=== PATIENT | male | born 1935 | race American Indian/Alaskan Native ===

== ENCOUNTER 2020-09-16 09:58 | Inpatient (IN) | payer MEDICARE ==
[2020-09-16] MEDS ORDERED: SODIUM CHLORIDE 0.9% 500 ML 500 ML IV ONE (10:33)
[2020-09-16 10:58] LABS: Eosinophils # (Auto) 0.1 K/mm3 (0.0-0.4); Eosinophils % (Auto) 0.9 % (0.0-4.3); Monocytes # (Auto) 0.1 K/mm3 (0.0-0.8); Monocytes % (Auto) 1.3 % (0.0-7.3)
[2020-09-16 11:00] LABS: Basophils % (Auto) 0.3 % (0.0-1.8); Hemoglobin 11.2 gm/dl (11.8-15.2); Lymphocytes # (Auto) 2.9 K/mm3 (1.2-5.4); Lymphocytes % (Auto) 26.5 % (13.4-35.0); Mean Corpuscular HGB Conc 31 % (32-34); Mean Corpuscular Volume 86 fl (84-94); Platelet Count 162 K/mm3 (140-440); Red Blood Count 4.18 M/mm3 (3.65-5.03); Red Cell Distribution Width 14.9 % (13.2-15.2)
[2020-09-16 11:07] LABS: Alanine Aminotransferase 47 units/L (7-56); Albumin 3.2 g/dL (3.9-5); BUN/Creatinine Ratio 17; Blood Urea Nitrogen 25 mg/dL (9-20); Calcium 8.6 mg/dL (8.4-10.2); Hemolysis Index 17
[2020-09-16 11:15] LABS: INR 1.55 (0.87-1.13)
[2020-09-16 11:16] LABS: Partial Thromboplastin Time 43.4 Sec. (24.2-36.6)
[2020-09-16 11:19] LABS: Bilirubin,Direct < 0.2 mg/dL (0-0.2)
--- NOTE | 2020-09-16 11:24 | XRay Report ---
CHEST 1 VIEW INDICATION: cardiac arrest, tube position COMPARISON: None FINDINGS: SUPPORT DEVICES: Endotracheal tube has tip 1 cm above the salvador. Nasogastric tubes in place HEART / MEDIASTINUM: No significant abnormality. LUNGS / PLEURA: No significant pulmonary or pleural abnormality. No pneumothorax. ADDITIONAL FINDINGS: IMPRESSION: 1. No acute cardiopulmonary disease Signer Name: Mateo Lewis MD Signed: 09/16/2020 11:20 AM Workstation Name: [id number]
--- NOTE | 2020-09-16 11:31 | Emergency Department Report ---
ED General Adult HPI - General Stated complaint: CARDIAC ARRERST Time Seen by Provider: 09/16/20 10:33 - History of Present Illness Initial comments: This is an 84-year-old man who came in on a "thumper" after cardiac arrest. EMS report was somewhat sketchy. Paramedics stated that the patient was found to have respirations and a pulse while in the residence. However, they stated that he lost his pulse in route to the hospital and CPR was initiated. According to the patient's , the patient has a history of mild/moderate Alzheimer's but is able to follow commands and is cooperative. His only medication is a statin for his cholesterol. He was admitted to [facility] about 1 year ago for pneumonia. She states that he was at his baseline until this morning. She stated that he abruptly became unresponsive and collapsed into her her arms. First responders started CPR. She states that the medics placed the patient on a thumper downstairs in their residence. An IO was also initiated. A Marino airway device was utilized by EMS. Accu-Chek was checked in the field and reported to be normal. On arrival, the patient was found to have a pulse. CPR was discontinued. He was intubated. The blood pressure was found to be over 100 systolic. Patient was given a fluid bolus. He remained in the normal pressure range. However, it was deemed appropriate that he have a central line placed. This was placed without difficulty as well. He was placed on a ventilator. Sedation was held as it was necessary to determine his level of independent function after prolonged CPR and he was fully unresponsive. His temperature was found to be 94 rectally. states that the patient has not had any Covid exposures nor any associated symptoms. ED Review of Systems ROS: Stated complaint: CARDIAC ARRERST Other details as noted in HPI Comment: Unobtainable due to pts medical conditions ED Past Medical Hx - Past Medical History Previous Medical History?: Yes Additional medical history: Outside ribs, pneumonia, high cholesterol. - Social History Substance Use Type: None Other Social History: Resides with . ED Physical Exam - General Limitations: Altered Mental Status General appearance: obtunded - Head Head exam: Present: atraumatic - Eye Eye exam: Absent: scleral icterus Pupils: Present: miosis - ENT ENT exam: Present: normal exam - Neck Neck exam: Present: normal inspection. Absent: lymphadenopathy, thyromegaly - Respiratory Respiratory exam: Present: normal lung sounds bilaterally (With airway assist) - Cardiovascular Cardiovascular Exam: Present: tachycardia - GI/Abdominal GI/Abdominal exam: Present: soft. Absent: distended - Extremities Exam Extremities exam: Present: normal inspection - Back Exam Back exam: Present: other (Inadequate visualization but nothing apparent on logroll off backboard) - Neurological Exam Neurological exam: Present: altered ED Course Vital Signs 09/16/20 10:24 Pulse Rate 93 H Blood Pressure 122/80 - Reevaluation(s) Reevaluation #1: Patient was placed on a ventilator. He continues to have respiratory effort. He does not appear to have signs of cortical function at this juncture. Life has been counseled. Hospitalist has seen the patient. 09/16/20 11:57 - Central Line Placement Right Femoral Consent Obtained: emergent situation Time Out Performed: No Patient Placed on Monitor/Pulse Ox: No MD Prep: mask, gown, gloves Central Line Prep: Chlorhexidine scrub Ultrasound Used for Placement: No Central Line Lumen Inserted: triple Bloods Obtained for Lab: Yes Central Line Position: good blood return (Venous nonpulsatile), all ports aspirated, flus, sutured in place with 3-0 Dressing Applied: Tegaderm Patient Tolerated Procedure: no complications Complications: none Additional Comments: Single puncture - Intubation Time Out Performed: Yes Sedative: none Laryngoscope: Arlen Size: 4 ET Tube Size: 7.5 Tube Secured Depth (cm): 22 Tube Secured Location: lips Tube Placement Confirmation: visualized tube passing t, equal breath sounds bilat, no breath sounds over epi, confirmation by capnometr Patient Tolerated Procedure: well Intubation Complications: none ED Medical Decision Making - Lab Data Result diagrams: 09/16/20 10:37 09/16/20 10:37 Laboratory Results - last 24 hr 09/16/20 09/16/20 09/16/20 10:37 10:37 10:37 WBC 10.8 RBC 4.18 Hgb 11.2 L Hct 36.0 MCV 86 MCH 27 L MCHC 31 L RDW 14.9 Plt Count 162 Lymph % (Auto) 26.5 [place] % (Auto) 1.3 Eos % (Auto) 0.9 Baso % (Auto) 0.3 Lymph # (Auto) 2.9 [place] # (Auto) 0.1 Eos # (Auto) 0.1 Baso # (Auto) 0.0 Add Manual Diff Complete Seg Neutrophils % 71.0 H Seg Neutrophils # 7.7 PT 18.6 H INR 1.55 H APTT 43.4 H VBG pH Sodium Potassium Chloride Carbon Dioxide Anion Gap BUN Creatinine Estimated GFR BUN/Creatinine Ratio Glucose Lactic Acid 10.00 H* Calcium Magnesium Total Bilirubin Direct Bilirubin Indirect Bilirubin AST ALT Alkaline Phosphatase NT-Pro-B Natriuret Pep Total Protein Albumin Albumin/Globulin Ratio 09/16/20 09/16/20 10:37 10:37 WBC RBC Hgb Hct MCV MCH MCHC RDW Plt Count Lymph % (Auto) [place] % (Auto) Eos % (Auto) Baso % (Auto) Lymph # (Auto) [place] # (Auto) Eos # (Auto) Baso # (Auto) Add Manual Diff Seg Neutrophils % Seg Neutrophils # PT INR APTT VBG pH 7.138 L* Sodium 137 Potassium 3.7 Chloride 102.7 Carbon Dioxide 16 L Anion Gap 22 BUN 25 H Creatinine 1.5 H Estimated GFR 45 BUN/Creatinine Ratio 17 Glucose 243 H Lactic Acid Calcium 8.6 Magnesium 2.50 H Total Bilirubin 0.50 Direct Bilirubin < 0.2 Indirect Bilirubin 0.3 AST 54 H ALT 47 Alkaline Phosphatase 76 NT-Pro-B Natriuret Pep 144.6 Total Protein 6.1 L Albumin 3.2 L Albumin/Globulin Ratio 1.1 - EKG Data -: EKG Interpreted by Me EKG shows normal: sinus rhythm, axis (Left anterior fascicular block) Rate: tachycardia - EKG Data Interpretation: nonspecific ST-T wave radha, LVH - Radiology Data Radiology results: image reviewed (ET tube a few centimeters proximal to the salvador. Lung sheppard appear clear.) CT scan is yet pending Critical care attestation.: If time is entered above; I have spent that time in minutes in the direct care of this critically ill patient, excluding procedure time. ED Disposition Clinical Impression: Cardiac arrest, Lactic acidosis, Coagulopathy, Hyperglycemia, Acute renal injury, Hypoxic brain injury Disposition: OP ADMIT IP TO THIS HOSP Is pt being admited?: Yes Does the pt Need Aspirin: Yes (Give after CT clearance) Condition: Stable Time of Disposition: 12:01
[2020-09-16] MEDS ORDERED: ASPIRIN 300 MG RECT SUPP PR ONE (12:02)
--- NOTE | 2020-09-16 12:10 | History and Physical Report ---
History of Present Illness Date of examination: 09/16/20 Date of admission: 09/16/2020. Chief complaint: Cardiac arrest History of present illness: 84-year-old male with past medical history of Alzheimer's dementia and hyperlipidemia who presented through the emergency department s/p cardiopulmonary arrest. History was obtained from the EMS record/ER physician and daughter. Patient reportedly was walking through the house and collapsed into his daughter's arms this morning. Preceding complaint was only of right knee pain which is chronic related to osteoarthritis. Daughter does not report any complaints of chest pain, shortness of breath or headaches. Patient was noted to be unresponsive when EMS arrived. However, EMS stated he patient was found to have respirations and a pulse while in the residence. EMS also reported patient lost a pulse in route to the hospital. Patient reportedly is able to follow commands and is cooperative at baseline. ER physician reports on arrival to the hospital, the patient was found to have a pulse. CPR was disco ntinued. He was intubated. The blood pressure was found to be over 100 systolic. Patient was given a fluid bolus. He remained in the normal pressure range. However, it was deemed appropriate that he have a central line placed. This was placed without difficulty as well. He was placed on a ventilator. Sedation was held as it was necessary to determine his level of independent function after prolonged CPR and he was fully unresponsive. His temperature was found to be 94 rectally. Past History Past Medical History: hyperlipidemia, other (Alzheimer's dementia) Past Surgical History: No surgical history Social history: no significant social history Family history: no significant family history Review of Systems ROS unobtainable: due to endotracheal tube, due to mental status Exam - Constitutional Vitals: Temp Pulse Resp BP Pulse Ox 93 H 122/80 09/16/20 10:24 09/16/20 10:24 General appearance: Present: no acute distress, well-nourished, other (Patient is orally intubated on mechanical ventilation) - EENT Eyes: Present: PERRL ENT: hearing intact, clear oral mucosa - Neck Neck: Present: supple, normal ROM - Respiratory Respiratory effort: normal Respiratory: bilateral: CTA - Cardiovascular Heart Sounds: Present: S1 & S2. Absent: rub, click - Extremities Extremities: pulses symmetrical, No edema Peripheral Pulses: within normal limits - Abdominal General gastrointestinal: Present: soft, non-tender, non-distended, normal bowel sounds Male genitourinary: Present: normal - Integumentary Integumentary: Present: clear, warm, dry - Musculoskeletal Musculoskeletal: gait normal, strength equal bilaterally - Psychiatric Psychiatric: appropriate mood/affect, intact judgment & insight - Neurologic Neurologic: CNII-XII intact, moves all extremities Results - Labs CBC & Chem 7: 09/16/20 10:37 09/16/20 10:37 Labs: Laboratory Last Values WBC 10.8 K/mm3 (4.5-11.0) 09/16/20 10:37 RBC 4.18 M/mm3 (3.65-5.03) 09/16/20 10:37 Hgb 11.2 gm/dl (11.8-15.2) L 09/16/20 10:37 Hct 36.0 % (35.5-45.6) 09/16/20 10:37 MCV 86 fl (84-94) 09/16/20 10:37 MCH 27 pg (28-32) L 09/16/20 10:37 MCHC 31 % (32-34) L 09/16/20 10:37 RDW 14.9 % (13.2-15.2) 09/16/20 10:37 Plt Count 162 K/mm3 (140-440) 09/16/20 10:37 Lymph % (Auto) 26.5 % (13.4-35.0) 09/16/20 10:37 Harris % (Auto) 1.3 % (0.0-7.3) 09/16/20 10:37 Eos % (Auto) 0.9 % (0.0-4.3) 09/16/20 10:37 Baso % (Auto) 0.3 % (0.0-1.8) 09/16/20 10:37 Lymph # (Auto) 2.9 K/mm3 (1.2-5.4) 09/16/20 10:37 Harris # (Auto) 0.1 K/mm3 (0.0-0.8) 09/16/20 10:37 Eos # (Auto) 0.1 K/mm3 (0.0-0.4) 09/16/20 10:37 Baso # (Auto) 0.0 K/mm3 (0.0-0.1) 09/16/20 10:37 Add Manual Diff Complete 09/16/20 10:37 Seg Neutrophils % 71.0 % (40.0-70.0) H 09/16/20 10:37 Seg Neutrophils # 7.7 K/mm3 (1.8-7.7) 09/16/20 10:37 PT 18.6 Sec. (12.2-14.9) H 09/16/20 10:37 INR 1.55 (0.87-1.13) H 09/16/20 10:37 APTT 43.4 Sec. (24.2-36.6) H 09/16/20 10:37 D-Dimer > 55916 ng/mlDDU (0-234) H 09/16/20 10:37 VBG pH 7.138 (7.320-7.420) L* 09/16/20 10:37 Sodium 137 mmol/L (137-145) 09/16/20 10:37 Potassium 3.7 mmol/L (3.6-5.0) 09/16/20 10:37 Chloride 102.7 mmol/L (98-107) 09/16/20 10:37 Carbon Dioxide 16 mmol/L (22-30) L 09/16/20 10:37 Anion Gap 22 mmol/L 09/16/20 10:37 BUN 25 mg/dL (9-20) H 09/16/20 10:37 Creatinine 1.5 mg/dL (0.8-1.3) H 09/16/20 10:37 Estimated GFR 45 ml/min 09/16/20 10:37 BUN/Creatinine Ratio 17 % 09/16/20 10:37 Glucose 243 mg/dL (75-100) H 09/16/20 10:37 Lactic Acid 10.00 mmol/L (0.7-2.0) H* 09/16/20 10:37 Calcium 8.6 mg/dL (8.4-10.2) 09/16/20 10:37 Magnesium 2.50 mg/dL (1.7-2.3) H 09/16/20 10:37 Total Bilirubin 0.50 mg/dL (0.1-1.2) 09/16/20 10:37 Direct Bilirubin < 0.2 mg/dL (0-0.2) 09/16/20 10:37 Indirect Bilirubin 0.3 mg/dL 09/16/20 10:37 AST 54 units/L (5-40) H 09/16/20 10:37 ALT 47 units/L (7-56) 09/16/20 10:37 Alkaline Phosphatase 76 units/L (35-129) 09/16/20 10:37 NT-Pro-B Natriuret Pep 144.6 pg/mL (0-900) 09/16/20 10:37 Total Protein 6.1 g/dL (6.3-8.2) L 09/16/20 10:37 Albumin 3.2 g/dL (3.9-5) L 09/16/20 10:37 Albumin/Globulin Ratio 1.1 % 09/16/20 10:37 Assessment and Plan Assessment and plan: Cardiopulmonary arrest. Patient reportedly with [id number] cardiopulmonary arrest. Unsure of the patient's total time without a pulse. Cardiology and pulmonary consultation pending. Follow-up echocardiogram, cardiac isoenzymes and serial EKG. CT scan of the head pending. Check MRI and EEG when patient stabilized. D-dimer significantly elevated greater than 10,000. Check CTA of the chest. Lactic acid also elevated at 10 which increases mortality signi ficantly. Elevated D-dimer. Hold on anticoagulation until CT of the head confirms no bleeding. CTA of the chest. Acute hypoxic respiratory failure. Etiology is unknown at this time. Chest x- ray shows no acute disease. Nephrology consultation Acute kidney injury. Etiology unknown. Consider vasomotor nephropathy/dehydration. Aggressive IV fluid hydration. Lactic acidosis. As above. The high probability of a clinically significant, sudden or life threatening deterioration of the [cardiac, pulmonary] system(s) required my full and direct attention, intervention and personal management. The aggregate critical care time was [32] minutes. This time is in addition to time spent performing reported procedures but includes the following: [x] Data Review and interpretation [x] Patient assessment and monitoring of vital signs [x] Documentation [x] Medication orders and management
[2020-09-16] MEDS ORDERED: DEXTROSE 50% IN WATER (25GM) 50 ML SYRINGE IV PRN (12:19)
[2020-09-16] MEDS: NORepinephrine/NS 4 MG-250 ML 4 MG/250 ML BAG IV SCH (12:20)
--- NOTE | 2020-09-16 12:45 | Consultation ---
History of Present Illness - Reason for Consult Consult date: 09/16/20 acute renal failure, metabolic acidosis - History of Present Illness The patient is an 84 YO male with medical history significant for Alzheimer's dementia and hyperlipidemia who presented to [facility] ED 09/16 s/p cardiopulmonary arrest. Patient was not able to provide any history and there was no family member at the bedside. Patient reportedly was walking through the house and collapsed into his daughter's arms this morning. No report of chest pain, shortness of breath or headache. Patient reportedly is able to follow commands and is cooperative at baseline. Patient was noted to be unresponsive when EMS arrived. However, EMS stated he patient was found to have respirations and a pulse while in the residence. EMS also reported patient lost a pulse in route to the hospital and was placed on the CPR Thumper. ER physician reports on arrival to the hospital, the patient was found to have a pulse. CPR was disc ontinued. He was intubated, given a fluid bolus and started on Levophed. Creatinine was 1.5 and bicarb 16. Nephrology was consulted for further evaluation. Past History Past Medical History: hyperlipidemia, other (Alzheimer's dementia) Past Surgical History: No surgical history Social history: no significant social history Family history: no significant family history Medications and Allergies Allergies Allergy/AdvReac Type Severity Reaction Status Date / Time No Known Allergies Allergy Unverified 09/16/20 12:52 Active Meds: Active Medications Dextrose (Dextrose 50% In Water (25gm) 50 Ml Syringe) 50 ml IV Q30MIN PRN; Protocol PRN Reason: Hypoglycemia Insulin Human Regular (Insulin Regular, Human 100 Unit/Ml 3ml Vial) 0 unit SUB- Q Q6H DARA; Protocol Sodium Chloride (Sodium Chloride 0.9% 10 Ml Flush Syringe) 10 ml IV BID DARA Sodium Chloride (Sodium Chloride 0.9% 10 Ml Flush Syringe) 10 ml IV PRN PRN PRN Reason: LINE FLUSH Review of Systems ROS unobtainable: due to mental status Exam - Vital Signs Vital signs: Vital Signs Pulse BP 93 H 122/80 09/16/20 10:24 09/16/20 10:24 Results - Lab Results 09/16/20 10:37 09/16/20 10:37 Most recent lab results Calcium 8.6 mg/dL (8.4-10.2) 09/16/20 10:37 Magnesium 2.50 mg/dL (1.7-2.3) H 09/16/20 10:37 Assessment and Plan 1. Acute kidney injury: Vasomotor nephropathy in the setting of Cardiac arrest. Urine studies and Renal US ordered. Started on IV fluids. Monitor renal function. Baseline renal function is unknown. Avoid nephrotoxic agents. Meds dosage based on GFR. 2. FEN: Anion-gap metabolic acidosis, 2/2 lactic acidosis, bicarb drip, monitor. Monitor lytes and volume status. 3. S/p Cardiac arrest: Cardiac arrest 09/16. Cards consulted. 4. Acute resp failure: Followed by Pulmonary. 5. Shock: Currently on Levophed. 6. PE: CTA showed multiple filling defects involving L LL and R UL. 7. Anemia, POA: MOnitor. 8. Acute Metabolic Encephalopathy, POA: Supportive care. Prognosis is guarded. Subjective: Patient was seen and examined at the bedside. Examination: General appearance: well-developed, appears emaciated, intubated, on vent HEENT: ATNC EYES: pupils reacting to light Neck: trachea midline Respiratory: MV sounds Heart: S1S2, regular, no murmur Gastrointestinal: soft, not tender, BS heard Integumentary: no rash, warm and dry Neurologic: not responding, increased muscle tone noted Ext: no edema
[2020-09-16] MEDS ORDERED: NORepinephrine/NS 4 MG-250 ML 4 MG/250 ML BAG IV SCH (14:00)
[2020-09-16 15:30] LABS: Bilirubin,Urine NEG (Negative); Blood,Urine LG (Negative); Color,Urine Amber (Yellow); Mucus,Urine FEW /HPF; Urobilinogen,Urine < 2.0 mg/dL (<2.0)
[2020-09-16 15:32] LABS: Bacteria,Urine 4+ /HPF (Negative); Protein,Urine >500 mg/dL (Negative); RBC,Urine > 182.0 /HPF (0.0-6.0)
--- NOTE | 2020-09-16 17:08 | Cat Scan Report ---
CT head/brain wo con INDICATION / CLINICAL INFORMATION: 84 years Male; elevated d-dimer. TECHNIQUE: Routine CT head without contrast. All CT scans at this location are performed using CT dos e reduction for ALARA by means of automated exposure control. COMPARISON: None. 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 There is also moderate cerebral atrophy with associated mild prominence of the ventricular system. There is no clear CT evidence of acute intracranial hemorrhage or significant mass effect. ORBITS: No significant abnormality of visualized orbits. SINUSES / MASTOIDS: No significant abnormality in the visualized paranasal sinuses or mastoid air gomez ls. CRANIOCERVICAL JUNCTION: No significant abnormality. ADDITIONAL FINDINGS: None. IMPRESSION: 1. 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 Signer Name: Romario Mehta MD Signed: 09/16/2020 5:04 PM Workstation Name: [id number]
--- NOTE | 2020-09-16 17:19 | Cat Scan Report ---
CTA CHEST WITH IV CONTRAST INDICATION / CLINICAL INFORMATION: elevated d-dimer. TECHNIQUE: Axial CT images were obtained through the chest after injection of 100 cc Omnipaque 350 milligrams pe rcent IV contrast. 3 plane MIP and/or 3D reconstructions were produced. All CT scans at this location are performed using CT dose reduction for ALARA by means of automated exposure control. COMPARISON: None available. FINDINGS: PULMONARY ARTERIES: Multiple filling defects are present involving the left lower lobe pulmonary mikel ry and right upper pulmonary. THORACIC AORTA: No significant abnormality. HEART: No significant abnormality. Borderline right heart strain. CORONARY ARTERIES: No significant calcification. PLEURA: No pleural effusion. No pneumothorax. LYMPH NODES: No significant adenopathy. LUNGS: No acute air space or interstitial disease. ADDITIONAL FINDINGS: Endotracheal tubes tip at the salvador UPPER ABDOMEN: No acute findings. SKELETAL STRUCTURES: No significant osseous abnormality. IMPRESSION: 1. Pulmonary embolic disease as noted. 2. Endotracheal tube position as noted. CRITICAL RESULT: Time of Discovery: 1600 hours Central time Time of Communication: 1615 hours Licensed Practitioner Receiving Report: Sammy Yi RN was notified of these findings personall y by Dr. Lewis Read Back Performed: Yes. Signer Name: Mateo Lewis MD Signed: 09/16/2020 5:15 PM Workstation Name: [id number]
--- NOTE | 2020-09-16 18:06 | Consultation ---
History of Present Illness Consult date: 09/16/20 Requesting physician: ANABEL HAIRSTON Reason for consult: other (Acute Hypoxemic Respiratory Failure) History of present illness: PULMONARY/CCM CONSULT NOTE (Full dictation # [id number]) Please see dictated notes for full details Past History Past Medical History: hyperlipidemia, other (Alzheimer's dementia) Past Surgical History: No surgical history Social history: no significant social history Family history: no significant family history Medications and Allergies Allergies Allergy/AdvReac Type Severity Reaction Status Date / Time No Known Allergies Allergy Unverified 09/16/20 12:52 Active Meds: Active Medications Dextrose (Dextrose 50% In Water (25gm) 50 Ml Syringe) 50 ml IV Q30MIN PRN; Pr otocol PRN Reason: Hypoglycemia Sodium Bicarbonate 150 meq/ (Sterile Water) 150 mls @ 100 mls/hr IV DIRECT DARA Norepinephrine (Levophed Drip 4 Mg/Ns 250 Ml) 4 mg in 250 mls @ 7.5 mls/hr IV TITR DARA; Protocol Last Titration: 09/16/20 13:15 Dose: 6 mcg/min, 22.5 mls/hr Documented by: Insulin Human Regular (Insulin Regular, Human 100 Unit/Ml 3ml Vial) 0 unit SUB- Q Q6H DARA; Protocol Sodium Chloride (Sodium Chloride 0.9% 10 Ml Flush Syringe) 10 ml IV BID DARA Sodium Chloride (Sodium Chloride 0.9% 10 Ml Flush Syringe) 10 ml IV PRN PRN PRN Reason: LINE FLUSH Physical Examination Vital signs: Vital Signs Pulse Resp BP 83 16 121/73 09/16/20 10:15 09/16/20 10:15 09/16/20 10:15 Results - Laboratory Findings CBC and BMP: 09/16/20 10:37 09/16/20 10:37 ABG ABG pH 7.333 (7.320-7.450) 09/16/20 16:00 POC ABG pCO2 31.0 mmHg (32.0-48.0) L 09/16/20 16:00 POC ABG pO2 427.0 mmHg (83-108) H 09/16/20 16:00 POC ABG HCO3 16.1 09/16/20 16:00 PT/INR, D-dimer PT 18.6 Sec. (12.2-14.9) H 09/16/20 10:37 INR 1.55 (0.87-1.13) H 09/16/20 10:37 D-Dimer > 90290 ng/mlDDU (0-234) H 09/16/20 10:37 Abnormal lab findings: Abnormal Labs 09/16/20 09/16/20 09/16/20 10:37 10:37 10:37 Hgb 11.2 L MCH 27 L MCHC 31 L Seg Neutrophils % 71.0 H PT 18.6 H INR 1.55 H APTT 43.4 H D-Dimer > 65337 H POC ABG pCO2 POC ABG pO2 ABG Chloride ABG Glucose VBG pH Carbon Dioxide BUN Creatinine Glucose Lactic Acid 10.00 H* Magnesium AST Total Protein Albumin Arterial Blood Glucose Arterial Blood Ionized Calcium Urine WBC (Auto) U Epithel Cells (Auto) 09/16/20 09/16/20 09/16/20 10:37 10:37 10:53 Hgb MCH MCHC Seg Neutrophils % PT INR APTT D-Dimer POC ABG pCO2 POC ABG pO2 ABG Chloride ABG Glucose VBG pH 7.138 L* Carbon Dioxide 16 L BUN 25 H Creatinine 1.5 H Glucose 243 H Lactic Acid Magnesium 2.50 H AST 54 H Total Protein 6.1 L Albumin 3.2 L Arterial Blood Glucose Arterial Blood Ionized Calcium Urine WBC (Auto) 67.0 H U Epithel Cells (Auto) 27.0 H 09/16/20 16:00 Hgb MCH MCHC Seg Neutrophils % PT INR APTT D-Dimer POC ABG pCO2 31.0 L POC ABG pO2 427.0 H ABG Chloride 109.0 H ABG Glucose 169 H VBG pH Carbon Dioxide BUN Creatinine Glucose Lactic Acid Magnesium AST Total Protein Albumin Arterial Blood Glucose 169 H Arterial Blood Ionized Calcium 4.5 L Urine WBC (Auto) U Epithel Cells (Auto)
[2020-09-16] MEDS: INSULIN REGULAR, HUMAN 100 UNIT/ML 3ML VIAL SUB-Q SCH ×2 (19:05→20:14)
[2020-09-16] MEDS ORDERED: HEPARIN 10,000 UNITS/10 ML VIAL IV ONE (20:12)
[2020-09-16] MEDS ORDERED: HEPARIN 10,000 UNITS/10 ML VIAL IV PRN (20:12)
[2020-09-16] MEDS ORDERED: LIP THERAPY VASELINE TP PRN (20:12)
[2020-09-16] MEDS ORDERED: fentaNYL 100 MCG/2 ML INJ IV PRN (20:12)
[2020-09-16] MEDS ORDERED: MINERAL OIL/PETROLATUM, WHITE OPHTH OINT 3.5 GM OU PRN (20:12)
[2020-09-16] MEDS: SODIUM BICARBONATE 150 MEQ in /WATER, STERILE 1,000 SYR IV SCH (20:35)
[2020-09-16] MEDS ORDERED: fentaNYL DRIP Premix 2,000 MCG/100 ML BAG IV SCH (21:00)
[2020-09-16] MEDS: HEPARIN/ 0.45% NACL DRIP 25,000 UNIT/500 ML BAG IV SCH (21:00)
[2020-09-16 21:08] LABS: Hematocrit 40.1 % (35.5-45.6); Hemoglobin 12.6 gm/dl (11.8-15.2)
[2020-09-16 21:20] LABS: INR 1.51 (0.87-1.13)
[2020-09-16] MEDS ORDERED: ACETAMINOPHEN 650 MG RECT SUPP PR ONE (22:13)
[2020-09-16] MEDS: methylPREDNISolone Sod Succinate 40 MG/1 ML INJ IV SCH (22:17)
--- NOTE | 2020-09-16 23:17 | Consultation ---
PULMONARY CRITICAL CARE CONSULTATION NOTE CONSULTING PHYSICIAN: Dr. Coppola. REASON FOR CONSULTATION: Acute respiratory failure, hypoxemic, on mechanical ventilatory support. Suspected [id number] cardiac arrest. CHIEF COMPLAINT AND HISTORY OF PRESENT ILLNESS: The patient is an 84-year-old male with past medical history as far as I can tell significant only for Alzheimer's dementia and pneumonia diagnosed about a year ago in [facility]. According to the patient's daughter, he was going to his room early this morning when he collapsed. Emergency medical services were called. Apparently a Marino airway device was utilized by EMS. He was not hypoglycemic. In the ER, he was found to have a pulse. He did receive CPR by the first responders. ACLS protocol was discontinued. He was intubated and we were asked to assist with management. His initial temperature was 94 degrees Fahrenheit rectally. His caregiver in the room, I believe, his daughter is what they are telling me denies the patient having any known exposures to COVID-19 or anyone with COVID-19. When asked about tobacco use/abuse history, his daughter says he has a remote tobacco smoking history, unable to quantify it. This really is as much of the history of presentation as I have. PAST MEDICAL HISTORY: Alzheimer's dementia, pneumonia last year. PAST SURGICAL HISTORY: Unknown. MEDICATIONS: He was on at the time I stopped by to see him were reviewed. Medications included the following, Levophed drip 2 mcg per minute, D5W with 3 amps of bicarbonate per liter at 100 mL per hour and insulin via sliding scale. ALLERGIES: No known drug allergies. DIET: Thin gentleman. Family denies acute weight loss or gain preceding few weeks to months. FAMILY AND SOCIAL HISTORY: Lives in the community, I believe, with his daughter. He has no current alcohol, tobacco, or illicit drug use or abuse. He does have a remote tobacco smoking history. Family history, otherwise unobtainable. REVIEW OF SYSTEMS: Unobtainable secondary to patient's medical and mental condition. Since he has been here, no gross hematochezia or melena, no gross hematuria, no hematemesis, no bloody tracheal secretions, no witnessed seizures. Review of systems is otherwise unobtainable or as in body of the history above. PHYSICAL EXAMINATION: VITAL SIGNS: On examination at presentation over here, his initial temperature was recorded as 94.3 degrees Fahrenheit, pulse was 83, respiratory rate 16, blood pressure 121/73, O2 sats were initially 89%, inspired oxygen concentration at that time was not recorded. When I stopped by to see him, O2 sats were 99% that was on the assist control mode of ventilation, tidal volumes 450, set rate of 20, PEEP of 6 and 50% FiO2. GENERAL: An elderly looking thin male, looks his stated age, normocephalic, atraumatic, resting in bed with intermittent like every 15-30 seconds episodes of whole body myoclonic type jerks. HEAD, EYES, EARS, NOSE AND THROAT: Anicteric. No conjunctival erythema. Oropharynx was dry. ET tube was taped around 23-24 cm at the lips. NECK: Grossly, there were no palpable lymph nodes in the supraclavicular or submandibular lymph node chains. LUNGS: Auscultation of both lung sheppard significant for diminished bilateral breath sounds, scant bilateral rhonchi. No active wheezing or focal dullness. HEART: Heart sounds 1 and 2 are heard. They were regular in rate and rhythm at the time of my evaluation without overt rubs or murmurs. ABDOMEN: Soft, flat. Bowel sounds positive, nontender, no palpable hepatosplenomegaly. EXTREMITIES: Without overt digital clubbing or cyanosis. No pedal edema. He has an IO, intraosseous device, I believe in the left samayoa. Pedal pulses were 2+ bilaterally. NEUROLOGIC: Pupils are equal, round, about 4 mm, reactive to light. Extraocular muscle movements could not be assessed. He did have a leftward gaze during his myoclonic jerks. He had whole body myoclonic jerks involving the upper and lower extremities with stiffening of the central body. SKIN: Poor turgor in the areas examined; however, without overt cellulitis or rash. Please see the wound care nurse's notes for full description of skin. PSYCHIATRIC: Mood and affect could not be assessed. LABORATORY DATA: From my review are as follows: White cell count 10,800, hemoglobin 11.2, hematocrit 36.0, platelet count 162. D-dimer greater than 10,000. Arterial blood gas showed a pH of 7.33, pCO2 of 31, pO2 of 427 that was on 100% FiO2 at that time. Serum sodium 137, potassium 3.7, chloride 103, bicarbonate 16, BUN 25, creatinine 1.5, glucose was 243. Lactic acid level was 10.0, hemoglobin A1c within normal limits. AST was up at 54, otherwise liver function tests essentially within normal limits. Urinalysis was positive for trace leukocyte esterase, 6-7 white cells per high power field, 4+ bacteria. Blood culture 1 set, no growth to date. A CT scan of the head was done. I have reviewed the radiologist's interpretation. It was reported as extensive microvascular change without evidence of an acute hemorrhage or other process. A chest x-ray shows the ET tube tip just about 1 cm above the salvador. Lungs are clear otherwise. A CT angio was done of the chest. I have reviewed the image as well as the radiologist's interpretation. The patient has filling defects, particularly the left lower lobe branches of the pulmonary artery consistent with pulmonary emboli. He also on the lung windows, really no focal consolidation or other infiltrate. There is motion artifact. ASSESSMENT: 1. Acute hypoxemic respiratory failure, on mechanical ventilatory support. 2. Cardiac arrest with return of spontaneous circulation, probably secondary to #3. 3. Acute pulmonary emboli. 4. Person under investigation for COVID-19 infection. 5. History of dementia. 6. Urinary tract infection. 7. Anemia that is normocytic. 8. Elevated serum D-dimers. 9. Lactic acidosis. 10. Severe sepsis. PLAN: I am going to go ahead and begin full anticoagulation. I will go with IV heparin initially and trend his platelet count. I am bothered that this gentleman certainly could also still with COVID-19 infected patient, especially with hypercoagulable state and VTE. The patient does state that he is not sedentary at home. Ventilator-associated pneumonia bundle has been introduced. He will be sedated with fentanyl and propofol to try and stop the myoclonic jerks. I am going to go ahead and we will avoid Versed and benzodiazepines to reduce the occurrence of dementia. Coronavirus PCR will be sent out. Airborne and contact isolation will be started. I will empirically begin vitamin C and zinc. I am bothered that he may have suffered significant anoxic injury, but not enough to at least show up on the CT of the brain initially that is encouraging. I have explained to his daughter that the next few days will be critical to see what kind of improvement in his neurological status can be found. Oxygen will be weaned to keep sats greater than or equal to about 92%. Systemic steroids will be started. I will go with dexamethasone 6 mg IV daily for at least 10 days. Empiric antibiotics will be held for now. I will get procalcitonin level as well as a CRP level and trend with other inflammatory markers as necessary. Blood cultures have been sent. I have asked the nurses to discontinue the intraosseous device. A right femoral central line has been placed. I will order a PICC line, so we can discontinue that. Vasopressors will be weaned to keep mean arterial pressures greater than or equal to about 65 mmHg. Electrolytes will be followed, corrected as necessary. He is going to be placed also on GI prophylaxis with PPI therapy to go along with his full anticoagulation. Flu and pneumonia vaccination will be addressed per protocol. Thank you very much for the consult. We will follow along and make further recommendations as picture progresses/becomes clearer. He is critically ill on life-sustaining interventions including mechanical ventilatory support, at very high risk of from cardiopulmonary system decompensation. At this time, I spent about 35-40 minutes of critical care time without overlap and excluding any procedural time that may be necessary. I do believe a Cardiology consult has been placed. I will follow the 2D echocardiogram if ordered. JOB# [id number] ROSELIA/FLAQUITA CANO
[2020-09-17] MEDS: INSULIN REGULAR, HUMAN 100 UNIT/ML 3ML VIAL SUB-Q SCH ×4 (00:58→20:38)
[2020-09-17 01:43] LABS: Creatinine,Urine 181.1 mg/dL (0.1-20.0)
[2020-09-17 04:32] LABS: ABG Base Excess -6.6 mmol/L (-2.0-3.0); ABG HCO3 17.4 mmol/L (20.0-26.0); ABG Methemoglobin 0.6 % (0.0-1.5); ABG Oxygen Saturation 99.4 % (95.0-99.0); ABG PCO2 30.5 mm Hg; ABG PH 7.375 pH Units (7.350-7.450); ABG PO2 237.5 mm Hg (80.0-90.0)
[2020-09-17 05:36] LABS: Hematocrit 36.1 % (35.5-45.6); Hemoglobin 11.8 gm/dl (11.8-15.2); Mean Corpuscular HGB Conc 33 % (32-34); Mean Corpuscular Volume 83 fl (84-94); Platelet Count 156 K/mm3 (140-440); Red Blood Count 4.34 M/mm3 (3.65-5.03); Red Cell Distribution Width 14.3 % (13.2-15.2)
[2020-09-17 06:14] LABS: Calcium 8.8 mg/dL (8.4-10.2)
[2020-09-17] MEDS: methylPREDNISolone Sod Succinate 40 MG/1 ML INJ IV SCH ×3 (06:26→23:52)
[2020-09-17 06:28] LABS: Anisocytosis 1+; Band Neutrophils # (Manual) 0.2 K/mm3; Platelet Estimate Consistent w Auto; Total Cells Counted 100
--- NOTE | 2020-09-17 07:10 | XRay Report ---
CHEST 1 VIEW 0609 INDICATION / CLINICAL INFORMATION: follow up respiratory failure COMPARISON: 09/16/2020 FINDINGS: SUPPORT DEVICES: Stable HEART / MEDIASTINUM: Stable LUNGS / PLEURA: Slight basilar atelectatic changes are seen. No definite focal infiltrates are noted. No pneumothorax. ADDITIONAL FINDINGS: No significant additional findings. Signer Name: Jose J Coppola MD Signed: 09/17/2020 7:06 AM Workstation Name: [id number]
[2020-09-17] MEDS: PANTOPRAZOLE 40 MG TAB PO SCH ×2 (07:36→16:51)
[2020-09-17] MEDS ORDERED: LIPASE 10,500/PROTEASE 25,000/AMYLASE 43,750 (UNITS) DR CAP FEEDTUBE PRN (08:56)
[2020-09-17] MEDS ORDERED: SIMPLE SYRUP 15 ML FEEDTUBE PRN ×2 (08:56)
[2020-09-17] MEDS ORDERED: SODIUM BICARBONATE 325 MG TAB FEEDTUBE PRN (08:56)
--- NOTE | 2020-09-17 11:42 | Consultation ---
History of Present Illness Consult date: 09/17/20 Requesting physician: ANABEL HAIRSTON Consult reason: cardiac arrest History of present illness: 84-year-old male with hyperlipidemia Alzheimer's history is obtained from the chart as patient is intubated and not responsive. Patient collapsed in the patient's daughter's arms. On EMS arrival had respiration and a pulse. In route lost pulse. CPR was started. In arrival in the ER patient had a pulse patient was intubated start on Levophed. Patient's echocardiogram done today shows mild to moderate LV dysfunction EF 40%. Past History Past Medical History: hyperlipidemia, other (Alzheimer's dementia) Past Surgical History: No surgical history Social history: no significant social history Family history: no significant family history Medications and Allergies Allergies Allergy/AdvReac Type Severity Reaction Status Date / Time No Known Allergies Allergy Unverified 09/16/20 12:52 Active Meds: Active Medications Lipase/Protease/Amylase (Lipase 10,500/Protease 25,000/Amylase 43,750 (Units) Dr Cap) 1 each FEEDTUBE PRN PRN PRN Reason: For Clogged Feeding Tube Dextrose (Dextrose 50% In Water (25gm) 50 Ml Syringe) 50 ml IV Q30MIN PRN; Protocol PRN Reason: Hypoglycemia Fentanyl (Fentanyl 100 Mcg/2 Ml Inj) 50 mcg IV Q10MIN PRN PRN Reason: ANALGESIA Heparin Sodium (Porcine) (Heparin 10,000 Units/10 Ml Vial) 2,400 unit 40 unit/kg (2400 unit) IV Q6H PRN PRN Reason: Anti-Xa Assay < 0.1 units/ml Last Admin: 09/16/20 21:00 Dose: 2,400 unit Documented by: Hydrophilic Ointment (Lip Therapy Vaseline) 1 applic TP Q2HR PRN PRN Reason: Dry Lips Sodium Bicarbonate 150 meq/ (Sterile Water) 150 mls @ 100 mls/hr IV DIRECT DARA Last Admin: 09/16/20 20:35 Dose: 100 mls/hr Documented by: Norepinephrine (Levophed Drip 4 Mg/Ns 250 Ml) 4 mg in 250 mls @ 7.5 mls/hr IV TITR DARA; Protocol Last Titration: 09/16/20 16:30 Dose: Infused Documented by: Fentanyl Citrate (Fentanyl Drip Premix) 2,000 mcg in 100 mls @ 3 mls/hr IV TITR DARA; Protocol Last Admin: 09/16/20 21:00 Dose: 1 mcg/kg/hr, 3 mls/hr Documented by: Propofol (Diprivan 10 Mg/Ml) 1,000 mg in 100 mls @ 1.8 mls/hr IV TITR DARA; Protocol Last Admin: 09/16/20 19:55 Dose: 5 mcg/kg/min, 1.8 mls/hr Documented by: Heparin Sodium/Sodium Chloride (Heparin/ 0.45% Nacl-25,000 Unit/500 Ml) 25,000 unit in 500 mls @ 18 mls/hr IV TITR DARA; Protocol Last Titration: 09/17/20 05:25 Dose: 0 units/hr, 0 mls/hr Documented by: Insulin Human Regular (Insulin Regular, Human 100 Unit/Ml 3ml Vial) 0 unit SUB- Q Q6H DARA; Protocol Last Admin: 09/17/20 07:04 Dose: Not Given Documented by: Methylprednisolone Sodium Succinate (Methylprednisolone Sod Succinate 40 Mg/1 Ml Inj) 40 mg IV Q8HR [facility] Last Admin: 09/17/20 06:26 Dose: 40 mg Documented by: Multi-Ingred Cream/Lotion/Oil/Oint (Mineral Oil/Petrolatum, White Ophth Oint 3.5 Gm) 1 applic OU Q4HR PRN PRN Reason: Dry Eye(s) Pantoprazole Sodium (Pantoprazole 40 Mg Tab) 40 mg PO BIDAC [facility] Last Admin: 09/17/20 07:36 Dose: Not Given Documented by: Simple Syrup (Simple Syrup 15 Ml) 15 ml FEEDTUBE PRN PRN PRN Reason: Hypoglycemia Simple Syrup (Simple Syrup 15 Ml) 30 ml FEEDTUBE PRN PRN PRN Reason: Hypoglycemia Sodium Bicarbonate (Sodium Bicarbonate 325 Mg Tab) 325 mg FEEDTUBE PRN PRN PRN Reason: For Clogged Feeding Tube Sodium Chloride (Sodium Chloride 0.9% 10 Ml Flush Syringe) 10 ml IV BID [facility] Last Admin: 09/17/20 10:13 Dose: 10 ml Documented by: Sodium Chloride (Sodium Chloride 0.9% 10 Ml Flush Syringe) 10 ml IV PRN PRN PRN Reason: LINE FLUSH Review of Systems ROS unobtainable: due to endotracheal tube, due to mental status Physical Examination Vital Signs Pulse Resp BP 83 16 121/73 09/16/20 10:15 09/16/20 10:15 09/16/20 10:15 General appearance: no acute distress HEENT: Positive: Other Neck: Positive: neck supple Cardiac: Positive: Reg Rate and Rhythm Lungs: Positive: Decreased Breath Sounds Neuro: Positive: Other (Sedated) Results 09/17/20 04:16 09/17/20 04:16 Coagulation 09/16/20 Range/Units 20:49 PT 18.2 H (12.2-14.9) Sec. INR 1.51 H (0.87-1.13) APTT 44.0 H (24.2-36.6) Sec. CBC 09/16/20 09/17/20 Range/Units 20:49 04:16 WBC 20.1 H (4.5-11.0) K/mm3 RBC 4.34 (3.65-5.03) M/mm3 Hgb 12.6 11.8 (11.8-15.2) gm/dl Hct 40.1 36.1 (35.5-45.6) % Plt Count 156 156 (140-440) K/mm3 Comprehensive Metabolic Panel 09/17/20 Range/Units 04:16 Sodium 139 (137-145) mmol/L Potassium 4.7 D (3.6-5.0) mmol/L Chloride 105.3 (98-107) mmol/L Carbon Dioxide 18 L (22-30) mmol/L BUN 34 H (9-20) mg/dL Creatinine 1.5 H (0.8-1.3) mg/dL Glucose 171 H (75-100) mg/dL Calcium 8.8 (8.4-10.2) mg/dL - Imaging and Cardiology Echo: report reviewed (Small pericardial effusion EF 40 to 45% without significant regurgitation) EKG interpretations - Telemetry EKG Rhythm: Sinus Rhythm (Sinus rhythm nonspecific ST-T's) Assessment and Plan Acute respiratory failure status post intubation Status post cardiac arrest Sepsis Acute renal insufficiency Hypotension Hyperlipidemia Elevated D-dimer rec: Patient is being tested for Covid. On IV heparin. On pressors and fluids. Steroids. Continue current management as per primary team
--- NOTE | 2020-09-17 11:45 | Progress Note ---
History Interval history: Cardiopulmonary arrest. Patient reportedly with [id number] cardiopulmonary arrest. Unsure of the patient's total time without a pulse. Cardiology and pulmonary consulted. Follow-up echocardiogram, cardiac isoenzymes and serial EKG. Check MRI and EEG when patient stabilized. D-dimer significantly elevated greater than 10,000. Lactic acid also elevated at 10 which increases mortality significantly. Pulmonary embolus. CTA showed multiple filling defects involving LLL and RUL. Continue IV heparin for anticoagulation. Sepsis. Patient meets criteria given the hypothermia, leukocytosis, hypotension and diagnosis of UTI. Follow-up blood and urine cultures. Acute hypoxic respiratory failure. Etiology secondary to above. Pulmonary consultation Acute kidney injury. Etiology secondary to vasomotor nephropathy/dehydration from cardiac arrest. Urine studies and Renal US ordered. Aggressive IV fluid hydration. Baseline renal function is unknown. Avoid nephrotoxic agents. Lactic acidosis. As above. 09/17/2020. Lactic acid improved. Follow-up blood and urine cultures. Start Rocephin IV daily. ID consultation. The high probability of a clinically significant, sudden or life threatening deterioration of the [cardiac, respiratory] system(s) required my full and direct attention, intervention and personal management. The aggregate critical care time was [32] minutes. This time is in addition to time spent performing reported procedures but includes the following: [x] Data Review and interpretation [x] Patient assessment and monitoring of vital signs [x] Documentation [x] Medication orders and management Hospitalist Physical - Constitutional Vitals: Temp Pulse Resp BP Pulse Ox 98.7 F 80 19 91/66 100 09/17/20 00:55 09/17/20 08:43 09/17/20 07:30 09/17/20 08:43 09/17/20 06:45 General appearance: Present: no acute distress, well-nourished, other (Patient is orally intubated on mechanical ventilation) Results - Labs CBC & Chem 7: 09/17/20 04:16 09/17/20 04:16 Labs: Laboratory Last Values WBC 20.1 K/mm3 (4.5-11.0) H 09/17/20 04:16 RBC 4.34 M/mm3 (3.65-5.03) 09/17/20 04:16 Hgb 11.8 gm/dl (11.8-15.2) 09/17/20 04:16 Hct 36.1 % (35.5-45.6) 09/17/20 04:16 MCV 83 fl (84-94) L 09/17/20 04:16 MCH 27 pg (28-32) L 09/17/20 04:16 MCHC 33 % (32-34) 09/17/20 04:16 RDW 14.3 % (13.2-15.2) 09/17/20 04:16 Plt Count 156 K/mm3 (140-440) 09/17/20 04:16 Lymph % (Auto) 26.5 % (13.4-35.0) 09/16/20 10:37 [place] % (Auto) 1.3 % (0.0-7.3) 09/16/20 10:37 Eos % (Auto) 0.9 % (0.0-4.3) 09/16/20 10:37 Baso % (Auto) 0.3 % (0.0-1.8) 09/16/20 10:37 Lymph # (Auto) 2.9 K/mm3 (1.2-5.4) 09/16/20 10:37 [place] # (Auto) 0.1 K/mm3 (0.0-0.8) 09/16/20 10:37 Eos # (Auto) 0.1 K/mm3 (0.0-0.4) 09/16/20 10:37 Baso # (Auto) 0.0 K/mm3 (0.0-0.1) 09/16/20 10:37 Add Manual Diff Complete 09/17/20 04:16 Total Counted 100 09/17/20 04:16 Seg Neutrophils % [employer] 09/17/20 04:16 Seg Neuts % (Manual) 91.0 % (40.0-70.0) H 09/17/20 04:16 Band Neutrophils % 1.0 % 09/17/20 04:16 Lymphocytes % (Manual) 6.0 % (13.4-35.0) L 09/17/20 04:16 Monocytes % (Manual) 2.0 % (0.0-7.3) 09/17/20 04:16 Nucleated RBC % Not Reportable 09/17/20 04:16 Seg Neutrophils # 7.7 K/mm3 (1.8-7.7) 09/16/20 10:37 Seg Neutrophils # Man 18.3 K/mm3 (1.8-7.7) H 09/17/20 04:16 Band Neutrophils # 0.2 K/mm3 09/17/20 04:16 Lymphocytes # (Manual) 1.2 K/mm3 (1.2-5.4) 09/17/20 04:16 Abs React Lymphs (Man) 0.0 K/mm3 09/17/20 04:16 Monocytes # (Manual) 0.4 K/mm3 (0.0-0.8) 09/17/20 04:16 Eosinophils # (Manual) 0.0 K/mm3 (0.0-0.4) 09/17/20 04:16 Basophils # (Manual) 0.0 K/mm3 (0.0-0.1) 09/17/20 04:16 Metamyelocytes # 0.0 K/mm3 09/17/20 04:16 Myelocytes # 0.0 K/mm3 09/17/20 04:16 Promyelocytes # 0.0 K/mm3 09/17/20 04:16 Blast Cells # 0.0 K/mm3 09/17/20 04:16 WBC Morphology Not Reportable 09/17/20 04:16 Hypersegmented Neuts Not Reportable 09/17/20 04:16 Hyposegmented Neuts Not Reportable 09/17/20 04:16 Hypogranular Neuts Not Reportable 09/17/20 04:16 Smudge Cells Not Reportable 09/17/20 04:16 Toxic Granulation Not Reportable 09/17/20 04:16 Toxic Vacuolation Not Reportable 09/17/20 04:16 Dohle Bodies Not Reportable 09/17/20 04:16 Pelger-Huet Anomaly Not Reportable 09/17/20 04:16 Janeth Rods Not Reportable 09/17/20 04:16 Platelet Estimate Consistent w auto 09/17/20 04:16 Clumped Platelets Not Reportable 09/17/20 04:16 Plt Clumps, EDTA Not Reportable 09/17/20 04:16 Large Platelets Not Reportable 09/17/20 04:16 Giant Platelets Not Reportable 09/17/20 04:16 Platelet Satelliting Not Reportable 09/17/20 04:16 Plt Morphology Comment Not Reportable 09/17/20 04:16 RBC Morphology Not Reportable 09/17/20 04:16 Dimorphic RBCs Not Reportable 09/17/20 04:16 Polychromasia Not Reportable 09/17/20 04:16 Hypochromasia Not Reportable 09/17/20 04:16 Poikilocytosis Not Reportable 09/17/20 04:16 Anisocytosis 1+ 09/17/20 04:16 Microcytosis Not Reportable 09/17/20 04:16 Macrocytosis Not Reportable 09/17/20 04:16 Spherocytes Not Reportable 09/17/20 04:16 Pappenheimer Bodies Not Reportable 09/17/20 04:16 Sickle Cells Not Reportable 09/17/20 04:16 Target Cells Not Reportable 09/17/20 04:16 Tear Drop Cells Not Reportable 09/17/20 04:16 Ovalocytes Not Reportable 09/17/20 04:16 Helmet Cells Not Reportable 09/17/20 04:16 [place] Bodies Not Reportable 09/17/20 04:16 [place] Rings Not Reportable 09/17/20 04:16 [place] Cells Not Reportable 09/17/20 04:16 Bite Cells Not Reportable 09/17/20 04:16 Crenated Cell Not Reportable 09/17/20 04:16 Elliptocytes Not Reportable 09/17/20 04:16 Acanthocytes (Spur) Not Reportable 09/17/20 04:16 Rouleaux Not Reportable 09/17/20 04:16 Hemoglobin C Crystals Not Reportable 09/17/20 04:16 Schistocytes Not Reportable 09/17/20 04:16 Malaria parasites Not Reportable 09/17/20 04:16 [place] Bodies Not Reportable 09/17/20 04:16 Hem Pathologist Commnt No 09/17/20 04:16 PT 18.2 Sec. (12.2-14.9) H 09/16/20 20:49 INR 1.51 (0.87-1.13) H 09/16/20 20:49 APTT 44.0 Sec. (24.2-36.6) H 09/16/20 20:49 D-Dimer > 88496 ng/mlDDU (0-234) H 09/16/20 10:37 Heparin Anti-Xa Level 1.26 U.I./ml (0.3-0.7) H 09/17/20 04:16 ABG pH 7.375 pH Units (7.350-7.450) 09/17/20 03:05 POC ABG pCO2 31.0 mmHg (32.0-48.0) L 09/16/20 16:00 ABG pCO2 30.5 mm Hg 09/17/20 03:05 POC ABG pO2 427.0 mmHg (83-108) H 09/16/20 16:00 ABG pO2 237.5 mm Hg (80.0-90.0) H 09/17/20 03:05 POC ABG HCO3 16.1 09/16/20 16:00 ABG HCO3 17.4 mmol/L (20.0-26.0) L 09/17/20 03:05 ABG O2 Saturation 99.4 % (95.0-99.0) H 09/17/20 03:05 ABG O2 Content 17.3 (0.0-44) 09/17/20 03:05 POC ABG Base Excess -8.6 09/16/20 16:00 ABG Base Excess -6.6 mmol/L (-2.0-3.0) L 09/17/20 03:05 ABG Hemoglobin 12.2 gm/dl (14.0-18.0) L 09/17/20 03:05 ABG Carboxyhemoglobin 1.0 % (0.0-5.0) 09/17/20 03:05 ABG Methemoglobin 0.6 % (0.0-1.5) 09/17/20 03:05 ABG Sodium 138.3 mmol/L (136.0-145.0) 09/16/20 16:00 ABG Potassium 3.7 mmol/L (3.40-4.50) 09/16/20 16:00 ABG Chloride 109.0 mmol/L (98-107) H 09/16/20 16:00 ABG Glucose 169 mg/dL (65-95) H 09/16/20 16:00 VBG pH 7.138 (7.320-7.420) L* 09/16/20 10:37 Oxyhemoglobin 97.8 % (95.0-99.0) 09/17/20 03:05 FiO2 60 % 09/17/20 03:05 Sodium 139 mmol/L (137-145) 09/17/20 04:16 Potassium 4.7 mmol/L (3.6-5.0) D 09/17/20 04:16 Chloride 105.3 mmol/L (98-107) 09/17/20 04:16 Carbon Dioxide 18 mmol/L (22-30) L 09/17/20 04:16 Anion Gap 20 mmol/L 09/17/20 04:16 BUN 34 mg/dL (9-20) H 09/17/20 04:16 Creatinine 1.5 mg/dL (0.8-1.3) H 09/17/20 04:16 Estimated GFR 54 ml/min 09/17/20 04:16 BUN/Creatinine Ratio 23 % 09/17/20 04:16 Glucose 171 mg/dL (75-100) H 09/17/20 04:16 POC Glucose 136 mg/dL (70-105) H 09/17/20 06:31 Hemoglobin A1c 5.9 % (4-6) 09/16/20 12:33 Lactic Acid 3.60 mmol/L (0.7-2.0) H* 09/17/20 04:16 Calcium 8.8 mg/dL (8.4-10.2) 09/17/20 04:16 Magnesium 2.50 mg/dL (1.7-2.3) H 09/16/20 10:37 Total Bilirubin 0.50 mg/dL (0.1-1.2) 09/16/20 10:37 Direct Bilirubin < 0.2 mg/dL (0-0.2) 09/16/20 10:37 Indirect Bilirubin 0.3 mg/dL 09/16/20 10:37 AST 54 units/L (5-40) H 09/16/20 10:37 ALT 47 units/L (7-56) 09/16/20 10:37 Alkaline Phosphatase 76 units/L (35-129) 09/16/20 10:37 C-Reactive Protein 2.80 mg/dL (0.00-1.30) H 09/16/20 20:49 NT-Pro-B Natriuret Pep 144.6 pg/mL (0-900) 09/16/20 10:37 Total Protein 6.1 g/dL (6.3-8.2) L 09/16/20 10:37 Albumin 3.2 g/dL (3.9-5) L 09/16/20 10:37 Albumin/Globulin Ratio 1.1 % 09/16/20 10:37 Arterial Blood Glucose 169 mg/dL (65-95) H 09/16/20 16:00 Arterial Blood Ionized Calcium 4.5 mg/dL (4.6-5.3) L 09/16/20 16:00 Urine Color Nancy (Yellow) 09/16/20 10:53 Urine Turbidity Cloudy (Clear) 09/16/20 10:53 Urine pH 6.0 (5.0-7.0) 09/16/20 10:53 Ur Specific [place] 1.020 (1.003-1.030) 09/16/20 10:53 Urine Protein >500 mg/dL (Negative) 09/16/20 10:53 Urine Glucose (UA) Neg mg/dL (Negative) 09/16/20 10:53 Urine Ketones Tr mg/dL (Negative) 09/16/20 10:53 Urine Blood Lg (Negative) 09/16/20 10:53 Urine Nitrite Neg (Negative) 09/16/20 10:53 Urine Bilirubin Neg (Negative) 09/16/20 10:53 Urine Urobilinogen < 2.0 mg/dL (<2.0) 09/16/20 10:53 Ur Leukocyte Esterase Tr (Negative) 09/16/20 10:53 Urine WBC (Auto) 67.0 /HPF (0.0-6.0) H 09/16/20 10:53 Urine RBC (Auto) > 182.0 /HPF (0.0-6.0) 09/16/20 10:53 U Epithel Cells (Auto) 27.0 /HPF (0-13.0) H 09/16/20 10:53 Urine Bacteria (Auto) 4+ /HPF (Negative) 09/16/20 10:53 Urine Mucus Few /HPF 09/16/20 10:53 Urine Creatinine 181.1 mg/dL (0.1-20.0) H 09/17/20 00:57 Urine Sodium 78 mmol/L 09/17/20 00:57 Microbiology: Microbiology 09/16/20 10:37 Peripheral/Venous Blood Culture - Preliminary Culture in Progress Active Medications - Current Medications Current Medications: Generic Name Dose Route Start Last Admin Trade Name Freq PRN Reason Stop Dose Admin Lipase/Protease/Amylase 1 each 09/17/20 08:56 Lipase 10,500/Protease 25,000/Amylase 43,750 (Units) Dr Cap FEEDTUBE PRN PRN For Clogged Feeding Tube Dextrose 50 ml 09/16/20 12:19 Dextrose 50% In Water (25gm) 50 Ml Syringe IV Q30MIN PRN Hypoglycemia Protocol Fentanyl 50 mcg 09/16/20 20:12 Fentanyl 100 Mcg/2 Ml Inj IV Q10MIN PRN ANALGESIA Heparin Sodium (Porcine) 2,400 unit 09/16/20 20:12 09/16/20 21:00 Heparin 10,000 Units/10 Ml Vial 40 unit/kg (2400 unit) 2,400 unit IV Administration Q6H PRN Anti-Xa Assay < 0.1 units/ml Hydrophilic Ointment 1 applic 09/16/20 20:12 Lip Therapy Vaseline TP Q2HR PRN Dry Lips Sodium Bicarbonate 150 meq/ 150 mls @ 100 mls/hr 09/16/20 13:00 09/16/20 20:35 Sterile Water IV 100 mls/hr DIRECT DARA Administration Norepinephrine 4 mg in 250 mls @ 7.5 mls/hr 09/16/20 13:15 09/16/20 16:30 Levophed Drip 4 Mg/Ns 250 Ml IV Infused TITR DARA Titration Protocol 2 MCG/MIN Fentanyl Citrate 2,000 mcg in 100 mls @ 3 mls/hr 09/16/20 21:00 09/16/20 21:00 Fentanyl Drip Premix IV 1 mcg/kg/hr TITR DARA 3 mls/hr Administration Protocol 1 MCG/KG/HR Propofol 1,000 mg in 100 mls @ 1.8 mls/hr 09/16/20 21:00 09/16/20 19:55 Diprivan 10 Mg/Ml IV 5 mcg/kg/min TITR DARA 1.8 mls/hr Administration Protocol 5 MCG/KG/MIN Heparin Sodium/Sodium Chloride 25,000 unit in 500 mls @ 18 mls/hr 09/16/20 21:00 09/17/20 05:25 Heparin/ 0.45% Nacl-25,000 Unit/500 Ml IV 0 units/hr TITR DARA 0 mls/hr Titration Protocol 900 UNITS/HR Insulin Human Regular 0 unit 09/16/20 13:00 09/17/20 07:04 Insulin Regular, Human 100 Unit/Ml 3ml Vial SUB-Q Not Given Q6H [facility] Protocol Methylprednisolone Sodium Succinate 40 mg 09/16/20 22:00 09/17/20 06:26 Methylprednisolone Sod Succinate 40 Mg/1 Ml Inj IV 40 mg Q8HR DARA Administration Multi-Ingred Cream/Lotion/Oil/Oint 1 applic 09/16/20 20:12 Mineral Oil/Petrolatum, White Ophth Oint 3.5 Gm OU Q4HR PRN Dry Eye(s) Pantoprazole Sodium 40 mg 09/17/20 07:30 09/17/20 07:36 Pantoprazole 40 Mg Tab PO Not Given BIDAC DARA Simple Syrup 15 ml 09/17/20 08:56 Simple Syrup 15 Ml FEEDTUBE PRN PRN Hypoglycemia Simple Syrup 30 ml 09/17/20 08:56 Simple Syrup 15 Ml FEEDTUBE PRN PRN Hypoglycemia Sodium Bicarbonate 325 mg 09/17/20 08:56 Sodium Bicarbonate 325 Mg Tab FEEDTUBE PRN PRN For Clogged Feeding Tube Sodium Chloride 10 ml 09/16/20 22:00 09/17/20 10:13 Sodium Chloride 0.9% 10 Ml Flush Syringe IV 10 ml BID DARA Administration Sodium Chloride 10 ml 09/16/20 12:19 Sodium Chloride 0.9% 10 Ml Flush Syringe IV PRN PRN LINE FLUSH Nutrition/Malnutrition Assess - Dietary Evaluation Nutrition/Malnutrition Findings: Nutrition Notes Start: 09/17/20 08:49 Freq: Status: Active Protocol: Document 09/17/20 08:49 (Rec: 09/17/20 08:55 [id number]) Nutrition Notes Need for Assessment generated from: MD Order Initial or Follow up Assessment Current Diagnosis Acute Kidney Injury, Hyperlipidemia Other Pertinent Diagnosis Dementia, cardiac arrest, anemia Current Diet NPO Labs/Tests BUN 34 Cr 1.5 BG 171 Pertinent Medications Solu-Medrol Height 5 ft 7 in Weight 60 kg [place] Body Weight (kg) 67.27 BMI 20.7 Weight Status Underweight Subjective/Other Information MD order for TF and eval intakes. Pt on hold in ED. Pt on the vent. Burn Absent Trauma Absent Current % PO Negligible #1 Nutrition Diagnosis Inadequate oral intake Etiology acute respiratory failure As Evidenced by Signs and Symptoms pt on vent and unable to consume PO Is patient on ventilator? Yes Is Patient Ambulatory and/or Out of Bed No REE-([facility]-confined to bed) [phone] Calculation Used for Recommendations [facility] Additional Notes Pro: 72-120g (1.2-2g/kg) Fluid: 1 ml/kcal or per MD Nutrition Intervention Change Diet Order: Start TF Nutrition Support: Osmolite 1.5 at 45 ml/hr Flush 125 ml q4h Kcal 1,620 Protein (gm) 67 Fluid (mL) 823 Goal #1 TF start/tolerance Goal #2 Meet at least 75% of protein and energy needs via TF Anticipated Discharge Needs: Unable to determine at this time Follow-Up By: 09/19/20 Additional Comments FU for TF start/tolerance
[2020-09-17 12:21] LABS: INR 1.49 (0.87-1.13)
[2020-09-17] MEDS ORDERED: cefTRIAXone/NS 2 GM/100 ML 2 GM/100 ML BAG IV SCH (13:00)
--- NOTE | 2020-09-17 15:28 | Progress Note ---
Assessment and Plan 1. Acute kidney injury: Vasomotor nephropathy in the setting of Cardiac arrest. Renal US ordered. Continue IV fluids. Monitor renal function. Creatinine level is about the same. Baseline renal function is unknown. Avoid nephrotoxic agents. Meds dosage based on GFR. 2. FEN: Anion-gap metabolic acidosis, 2/2 lactic acidosis, bicarb drip, monitor. Monitor lytes and volume status. 3. S/p Cardiac arrest: Cardiac arrest 09/16. Seen by Cards. 4. Acute resp failure: Followed by Pulmonary. 5. Shock: Off pressors. 6. PE: CTA showed multiple filling defects involving L LL and R UL. 7. Anemia, POA: Monitor. 8. Acute Metabolic Encephalopathy, POA: Supportive care. Prognosis is guarded. Subjective: Patient was seen and examined at the bedside. Per RN blood in the urine. Examination: General appearance: well-developed, appears emaciated, intubated, on vent HEENT: ATNC EYES: pupils reacting to light Neck: trachea midline Respiratory: MV sounds Heart: S1S2, regular, no murmur Gastrointestinal: soft, not tender, BS heard Integumentary: no rash, warm and dry Neurologic: not responding Ext: no edema Subjective Date of service: 09/17/20 Objective - Vital Signs Vital signs: Vital Signs - 12hr 09/17/20 09/17/20 09/17/20 03:30 03:45 04:00 Temperature Pulse Rate 77 78 77 Respiratory 20 21 20 Rate Blood Pressure 103/68 102/69 94/66 O2 Sat by Pulse 99 99 Oximetry 09/17/20 09/17/20 09/17/20 04:15 04:30 04:45 Temperature Pulse Rate 78 77 78 Respiratory 21 20 20 Rate Blood Pressure 103/64 98/63 96/65 O2 Sat by Pulse Oximetry 09/17/20 09/17/20 09/17/20 05:00 05:15 05:28 Temperature Pulse Rate 77 77 Respiratory 20 19 Rate Blood Pressure 94/63 94/67 O2 Sat by Pulse 100 Oximetry 09/17/20 09/17/20 09/17/20 05:30 05:45 06:00 Temperature Pulse Rate 81 79 79 Respiratory 20 20 21 Rate Blood Pressure 100/64 95/68 99/66 O2 Sat by Pulse 99 Oximetry 09/17/20 09/17/20 09/17/20 06:15 06:30 06:45 Temperature Pulse Rate 78 78 78 Respiratory 20 24 19 Rate Blood Pressure 93/63 93/64 102/67 O2 Sat by Pulse 100 Oximetry 09/17/20 09/17/20 09/17/20 07:00 07:15 07:30 Temperature Pulse Rate 78 80 78 Respiratory 19 20 19 Rate Blood Pressure 95/66 103/67 99/66 O2 Sat by Pulse Oximetry 09/17/20 09/17/20 09/17/20 08:43 11:46 12:09 Temperature 97.3 F L Pulse Rate 80 87 Respiratory Rate Blood Pressure 91/66 97/70 O2 Sat by Pulse 95 100 Oximetry - Lab 09/17/20 04:16 09/17/20 04:16 Most recent lab results ABG pH 7.375 pH Units (7.350-7.450) 09/17/20 03:05 ABG pCO2 30.5 mm Hg 09/17/20 03:05 ABG pO2 237.5 mm Hg (80.0-90.0) H 09/17/20 03:05 ABG HCO3 17.4 mmol/L (20.0-26.0) L 09/17/20 03:05 ABG O2 Saturation 99.4 % (95.0-99.0) H 09/17/20 03:05 Calcium 8.8 mg/dL (8.4-10.2) 09/17/20 04:16 Magnesium 2.50 mg/dL (1.7-2.3) H 09/16/20 10:37 Urine Creatinine 181.1 mg/dL (0.1-20.0) H 09/17/20 00:57 Urine Sodium 78 mmol/L 09/17/20 00:57 Medications & Allergies - Medications Allergies/Adverse Reactions: Allergies No Known Allergies Allergy (Unverified 09/16/20 12:52) Active Medications: Generic Name Dose Route Start Last Admin Trade Name Freq PRN Reason Stop Dose Admin Lipase/Protease/Amylase 1 each 09/17/20 08:56 Lipase 10,500/Protease 25,000/Amylase 43,750 (Units) Dr Arciniega FEEDTUBE PRN PRN For Clogged Feeding Tube Dextrose 50 ml 09/16/20 12:19 Dextrose 50% In Water (25gm) 50 Ml Syringe IV Q30MIN PRN Hypoglycemia Protocol Fentanyl 50 mcg 09/16/20 20:12 Fentanyl 100 Mcg/2 Ml Inj IV Q10MIN PRN ANALGESIA Heparin Sodium (Porcine) 2,400 unit 09/16/20 20:12 09/16/20 21:00 Heparin 10,000 Units/10 Ml Vial 40 unit/kg (2400 unit) 2,400 unit IV Administration Q6H PRN Anti-Xa Assay < 0.1 units/ml Hydrophilic Ointment 1 applic 09/16/20 20:12 Lip Therapy Vaseline TP Q2HR PRN Dry Lips Sodium Bicarbonate 150 meq/ 150 mls @ 100 mls/hr 09/16/20 13:00 09/16/20 20:35 Sterile Water IV 100 mls/hr DIRECT DARA Administration Norepinephrine 4 mg in 250 mls @ 7.5 mls/hr 09/16/20 13:15 09/16/20 16:30 Levophed Drip 4 Mg/Ns 250 Ml IV Infused TITR DARA Titration Protocol 2 MCG/MIN Fentanyl Citrate 2,000 mcg in 100 mls @ 3 mls/hr 09/16/20 21:00 09/16/20 21:00 Fentanyl Drip Premix IV 1 mcg/kg/hr TITR DARA 3 mls/hr Administration Protocol 1 MCG/KG/HR Propofol 1,000 mg in 100 mls @ 1.8 mls/hr 09/16/20 21:00 09/16/20 19:55 Diprivan 10 Mg/Ml IV 5 mcg/kg/min TITR DARA 1.8 mls/hr Administration Protocol 5 MCG/KG/MIN Heparin Sodium/Sodium Chloride 25,000 unit in 500 mls @ 18 mls/hr 09/16/20 21:00 09/17/20 05:25 Heparin/ 0.45% Nacl-25,000 Unit/500 Ml IV 0 units/hr TITR DARA 0 mls/hr Titration Protocol 900 UNITS/HR Ceftriaxone Sodium 2 gm in 100 mls @ 200 mls/hr 09/17/20 13:00 Rocephin/Ns 2 Gm/100 Ml IV Q24H [facility] Protocol Insulin Human Regular 0 unit 09/16/20 13:00 09/17/20 07:04 Insulin Regular, Human 100 Unit/Ml 3ml Vial SUB-Q Not Given Q6H [facility] Protocol Methylprednisolone Sodium Succinate 40 mg 09/16/20 22:00 09/17/20 06:26 Methylprednisolone Sod Succinate 40 Mg/1 Ml Inj IV 40 mg Q8HR DARA Administration Multi-Ingred Cream/Lotion/Oil/Oint 1 applic 09/16/20 20:12 Mineral Oil/Petrolatum, White Ophth Oint 3.5 Gm OU Q4HR PRN Dry Eye(s) Pantoprazole Sodium 40 mg 09/17/20 07:30 09/17/20 07:36 Pantoprazole 40 Mg Tab PO Not Given BIDAC DARA Simple Syrup 15 ml 09/17/20 08:56 Simple Syrup 15 Ml FEEDTUBE PRN PRN Hypoglycemia Simple Syrup 30 ml 09/17/20 08:56 Simple Syrup 15 Ml FEEDTUBE PRN PRN Hypoglycemia Sodium Bicarbonate 325 mg 09/17/20 08:56 Sodium Bicarbonate 325 Mg Tab FEEDTUBE PRN PRN For Clogged Feeding Tube Sodium Chloride 10 ml 09/16/20 22:00 09/17/20 10:13 Sodium Chloride 0.9% 10 Ml Flush Syringe IV 10 ml BID DARA Administration Sodium Chloride 10 ml 09/16/20 12:19 Sodium Chloride 0.9% 10 Ml Flush Syringe IV PRN PRN LINE FLUSH
[2020-09-17 16:48] LABS: C-Reactive Protein 24.3 mg/dL (0.00-1.30)
--- NOTE | 2020-09-17 18:22 | Progress Note ---
Assessment and Plan Acute hypoxemic respiratory failure, on mechanical ventilatory support. Cardiac arrest with return of spontaneous circulation Acute pulmonary emboli. Person under investigation for COVID-19 infection. CHF (EF 40%) History of dementia. Urinary tract infection. Anemia that is normocytic. Elevated serum D-dimers. Lactic acidosis. Severe sepsis - neurology evaluation pending - continue empiric Rocephin for tentative UTI driven sepsis but get ID opinion re: severe Procalcitonin elevation - follow cultures - coronavirus PCR negative - continue full anticoagulation for VTE - continue to wean supplemental oxygen for target O2 sat's > 92% acutely - VAP bundle addressed - continue lung protective strategies - continue bronchodilators with pulmonary hygiene per RT - wean per pulmonary driven protocols otherwise - continue Daily SAT and SBT assessment as tolerated - continue accuchecks with glycemic control per SSI (While critically ill target blood glucose of 140-180 mg/dL; avoid hypoglycemia) - sedation prn for target RASS 0 to -1 - avoid nephrotoxins, renally dose all medications - continue to avoid benzodiazepine's, reduce the possibility of delirium - completed AB's per ID rec's - prn analgesia per CPOT score - Maintenance of sleep-wake cycle, avoid delirium - continue enteral nutritional support at goal rate as tolerated - G.I. & VTE prophylaxis - PT/OT/ROM exercises - continue mobility protocols for pressure ulcer prophylaxis - Monitor hemodynamics closely - continue other care per attending / other consultants - discharge planning ongoing concurrently .... Re-evaluate in am & prn CONDITION: CRITICAL PROGNOSIS: GUARDED CODE STATUS: FULL CODE The high probability of a clinically significant, sudden or life-threatening deterioration of the [respiratory, cardiovascular, hematologic & neurologic] system(s) required my full and direct attention, intervention and personal management. The aggregate critical care time was [34] minutes without overlap. Time includes spent on; [x] Data Review and interpretation [x] Patient assessment and monitoring of vital signs [x] Documentation [x] Medication orders and management Subjective Date of service: 09/17/20 Principal diagnosis: Ac hypoxemic resp failure; Cardiac arrest; Acute P.E.; Severe sepsis; COVID Interval history: Patient is seen today for: Ac hypoxemic resp failure; Cardiac arrest with ROSC; Acute pulmonary emboli; Severe sepsis; PUI COVID-19; UTI Seen and examined at bedside; 24hour events reviewed; nursing and respiratory care staff consulted; no adverse overnight events reported to me; resting peacefully in bed; no more myoclonic jerks; sedated; AMS is persistent; no emesis or overt aspiration Objective Vital Signs - 12hr 09/17/20 09/17/20 09/17/20 06:30 06:45 07:00 Temperature Pulse Rate 78 78 78 Respiratory 24 19 19 Rate Blood Pressure 93/64 102/67 95/66 O2 Sat by Pulse 100 Oximetry 09/17/20 09/17/20 09/17/20 07:15 07:30 08:43 Temperature Pulse Rate 80 78 80 Respiratory 20 19 Rate Blood Pressure 103/67 99/66 91/66 O2 Sat by Pulse 95 Oximetry 09/17/20 09/17/20 09/17/20 11:46 12:09 17:02 Temperature 97.3 F L Pulse Rate 87 89 Respiratory Rate Blood Pressure 97/70 122/92 O2 Sat by Pulse 100 99 Oximetry Constitutional: appears uncomfortable, other (elderly thin male with mildly increased respiratory effort at rest on MVS) Eyes: non-icteric ENT: oropharynx moist, other (ETT 24 cm CAROL) Neck: supple, no lymphadenopathy, no JVD Effort: mildly labored Ascultation: Bilateral: diminished breath sounds, rhonchi Percussion: Bilateral: not dull Cardiovascular: regular rate and rhythm Gastrointestinal: normoactive bowel sounds, soft, non-tender, non-distended Integumentary: normal Extremities: no cyanosis, no edema, pulses normal, no ischemia or petechiae Neurologic: pupils equal and round, unable to assess Psychiatric: other (unable to assess re: AMS) CBC and BMP: 09/18/20 04:19 09/18/20 04:19 ABG, PT/INR, D-dimer: ABG ABG pH 7.375 pH Units (7.350-7.450) 09/17/20 03:05 POC ABG pCO2 31.0 mmHg (32.0-48.0) L 09/16/20 16:00 ABG pCO2 30.5 mm Hg 09/17/20 03:05 POC ABG pO2 427.0 mmHg (83-108) H 09/16/20 16:00 ABG pO2 237.5 mm Hg (80.0-90.0) H 09/17/20 03:05 POC ABG HCO3 16.1 09/16/20 16:00 ABG O2 Saturation 99.4 % (95.0-99.0) H 09/17/20 03:05 PT/INR, D-dimer PT 18.0 Sec. (12.2-14.9) H 09/17/20 11:37 INR 1.49 (0.87-1.13) H 09/17/20 11:37 D-Dimer > 84706 ng/mlDDU (0-234) H 09/17/20 11:37 Abnormal lab findings: Abnormal Labs 09/16/20 09/16/20 09/16/20 10:37 10:37 10:37 WBC Hgb 11.2 L MCV MCH 27 L MCHC 31 L Seg Neutrophils % 71.0 H Seg Neuts % (Manual) Lymphocytes % (Manual) Seg Neutrophils # Man PT 18.6 H INR 1.55 H APTT 43.4 H D-Dimer > 46421 H Heparin Anti-Xa Level POC ABG pCO2 POC ABG pO2 ABG pO2 ABG HCO3 ABG O2 Saturation ABG Base Excess ABG Hemoglobin ABG Chloride ABG Glucose VBG pH Carbon Dioxide BUN Creatinine Glucose POC Glucose Lactic Acid 10.00 H* Magnesium Ferritin AST Lactate Dehydrogenase C-Reactive Protein Total Protein Albumin Arterial Blood Glucose Arterial Blood Ionized Calcium Urine WBC (Auto) U Epithel Cells (Auto) Urine Creatinine 09/16/20 09/16/20 09/16/20 10:37 10:37 10:53 WBC Hgb MCV MCH MCHC Seg Neutrophils % Seg Neuts % (Manual) Lymphocytes % (Manual) Seg Neutrophils # Man PT INR APTT D-Dimer Heparin Anti-Xa Level POC ABG pCO2 POC ABG pO2 ABG pO2 ABG HCO3 ABG O2 Saturation ABG Base Excess ABG Hemoglobin ABG Chloride ABG Glucose VBG pH 7.138 L* Carbon Dioxide 16 L BUN 25 H Creatinine 1.5 H Glucose 243 H POC Glucose Lactic Acid Magnesium 2.50 H Ferritin AST 54 H Lactate Dehydrogenase C-Reactive Protein Total Protein 6.1 L Albumin 3.2 L Arterial Blood Glucose Arterial Blood Ionized Calcium Urine WBC (Auto) 67.0 H U Epithel Cells (Auto) 27.0 H Urine Creatinine 09/16/20 09/16/20 09/16/20 16:00 20:12 20:49 WBC Hgb MCV MCH MCHC Seg Neutrophils % Seg Neuts % (Manual) Lymphocytes % (Manual) Seg Neutrophils # Man PT INR APTT D-Dimer Heparin Anti-Xa Level POC ABG pCO2 31.0 L POC ABG pO2 427.0 H ABG pO2 ABG HCO3 ABG O2 Saturation ABG Base Excess ABG Hemoglobin ABG Chloride 109.0 H ABG Glucose 169 H VBG pH Carbon Dioxide BUN Creatinine Glucose POC Glucose 136 H Lactic Acid Magnesium Ferritin AST Lactate Dehydrogenase C-Reactive Protein 2.80 H Total Protein Albumin Arterial Blood Glucose 169 H Arterial Blood Ionized Calcium 4.5 L Urine WBC (Auto) U Epithel Cells (Auto) Urine Creatinine 09/16/20 09/17/20 09/17/20 20:49 00:44 00:57 WBC Hgb MCV MCH MCHC Seg Neutrophils % Seg Neuts % (Manual) Lymphocytes % (Manual) Seg Neutrophils # Man PT 18.2 H INR 1.51 H APTT 44.0 H D-Dimer Heparin Anti-Xa Level POC ABG pCO2 POC ABG pO2 ABG pO2 ABG HCO3 ABG O2 Saturation ABG Base Excess ABG Hemoglobin ABG Chloride ABG Glucose VBG pH Carbon Dioxide BUN Creatinine Glucose POC Glucose 153 H Lactic Acid Magnesium Ferritin AST Lactate Dehydrogenase C-Reactive Protein Total Protein Albumin Arterial Blood Glucose Arterial Blood Ionized Calcium Urine WBC (Auto) U Epithel Cells (Auto) Urine Creatinine 181.1 H 09/17/20 09/17/20 09/17/20 03:05 04:16 04:16 WBC 20.1 H Hgb MCV 83 L MCH 27 L MCHC Seg Neutrophils % Seg Neuts % (Manual) 91.0 H Lymphocytes % (Manual) 6.0 L Seg Neutrophils # Man 18.3 H PT INR APTT D-Dimer Heparin Anti-Xa Level 1.26 H POC ABG pCO2 POC ABG pO2 ABG pO2 237.5 H ABG HCO3 17.4 L ABG O2 Saturation 99.4 H ABG Base Excess -6.6 L ABG Hemoglobin 12.2 L ABG Chloride ABG Glucose VBG pH Carbon Dioxide BUN Creatinine Glucose POC Glucose Lactic Acid Magnesium Ferritin AST Lactate Dehydrogenase C-Reactive Protein Total Protein Albumin Arterial Blood Glucose Arterial Blood Ionized Calcium Urine WBC (Auto) U Epithel Cells (Auto) Urine Creatinine 09/17/20 09/17/20 09/17/20 04:16 04:16 06:31 WBC Hgb MCV MCH MCHC Seg Neutrophils % Seg Neuts % (Manual) Lymphocytes % (Manual) Seg Neutrophils # Man PT INR APTT D-Dimer Heparin Anti-Xa Level POC ABG pCO2 POC ABG pO2 ABG pO2 ABG HCO3 ABG O2 Saturation ABG Base Excess ABG Hemoglobin ABG Chloride ABG Glucose VBG pH Carbon Dioxide 18 L BUN 34 H Creatinine 1.5 H Glucose 171 H POC Glucose 136 H Lactic Acid 3.60 H* Magnesium Ferritin AST Lactate Dehydrogenase C-Reactive Protein Total Protein Albumin Arterial Blood Glucose Arterial Blood Ionized Calcium Urine WBC (Auto) U Epithel Cells (Auto) Urine Creatinine 09/17/20 09/17/20 09/17/20 11:37 11:37 11:37 WBC Hgb MCV MCH MCHC Seg Neutrophils % Seg Neuts % (Manual) Lymphocytes % (Manual) Seg Neutrophils # Man PT 18.0 H INR 1.49 H APTT D-Dimer > 11297 H Heparin Anti-Xa Level 0.25 L POC ABG pCO2 POC ABG pO2 ABG pO2 ABG HCO3 ABG O2 Saturation ABG Base Excess ABG Hemoglobin ABG Chloride ABG Glucose VBG pH Carbon Dioxide BUN Creatinine Glucose POC Glucose Lactic Acid 2.80 H* Magnesium Ferritin AST Lactate Dehydrogenase C-Reactive Protein Total Protein Albumin Arterial Blood Glucose Arterial Blood Ionized Calcium Urine WBC (Auto) U Epithel Cells (Auto) Urine Creatinine 09/17/20 09/17/20 09/17/20 15:58 15:58 15:58 WBC Hgb MCV MCH MCHC Seg Neutrophils % Seg Neuts % (Manual) Lymphocytes % (Manual) Seg Neutrophils # Man PT INR APTT D-Dimer Heparin Anti-Xa Level POC ABG pCO2 POC ABG pO2 ABG pO2 ABG HCO3 ABG O2 Saturation ABG Base Excess ABG Hemoglobin ABG Chloride ABG Glucose VBG pH Carbon Dioxide BUN Creatinine Glucose POC Glucose Lactic Acid 3.90 H* Magnesium Ferritin 1306.0 H AST Lactate Dehydrogenase 515 H C-Reactive Protein 24.30 H Total Protein Albumin Arterial Blood Glucose Arterial Blood Ionized Calcium Urine WBC (Auto) U Epithel Cells (Auto) Urine Creatinine Chest x-ray: image reviewed (ETT in good position) Allied health notes reviewed: nursing
[2020-09-18] MEDS: INSULIN REGULAR, HUMAN 100 UNIT/ML 3ML VIAL SUB-Q SCH ×4 (03:08→18:52)
[2020-09-18 04:10] LABS: ABG Base Excess -4.3 mmol/L (-2.0-3.0); ABG HCO3 18.9 mmol/L (20.0-26.0); ABG Methemoglobin 0.6 % (0.0-1.5); ABG Oxygen Saturation 99.3 % (95.0-99.0); ABG PCO2 28.4 mm Hg; ABG PH 7.44 pH Units (7.350-7.450); ABG PO2 198.7 mm Hg (80.0-90.0)
--- NOTE | 2020-09-18 04:15 | XRay Report ---
CHEST 1 VIEW 0327 INDICATION / CLINICAL INFORMATION: follow up respiratory failure COMPARISON: 09/17/2020 positioning is different on the images. The endotracheal tube appears to lie m ore proximal location with tip projecting now 5.7 cm above the salvador, remaining in satisfactory radi ographic position. Nasogastric tube continues below the diaphragm. FINDINGS: SUPPORT DEVICES: Stable HEART / MEDIASTINUM: Stable LUNGS / PLEURA: No significant pulmonary or pleural abnormality. No pneumothorax. ADDITIONAL FINDINGS: No significant additional findings. Signer Name: Jose J Coppola MD Signed: 09/18/2020 4:11 AM Workstation Name: [id number]
[2020-09-18 04:38] LABS: Hematocrit 35.2 % (35.5-45.6); Hemoglobin 11.4 gm/dl (11.8-15.2); Mean Corpuscular HGB Conc 32 % (32-34); Mean Corpuscular Volume 82 fl (84-94); Platelet Count 159 K/mm3 (140-440); Red Blood Count 4.31 M/mm3 (3.65-5.03); Red Cell Distribution Width 14.5 % (13.2-15.2)
[2020-09-18 04:41] LABS: Basophils # (Auto) 0.1 K/mm3 (0.0-0.1); Basophils % (Auto) 0.2 % (0.0-1.8); Lymphocytes # (Auto) 0.5 K/mm3 (1.2-5.4); Lymphocytes % (Auto) 2.4 % (13.4-35.0); Monocytes # (Auto) 0.6 K/mm3 (0.0-0.8); Monocytes % (Auto) 2.8 % (0.0-7.3)
[2020-09-18 04:55] LABS: Calcium 9.1 mg/dL (8.4-10.2)
[2020-09-18] MEDS: methylPREDNISolone Sod Succinate 40 MG/1 ML INJ IV SCH ×3 (06:40→21:33)
--- NOTE | 2020-09-18 09:52 | Progress Note ---
History Interval history: Cardiopulmonary arrest. Patient reportedly with [id number] cardiopulmonary arrest. Unsure of the patient's total time without a pulse. Cardiology and pulmonary consulted. Follow-up echocardiogram, cardiac isoenzymes and serial EKG. Check MRI and EEG when patient stabilized. D-dimer significantly elevated greater than 10,000. Lactic acid also elevated at 10 which increases mortality significantly. Pulmonary embolus. CTA showed multiple filling defects involving LLL and RUL. Continue IV heparin for anticoagulation. Sepsis. Patient meets criteria given the hypothermia, leukocytosis, hypotension and diagnosis of UTI. Follow-up blood and urine cultures. Acute hypoxic respiratory failure. Patient intubated on mechanical ventilation. Pulmonary following. Acute kidney injury. Etiology secondary to vasomotor nephropathy/dehydration from cardiac arrest. Urine studies and Renal US ordered. Aggressive IV fluid hydration. Baseline renal function is unknown. Avoid nephrotoxic agents. Lactic acidosis. As above. 09/17/2020. Lactic acid improved. Follow-up blood and urine cultures. Start Rocephin IV daily. ID consultation. 09/18/2020. Urine culture reveals gram-negative rods. Await final identification and sensitivities. Await blood cultures. Continue IV antibiotics. ID consulted. Covid testing found to be negative. Check EEG given cardiopulmonary arrest. Neurology consultation with Dr. Esparza in a.m. No neurology coverage today. MRI brain with patient medically stable. Continue anticoagulation for pulmonary embolus. Await renal ultrasound. The high probability of a clinically significant, sudden or life threatening deterioration of the [cardiac, respiratory] system(s) required my full and direct attention, intervention and personal management. The aggregate critical care time was [34] minutes. This time is in addition to time spent performing reported procedures but includes the following: [x] Data Review and interpretation [x] Patient assessment and monitoring of vital signs [x] Documentation [x] Medication orders and management Hospitalist Physical - Constitutional Vitals: Temp Pulse Resp BP Pulse Ox 97.3 F L 90 18 116/92 99 09/17/20 11:46 09/18/20 08:51 09/18/20 05:52 09/18/20 08:51 09/18/20 08:51 General appearance: Present: no acute distress, well-nourished, other (Patient is orally intubated on mechanical ventilation) Results - Labs CBC & Chem 7: 09/18/20 04:19 09/18/20 04:19 Labs: Laboratory Last Values WBC 21.8 K/mm3 (4.5-11.0) H 09/18/20 04:19 RBC 4.31 M/mm3 (3.65-5.03) 09/18/20 04:19 Hgb 11.4 gm/dl (11.8-15.2) L 09/18/20 04:19 Hct 35.2 % (35.5-45.6) L 09/18/20 04:19 MCV 82 fl (84-94) L 09/18/20 04:19 MCH 26 pg (28-32) L 09/18/20 04:19 MCHC 32 % (32-34) 09/18/20 04:19 RDW 14.5 % (13.2-15.2) 09/18/20 04:19 Plt Count 159 K/mm3 (140-440) 09/18/20 04:19 Lymph % (Auto) 2.4 % (13.4-35.0) L 09/18/20 04:19 [place] % (Auto) 2.8 % (0.0-7.3) 09/18/20 04:19 Eos % (Auto) 0.0 % (0.0-4.3) 09/18/20 04:19 Baso % (Auto) 0.2 % (0.0-1.8) 09/18/20 04:19 Lymph # (Auto) 0.5 K/mm3 (1.2-5.4) L 09/18/20 04:19 [place] # (Auto) 0.6 K/mm3 (0.0-0.8) 09/18/20 04:19 Eos # (Auto) 0.0 K/mm3 (0.0-0.4) 09/18/20 04:19 Baso # (Auto) 0.1 K/mm3 (0.0-0.1) 09/18/20 04:19 Add Manual Diff Complete 09/17/20 04:16 Total Counted 100 09/17/20 04:16 Seg Neutrophils % 94.6 % (40.0-70.0) H 09/18/20 04:19 Seg Neuts % (Manual) 91.0 % (40.0-70.0) H 09/17/20 04:16 Band Neutrophils % 1.0 % 09/17/20 04:16 Lymphocytes % (Manual) 6.0 % (13.4-35.0) L 09/17/20 04:16 Monocytes % (Manual) 2.0 % (0.0-7.3) 09/17/20 04:16 Nucleated RBC % Not Reportable 09/17/20 04:16 Seg Neutrophils # 20.6 K/mm3 (1.8-7.7) H 09/18/20 04:19 Seg Neutrophils # Man 18.3 K/mm3 (1.8-7.7) H 09/17/20 04:16 Band Neutrophils # 0.2 K/mm3 09/17/20 04:16 Lymphocytes # (Manual) 1.2 K/mm3 (1.2-5.4) 09/17/20 04:16 Abs React Lymphs (Man) 0.0 K/mm3 09/17/20 04:16 Monocytes # (Manual) 0.4 K/mm3 (0.0-0.8) 09/17/20 04:16 Eosinophils # (Manual) 0.0 K/mm3 (0.0-0.4) 09/17/20 04:16 Basophils # (Manual) 0.0 K/mm3 (0.0-0.1) 09/17/20 04:16 Metamyelocytes # 0.0 K/mm3 09/17/20 04:16 Myelocytes # 0.0 K/mm3 09/17/20 04:16 Promyelocytes # 0.0 K/mm3 09/17/20 04:16 Blast Cells # 0.0 K/mm3 09/17/20 04:16 WBC Morphology Not Reportable 09/17/20 04:16 Hypersegmented Neuts Not Reportable 09/17/20 04:16 Hyposegmented Neuts Not Reportable 09/17/20 04:16 Hypogranular Neuts Not Reportable 09/17/20 04:16 Smudge Cells Not Reportable 09/17/20 04:16 Toxic Granulation Not Reportable 09/17/20 04:16 Toxic Vacuolation Not Reportable 09/17/20 04:16 Dohle Bodies Not Reportable 09/17/20 04:16 Pelger-Huet Anomaly Not Reportable 09/17/20 04:16 Janeth Rods Not Reportable 09/17/20 04:16 Platelet Estimate Consistent w auto 09/17/20 04:16 Clumped Platelets Not Reportable 09/17/20 04:16 Plt Clumps, EDTA Not Reportable 09/17/20 04:16 Large Platelets Not Reportable 09/17/20 04:16 Giant Platelets Not Reportable 09/17/20 04:16 Platelet Satelliting Not Reportable 09/17/20 04:16 Plt Morphology Comment Not Reportable 09/17/20 04:16 RBC Morphology Not Reportable 09/17/20 04:16 Dimorphic RBCs Not Reportable 09/17/20 04:16 Polychromasia Not Reportable 09/17/20 04:16 Hypochromasia Not Reportable 09/17/20 04:16 Poikilocytosis Not Reportable 09/17/20 04:16 Anisocytosis 1+ 09/17/20 04:16 Microcytosis Not Reportable 09/17/20 04:16 Macrocytosis Not Reportable 09/17/20 04:16 Spherocytes Not Reportable 09/17/20 04:16 Pappenheimer Bodies Not Reportable 09/17/20 04:16 Sickle Cells Not Reportable 09/17/20 04:16 Target Cells Not Reportable 09/17/20 04:16 Tear Drop Cells Not Reportable 09/17/20 04:16 Ovalocytes Not Reportable 09/17/20 04:16 Helmet Cells Not Reportable 09/17/20 04:16 Hernandez-Blawenburg Bodies Not Reportable 09/17/20 04:16 [place] Rings Not Reportable 09/17/20 04:16 [place] Cells Not Reportable 09/17/20 04:16 Bite Cells Not Reportable 09/17/20 04:16 Crenated Cell Not Reportable 09/17/20 04:16 Elliptocytes Not Reportable 09/17/20 04:16 Acanthocytes (Spur) Not Reportable 09/17/20 04:16 Rouleaux Not Reportable 09/17/20 04:16 Hemoglobin C Crystals Not Reportable 09/17/20 04:16 Schistocytes Not Reportable 09/17/20 04:16 Malaria parasites Not Reportable 09/17/20 04:16 [place] Bodies Not Reportable 09/17/20 04:16 Hem Pathologist Commnt No 09/17/20 04:16 PT 18.0 Sec. (12.2-14.9) H 09/17/20 11:37 INR 1.49 (0.87-1.13) H 09/17/20 11:37 APTT 44.0 Sec. (24.2-36.6) H 09/16/20 20:49 D-Dimer > 53999 ng/mlDDU (0-234) H 09/17/20 11:37 Heparin Anti-Xa Level 0.25 U.I./ml (0.3-0.7) L 09/17/20 11:37 ABG pH 7.440 pH Units (7.350-7.450) 09/18/20 03:35 POC ABG pCO2 31.0 mmHg (32.0-48.0) L 09/16/20 16:00 ABG pCO2 28.4 mm Hg 09/18/20 03:35 POC ABG pO2 427.0 mmHg (83-108) H 09/16/20 16:00 ABG pO2 198.7 mm Hg (80.0-90.0) H 09/18/20 03:35 POC ABG HCO3 16.1 09/16/20 16:00 ABG HCO3 18.9 mmol/L (20.0-26.0) L 09/18/20 03:35 ABG O2 Saturation 99.3 % (95.0-99.0) H 09/18/20 03:35 ABG O2 Content 15.3 (0.0-44) 09/18/20 03:35 POC ABG Base Excess -8.6 09/16/20 16:00 ABG Base Excess -4.3 mmol/L (-2.0-3.0) L 09/18/20 03:35 ABG Hemoglobin 10.8 gm/dl (14.0-18.0) L 09/18/20 03:35 ABG Carboxyhemoglobin 1.0 % (0.0-5.0) 09/18/20 03:35 ABG Methemoglobin 0.6 % (0.0-1.5) 09/18/20 03:35 ABG Sodium 138.3 mmol/L (136.0-145.0) 09/16/20 16:00 ABG Potassium 3.7 mmol/L (3.40-4.50) 09/16/20 16:00 ABG Chloride 109.0 mmol/L (98-107) H 09/16/20 16:00 ABG Glucose 169 mg/dL (65-95) H 09/16/20 16:00 VBG pH 7.138 (7.320-7.420) L* 09/16/20 10:37 Oxyhemoglobin 97.7 % (95.0-99.0) 09/18/20 03:35 FiO2 45 % 09/18/20 03:35 Sodium 139 mmol/L (137-145) 09/18/20 04:19 Potassium 5.6 mmol/L (3.6-5.0) H 09/18/20 04:19 Chloride 103.1 mmol/L (98-107) 09/18/20 04:19 Carbon Dioxide 20 mmol/L (22-30) L 09/18/20 04:19 Anion Gap 22 mmol/L 09/18/20 04:19 BUN 50 mg/dL (9-20) H 09/18/20 04:19 Creatinine 2.4 mg/dL (0.8-1.3) H D 09/18/20 04:19 Estimated GFR 32 ml/min 09/18/20 04:19 BUN/Creatinine Ratio 21 % 09/18/20 04:19 Glucose 155 mg/dL (75-100) H 09/18/20 04:19 POC Glucose 132 mg/dL (70-105) H 09/18/20 06:34 Hemoglobin A1c 5.9 % (4-6) 09/16/20 12:33 Lactic Acid 3.90 mmol/L (0.7-2.0) H* 09/17/20 15:58 Calcium 9.1 mg/dL (8.4-10.2) 09/18/20 04:19 Magnesium 2.50 mg/dL (1.7-2.3) H 09/16/20 10:37 Ferritin 1306.0 ng/mL (30.0-300.0) H 09/17/20 15:58 Total Bilirubin 0.50 mg/dL (0.1-1.2) 09/16/20 10:37 Direct Bilirubin < 0.2 mg/dL (0-0.2) 09/16/20 10:37 Indirect Bilirubin 0.3 mg/dL 09/16/20 10:37 AST 54 units/L (5-40) H 09/16/20 10:37 ALT 47 units/L (7-56) 09/16/20 10:37 Alkaline Phosphatase 76 units/L (35-129) 09/16/20 10:37 Lactate Dehydrogenase 515 units/L (91-180) H 09/17/20 15:58 C-Reactive Protein 24.30 mg/dL (0.00-1.30) H 09/17/20 15:58 NT-Pro-B Natriuret Pep 144.6 pg/mL (0-900) 09/16/20 10:37 Total Protein 6.1 g/dL (6.3-8.2) L 09/16/20 10:37 Albumin 3.2 g/dL (3.9-5) L 09/16/20 10:37 Albumin/Globulin Ratio 1.1 % 09/16/20 10:37 Procalcitonin 140.88 ng/mL (<0.15) 09/16/20 20:49 Arterial Blood Glucose 169 mg/dL (65-95) H 09/16/20 16:00 Arterial Blood Ionized Calcium 4.5 mg/dL (4.6-5.3) L 09/16/20 16:00 Urine Color Nancy (Yellow) 09/16/20 10:53 Urine Turbidity Cloudy (Clear) 09/16/20 10:53 Urine pH 6.0 (5.0-7.0) 09/16/20 10:53 Ur Specific Dorr 1.020 (1.003-1.030) 09/16/20 10:53 Urine Protein >500 mg/dL (Negative) 09/16/20 10:53 Urine Glucose (UA) Neg mg/dL (Negative) 09/16/20 10:53 Urine Ketones Tr mg/dL (Negative) 09/16/20 10:53 Urine Blood Lg (Negative) 09/16/20 10:53 Urine Nitrite Neg (Negative) 09/16/20 10:53 Urine Bilirubin Neg (Negative) 09/16/20 10:53 Urine Urobilinogen < 2.0 mg/dL (<2.0) 09/16/20 10:53 Ur Leukocyte Esterase Tr (Negative) 09/16/20 10:53 Urine WBC (Auto) 67.0 /HPF (0.0-6.0) H 09/16/20 10:53 Urine RBC (Auto) > 182.0 /HPF (0.0-6.0) 09/16/20 10:53 U Epithel Cells (Auto) 27.0 /HPF (0-13.0) H 09/16/20 10:53 Urine Bacteria (Auto) 4+ /HPF (Negative) 09/16/20 10:53 Urine Mucus Few /HPF 09/16/20 10:53 Urine Creatinine 181.1 mg/dL (0.1-20.0) H 09/17/20 00:57 Urine Sodium 78 mmol/L 09/17/20 00:57 Coronavirus (PCR) Negative (Negative) 09/16/20 Unknown Microbiology: Microbiology 09/16/20 10:37 Peripheral/Venous Blood Culture - Preliminary 09/16/20 Unknown Sputum - Endotracheal Wash Sputum Culture - Preliminary 09/16/20 10:53 Urine,Clean Catch Urine Culture - Preliminary Gram Negative Jaden - Diagnostic Impressions Diagnostic Impressions: Echocardiogram 09/16/20 12:19 Transthoracic Echocardiogram Indication: Cardiac arrest. BP: 102/67 HR: 84 Conclusions *The study quality is technically difficult. *The study is technically limited due to poor apical windows. *Global left ventricular systolic function is mild to moderately decreased. *The estimated ejection fraction is 40-45%. *The right ventricular global systolic function is normal. *There is no evidence of aortic regurgitation. *There is no evidence of mitral regurgitation. *There is mild tricuspid regurgitation. *The right ventricular systolic pressure is calculated at 24 mmHg. *There is a small pericardial effusion. Findings Procedure Info: The study quality is technically difficult. The study is technically limited due to poor apical windows. The study was technically limited due to the patient's inability to lay in the left lateral decubitus position. Left Ventricle: The left ventricular chamber size is normal. Global left ventricular systolic function is mild to moderately decreased. The estimated ejection fraction is 40-45%. Abnormal left ventricular diastolic filling is observed, consistent with impaired relaxation. Left Atrium: The left atrium is not well visualized. Right Ventricle: The right ventricular global systolic function is normal. Aortic Valve: Mild aortic leaflet calcification is visualized. There is no evidence of aortic regurgitation. Mitral Valve: The mitral valve leaflets are mildly thickened. There is no evidence of mitral regurgitation. Tricuspid Valve: The tricuspid valve leaflets are normal. There is mild tricuspid regurgitation. The right ventricular systolic pressure is calculated at 24 mmHg. Pulmonic Valve: The pulmonic valve is not well visualized. Pericardium: There is a small pericardial effusion. Venous: The inferior vena cava appears normal. Measurements Chambers 2D Name Value Normal Range IVSd (2D) 1.01 cm (0.6 - 1.1) LVPWd (2D) 1.01 cm (0.6 - 1.1) LVIDd (2D) 3.87 cm (3.7 - 5.6) LVIDs (2D) 3.13 cm (2 - 3.8) LV FS (2D) 19.26 % - EF Teichholz (2D) 40.26 % - Ao root diameter (2D) 3.25 cm (2 - 3.7) Aortic Valve Name Value Normal Range AV Vmax 1 m/sec - AV VTI 13.56 cm - AV peak gradient 3.97 mmHg - AV mean gradient 1.67 mmHg - LVOT diameter 2 cm - LVOT Vmax 0.89 m/sec - LVOT VTI 13.01 cm - LVOT peak gradient 3.16 mmHg - LVOT mean gradient 1.53 mmHg - SV LVOT 41.03 ml - WESLEY (continuity Vmax) 2.81 cm2 - WESLEY (continuity VTI) 3.02 cm2 - Tricuspid Valve Name Value Normal Range TR Vmax 2.3 m/sec - TR peak gradient 21 mmHg - RAP 3 mmHg - RVSP 24 mmHg - IVC diameter 1.68 cm (1.2 - 2.3) Active Medications - Current Medications Current Medications: Generic Name Dose Route Start Last Admin Trade Name Freq PRN Reason Stop Dose Admin Lipase/Protease/Amylase 1 each 09/17/20 08:56 Lipase 10,500/Protease 25,000/Amylase 43,750 (Units) Dr Arciniega FEEDTUBE PRN PRN For Clogged Feeding Tube Dextrose 50 ml 09/16/20 12:19 Dextrose 50% In Water (25gm) 50 Ml Syringe IV Q30MIN PRN Hypoglycemia Protocol Fentanyl 50 mcg 09/16/20 20:12 Fentanyl 100 Mcg/2 Ml Inj IV Q10MIN PRN ANALGESIA Heparin Sodium (Porcine) 2,400 unit 09/16/20 20:12 09/16/20 21:00 Heparin 10,000 Units/10 Ml Vial 40 unit/kg (2400 unit) 2,400 unit IV Administration Q6H PRN Anti-Xa Assay < 0.1 units/ml Hydrophilic Ointment 1 applic 09/16/20 20:12 Lip Therapy Vaseline TP Q2HR PRN Dry Lips Sodium Bicarbonate 150 meq/ 150 mls @ 100 mls/hr 09/16/20 13:00 09/16/20 20:35 Sterile Water IV 100 mls/hr DIRECT DARA Administration Norepinephrine 4 mg in 250 mls @ 7.5 mls/hr 09/16/20 13:15 09/16/20 16:30 Levophed Drip 4 Mg/Ns 250 Ml IV Infused TITR DARA Titration Protocol 2 MCG/MIN Fentanyl Citrate 2,000 mcg in 100 mls @ 3 mls/hr 09/16/20 21:00 09/16/20 21:00 Fentanyl Drip Premix IV 1 mcg/kg/hr TITR DARA 3 mls/hr Administration Protocol 1 MCG/KG/HR Propofol 1,000 mg in 100 mls @ 1.8 mls/hr 09/16/20 21:00 09/16/20 19:55 Diprivan 10 Mg/Ml IV 5 mcg/kg/min TITR DARA 1.8 mls/hr Administration Protocol 5 MCG/KG/MIN Heparin Sodium/Sodium Chloride 25,000 unit in 500 mls @ 18 mls/hr 09/16/20 21:00 09/17/20 05:25 Heparin/ 0.45% Nacl-25,000 Unit/500 Ml IV 0 units/hr TITR DARA 0 mls/hr Titration Protocol 900 UNITS/HR Ceftriaxone Sodium 2 gm in 100 mls @ 200 mls/hr 09/17/20 13:00 09/17/20 16:08 Rocephin/Ns 2 Gm/100 Ml IV 200 mls/hr Q24H DARA Administration Protocol Insulin Human Regular 0 unit 09/16/20 13:00 09/18/20 06:40 Insulin Regular, Human 100 Unit/Ml 3ml Vial SUB-Q Not Given Q6H DARA Protocol Methylprednisolone Sodium Succinate 40 mg 09/16/20 22:00 09/18/20 06:40 Methylprednisolone Sod Succinate 40 Mg/1 Ml Inj IV 40 mg Q8HR DARA Administration Multi-Ingred Cream/Lotion/Oil/Oint 1 applic 12/25/20 20:12 Mineral Oil/Petrolatum, White Ophth Oint 3.5 Gm OU Q4HR PRN Dry Eye(s) Pantoprazole Sodium 40 mg 09/17/20 07:30 09/17/20 16:51 Pantoprazole 40 Mg Tab PO Not Given BIDAC DARA Simple Syrup 15 ml 09/17/20 08:56 Simple Syrup 15 Ml FEEDTUBE PRN PRN Hypoglycemia Simple Syrup 30 ml 09/17/20 08:56 Simple Syrup 15 Ml FEEDTUBE PRN PRN Hypoglycemia Sodium Bicarbonate 325 mg 09/17/20 08:56 Sodium Bicarbonate 325 Mg Tab FEEDTUBE PRN PRN For Clogged Feeding Tube Sodium Chloride 10 ml 09/16/20 22:00 09/17/20 23:52 Sodium Chloride 0.9% 10 Ml Flush Syringe IV 10 ml BID DARA Administration Sodium Chloride 10 ml 09/16/20 12:19 Sodium Chloride 0.9% 10 Ml Flush Syringe IV PRN PRN LINE FLUSH Nutrition/Malnutrition Assess - Dietary Evaluation Nutrition/Malnutrition Findings: Nutrition Notes Start: 09/17/20 08:49 Freq: Status: Active Protocol: Document 09/17/20 08:49 (Rec: 09/17/20 08:55 [id number]) Nutrition Notes Need for Assessment generated from: MD Order Initial or Follow up Assessment Current Diagnosis Acute Kidney Injury, Hyperlipidemia Other Pertinent Diagnosis Dementia, cardiac arrest, anemia Current Diet NPO Labs/Tests BUN 34 Cr 1.5 BG 171 Pertinent Medications Solu-Medrol Height 5 ft 7 in Weight 60 kg [place] Body Weight (kg) 67.27 BMI 20.7 Weight Status Underweight Subjective/Other Information MD order for TF and eval intakes. Pt on hold in ED. Pt on the vent. Burn Absent Trauma Absent Current % PO Negligible #1 Nutrition Diagnosis Inadequate oral intake Etiology acute respiratory failure As Evidenced by Signs and Symptoms pt on vent and unable to consume PO Is patient on ventilator? Yes Is Patient Ambulatory and/or Out of Bed No [facility] [id number] Calculation Used for Recommendations [facility] Additional Notes Pro: 72-120g (1.2-2g/kg) Fluid: 1 ml/kcal or per MD Nutrition Intervention Change Diet Order: Start TF Nutrition Support: Osmolite 1.5 at 45 ml/hr Flush 125 ml q4h Kcal 1,620 Protein (gm) 67 Fluid (mL) 823 Goal #1 TF start/tolerance Goal #2 Meet at least 75% of protein and energy needs via TF Anticipated Discharge Needs: Unable to determine at this time Follow-Up By: 09/19/20 Additional Comments FU for TF start/tolerance
--- NOTE | 2020-09-18 10:21 | Consultation ---
History of Present Illness - Reason for Consult Consult date: 09/18/20 septic shock Requesting physician: MAURA BAEZ - History of Present Illness 85 years old male with history of dementia, hyperlipidemia, admitted on 09/16/2020 secondary to cardiac arrest. Patient was walking through the house and collapsed. Daughter witnessed. Patient was complaining of right knee pain which is chronic. Upon EMS arrival, patient was found unresponsive but breathing and with a pulse. Patient lost a pulse in route to the hospital. CPR was given. In the ED, patient was immediately intubated and he had a pulse. On arrival, temperature 94.3 rectally, HR 93, RR 16, BP 121/73. Initial WBC 10.8. Hemoglobin 11.2. Platelets 162. Creatinine 1.5. Lactate 10. D-dimer 10,000. Ferritin 1306. Creatinine 2.8. Procalcitonin 140. Urinalysis with 67 WBCs, trace leukocyte esterase, 182 RBCs. SARS-CoV-2 PCR was negative. Blood cultures 09/15/2020 growing gram-negative bacilli 2 out of 2 bottles. Urine culture grew gram-negative bacilli as well. CTA shows bilateral pulmonary emboli. Review of Systems: Unable to obtain Past History Past Medical History: hyperlipidemia, other (Alzheimer's dementia) Past Surgical History: No surgical history Social history: no significant social history Family history: no significant family history Medications and Allergies Allergies Allergy/AdvReac Type Severity Reaction Status Date / Time No Known Allergies Allergy Unverified 09/16/20 12:52 Home Medications Medication Instructions Recorded Confirmed Last Taken Type No Known Home Medications [No 09/18/20 09/18/20 Unknown History Reported Home Medications] Active Meds: Active Medications Lipase/Protease/Amylase (Lipase 10,500/Protease 25,000/Amylase 43,750 (Units) Dr Arciniega) 1 each FEEDTUBE PRN PRN PRN Reason: For Clogged Feeding Tube Dextrose (Dextrose 50% In Water (25gm) 50 Ml Syringe) 50 ml IV Q30MIN PRN; Protocol PRN Reason: Hypoglycemia Fentanyl (Fentanyl 100 Mcg/2 Ml Inj) 50 mcg IV Q10MIN PRN PRN Reason: ANALGESIA Heparin Sodium (Porcine) (Heparin 10,000 Units/10 Ml Vial) 2,400 unit 40 uni t/kg (2400 unit) IV Q6H PRN PRN Reason: Anti-Xa Assay < 0.1 units/ml Last Admin: 09/16/20 21:00 Dose: 2,400 unit Documented by: Hydrophilic Ointment (Lip Therapy Vaseline) 1 applic TP Q2HR PRN PRN Reason: Dry Lips Sodium Bicarbonate 150 meq/ (Sterile Water) 150 mls @ 100 mls/hr IV DIRECT DARA Last Admin: 09/16/20 20:35 Dose: 100 mls/hr Documented by: Norepinephrine (Levophed Drip 4 Mg/Ns 250 Ml) 4 mg in 250 mls @ 7.5 mls/hr IV TITR DARA; Protocol Last Titration: 09/16/20 16:30 Dose: Infused Documented by: Fentanyl Citrate (Fentanyl Drip Premix) 2,000 mcg in 100 mls @ 3 mls/hr IV TITR DARA; Protocol Last Admin: 09/16/20 21:00 Dose: 1 mcg/kg/hr, 3 mls/hr Documented by: Propofol (Diprivan 10 Mg/Ml) 1,000 mg in 100 mls @ 1.8 mls/hr IV TITR DARA; Protocol Last Admin: 09/16/20 19:55 Dose: 5 mcg/kg/min, 1.8 mls/hr Documented by: Heparin Sodium/Sodium Chloride (Heparin/ 0.45% Nacl-25,000 Unit/500 Ml) 25,000 unit in 500 mls @ 18 mls/hr IV TITR DARA; Protocol Last Titration: 09/17/20 05:25 Dose: 0 units/hr, 0 mls/hr Documented by: Ceftriaxone Sodium (Rocephin/Ns 2 Gm/100 Ml) 2 gm in 100 mls @ 200 mls/hr IV Q24H DARA; Protocol Last Admin: 09/17/20 16:08 Dose: 200 mls/hr Documented by: Insulin Human Regular (Insulin Regular, Human 100 Unit/Ml 3ml Vial) 0 unit SUB- Q Q6H DARA; Protocol Last Admin: 09/18/20 06:40 Dose: Not Given Documented by: Methylprednisolone Sodium Succinate (Methylprednisolone Sod Succinate 40 Mg/1 Ml Inj) 40 mg IV Q8HR DARA Last Admin: 09/18/20 06:40 Dose: 40 mg Documented by: Multi-Ingred Cream/Lotion/Oil/Oint (Mineral Oil/Petrolatum, White Ophth Oint 3.5 Gm) 1 applic OU Q4HR PRN PRN Reason: Dry Eye(s) Pantoprazole Sodium (Pantoprazole 40 Mg Tab) 40 mg PO BIDAC [facility] Last Admin: 09/17/20 16:51 Dose: Not Given Documented by: Simple Syrup (Simple Syrup 15 Ml) 15 ml FEEDTUBE PRN PRN PRN Reason: Hypoglycemia Simple Syrup (Simple Syrup 15 Ml) 30 ml FEEDTUBE PRN PRN PRN Reason: Hypoglycemia Sodium Bicarbonate (Sodium Bicarbonate 325 Mg Tab) 325 mg FEEDTUBE PRN PRN PRN Reason: For Clogged Feeding Tube Sodium Chloride (Sodium Chloride 0.9% 10 Ml Flush Syringe) 10 ml IV BID [facility] Last Admin: 09/17/20 23:52 Dose: 10 ml Documented by: Sodium Chloride (Sodium Chloride 0.9% 10 Ml Flush Syringe) 10 ml IV PRN PRN PRN Reason: LINE FLUSH Physical Examination - Physical Exam Narrative exam: General appearance: Sedated, intubated Eyes: anicteric sclerae, moist conjunctivae; no lid-lag; PERRLA HENT: Normocephalic, Atraumatic; normal external ears, nares open, oropharynx limited endotracheal tube in place Neck: supple, tracheal midline, no JVD Lungs: Bilateral coarse breath sounds CV: Regular rate and rhythm Abdomen: Tense, tender to palpation diffusely Extremities: Left leg edema Skin: No rash. Psych: Sedated Neuro: Sedated Sanchez in place with dark bloody urine Femoral TLC - Constitutional Vitals: Vital Signs Temp Pulse Resp BP Pulse Ox 97.3 F L 90 18 116/92 99 09/17/20 11:46 09/18/20 08:51 09/18/20 05:52 09/18/20 08:51 09/18/20 08:51 Temperature -Last 24 Hours Temperature 97.3 F Results - Labs CBC & Chem 7: 09/18/20 04:19 09/18/20 04:19 Labs: Abnormal lab results 09/17/20 09/17/20 09/17/20 Range/Units 11:37 11:37 11:37 WBC (4.5-11.0) K/mm3 Hgb (11.8-15.2) gm/dl Hct (35.5-45.6) % MCV (84-94) fl MCH (28-32) pg Lymph % (Auto) (13.4-35.0) % Lymph # (Auto) (1.2-5.4) K/mm3 Seg Neutrophils % (40.0-70.0) % Seg Neutrophils # (1.8-7.7) K/mm3 PT 18.0 H (12.2-14.9) Sec. INR 1.49 H (0.87-1.13) D-Dimer > 02447 H (0-234) ng/mlDDU Heparin Anti-Xa Level 0.25 L (0.3-0.7) U.I./ml ABG pO2 (80.0-90.0) mm Hg ABG HCO3 (20.0-26.0) mmol/L ABG O2 Saturation (95.0-99.0) % ABG Base Excess (-2.0-3.0) mmol/L ABG Hemoglobin (14.0-18.0) gm/dl Potassium (3.6-5.0) mmol/L Carbon Dioxide (22-30) mmol/L BUN (9-20) mg/dL Creatinine (0.8-1.3) mg/dL Glucose (75-100) mg/dL POC Glucose (70-105) mg/dL Lactic Acid 2.80 H* (0.7-2.0) mmol/L Ferritin (30.0-300.0) ng/mL Lactate Dehydrogenase (91-180) units/L C-Reactive Protein (0.00-1.30) mg/dL 09/17/20 09/17/20 09/17/20 Range/Units 15:58 15:58 15:58 WBC (4.5-11.0) K/mm3 Hgb (11.8-15.2) gm/dl Hct (35.5-45.6) % MCV (84-94) fl MCH (28-32) pg Lymph % (Auto) (13.4-35.0) % Lymph # (Auto) (1.2-5.4) K/mm3 Seg Neutrophils % (40.0-70.0) % Seg Neutrophils # (1.8-7.7) K/mm3 PT (12.2-14.9) Sec. INR (0.87-1.13) D-Dimer (0-234) ng/mlDDU Heparin Anti-Xa Level (0.3-0.7) U.I./ml ABG pO2 (80.0-90.0) mm Hg ABG HCO3 (20.0-26.0) mmol/L ABG O2 Saturation (95.0-99.0) % ABG Base Excess (-2.0-3.0) mmol/L ABG Hemoglobin (14.0-18.0) gm/dl Potassium (3.6-5.0) mmol/L Carbon Dioxide (22-30) mmol/L BUN (9-20) mg/dL Creatinine (0.8-1.3) mg/dL Glucose (75-100) mg/dL POC Glucose (70-105) mg/dL Lactic Acid 3.90 H* (0.7-2.0) mmol/L Ferritin 1306.0 H (30.0-300.0) ng/mL Lactate Dehydrogenase 515 H (91-180) units/L C-Reactive Protein 24.30 H (0.00-1.30) mg/dL 09/17/20 09/18/20 09/18/20 Range/Units 20:35 03:04 03:35 WBC (4.5-11.0) K/mm3 Hgb (11.8-15.2) gm/dl Hct (35.5-45.6) % MCV (84-94) fl MCH (28-32) pg Lymph % (Auto) (13.4-35.0) % Lymph # (Auto) (1.2-5.4) K/mm3 Seg Neutrophils % (40.0-70.0) % Seg Neutrophils # (1.8-7.7) K/mm3 PT (12.2-14.9) Sec. INR (0.87-1.13) D-Dimer (0-234) ng/mlDDU Heparin Anti-Xa Level (0.3-0.7) U.I./ml ABG pO2 198.7 H (80.0-90.0) mm Hg ABG HCO3 18.9 L (20.0-26.0) mmol/L ABG O2 Saturation 99.3 H (95.0-99.0) % ABG Base Excess -4.3 L (-2.0-3.0) mmol/L ABG Hemoglobin 10.8 L (14.0-18.0) gm/dl Potassium (3.6-5.0) mmol/L Carbon Dioxide (22-30) mmol/L BUN (9-20) mg/dL Creatinine (0.8-1.3) mg/dL Glucose (75-100) mg/dL POC Glucose 111 H 129 H (70-105) mg/dL Lactic Acid (0.7-2.0) mmol/L Ferritin (30.0-300.0) ng/mL Lactate Dehydrogenase (91-180) units/L C-Reactive Protein (0.00-1.30) mg/dL 09/18/20 09/18/20 09/18/20 Range/Units 04:19 04:19 06:34 WBC 21.8 H (4.5-11.0) K/mm3 Hgb 11.4 L (11.8-15.2) gm/dl Hct 35.2 L (35.5-45.6) % MCV 82 L (84-94) fl MCH 26 L (28-32) pg Lymph % (Auto) 2.4 L (13.4-35.0) % Lymph # (Auto) 0.5 L (1.2-5.4) K/mm3 Seg Neutrophils % 94.6 H (40.0-70.0) % Seg Neutrophils # 20.6 H (1.8-7.7) K/mm3 PT (12.2-14.9) Sec. INR (0.87-1.13) D-Dimer (0-234) ng/mlDDU Heparin Anti-Xa Level (0.3-0.7) U.I./ml ABG pO2 (80.0-90.0) mm Hg ABG HCO3 (20.0-26.0) mmol/L ABG O2 Saturation (95.0-99.0) % ABG Base Excess (-2.0-3.0) mmol/L ABG Hemoglobin (14.0-18.0) gm/dl Potassium 5.6 H (3.6-5.0) mmol/L Carbon Dioxide 20 L (22-30) mmol/L BUN 50 H (9-20) mg/dL Creatinine 2.4 H D (0.8-1.3) mg/dL Glucose 155 H (75-100) mg/dL POC Glucose 132 H (70-105) mg/dL Lactic Acid (0.7-2.0) mmol/L Ferritin (30.0-300.0) ng/mL Lactate Dehydrogenase (91-180) units/L C-Reactive Protein (0.00-1.30) mg/dL Assessment and Plan Cultures: SARS-CoV-2 PCR negative. Blood cultures 09/15/2020 Gram-negative bacilli 2 out of 2 bottles. Urine culture Gram-negative bacilli Assessment: 85 years old male with history of dementia, hyperlipidemia, admitted on 09/16/2020 secondary to cardiac arrest, intubated upon arrival: #[id number] cardiac arrest: Unclear duration. Received CPR in route. #Severe sepsis with septic shock: present on admission with fever, tachycardia, hypotension, elevated lactate, patient was on pressors; source multifactorial - acute pulmonary embolism and gram-negative dinora bacteremia. Procalcitonin very high at 140 in the setting of RENE. SARS-CoV-2 PCR negative. #Gram-negative dinora bacteremia: Likely from UTI. #Complicated UTI: Noted hematuria. Sanchez placed on admission. Urine culture gr owing gram-negative bacilli. #Bilateral pulmonary emboli: Very high D-dimer>10,000. #RENE: Secondary to sepsis. Worsening. #Acute encephalopathy on chronic dementia: CT with extensive microvascular angiopathy Recommendations: Follow-up blood culture and urine cultures Stop ceftriaxone Start cefepime IV renally adjusted until gram-negative bacilli is identified Neurology consultation re: complicated UTI with hematuria Obtain renal ultrasound r/o obstructing stone Obtain venous ultrasound re: left leg edema Monitor mentation, consider neurology evaluation Follow-up sputum culture Remove femoral TLC as soon as possible Dr. Mallory arriaga tomorrow Will follow. Taisha Mane MD Infectious Diseases [employer] Associate [facility] M [phone] O [phone]
--- NOTE | 2020-09-18 11:11 | Progress Note ---
Assessment and Plan Acute respiratory failure status post intubation Status post cardiac arrest Sepsis Acute renal insufficiency Hypotension Hyperlipidemia Elevated D-dimer rec: Discussed with patient's nurse to decrease sedation coronavirus negative treating for sepsis is off of heparin secondary to hematuria and blood in the fissures. Poor prognosis Subjective Date of service: 09/18/20 Principal diagnosis: Ac hypoxemic resp failure; Cardiac arrest; Acute P.E.; Severe sepsis; COVID Interval history: Patient not responsive Objective Vital Signs Temp Pulse Resp BP Pulse Ox 09/18/20 08:51 90 116/92 99 09/18/20 05:52 18 09/18/20 05:15 93 H 20 132/99 09/18/20 05:00 91 H 20 126/100 09/18/20 04:45 91 H 20 136/97 09/18/20 04:30 92 H 20 144/96 09/18/20 04:15 93 H 20 129/100 09/18/20 04:00 93 H 20 141/100 09/18/20 03:45 93 H 20 141/98 09/18/20 03:30 92 H 20 144/98 99 09/18/20 03:15 91 H 20 140/96 09/18/20 03:00 91 H 20 130/97 09/18/20 02:45 92 H 20 118/94 09/18/20 02:30 91 H 20 126/98 09/18/20 02:15 92 H 20 135/96 09/18/20 02:00 92 H 20 135/100 09/18/20 01:45 93 H 20 123/97 09/18/20 01:30 89 20 151/109 09/18/20 01:15 91 H 20 127/101 09/18/20 01:00 92 H 20 141/97 09/18/20 00:45 92 H 20 144/98 09/18/20 00:30 91 H 20 139/100 09/18/20 00:15 90 20 147/96 09/18/20 00:00 91 H 20 127/98 09/17/20 23:45 91 H 20 137/100 09/17/20 23:35 90 118/92 09/17/20 23:30 90 20 124/94 09/17/20 23:15 90 20 137/100 09/17/20 23:00 88 20 118/92 09/17/20 22:45 90 20 128/94 09/17/20 22:30 91 H 20 135/92 09/17/20 22:15 91 H 20 127/96 09/17/20 22:00 91 H 20 130/96 09/17/20 21:45 90 20 128/95 09/17/20 21:30 90 20 115/89 09/17/20 21:15 90 20 136/92 09/17/20 21:03 90 20 126/96 09/17/20 21:00 90 20 126/96 09/17/20 20:45 90 20 117/91 09/17/20 20:30 90 20 134/92 09/17/20 20:15 90 20 118/92 09/17/20 20:00 90 20 127/89 09/17/20 19:45 89 20 116/90 09/17/20 19:30 89 20 131/87 09/17/20 19:28 90 125/92 97 09/17/20 19:15 90 20 117/87 100 09/17/20 19:00 90 20 116/90 09/17/20 18:45 90 20 125/92 09/17/20 18:30 90 20 119/87 09/17/20 18:15 90 20 128/91 09/17/20 18:00 90 20 112/85 09/17/20 17:45 90 20 116/89 09/17/20 17:30 89 20 127/87 09/17/20 17:15 89 20 112/91 09/17/20 17:02 89 122/92 99 09/17/20 17:00 89 20 122/92 09/17/20 16:45 89 20 111/87 09/17/20 16:30 88 20 114/79 09/17/20 16:15 91 H 20 96/75 09/17/20 16:00 90 20 106/80 09/17/20 15:45 90 20 110/83 09/17/20 15:30 90 20 107/77 09/17/20 15:15 90 20 125/80 09/17/20 15:00 89 20 107/81 09/17/20 14:45 90 20 113/79 09/17/20 14:30 89 20 109/84 09/17/20 14:15 88 20 121/83 09/17/20 14:00 89 20 107/76 09/17/20 13:45 87 20 104/74 09/17/20 13:30 88 20 118/86 09/17/20 13:15 87 20 100/74 09/17/20 13:00 87 20 104/78 09/17/20 12:45 88 20 104/75 09/17/20 12:30 87 20 105/69 09/17/20 12:15 86 20 113/80 09/17/20 12:09 87 97/70 100 09/17/20 12:00 87 20 97/70 97 09/17/20 11:46 97.3 F L 09/17/20 11:45 86 20 98/72 09/17/20 11:30 86 20 103/68 09/17/20 11:15 87 20 106/68 - Physical Examination General: Other HEENT: Positive: Other Neck: Positive: neck supple Cardiac: Positive: Reg Rate and Rhythm Neuro: Positive: Other (Sedated) - Labs and Meds Cardiac Enzymes 09/17/20 Range/Units 15:58 Lactate Dehydrogenase 515 H (91-180) units/L Coagulation 09/17/20 Range/Units 11:37 PT 18.0 H (12.2-14.9) Sec. INR 1.49 H (0.87-1.13) CBC 09/18/20 Range/Units 04:19 WBC 21.8 H (4.5-11.0) K/mm3 RBC 4.31 (3.65-5.03) M/mm3 Hgb 11.4 L (11.8-15.2) gm/dl Hct 35.2 L (35.5-45.6) % Plt Count 159 (140-440) K/mm3 Lymph # (Auto) 0.5 L (1.2-5.4) K/mm3 Dickson # (Auto) 0.6 (0.0-0.8) K/mm3 Eos # (Auto) 0.0 (0.0-0.4) K/mm3 Baso # (Auto) 0.1 (0.0-0.1) K/mm3 Comprehensive Metabolic Panel 09/18/20 Range/Units 04:19 Sodium 139 (137-145) mmol/L Potassium 5.6 H (3.6-5.0) mmol/L Chloride 103.1 (98-107) mmol/L Carbon Dioxide 20 L (22-30) mmol/L BUN 50 H (9-20) mg/dL Creatinine 2.4 H D (0.8-1.3) mg/dL Glucose 155 H (75-100) mg/dL Calcium 9.1 (8.4-10.2) mg/dL - Imaging and Cardiology Echo: report reviewed (Small pericardial effusion EF 40 to 45% without significant regurgitation) - Telemetry EKG Rhythm: Sinus Rhythm
--- NOTE | 2020-09-18 13:12 | Progress Note ---
Assessment and Plan 1. Acute kidney injury: Vasomotor nephropathy in the setting of Cardiac arrest. Renal US ordered. Monitor renal function. Creatinine level is 2.4 from 1.5. Increase in the creatinine level is likely 2/2 IV contrast. Pt is not on IV fluids, informed RN to restart on IV fluids. Baseline renal function is unknown. Avoid nephrotoxic agents. Meds dosage based on GFR. 2. FEN: Hyperkalemia, meds ordered, monitor. Anion-gap metabolic acidosis, 2/2 lactic acidosis, bicarb drip, monitor. Monitor lytes and volume status. 3. S/p Cardiac arrest: Cardiac arrest 09/16. Seen by Cards. 4. Acute resp failure: Followed by Pulmonary. 5. Shock: Off pressors. 6. PE: CTA showed multiple filling defects involving L LL and R UL. 7. Anemia, POA: Monitor. 8. Acute Metabolic Encephalopathy, POA: Supportive care. Prognosis is guarded. Subjective: Patient was seen and examined at the bedside. Examination: General appearance: well-developed, appears emaciated, intubated, on vent HEENT: ATNC EYES: pupils reacting to light Neck: trachea midline Respiratory: MV sounds Heart: S1S2, regular, no murmur Gastrointestinal: soft, not tender, BS heard Integumentary: no rash, warm and dry Neurologic: not responding Ext: no edema Subjective Date of service: 09/18/20 Principal diagnosis: Ac hypoxemic resp failure; Cardiac arrest; Acute P.E.; Severe sepsis; COVID Objective - Vital Signs Vital signs: Vital Signs - 12hr 09/18/20 09/18/20 09/18/20 01:15 01:30 01:45 Pulse Rate 91 H 89 93 H Respiratory 20 20 20 Rate Blood Pressure 127/101 151/109 123/97 O2 Sat by Pulse Oximetry 09/18/20 09/18/20 09/18/20 02:00 02:15 02:30 Pulse Rate 92 H 92 H 91 H Respiratory 20 20 20 Rate Blood Pressure 135/100 135/96 126/98 O2 Sat by Pulse Oximetry 09/18/20 09/18/20 09/18/20 02:45 03:00 03:15 Pulse Rate 92 H 91 H 91 H Respiratory 20 20 20 Rate Blood Pressure 118/94 130/97 140/96 O2 Sat by Pulse Oximetry 09/18/20 09/18/20 09/18/20 03:30 03:45 04:00 Pulse Rate 92 H 93 H 93 H Respiratory 20 20 20 Rate Blood Pressure 144/98 141/98 141/100 O2 Sat by Pulse 99 Oximetry 09/18/20 09/18/20 09/18/20 04:15 04:30 04:45 Pulse Rate 93 H 92 H 91 H Respiratory 20 20 20 Rate Blood Pressure 129/100 144/96 136/97 O2 Sat by Pulse Oximetry 09/18/20 09/18/20 09/18/20 05:00 05:15 05:52 Pulse Rate 91 H 93 H Respiratory 20 20 18 Rate Blood Pressure 126/100 132/99 O2 Sat by Pulse Oximetry 09/18/20 09/18/20 08:51 13:03 Pulse Rate 90 90 Respiratory Rate Blood Pressure 116/92 142/97 O2 Sat by Pulse 99 Oximetry - Lab 09/18/20 04:19 09/18/20 04:19 Most recent lab results ABG pH 7.440 pH Units (7.350-7.450) 09/18/20 03:35 ABG pCO2 28.4 mm Hg 09/18/20 03:35 ABG pO2 198.7 mm Hg (80.0-90.0) H 09/18/20 03:35 ABG HCO3 18.9 mmol/L (20.0-26.0) L 09/18/20 03:35 ABG O2 Saturation 99.3 % (95.0-99.0) H 09/18/20 03:35 Calcium 9.1 mg/dL (8.4-10.2) 09/18/20 04:19 Magnesium 2.50 mg/dL (1.7-2.3) H 09/16/20 10:37 Urine Creatinine 181.1 mg/dL (0.1-20.0) H 09/17/20 00:57 Urine Sodium 78 mmol/L 09/17/20 00:57 Medications & Allergies - Medications Allergies/Adverse Reactions: Allergies No Known Allergies Allergy (Unverified 09/16/20 12:52) Home Medications: Home Medications Medication Instructions Recorded Confirmed Last Taken Type No Known Home Medications [No 09/18/20 09/18/20 Unknown History Reported Home Medications] Active Medications: Generic Name Dose Route Start Last Admin Trade Name Freq PRN Reason Stop Dose Admin Lipase/Protease/Amylase 1 each 09/17/20 08:56 Lipase 10,500/Protease 25,000/Amylase 43,750 (Units) Dr Cap FEEDTUBE PRN PRN For Clogged Feeding Tube Dextrose 50 ml 09/16/20 12:19 Dextrose 50% In Water (25gm) 50 Ml Syringe IV Q30MIN PRN Hypoglycemia Protocol Fentanyl 50 mcg 09/16/20 20:12 Fentanyl 100 Mcg/2 Ml Inj IV Q10MIN PRN ANALGESIA Heparin Sodium (Porcine) 2,400 unit 09/16/20 20:12 09/16/20 21:00 Heparin 10,000 Units/10 Ml Vial 40 unit/kg (2400 unit) 2,400 unit IV Administration Q6H PRN Anti-Xa Assay < 0.1 units/ml Hydrophilic Ointment 1 applic 09/16/20 20:12 Lip Therapy Vaseline TP Q2HR PRN Dry Lips Sodium Bicarbonate 150 meq/ 150 mls @ 100 mls/hr 09/16/20 13:00 09/16/20 20:35 Sterile Water IV 100 mls/hr DIRECT DARA Administration Norepinephrine 4 mg in 250 mls @ 7.5 mls/hr 09/16/20 13:15 09/16/20 16:30 Levophed Drip 4 Mg/Ns 250 Ml IV Infused TITR DARA Titration Protocol 2 MCG/MIN Fentanyl Citrate 2,000 mcg in 100 mls @ 3 mls/hr 09/16/20 21:00 09/16/20 21:00 Fentanyl Drip Premix IV 1 mcg/kg/hr TITR DARA 3 mls/hr Administration Protocol 1 MCG/KG/HR Propofol 1,000 mg in 100 mls @ 1.8 mls/hr 09/16/20 21:00 09/16/20 19:55 Diprivan 10 Mg/Ml IV 5 mcg/kg/min TITR DARA 1.8 mls/hr Administration Protocol 5 MCG/KG/MIN Heparin Sodium/Sodium Chloride 25,000 unit in 500 mls @ 18 mls/hr 09/16/20 21:00 09/17/20 05:25 Heparin/ 0.45% Nacl-25,000 Unit/500 Ml IV 0 units/hr TITR DARA 0 mls/hr Titration Protocol 900 UNITS/HR Cefepime HCl 1 gm in 100 mls @ 200 mls/hr 09/18/20 12:00 Cefepime/Ns 1 Gm/100 Ml IV Q12H [facility] Protocol Insulin Human Regular 0 unit 09/16/20 13:00 09/18/20 06:40 Insulin Regular, Human 100 Unit/Ml 3ml Vial SUB-Q Not Given Q6H [facility] Protocol Methylprednisolone Sodium Succinate 40 mg 09/16/20 22:00 09/18/20 06:40 Methylprednisolone Sod Succinate 40 Mg/1 Ml Inj IV 40 mg Q8HR DARA Administration Multi-Ingred Cream/Lotion/Oil/Oint 1 applic 09/16/20 20:12 Mineral Oil/Petrolatum, White Ophth Oint 3.5 Gm OU Q4HR PRN Dry Eye(s) Pantoprazole Sodium 40 mg 09/17/20 07:30 09/17/20 16:51 Pantoprazole 40 Mg Tab PO Not Given BIDAC DARA Simple Syrup 15 ml 09/17/20 08:56 Simple Syrup 15 Ml FEEDTUBE PRN PRN Hypoglycemia Simple Syrup 30 ml 09/17/20 08:56 Simple Syrup 15 Ml FEEDTUBE PRN PRN Hypoglycemia Sodium Bicarbonate 325 mg 09/17/20 08:56 Sodium Bicarbonate 325 Mg Tab FEEDTUBE PRN PRN For Clogged Feeding Tube Sodium Chloride 10 ml 09/16/20 22:00 09/17/20 23:52 Sodium Chloride 0.9% 10 Ml Flush Syringe IV 10 ml BID DARA Administration Sodium Chloride 10 ml 09/16/20 12:19 Sodium Chloride 0.9% 10 Ml Flush Syringe IV PRN PRN LINE FLUSH
[2020-09-18] MEDS ORDERED: INSULIN REGULAR, HUMAN 100 UNIT/ML 3ML VIAL IV ONE (13:14)
[2020-09-18] MEDS ORDERED: DEXTROSE 50% IN WATER (25GM) 50 ML SYRINGE IV ONE (13:14)
[2020-09-18] MEDS ORDERED: SODIUM POLYSTYRENE 15 GM/60 ML ORAL LIQD PO ONE (14:00)
[2020-09-18] MEDS ORDERED: INSULIN REGULAR, HUMAN 100 UNITS/1 ML ONE (15:00)
[2020-09-18] MEDS: PANTOPRAZOLE 40 MG TAB PO SCH ×2 (15:25→17:20)
[2020-09-18] MEDS: CEFEPIME/NS 1 GM/100 ML 1 GM/100 ML BAG IV SCH ×2 (15:25→23:42)
[2020-09-18] MEDS: SODIUM BICARBONATE 150 MEQ in /WATER, STERILE 1,000 SYR IV SCH (15:26)
--- NOTE | 2020-09-18 16:13 | Ultrasound Report ---
ULTRASOUND RENAL INDICATION / CLINICAL INFORMATION: Acute renal failure.. COMPARISON: None available. FINDINGS: RIGHT KIDNEY: - Length = 8.5 cm. [Normal > 9.0 cm] - Parenchymal Thickness = 1.5 cm. [Normal > 1.5 cm] - Echogenicity: Normal -- hypoechoic or isoechoic to liver/spleen. - Hydronephrosis: None. - Cyst or mass: 2.7 cm mildly complex cyst along the lateral margin of the right kidney. No internal blood flow on Doppler exam. LEFT KIDNEY: -Not visualized. URINARY BLADDER: Collapsed with a Sanchez catheter present. ADDITIONAL FINDINGS: None. IMPRESSION: 1. Small right kidney without hydronephrosis or medical renal disease. 2.7 cm mildly complex right re nal cyst. 2. Nonvisualization of the left kidney sonographically. Review of the CTA of the chest performed on 11/17/19 reveals a simple cyst-appearing lesion in the left kidney without hydronephrosis or other abn ormality. Renal Parenchymal Thickness Parenchyma = Cortex + Medullary Pyramid - Normal >= 1.5 cm - Mild thinning = 1.0-1.49 cm - Moderate thinning = 0.5-0.99 cm - Severe thinning < 0.5 cm Signer Name: Norm Esparza MD Signed: 09/18/2020 4:09 PM Workstation Name: [id number]
--- NOTE | 2020-09-18 20:04 | Progress Note ---
Assessment and Plan Acute hypoxemic respiratory failure, on mechanical ventilatory support. Cardiac arrest with return of spontaneous circulation Acute pulmonary emboli. Person under investigation for COVID-19 infection. CHF (EF 40%) History of dementia. Urinary tract infection. Anemia that is normocytic. Elevated serum D-dimers. Lactic acidosis. Severe sepsis - repeat CBC in am - will need IVC filter if unable to resume anticoagulation - prognosis for neurologic recovery is poor and family conference may be appropriate re: goals of care - repeat CT brain in am re: ? bleeding and to evaluation for evolution of pathological changes - continue care as below otherwise; - neurology evaluation pending - continue empiric Rocephin for tentative UTI driven sepsis but get ID opinion re: severe Procalcitonin elevation - follow cultures - coronavirus PCR negative - continue full anticoagulation for VTE - continue to wean supplemental oxygen for target O2 sat's > 92% acutely - VAP bundle addressed - continue lung protective strategies - continue bronchodilators with pulmonary hygiene per RT - wean per pulmonary driven protocols otherwise - continue Daily SAT and SBT assessment as tolerated - continue accuchecks with glycemic control per SSI (While critically ill target blood glucose of 140-180 mg/dL; avoid hypoglycemia) - sedation prn for target RASS 0 to -1 - avoid nephrotoxins, renally dose all medications - continue to avoid benzodiazepine's, reduce the possibility of delirium - completed AB's per ID rec's - prn analgesia per CPOT score - Maintenance of sleep-wake cycle, avoid delirium - continue enteral nutritional support at goal rate as tolerated - G.I. & VTE prophylaxis - PT/OT/ROM exercises - continue mobility protocols for pressure ulcer prophylaxis - Monitor hemodynamics closely - continue other care per attending / other consultants - discharge planning ongoing concurrently .... Re-evaluate in am & prn CONDITION: CRITICAL PROGNOSIS: GUARDED CODE STATUS: FULL CODE The high probability of a clinically significant, sudden or life-threatening deterioration of the [respiratory, cardiovascular, hematologic & neurologic] system(s) required my full and direct attention, intervention and personal management. The aggregate critical care time was [34] minutes without overlap. Time includes spent on; [x] Data Review and interpretation [x] Patient assessment and monitoring of vital signs [x] Documentation [x] Medication orders and management Subjective Date of service: 09/18/20 Principal diagnosis: Ac hypoxemic resp failure; Cardiac arrest; Acute P.E.; Severe sepsis; COVID Interval history: Patient is seen today for: Ac hypoxemic resp failure; Cardiac arrest with ROSC; Acute pulmonary emboli; Severe sepsis; PUI COVID-19; UTI Seen and examined at bedside; 24hour events reviewed; nursing and respiratory care staff consulted; no adverse overnight events reported to me; resting peacefully in bed; per RN bleeding reported from multiple orifices and IV heparin was held; remains on MVS; off sedation, no more jerks but AMS is persistent; Objective Vital Signs - 12hr 09/18/20 09/18/20 09/18/20 08:15 08:30 08:45 Temperature Pulse Rate 88 89 89 Respiratory 18 18 18 Rate Blood Pressure 140/92 121/92 116/92 Blood Pressure [Left] O2 Sat by Pulse Oximetry 09/18/20 09/18/20 09/18/20 08:51 09:00 09:15 Temperature Pulse Rate 90 90 90 Respiratory 19 18 Rate Blood Pressure 116/92 143/99 120/92 Blood Pressure [Left] O2 Sat by Pulse 99 Oximetry 09/18/20 09/18/20 09/18/20 09:30 09:45 10:00 Temperature Pulse Rate 90 89 89 Respiratory 18 18 18 Rate Blood Pressure 123/89 134/92 123/93 Blood Pressure [Left] O2 Sat by Pulse Oximetry 09/18/20 09/18/20 09/18/20 10:15 10:30 10:45 Temperature Pulse Rate 89 89 87 Respiratory 18 18 18 Rate Blood Pressure 128/93 121/91 132/96 Blood Pressure [Left] O2 Sat by Pulse Oximetry 09/18/20 09/18/20 09/18/20 11:00 11:15 11:30 Temperature Pulse Rate 89 87 89 Respiratory 18 19 18 Rate Blood Pressure 125/95 142/107 135/97 Blood Pressure [Left] O2 Sat by Pulse Oximetry 09/18/20 09/18/20 09/18/20 11:45 12:00 12:15 Temperature Pulse Rate 88 90 89 Respiratory 18 18 18 Rate Blood Pressure 138/95 132/96 139/100 Blood Pressure [Left] O2 Sat by Pulse Oximetry 09/18/20 09/18/20 09/18/20 12:30 12:45 13:00 Temperature Pulse Rate 91 H 90 91 H Respiratory 18 18 18 Rate Blood Pressure 150/96 131/97 142/97 Blood Pressure [Left] O2 Sat by Pulse Oximetry 09/18/20 09/18/20 09/18/20 13:03 13:15 13:30 Temperature Pulse Rate 90 94 H 91 H Respiratory 18 18 Rate Blood Pressure 142/97 143/100 143/95 Blood Pressure [Left] O2 Sat by Pulse 100 Oximetry 09/18/20 09/18/20 09/18/20 13:45 14:00 14:15 Temperature Pulse Rate 90 92 H 93 H Respiratory 17 18 18 Rate Blood Pressure 159/99 135/99 140/101 Blood Pressure [Left] O2 Sat by Pulse Oximetry 09/18/20 09/18/20 09/18/20 14:30 14:45 15:00 Temperature Pulse Rate 94 H 93 H 94 H Respiratory 18 13 18 Rate Blood Pressure 157/106 137/100 145/101 Blood Pressure [Left] O2 Sat by Pulse Oximetry 09/18/20 09/18/20 09/18/20 15:15 15:30 15:45 Temperature Pulse Rate 93 H 99 H 91 H Respiratory 18 18 18 Rate Blood Pressure 155/100 105/65 165/91 Blood Pressure [Left] O2 Sat by Pulse Oximetry 09/18/20 09/18/20 09/18/20 16:00 16:15 16:29 Temperature Pulse Rate 93 H 96 H 96 H Respiratory 18 19 Rate Blood Pressure 141/94 150/90 150/90 Blood Pressure [Left] O2 Sat by Pulse 100 Oximetry 09/18/20 09/18/20 09/18/20 16:30 17:00 17:31 Temperature Pulse Rate 96 H 98 H 99 H Respiratory 16 18 19 Rate Blood Pressure 131/91 129/98 Blood Pressure 142/97 [Left] O2 Sat by Pulse 100 100 Oximetry 09/18/20 09/18/20 18:53 19:40 Temperature 97.8 F Pulse Rate 94 H Respiratory Rate Blood Pressure 152/101 Blood Pressure [Left] O2 Sat by Pulse 100 Oximetry Constitutional: appears uncomfortable, other (elderly thin male with mildly increased respiratory effort at rest on MVS) Eyes: non-icteric ENT: oropharynx moist, other (ETT 24 cm CAROL) Neck: supple, no lymphadenopathy, no JVD Effort: mildly labored Ascultation: Bilateral: diminished breath sounds, rhonchi Percussion: Bilateral: not dull Cardiovascular: regular rate and rhythm Gastrointestinal: normoactive bowel sounds, soft, non-tender, non-distended Integumentary: normal Extremities: no cyanosis, no edema, pulses normal, no ischemia or petechiae Neurologic: pupils equal and round, unable to assess Psychiatric: other (unable to assess re: AMS) CBC and BMP: 09/19/20 05:02 09/19/20 05:02 ABG, PT/INR, D-dimer: ABG ABG pH 7.440 pH Units (7.350-7.450) 09/18/20 03:35 POC ABG pCO2 31.0 mmHg (32.0-48.0) L 09/16/20 16:00 ABG pCO2 28.4 mm Hg 09/18/20 03:35 POC ABG pO2 427.0 mmHg (83-108) H 09/16/20 16:00 ABG pO2 198.7 mm Hg (80.0-90.0) H 09/18/20 03:35 POC ABG HCO3 16.1 09/16/20 16:00 ABG O2 Saturation 99.3 % (95.0-99.0) H 09/18/20 03:35 PT/INR, D-dimer PT 18.0 Sec. (12.2-14.9) H 09/17/20 11:37 INR 1.49 (0.87-1.13) H 09/17/20 11:37 D-Dimer > 55637 ng/mlDDU (0-234) H 09/17/20 11:37 Abnormal lab findings: Abnormal Labs 09/16/20 09/16/20 09/16/20 10:37 10:37 10:37 WBC Hgb 11.2 L Hct MCV MCH 27 L MCHC 31 L Lymph % (Auto) Lymph # (Auto) Seg Neutrophils % 71.0 H Seg Neuts % (Manual) Lymphocytes % (Manual) Seg Neutrophils # Seg Neutrophils # Man PT 18.6 H INR 1.55 H APTT 43.4 H D-Dimer > 91064 H Heparin Anti-Xa Level POC ABG pCO2 POC ABG pO2 ABG pO2 ABG HCO3 ABG O2 Saturation ABG Base Excess ABG Hemoglobin ABG Chloride ABG Glucose VBG pH Potassium Carbon Dioxide BUN Creatinine Glucose POC Glucose Lactic Acid 10.00 H* Magnesium Ferritin AST Lactate Dehydrogenase C-Reactive Protein Total Protein Albumin Arterial Blood Glucose Arterial Blood Ionized Calcium Urine WBC (Auto) U Epithel Cells (Auto) Urine Creatinine 09/16/20 09/16/20 09/16/20 10:37 10:37 10:53 WBC Hgb Hct MCV MCH MCHC Lymph % (Auto) Lymph # (Auto) Seg Neutrophils % Seg Neuts % (Manual) Lymphocytes % (Manual) Seg Neutrophils # Seg Neutrophils # Man PT INR APTT D-Dimer Heparin Anti-Xa Level POC ABG pCO2 POC ABG pO2 ABG pO2 ABG HCO3 ABG O2 Saturation ABG Base Excess ABG Hemoglobin ABG Chloride ABG Glucose VBG pH 7.138 L* Potassium Carbon Dioxide 16 L BUN 25 H Creatinine 1.5 H Glucose 243 H POC Glucose Lactic Acid Magnesium 2.50 H Ferritin AST 54 H Lactate Dehydrogenase C-Reactive Protein Total Protein 6.1 L Albumin 3.2 L Arterial Blood Glucose Arterial Blood Ionized Calcium Urine WBC (Auto) 67.0 H U Epithel Cells (Auto) 27.0 H Urine Creatinine 09/16/20 09/16/20 09/16/20 16:00 20:12 20:49 WBC Hgb Hct MCV MCH MCHC Lymph % (Auto) Lymph # (Auto) Seg Neutrophils % Seg Neuts % (Manual) Lymphocytes % (Manual) Seg Neutrophils # Seg Neutrophils # Man PT INR APTT D-Dimer Heparin Anti-Xa Level POC ABG pCO2 31.0 L POC ABG pO2 427.0 H ABG pO2 ABG HCO3 ABG O2 Saturation ABG Base Excess ABG Hemoglobin ABG Chloride 109.0 H ABG Glucose 169 H VBG pH Potassium Carbon Dioxide BUN Creatinine Glucose POC Glucose 136 H Lactic Acid Magnesium Ferritin AST Lactate Dehydrogenase C-Reactive Protein 2.80 H Total Protein Albumin Arterial Blood Glucose 169 H Arterial Blood Ionized Calcium 4.5 L Urine WBC (Auto) U Epithel Cells (Auto) Urine Creatinine 09/16/20 09/17/20 09/17/20 20:49 00:44 00:57 WBC Hgb Hct MCV MCH MCHC Lymph % (Auto) Lymph # (Auto) Seg Neutrophils % Seg Neuts % (Manual) Lymphocytes % (Manual) Seg Neutrophils # Seg Neutrophils # Man PT 18.2 H INR 1.51 H APTT 44.0 H D-Dimer Heparin Anti-Xa Level POC ABG pCO2 POC ABG pO2 ABG pO2 ABG HCO3 ABG O2 Saturation ABG Base Excess ABG Hemoglobin ABG Chloride ABG Glucose VBG pH Potassium Carbon Dioxide BUN Creatinine Glucose POC Glucose 153 H Lactic Acid Magnesium Ferritin AST Lactate Dehydrogenase C-Reactive Protein Total Protein Albumin Arterial Blood Glucose Arterial Blood Ionized Calcium Urine WBC (Auto) U Epithel Cells (Auto) Urine Creatinine 181.1 H 09/17/20 09/17/20 09/17/20 03:05 04:16 04:16 WBC 20.1 H Hgb Hct MCV 83 L MCH 27 L MCHC Lymph % (Auto) Lymph # (Auto) Seg Neutrophils % Seg Neuts % (Manual) 91.0 H Lymphocytes % (Manual) 6.0 L Seg Neutrophils # Seg Neutrophils # Man 18.3 H PT INR APTT D-Dimer Heparin Anti-Xa Level 1.26 H POC ABG pCO2 POC ABG pO2 ABG pO2 237.5 H ABG HCO3 17.4 L ABG O2 Saturation 99.4 H ABG Base Excess -6.6 L ABG Hemoglobin 12.2 L ABG Chloride ABG Glucose VBG pH Potassium Carbon Dioxide BUN Creatinine Glucose POC Glucose Lactic Acid Magnesium Ferritin AST Lactate Dehydrogenase C-Reactive Protein Total Protein Albumin Arterial Blood Glucose Arterial Blood Ionized Calcium Urine WBC (Auto) U Epithel Cells (Auto) Urine Creatinine 09/17/20 09/17/20 09/17/20 04:16 04:16 06:31 WBC Hgb Hct MCV MCH MCHC Lymph % (Auto) Lymph # (Auto) Seg Neutrophils % Seg Neuts % (Manual) Lymphocytes % (Manual) Seg Neutrophils # Seg Neutrophils # Man PT INR APTT D-Dimer Heparin Anti-Xa Level POC ABG pCO2 POC ABG pO2 ABG pO2 ABG HCO3 ABG O2 Saturation ABG Base Excess ABG Hemoglobin ABG Chloride ABG Glucose VBG pH Potassium Carbon Dioxide 18 L BUN 34 H Creatinine 1.5 H Glucose 171 H POC Glucose 136 H Lactic Acid 3.60 H* Magnesium Ferritin AST Lactate Dehydrogenase C-Reactive Protein Total Protein Albumin Arterial Blood Glucose Arterial Blood Ionized Calcium Urine WBC (Auto) U Epithel Cells (Auto) Urine Creatinine 09/17/20 09/17/20 09/17/20 11:37 11:37 11:37 WBC Hgb Hct MCV MCH MCHC Lymph % (Auto) Lymph # (Auto) Seg Neutrophils % Seg Neuts % (Manual) Lymphocytes % (Manual) Seg Neutrophils # Seg Neutrophils # Man PT 18.0 H INR 1.49 H APTT D-Dimer > 55969 H Heparin Anti-Xa Level 0.25 L POC ABG pCO2 POC ABG pO2 ABG pO2 ABG HCO3 ABG O2 Saturation ABG Base Excess ABG Hemoglobin ABG Chloride ABG Glucose VBG pH Potassium Carbon Dioxide BUN Creatinine Glucose POC Glucose Lactic Acid 2.80 H* Magnesium Ferritin AST Lactate Dehydrogenase C-Reactive Protein Total Protein Albumin Arterial Blood Glucose Arterial Blood Ionized Calcium Urine WBC (Auto) U Epithel Cells (Auto) Urine Creatinine 09/17/20 09/17/20 09/17/20 15:58 15:58 15:58 WBC Hgb Hct MCV MCH MCHC Lymph % (Auto) Lymph # (Auto) Seg Neutrophils % Seg Neuts % (Manual) Lymphocytes % (Manual) Seg Neutrophils # Seg Neutrophils # Man PT INR APTT D-Dimer Heparin Anti-Xa Level POC ABG pCO2 POC ABG pO2 ABG pO2 ABG HCO3 ABG O2 Saturation ABG Base Excess ABG Hemoglobin ABG Chloride ABG Glucose VBG pH Potassium Carbon Dioxide BUN Creatinine Glucose POC Glucose Lactic Acid 3.90 H* Magnesium Ferritin 1306.0 H AST Lactate Dehydrogenase 515 H C-Reactive Protein 24.30 H Total Protein Albumin Arterial Blood Glucose Arterial Blood Ionized Calcium Urine WBC (Auto) U Epithel Cells (Auto) Urine Creatinine 09/17/20 09/18/20 09/18/20 20:35 03:04 03:35 WBC Hgb Hct MCV MCH MCHC Lymph % (Auto) Lymph # (Auto) Seg Neutrophils % Seg Neuts % (Manual) Lymphocytes % (Manual) Seg Neutrophils # Seg Neutrophils # Man PT INR APTT D-Dimer Heparin Anti-Xa Level POC ABG pCO2 POC ABG pO2 ABG pO2 198.7 H ABG HCO3 18.9 L ABG O2 Saturation 99.3 H ABG Base Excess -4.3 L ABG Hemoglobin 10.8 L ABG Chloride ABG Glucose VBG pH Potassium Carbon Dioxide BUN Creatinine Glucose POC Glucose 111 H 129 H Lactic Acid Magnesium Ferritin AST Lactate Dehydrogenase C-Reactive Protein Total Protein Albumin Arterial Blood Glucose Arterial Blood Ionized Calcium Urine WBC (Auto) U Epithel Cells (Auto) Urine Creatinine 09/18/20 09/18/20 09/18/20 04:19 04:19 06:34 WBC 21.8 H Hgb 11.4 L Hct 35.2 L MCV 82 L MCH 26 L MCHC Lymph % (Auto) 2.4 L Lymph # (Auto) 0.5 L Seg Neutrophils % 94.6 H Seg Neuts % (Manual) Lymphocytes % (Manual) Seg Neutrophils # 20.6 H Seg Neutrophils # Man PT INR APTT D-Dimer Heparin Anti-Xa Level POC ABG pCO2 POC ABG pO2 ABG pO2 ABG HCO3 ABG O2 Saturation ABG Base Excess ABG Hemoglobin ABG Chloride ABG Glucose VBG pH Potassium 5.6 H Carbon Dioxide 20 L BUN 50 H Creatinine 2.4 H D Glucose 155 H POC Glucose 132 H Lactic Acid Magnesium Ferritin AST Lactate Dehydrogenase C-Reactive Protein Total Protein Albumin Arterial Blood Glucose Arterial Blood Ionized Calcium Urine WBC (Auto) U Epithel Cells (Auto) Urine Creatinine Allied health notes reviewed: nursing
[2020-09-19] MEDS: INSULIN REGULAR, HUMAN 100 UNIT/ML 3ML VIAL SUB-Q SCH ×4 (00:56→20:41)
--- NOTE | 2020-09-19 04:03 | XRay Report ---
CHEST 1 VIEW [id number] INDICATION / CLINICAL INFORMATION: follow up respiratory failure COMPARISON: 09/18/2020 FINDINGS: SUPPORT DEVICES: Stable HEART / MEDIASTINUM: Stable LUNGS / PLEURA: No significant pulmonary or pleural abnormality. No pneumothorax. ADDITIONAL FINDINGS: No significant additional findings. Signer Name: Jose J Coppola MD Signed: 09/19/2020 3:58 AM Workstation Name: [id number]
[2020-09-19 04:22] LABS: ABG Base Excess 1.2 mmol/L (-2.0-3.0); ABG Methemoglobin 0.6 % (0.0-1.5); ABG Oxygen Saturation 99.1 % (95.0-99.0); ABG PCO2 31.2 mm Hg; ABG PH 7.503 pH Units (7.350-7.450); ABG PO2 159.2 mm Hg (80.0-90.0)
[2020-09-19] MEDS: methylPREDNISolone Sod Succinate 40 MG/1 ML INJ IV SCH ×3 (05:41→22:51)
[2020-09-19 06:00] LABS: Hematocrit 30.8 % (35.5-45.6); Mean Corpuscular HGB Conc 33 % (32-34); Mean Corpuscular Volume 82 fl (84-94); Platelet Count 130 K/mm3 (140-440); Red Blood Count 3.76 M/mm3 (3.65-5.03); Red Cell Distribution Width 14.6 % (13.2-15.2)
[2020-09-19 06:14] LABS: Calcium 8.6 mg/dL (8.4-10.2)
[2020-09-19 08:26] LABS: Anisocytosis 1+; Platelet Estimate Consistent w Auto; Total Cells Counted 100
[2020-09-19] MEDS: PANTOPRAZOLE 40 MG TAB PO SCH (09:13)
--- NOTE | 2020-09-19 09:15 | Progress Note ---
Assessment and Plan Assessment and plan: Cardiopulmonary arrest. Patient reportedly with [id number] cardiopulmonary arrest. Unsure of the patient's total time without a pulse. Cardiology and pulmonary consultation pending. Follow-up echocardiogram, cardiac isoenzymes and serial EKG. CT scan of the head pending. Check MRI and EEG when patient stabilized. D-dimer significantly elevated greater than 10,000. Check CTA of the chest. Lactic acid also elevated at 10 which increases mortality significantly. Severe sepsis with septic shock. Present on admission. Patient presented with fever, tachycardia, hypotension, elevated lactate, pressors and gram negative jaden bacteremia. Toxic metabolic encephalopathy. CT scan with extensive microvascular angiopathy. Multifocal bilateral pulmonary emboli. D-dimer > 10,000. Continue anticoagulation per pulmonary. Acute hypoxic respiratory failure. Etiology is unknown at this time. Chest x- ray shows no acute disease. Nephrology consultation Acute kidney injury. Etiology secondary to sepsis/ATN +/- vasomotor nephropathy/dehydration. Aggressive IV fluid hydration. Lactic acidosis. As above. 09/17/2020. Lactic acid improved. Follow-up blood and urine cultures. Start Rocephin IV daily. ID consultation. 09/18/2020. Urine culture reveals gram-negative rods. Await final identification and sensitivities. Await blood cultures. Continue IV antibiotics. ID consulted. Covid testing found to be negative. Check EEG given cardiopulmonary arrest. Neurology consultation with Dr. Esparza in a.m. No neurology coverage today. MRI brain with patient medically stable. Continue anticoagulation for pulmonary embolus. Await renal ultrasound. 09/19/2020. Patient with severe sepsis secondary to complicated UTI/gram- negative bacilli bacteremia. Follow-up identification and sensitivities. ID following. Antibiotics adjusted to cefepime. Renal ultrasound did not reveal obstructing stone. Small right kidney without hydronephrosis or medical renal disease. Complex right renal cyst. Nonvisualization of left kidney sonographically but CTA showed simple cyst appearing lesion in the left kidney without hydronephrosis. Check EEG and MRI given cardiopulmonary arrest. Neurology consultation. The high probability of a clinically significant, sudden or life threatening deterioration of the [hemodynamic, neurologic, cardiac, respiratory] system(s) required my full and direct attention, intervention and personal management. The aggregate critical care time was [36] minutes. This time is in addition to time spent performing reported procedures but includes the following: [x] Data Review and interpretation [x] Patient assessment and monitoring of vital signs [x] Documentation [x] Medication orders and management History Interval history: Patient remains intubated on mechanical ventilation Hospitalist Physical - Constitutional Vitals: Temp Pulse Resp BP Pulse Ox 97.8 F 93 H 16 164/96 100 09/18/20 18:53 09/19/20 08:15 09/19/20 08:15 09/19/20 08:15 09/19/20 08:15 General appearance: Present: no acute distress, well-nourished, other (Patient is orally intubated on mechanical ventilation) - EENT Eyes: Present: PERRL, EOM intact ENT: hearing intact, clear oral mucosa, dentition normal - Neck Neck: Present: supple, normal ROM - Respiratory Respiratory effort: normal Respiratory: bilateral: CTA - Cardiovascular Rhythm: regular Heart Sounds: Present: S1 & S2. Absent: gallop, rub - Extremities Extremities: no ischemia, No edema, Full ROM - Abdominal General gastrointestinal: soft, non-tender, non-distended, normal bowel sounds - Integumentary Integumentary: Present: clear, warm, dry - Neurologic Neurologic: CNII-XII intact, moves all extremities Results - Labs CBC & Chem 7: 09/19/20 05:02 09/19/20 05:02 Labs: Laboratory Last Values WBC 20.5 K/mm3 (4.5-11.0) H 09/19/20 05:02 RBC 3.76 M/mm3 (3.65-5.03) 09/19/20 05:02 Hgb 10.0 gm/dl (11.8-15.2) L 09/19/20 05:02 Hct 30.8 % (35.5-45.6) L 09/19/20 05:02 MCV 82 fl (84-94) L 09/19/20 05:02 MCH 27 pg (28-32) L 09/19/20 05:02 MCHC 33 % (32-34) 09/19/20 05:02 RDW 14.6 % (13.2-15.2) 09/19/20 05:02 Plt Count 130 K/mm3 (140-440) L 09/19/20 05:02 Lymph % (Auto) 2.4 % (13.4-35.0) L 09/18/20 04:19 [place] % (Auto) 2.8 % (0.0-7.3) 09/18/20 04:19 Eos % (Auto) 0.0 % (0.0-4.3) 09/18/20 04:19 Baso % (Auto) 0.2 % (0.0-1.8) 09/18/20 04:19 Lymph # (Auto) 0.5 K/mm3 (1.2-5.4) L 09/18/20 04:19 [place] # (Auto) 0.6 K/mm3 (0.0-0.8) 09/18/20 04:19 Eos # (Auto) 0.0 K/mm3 (0.0-0.4) 09/18/20 04:19 Baso # (Auto) 0.1 K/mm3 (0.0-0.1) 09/18/20 04:19 Add Manual Diff Complete 09/19/20 05:02 Total Counted 100 09/19/20 05:02 Seg Neutrophils % Glaze Supervisor 09/19/20 05:02 Seg Neuts % (Manual) 97.0 % (40.0-70.0) H 09/19/20 05:02 Band Neutrophils % 1.0 % 09/17/20 04:16 Lymphocytes % (Manual) 6.0 % (13.4-35.0) L 09/17/20 04:16 Monocytes % (Manual) 3.0 % (0.0-7.3) 09/19/20 05:02 Nucleated RBC % 1.0 % (0.0-0.9) H 09/19/20 05:02 Seg Neutrophils # 20.6 K/mm3 (1.8-7.7) H 09/18/20 04:19 Seg Neutrophils # Man 19.9 K/mm3 (1.8-7.7) H 09/19/20 05:02 Band Neutrophils # 0.0 K/mm3 09/19/20 05:02 Lymphocytes # (Manual) 0.0 K/mm3 (1.2-5.4) L 09/19/20 05:02 Abs React Lymphs (Man) 0.0 K/mm3 09/19/20 05:02 Monocytes # (Manual) 0.6 K/mm3 (0.0-0.8) 09/19/20 05:02 Eosinophils # (Manual) 0.0 K/mm3 (0.0-0.4) 09/19/20 05:02 Basophils # (Manual) 0.0 K/mm3 (0.0-0.1) 09/19/20 05:02 Metamyelocytes # 0.0 K/mm3 09/19/20 05:02 Myelocytes # 0.0 K/mm3 09/19/20 05:02 Promyelocytes # 0.0 K/mm3 09/19/20 05:02 Blast Cells # 0.0 K/mm3 09/19/20 05:02 WBC Morphology Not Reportable 09/19/20 05:02 Hypersegmented Neuts Not Reportable 09/19/20 05:02 Hyposegmented Neuts Not Reportable 09/19/20 05:02 Hypogranular Neuts Not Reportable 09/19/20 05:02 Smudge Cells Not Reportable 09/19/20 05:02 Toxic Granulation Not Reportable 09/19/20 05:02 Toxic Vacuolation Not Reportable 09/19/20 05:02 Dohle Bodies Not Reportable 09/19/20 05:02 Pelger-Huet Anomaly Not Reportable 09/19/20 05:02 Janeth Rods Not Reportable 09/19/20 05:02 Platelet Estimate Consistent w auto 09/19/20 05:02 Clumped Platelets Not Reportable 09/19/20 05:02 Plt Clumps, EDTA Not Reportable 09/19/20 05:02 Large Platelets Not Reportable 09/19/20 05:02 Giant Platelets Not Reportable 09/19/20 05:02 Platelet Satelliting Not Reportable 09/19/20 05:02 Plt Morphology Comment Not Reportable 09/19/20 05:02 RBC Morphology Not Reportable 09/19/20 05:02 Dimorphic RBCs Not Reportable 09/19/20 05:02 Polychromasia Not Reportable 09/19/20 05:02 Hypochromasia Not Reportable 09/19/20 05:02 Poikilocytosis Not Reportable 09/19/20 05:02 Anisocytosis 1+ 09/19/20 05:02 Microcytosis Not Reportable 09/19/20 05:02 Macrocytosis Not Reportable 09/19/20 05:02 Spherocytes Not Reportable 09/19/20 05:02 Pappenheimer Bodies Not Reportable 09/19/20 05:02 Sickle Cells Not Reportable 09/19/20 05:02 Target Cells Not Reportable 09/19/20 05:02 Tear Drop Cells Not Reportable 09/19/20 05:02 Ovalocytes Not Reportable 09/19/20 05:02 Helmet Cells Not Reportable 09/19/20 05:02 [place] Bodies Not Reportable 09/19/20 05:02 [place] Rings Not Reportable 09/19/20 05:02 [place] Cells Not Reportable 09/19/20 05:02 Bite Cells Not Reportable 09/19/20 05:02 Crenated Cell Not Reportable 09/19/20 05:02 Elliptocytes Not Reportable 09/19/20 05:02 Acanthocytes (Spur) Not Reportable 09/19/20 05:02 Rouleaux Not Reportable 09/19/20 05:02 Hemoglobin C Crystals Not Reportable 09/19/20 05:02 Schistocytes Not Reportable 09/19/20 05:02 Malaria parasites Not Reportable 09/19/20 05:02 [place] Bodies Not Reportable 09/19/20 05:02 Hem Pathologist Commnt No 09/19/20 05:02 PT 18.0 Sec. (12.2-14.9) H 09/17/20 11:37 INR 1.49 (0.87-1.13) H 09/17/20 11:37 APTT 44.0 Sec. (24.2-36.6) H 09/16/20 20:49 D-Dimer > 44137 ng/mlDDU (0-234) H 09/17/20 11:37 Heparin Anti-Xa Level 0.25 U.I./ml (0.3-0.7) L 09/17/20 11:37 ABG pH 7.503 pH Units (7.350-7.450) H 09/19/20 04:00 POC ABG pCO2 31.0 mmHg (32.0-48.0) L 09/16/20 16:00 ABG pCO2 31.2 mm Hg 09/19/20 04:00 POC ABG pO2 427.0 mmHg (83-108) H 09/16/20 16:00 ABG pO2 159.2 mm Hg (80.0-90.0) H 09/19/20 04:00 POC ABG HCO3 16.1 09/16/20 16:00 ABG HCO3 24.0 mmol/L (20.0-26.0) 09/19/20 04:00 ABG O2 Saturation 99.1 % (95.0-99.0) H 09/19/20 04:00 ABG O2 Content 14.4 (0.0-44) 09/19/20 04:00 POC ABG Base Excess -8.6 09/16/20 16:00 ABG Base Excess 1.2 mmol/L (-2.0-3.0) 09/19/20 04:00 ABG Hemoglobin 10.3 gm/dl (14.0-18.0) L 09/19/20 04:00 ABG Carboxyhemoglobin 1.1 % (0.0-5.0) 09/19/20 04:00 ABG Methemoglobin 0.6 % (0.0-1.5) 09/19/20 04:00 ABG Sodium 138.3 mmol/L (136.0-145.0) 09/16/20 16:00 ABG Potassium 3.7 mmol/L (3.40-4.50) 09/16/20 16:00 ABG Chloride 109.0 mmol/L (98-107) H 09/16/20 16:00 ABG Glucose 169 mg/dL (65-95) H 09/16/20 16:00 VBG pH 7.138 (7.320-7.420) L* 09/16/20 10:37 Oxyhemoglobin 97.3 % (95.0-99.0) 09/19/20 04:00 FiO2 30 % 09/19/20 04:00 Sodium 144 mmol/L (137-145) 09/19/20 05:02 Potassium 4.9 mmol/L (3.6-5.0) 09/19/20 05:02 Chloride 102.5 mmol/L (98-107) 09/19/20 05:02 Carbon Dioxide 24 mmol/L (22-30) 09/19/20 05:02 Anion Gap 22 mmol/L 09/19/20 05:02 BUN 74 mg/dL (9-20) H 09/19/20 05:02 Creatinine 3.5 mg/dL (0.8-1.3) H 09/19/20 05:02 Estimated GFR 20 ml/min 09/19/20 05:02 BUN/Creatinine Ratio 21 % 09/19/20 05:02 Glucose 168 mg/dL (75-100) H 09/19/20 05:02 POC Glucose 98 mg/dL (70-105) 09/18/20 18:40 Hemoglobin A1c 5.9 % (4-6) 09/16/20 12:33 Lactic Acid 3.90 mmol/L (0.7-2.0) H* 09/17/20 15:58 Calcium 8.6 mg/dL (8.4-10.2) 09/19/20 05:02 Magnesium 2.50 mg/dL (1.7-2.3) H 09/16/20 10:37 Ferritin 1306.0 ng/mL (30.0-300.0) H 09/17/20 15:58 Total Bilirubin 0.50 mg/dL (0.1-1.2) 09/16/20 10:37 Direct Bilirubin < 0.2 mg/dL (0-0.2) 09/16/20 10:37 Indirect Bilirubin 0.3 mg/dL 09/16/20 10:37 AST 54 units/L (5-40) H 09/16/20 10:37 ALT 47 units/L (7-56) 09/16/20 10:37 Alkaline Phosphatase 76 units/L (35-129) 09/16/20 10:37 Lactate Dehydrogenase 515 units/L (91-180) H 09/17/20 15:58 C-Reactive Protein 24.30 mg/dL (0.00-1.30) H 09/17/20 15:58 NT-Pro-B Natriuret Pep 144.6 pg/mL (0-900) 09/16/20 10:37 Total Protein 6.1 g/dL (6.3-8.2) L 09/16/20 10:37 Albumin 3.2 g/dL (3.9-5) L 09/16/20 10:37 Albumin/Globulin Ratio 1.1 % 09/16/20 10:37 Procalcitonin 140.88 ng/mL (<0.15) 09/16/20 20:49 Arterial Blood Glucose 169 mg/dL (65-95) H 09/16/20 16:00 Arterial Blood Ionized Calcium 4.5 mg/dL (4.6-5.3) L 09/16/20 16:00 Urine Color Nancy (Yellow) 09/16/20 10:53 Urine Turbidity Cloudy (Clear) 09/16/20 10:53 Urine pH 6.0 (5.0-7.0) 09/16/20 10:53 Ur Specific [place] 1.020 (1.003-1.030) 09/16/20 10:53 Urine Protein >500 mg/dL (Negative) 09/16/20 10:53 Urine Glucose (UA) Neg mg/dL (Negative) 09/16/20 10:53 Urine Ketones Tr mg/dL (Negative) 09/16/20 10:53 Urine Blood Lg (Negative) 09/16/20 10:53 Urine Nitrite Neg (Negative) 09/16/20 10:53 Urine Bilirubin Neg (Negative) 09/16/20 10:53 Urine Urobilinogen < 2.0 mg/dL (<2.0) 09/16/20 10:53 Ur Leukocyte Esterase Tr (Negative) 09/16/20 10:53 Urine WBC (Auto) 67.0 /HPF (0.0-6.0) H 09/16/20 10:53 Urine RBC (Auto) > 182.0 /HPF (0.0-6.0) 09/16/20 10:53 U Epithel Cells (Auto) 27.0 /HPF (0-13.0) H 09/16/20 10:53 Urine Bacteria (Auto) 4+ /HPF (Negative) 09/16/20 10:53 Urine Mucus Few /HPF 09/16/20 10:53 Urine Creatinine 181.1 mg/dL (0.1-20.0) H 09/17/20 00:57 Urine Sodium 78 mmol/L 09/17/20 00:57 Coronavirus (PCR) Negative (Negative) 09/16/20 Unknown Microbiology: Microbiology 09/16/20 10:37 Peripheral/Venous Blood Culture - Preliminary 09/16/20 10:53 Urine,Clean Catch Urine Culture - Preliminary Gram Negative Jaden - Diagnostic Impressions Diagnostic Impressions: Echocardiogram 09/16/20 12:19 Transthoracic Echocardiogram Indication: Cardiac arrest. BP: 102/67 HR: 84 Conclusions *The study quality is technically difficult. *The study is technically limited due to poor apical windows. *Global left ventricular systolic function is mild to moderately decreased. *The estimated ejection fraction is 40-45%. *The right ventricular global systolic function is normal. *There is no evidence of aortic regurgitation. *There is no evidence of mitral regurgitation. *There is mild tricuspid regurgitation. *The right ventricular systolic pressure is calculated at 24 mmHg. *There is a small pericardial effusion. Findings Procedure Info: The study quality is technically difficult. The study is technically limited due to poor apical windows. The study was technically limited due to the patient's inability to lay in the left lateral decubitus position. Left Ventricle: The left ventricular chamber size is normal. Global left ventricular systolic function is mild to moderately decreased. The estimated ejection fraction is 40-45%. Abnormal left ventricular diastolic filling is observed, consistent with impaired relaxation. Left Atrium: The left atrium is not well visualized. Right Ventricle: The right ventricular global systolic function is normal. Aortic Valve: Mild aortic leaflet calcification is visualized. There is no evidence of aortic regurgitation. Mitral Valve: The mitral valve leaflets are mildly thickened. There is no evidence of mitral regurgitation. Tricuspid Valve: The tricuspid valve leaflets are normal. There is mild tricuspid regurgitation. The right ventricular systolic pressure is calculated at 24 mmHg. Pulmonic Valve: The pulmonic valve is not well visualized. Pericardium: There is a small pericardial effusion. Venous: The inferior vena cava appears normal. Measurements Chambers 2D Name Value Normal Range IVSd (2D) 1.01 cm (0.6 - 1.1) LVPWd (2D) 1.01 cm (0.6 - 1.1) LVIDd (2D) 3.87 cm (3.7 - 5.6) LVIDs (2D) 3.13 cm (2 - 3.8) LV FS (2D) 19.26 % - EF Teichholz (2D) 40.26 % - Ao root diameter (2D) 3.25 cm (2 - 3.7) Aortic Valve Name Value Normal Range AV Vmax 1 m/sec - AV VTI 13.56 cm - AV peak gradient 3.97 mmHg - AV mean gradient 1.67 mmHg - LVOT diameter 2 cm - LVOT Vmax 0.89 m/sec - LVOT VTI 13.01 cm - LVOT peak gradient 3.16 mmHg - LVOT mean gradient 1.53 mmHg - SV LVOT 41.03 ml - WESLEY (continuity Vmax) 2.81 cm2 - WESLEY (continuity VTI) 3.02 cm2 - Tricuspid Valve Name Value Normal Range TR Vmax 2.3 m/sec - TR peak gradient 21 mmHg - RAP 3 mmHg - RVSP 24 mmHg - IVC diameter 1.68 cm (1.2 - 2.3) Active Medications - Current Medications Current Medications: Generic Name Dose Route Start Last Admin Trade Name Freq PRN Reason Stop Dose Admin Lipase/Protease/Amylase 1 each 09/17/20 08:56 Lipase 10,500/Protease 25,000/Amylase 43,750 (Units) Dr Cap FEEDTUBE PRN PRN For Clogged Feeding Tube Dextrose 50 ml 09/16/20 12:19 Dextrose 50% In Water (25gm) 50 Ml Syringe IV Q30MIN PRN Hypoglycemia Protocol Fentanyl 50 mcg 09/16/20 20:12 Fentanyl 100 Mcg/2 Ml Inj IV Q10MIN PRN ANALGESIA Heparin Sodium (Porcine) 2,400 unit 09/16/20 20:12 09/16/20 21:00 Heparin 10,000 Units/10 Ml Vial 40 unit/kg (2400 unit) 2,400 unit IV Administration Q6H PRN Anti-Xa Assay < 0.1 units/ml Hydrophilic Ointment 1 applic 09/16/20 20:12 Lip Therapy Vaseline TP Q2HR PRN Dry Lips Sodium Bicarbonate 150 meq/ 150 mls @ 100 mls/hr 09/16/20 13:00 09/18/20 15:26 Sterile Water IV 100 mls/hr DIRECT DARA Administration Norepinephrine 4 mg in 250 mls @ 7.5 mls/hr 09/16/20 13:15 09/16/20 16:30 Levophed Drip 4 Mg/Ns 250 Ml IV Infused TITR DARA Titration Protocol 2 MCG/MIN Fentanyl Citrate 2,000 mcg in 100 mls @ 3 mls/hr 09/16/20 21:00 09/16/20 21:00 Fentanyl Drip Premix IV 1 mcg/kg/hr TITR DARA 3 mls/hr Administration Protocol 1 MCG/KG/HR Propofol 1,000 mg in 100 mls @ 1.8 mls/hr 09/16/20 21:00 09/16/20 19:55 Diprivan 10 Mg/Ml IV 5 mcg/kg/min TITR DARA 1.8 mls/hr Administration Protocol 5 MCG/KG/MIN Heparin Sodium/Sodium Chloride 25,000 unit in 500 mls @ 18 mls/hr 09/16/20 21:00 09/17/20 05:25 Heparin/ 0.45% Nacl-25,000 Unit/500 Ml IV 0 units/hr TITR DARA 0 mls/hr Titration Protocol 900 UNITS/HR Cefepime HCl 1 gm in 100 mls @ 200 mls/hr 09/19/20 22:00 Cefepime/Ns 1 Gm/100 Ml IV Q24H [facility] Protocol Insulin Human Regular 0 unit 09/16/20 13:00 09/19/20 00:56 Insulin Regular, Human 100 Unit/Ml 3ml Vial SUB-Q Not Given Q6H [facility] Protocol Lansoprazole 30 mg 09/19/20 10:00 Lansoprazole 30 Mg Solutab FEEDTUBE BID DARA Methylprednisolone Sodium Succinate 40 mg 09/16/20 22:00 09/19/20 05:41 Methylprednisolone Sod Succinate 40 Mg/1 Ml Inj IV 40 mg Q8HR DARA Administration Multi-Ingred Cream/Lotion/Oil/Oint 1 applic 09/16/20 20:12 Mineral Oil/Petrolatum, White Ophth Oint 3.5 Gm OU Q4HR PRN Dry Eye(s) Simple Syrup 15 ml 09/17/20 08:56 Simple Syrup 15 Ml FEEDTUBE PRN PRN Hypoglycemia Simple Syrup 30 ml 09/17/20 08:56 Simple Syrup 15 Ml FEEDTUBE PRN PRN Hypoglycemia Sodium Bicarbonate 325 mg 09/17/20 08:56 Sodium Bicarbonate 325 Mg Tab FEEDTUBE PRN PRN For Clogged Feeding Tube Sodium Chloride 10 ml 09/16/20 22:00 09/18/20 21:33 Sodium Chloride 0.9% 10 Ml Flush Syringe IV 10 ml BID DARA Administration Sodium Chloride 10 ml 09/16/20 12:19 Sodium Chloride 0.9% 10 Ml Flush Syringe IV PRN PRN LINE FLUSH Nutrition/Malnutrition Assess - Dietary Evaluation Nutrition/Malnutrition Findings: Nutrition Notes Start: 09/17/20 08:4 9 Freq: Status: Active Protocol: Document 09/17/20 08:49 MK (Rec: 09/17/20 08:55 [id number]) Nutrition Notes Need for Assessment generated from: MD Order Initial or Follow up Assessment Current Diagnosis Acute Kidney Injury, Hyperlipidemia Other Pertinent Diagnosis Dementia, cardiac arrest, anemia Current Diet NPO Labs/Tests BUN 34 Cr 1.5 BG 171 Pertinent Medications Solu-Medrol Height 5 ft 7 in Weight 60 kg [place] Body Weight (kg) 67.27 BMI 20.7 Weight Status Underweight Subjective/Other Information MD order for TF and eval intakes. Pt on hold in ED. Pt on the vent. Burn Absent Trauma Absent Current % PO Negligible #1 Nutrition Diagnosis Inadequate oral intake Etiology acute respiratory failure As Evidenced by Signs and Symptoms pt on vent and unable to consume PO Is patient on ventilator? Yes Is Patient Ambulatory and/or Out of Bed No REE-(Blum-St. Jeor-confined to bed) 1517.508 Calculation Used for Recommendations Blum-St or Additional Notes Pro: 72-120g (1.2-2g/kg) Fluid: 1 ml/kcal or per MD Nutrition Intervention Change Diet Order: Start TF Nutrition Support: Osmolite 1.5 at 45 ml/hr Flush 125 ml q4h Kcal 1,620 Protein (gm) 67 Fluid (mL) 823 Goal #1 TF start/tolerance Goal #2 Meet at least 75% of protein and energy needs via TF Anticipated Discharge Needs: Unable to determine at this time Follow-Up By: 09/19/20 Additional Comments FU for TF start/tolerance
[2020-09-19] MEDS ORDERED: ACETAMINOPHEN 650 MG RECT SUPP PR ONE (09:44)
--- NOTE | 2020-09-19 09:50 | Cat Scan Report ---
CT HEAD WITHOUT CONTRAST INDICATION : Altered mental status. TECHNIQUE: Axial imaging performed from the skull apex through the skull base without the use of con trast. Sagittal and coronal reformatted images. All CT scans at this location are performed using C T dose reduction for ALARA by means of automated exposure control. COMPARISON: 09/16/2020 FINDINGS: Parenchyma: No acute intracranial hemorrhage or parenchymal abnormality. Mild diffuse volume loss an d mild chronic microangiopathy in the white matter are stable. No extra-axial fluid collection. Ventricles: Ventricles are normal in size and appear symmetric. Bones: No acute osseous abnormality. Sinuses: Sinuses and mastoid air cells are clear. Soft tissues: Soft tissues including the orbits appear normal. IMPRESSION: No acute abnormality. Mild diffuse volume loss and chronic white matter changes. No roach e since 09/16/2020 exam. Signer Name: Glenn Valenzuela Jr, MD Signed: 09/19/2020 9:45 AM Workstation Name: [id number]
[2020-09-19] MEDS ORDERED: LANSOPRAZOLE 30 MG SOLUTAB FEEDTUBE SCH (10:00)
--- NOTE | 2020-09-19 12:18 | Progress Note ---
Assessment and Plan Cultures: SARS-CoV-2 PCR negative. Blood cultures 09/15/2020 Gram-negative bacilli 2 out of 2 bottles. Urine culture Gram-negative bacilli Assessment: 85 year old male with history of dementia, hyperlipidemia, admitted on 09/16/2020 secondary to cardiac arrest, intubated upon arrival: #[id number] cardiac arrest: Unclear duration. Received CPR in route. #Severe sepsis with septic shock: present on admission with fever, tachycardia, hypotension, elevated lactate, patient was on pressors; source multifactorial - acute pulmonary embolism and gram-negative dinora bacteremia. SARS-CoV-2 PCR negative. #Gram-negative dinora bacteremia: Likely from UTI. #Complicated UTI: with hematuria. Sanchez placed on admission. Urine culture growing gram-negative bacilli. #Bilateral pulmonary emboli: Very high D-dimer>10,000. #RENE: Secondary to sepsis. Renally dose antibiotics #Acute encephalopathy on chronic dementia: CT with extensive microvascular angiopathy and cardiopulmonary arrest. Recommendations: -Continue IV cefepime -Follow-up blood and urine cultures -Guarded prognosis Nora Tejada MD, FACP [facility] O: [phone] F: [phone] Subjective Date of service: 09/19/20 Principal diagnosis: Ac hypoxemic resp failure; Cardiac arrest; Acute P.E.; Severe sepsis; COVID Interval history: Low-grade fever. Remains on the vent., Sedated. Objective - Exam Narrative Exam: Physical Exam: Constitutional: sedated, intubated, on the vent Head, Ears, Nose: Normocephalic, atraumatic. External ears, nose normal Eyes: Conjunctivae/corneas clear. No icterus. No ptosis. Neck: intubated Oral: intubated Cardiovascular: S1, S2 + Respiratory: AE fair bilaterally and equal GI: Soft, bowel sounds + Musculoskeletal: No pedal edema, no cyanosis. Skin: No rash or abscess Hem/Lymphatic: No palpable cervical or supraclavicular nodes. No lymphangitis Psych: no agitation Neurological: sedated, intubated, on the vent, exam limited - Constitutional Vitals: Vital Signs Temp Pulse Resp BP Pulse Ox 100.3 F H 93 H 16 164/96 100 09/19/20 09:19 09/19/20 08:15 09/19/20 08:15 09/19/20 08:15 09/19/20 08:15 Temperature -Last 24 Hours Temperature 100.3 F Temperature 97.8 F - Labs CBC & Chem 7: 09/19/20 05:02 09/19/20 05:02 Labs: Abnormal lab results 09/19/20 09/19/20 09/19/20 Range/Units 04:00 05:02 05:02 WBC 20.5 H (4.5-11.0) K/mm3 Hgb 10.0 L (11.8-15.2) gm/dl Hct 30.8 L (35.5-45.6) % MCV 82 L (84-94) fl MCH 27 L (28-32) pg Plt Count 130 L (140-440) K/mm3 Seg Neuts % (Manual) 97.0 H (40.0-70.0) % Nucleated RBC % 1.0 H (0.0-0.9) % Seg Neutrophils # Man 19.9 H (1.8-7.7) K/mm3 Lymphocytes # (Manual) 0.0 L (1.2-5.4) K/mm3 ABG pH 7.503 H (7.350-7.450) pH Units ABG pO2 159.2 H (80.0-90.0) mm Hg ABG O2 Saturation 99.1 H (95.0-99.0) % ABG Hemoglobin 10.3 L (14.0-18.0) gm/dl BUN 74 H (9-20) mg/dL Creatinine 3.5 H (0.8-1.3) mg/dL Glucose 168 H (75-100) mg/dL POC Glucose (70-105) mg/dL 09/19/20 09/19/20 Range/Units 09:11 11:58 WBC (4.5-11.0) K/mm3 Hgb (11.8-15.2) gm/dl Hct (35.5-45.6) % MCV (84-94) fl MCH (28-32) pg Plt Count (140-440) K/mm3 Seg Neuts % (Manual) (40.0-70.0) % Nucleated RBC % (0.0-0.9) % Seg Neutrophils # Man (1.8-7.7) K/mm3 Lymphocytes # (Manual) (1.2-5.4) K/mm3 ABG pH (7.350-7.450) pH Units ABG pO2 (80.0-90.0) mm Hg ABG O2 Saturation (95.0-99.0) % ABG Hemoglobin (14.0-18.0) gm/dl BUN (9-20) mg/dL Creatinine (0.8-1.3) mg/dL Glucose (75-100) mg/dL POC Glucose 143 H 155 H (70-105) mg/dL
--- NOTE | 2020-09-19 12:44 | Progress Note ---
Assessment and Plan Acute hypoxemic respiratory failure, on mechanical ventilatory support. Cardiac arrest with return of spontaneous circulation Acute pulmonary emboli. Person under investigation for COVID-19 infection. CHF (EF 40%) History of dementia. Urinary tract infection. Anemia that is normocytic. Elevated serum D-dimers. Lactic acidosis. Severe sepsis - begin PPI therapy - repeat CT Brain unremarkable - neurology evaluation per attending - repeat CBC in am - will need IVC filter if unable to resume anticoagulation - prognosis for neurologic recovery remains poor and family conference is appropriate re: goals of care - continue care as below otherwise; - neurology evaluation pending - continue empiric Rocephin for tentative UTI driven sepsis but get ID opinion re: severe Procalcitonin elevation - follow cultures - coronavirus PCR negative - continue full anticoagulation for VTE - continue to wean supplemental oxygen for target O2 sat's > 92% acutely - VAP bundle addressed - continue lung protective strategies - continue bronchodilators with pulmonary hygiene per RT - wean per pulmonary driven protocols otherwise - continue Daily SAT and SBT assessment as tolerated - continue accuchecks with glycemic control per SSI (While critically ill target blood glucose of 140-180 mg/dL; avoid hypoglycemia) - sedation prn for target RASS 0 to -1 - avoid nephrotoxins, renally dose all medications - continue to avoid benzodiazepine's, reduce the possibility of delirium - completed AB's per ID rec's - prn analgesia per CPOT score - Maintenance of sleep-wake cycle, avoid delirium - continue enteral nutritional support at goal rate as tolerated - G.I. & VTE prophylaxis - PT/OT/ROM exercises - continue mobility protocols for pressure ulcer prophylaxis - Monitor hemodynamics closely - continue other care per attending / other consultants - discharge planning ongoing concurrently .... Re-evaluate in am & prn CONDITION: CRITICAL PROGNOSIS: GUARDED CODE STATUS: FULL CODE The high probability of a clinically significant, sudden or life-threatening deterioration of the [respiratory, cardiovascular, hematologic & neurologic] system(s) required my full and direct attention, intervention and personal management. The aggregate critical care time was [32] minutes without overlap. Time includes spent on; [x] Data Review and interpretation [x] Patient assessment and monitoring of vital signs [x] Documentation [x] Medication orders and management Subjective Date of service: 09/19/20 Principal diagnosis: Ac hypoxemic resp failure; Cardiac arrest; Acute P.E.; Severe sepsis; COVID Interval history: Patient is seen today for: Ac hypoxemic resp failure; Cardiac arrest with ROSC; Acute pulmonary emboli; Severe sepsis; PUI COVID-19; UTI Seen and examined at bedside; 24hour events reviewed; nursing and respiratory care staff consulted; no adverse overnight events reported to me; resting peacefully in bed; still with serosanguinous and coffee grounds effluent from N GT; AMS is persistent; tolerated about 1 hour of SBT Objective Vital Signs - 12hr 09/19/20 09/19/20 09/19/20 00:45 01:00 01:15 Temperature Pulse Rate 96 H 96 H 95 H Respiratory 18 18 18 Rate Blood Pressure 145/95 148/95 140/95 O2 Sat by Pulse 100 99 99 Oximetry 09/19/20 09/19/20 09/19/20 01:30 01:45 02:00 Temperature Pulse Rate 96 H 95 H 96 H Respiratory 18 18 19 Rate Blood Pressure 154/97 150/96 148/96 O2 Sat by Pulse 100 100 100 Oximetry 09/19/20 09/19/20 09/19/20 02:15 02:30 02:45 Temperature Pulse Rate 94 H 95 H 95 H Respiratory 18 18 18 Rate Blood Pressure 155/95 158/97 143/97 O2 Sat by Pulse 100 100 100 Oximetry 09/19/20 09/19/20 09/19/20 03:00 03:15 03:30 Temperature Pulse Rate 94 H 94 H 95 H Respiratory 18 18 18 Rate Blood Pressure 156/93 147/94 155/94 O2 Sat by Pulse 100 100 100 Oximetry 09/19/20 09/19/20 09/19/20 03:45 04:00 04:15 Temperature Pulse Rate 94 H 93 H 94 H Respiratory 18 19 11 L Rate Blood Pressure 146/93 156/95 151/94 O2 Sat by Pulse 100 100 100 Oximetry 09/19/20 09/19/20 09/19/20 04:30 04:45 05:00 Temperature Pulse Rate 93 H 93 H 94 H Respiratory 17 18 18 Rate Blood Pressure 151/94 166/96 153/94 O2 Sat by Pulse 100 100 100 Oximetry 09/19/20 09/19/20 09/19/20 05:15 05:30 05:45 Temperature Pulse Rate 92 H 90 91 H Respiratory 18 19 16 Rate Blood Pressure 152/95 153/103 161/99 O2 Sat by Pulse 100 100 100 Oximetry 09/19/20 09/19/20 09/19/20 06:00 06:15 06:30 Temperature Pulse Rate 92 H 91 H 94 H Respiratory 18 18 18 Rate Blood Pressure 158/95 167/97 166/98 O2 Sat by Pulse 100 100 100 Oximetry 09/19/20 09/19/20 09/19/20 06:45 07:00 07:15 Temperature Pulse Rate 95 H 91 H 94 H Respiratory 18 19 18 Rate Blood Pressure 167/98 145/96 160/94 O2 Sat by Pulse 100 100 100 Oximetry 09/19/20 09/19/20 09/19/20 07:30 07:45 08:00 Temperature Pulse Rate 94 H 93 H 94 H Respiratory 18 17 18 Rate Blood Pressure 151/94 156/97 160/95 O2 Sat by Pulse 100 100 100 Oximetry 09/19/20 09/19/20 09/19/20 08:06 08:15 09:19 Temperature 100.3 F H Pulse Rate 95 H 93 H Respiratory 16 Rate Blood Pressure 160/95 164/96 O2 Sat by Pulse 100 100 Oximetry Constitutional: appears uncomfortable, other (elderly thin male with mildly increased respiratory effort at rest on MVS) Eyes: non-icteric ENT: oropharynx moist, other (ETT 24 cm CAROL) Neck: supple, no lymphadenopathy, no JVD Effort: mildly labored Ascultation: Bilateral: diminished breath sounds, rhonchi Percussion: Bilateral: not dull Cardiovascular: regular rate and rhythm Gastrointestinal: normoactive bowel sounds, soft, non-tender, non-distended Integumentary: normal Extremities: no cyanosis, no edema, pulses normal, no ischemia or petechiae Neurologic: pupils equal and round, unable to assess Psychiatric: other (unable to assess re: AMS) CBC and BMP: 09/19/20 05:02 09/19/20 05:02 ABG, PT/INR, D-dimer: ABG ABG pH 7.503 pH Units (7.350-7.450) H 09/19/20 04:00 POC ABG pCO2 31.0 mmHg (32.0-48.0) L 09/16/20 16:00 ABG pCO2 31.2 mm Hg 09/19/20 04:00 POC ABG pO2 427.0 mmHg (83-108) H 09/16/20 16:00 ABG pO2 159.2 mm Hg (80.0-90.0) H 09/19/20 04:00 POC ABG HCO3 16.1 09/16/20 16:00 ABG O2 Saturation 99.1 % (95.0-99.0) H 09/19/20 04:00 PT/INR, D-dimer PT 18.0 Sec. (12.2-14.9) H 09/17/20 11:37 INR 1.49 (0.87-1.13) H 09/17/20 11:37 D-Dimer > 41161 ng/mlDDU (0-234) H 09/17/20 11:37 Abnormal lab findings: Abnormal Labs 09/16/20 09/16/20 09/16/20 10:37 10:37 10:37 WBC Hgb 11.2 L Hct MCV MCH 27 L MCHC 31 L Plt Count Lymph % (Auto) Lymph # (Auto) Seg Neutrophils % 71.0 H Seg Neuts % (Manual) Lymphocytes % (Manual) Nucleated RBC % Seg Neutrophils # Seg Neutrophils # Man Lymphocytes # (Manual) PT 18.6 H INR 1.55 H APTT 43.4 H D-Dimer > 94017 H Heparin Anti-Xa Level ABG pH POC ABG pCO2 POC ABG pO2 ABG pO2 ABG HCO3 ABG O2 Saturation ABG Base Excess ABG Hemoglobin ABG Chloride ABG Glucose VBG pH Potassium Carbon Dioxide BUN Creatinine Glucose POC Glucose Lactic Acid 10.00 H* Magnesium Ferritin AST Lactate Dehydrogenase C-Reactive Protein Total Protein Albumin Arterial Blood Glucose Arterial Blood Ionized Calcium Urine WBC (Auto) U Epithel Cells (Auto) Urine Creatinine 09/16/20 09/16/20 09/16/20 10:37 10:37 10:53 WBC Hgb Hct MCV MCH MCHC Plt Count Lymph % (Auto) Lymph # (Auto) Seg Neutrophils % Seg Neuts % (Manual) Lymphocytes % (Manual) Nucleated RBC % Seg Neutrophils # Seg Neutrophils # Man Lymphocytes # (Manual) PT INR APTT D-Dimer Heparin Anti-Xa Level ABG pH POC ABG pCO2 POC ABG pO2 ABG pO2 ABG HCO3 ABG O2 Saturation ABG Base Excess ABG Hemoglobin ABG Chloride ABG Glucose VBG pH 7.138 L* Potassium Carbon Dioxide 16 L BUN 25 H Creatinine 1.5 H Glucose 243 H POC Glucose Lactic Acid Magnesium 2.50 H Ferritin AST 54 H Lactate Dehydrogenase C-Reactive Protein Total Protein 6.1 L Albumin 3.2 L Arterial Blood Glucose Arterial Blood Ionized Calcium Urine WBC (Auto) 67.0 H U Epithel Cells (Auto) 27.0 H Urine Creatinine 09/16/20 09/16/20 09/16/20 16:00 20:12 20:49 WBC Hgb Hct MCV MCH MCHC Plt Count Lymph % (Auto) Lymph # (Auto) Seg Neutrophils % Seg Neuts % (Manual) Lymphocytes % (Manual) Nucleated RBC % Seg Neutrophils # Seg Neutrophils # Man Lymphocytes # (Manual) PT INR APTT D-Dimer Heparin Anti-Xa Level ABG pH POC ABG pCO2 31.0 L POC ABG pO2 427.0 H ABG pO2 ABG HCO3 ABG O2 Saturation ABG Base Excess ABG Hemoglobin ABG Chloride 109.0 H ABG Glucose 169 H VBG pH Potassium Carbon Dioxide BUN Creatinine Glucose POC Glucose 136 H Lactic Acid Magnesium Ferritin AST Lactate Dehydrogenase C-Reactive Protein 2.80 H Total Protein Albumin Arterial Blood Glucose 169 H Arterial Blood Ionized Calcium 4.5 L Urine WBC (Auto) U Epithel Cells (Auto) Urine Creatinine 09/16/20 09/17/20 09/17/20 20:49 00:44 00:57 WBC Hgb Hct MCV MCH MCHC Plt Count Lymph % (Auto) Lymph # (Auto) Seg Neutrophils % Seg Neuts % (Manual) Lymphocytes % (Manual) Nucleated RBC % Seg Neutrophils # Seg Neutrophils # Man Lymphocytes # (Manual) PT 18.2 H INR 1.51 H APTT 44.0 H D-Dimer Heparin Anti-Xa Level ABG pH POC ABG pCO2 POC ABG pO2 ABG pO2 ABG HCO3 ABG O2 Saturation ABG Base Excess ABG Hemoglobin ABG Chloride ABG Glucose VBG pH Potassium Carbon Dioxide BUN Creatinine Glucose POC Glucose 153 H Lactic Acid Magnesium Ferritin AST Lactate Dehydrogenase C-Reactive Protein Total Protein Albumin Arterial Blood Glucose Arterial Blood Ionized Calcium Urine WBC (Auto) U Epithel Cells (Auto) Urine Creatinine 181.1 H 09/17/20 09/17/20 09/17/20 03:05 04:16 04:16 WBC 20.1 H Hgb Hct MCV 83 L MCH 27 L MCHC Plt Count Lymph % (Auto) Lymph # (Auto) Seg Neutrophils % Seg Neuts % (Manual) 91.0 H Lymphocytes % (Manual) 6.0 L Nucleated RBC % Seg Neutrophils # Seg Neutrophils # Man 18.3 H Lymphocytes # (Manual) PT INR APTT D-Dimer Heparin Anti-Xa Level 1.26 H ABG pH POC ABG pCO2 POC ABG pO2 ABG pO2 237.5 H ABG HCO3 17.4 L ABG O2 Saturation 99.4 H ABG Base Excess -6.6 L ABG Hemoglobin 12.2 L ABG Chloride ABG Glucose VBG pH Potassium Carbon Dioxide BUN Creatinine Glucose POC Glucose Lactic Acid Magnesium Ferritin AST Lactate Dehydrogenase C-Reactive Protein Total Protein Albumin Arterial Blood Glucose Arterial Blood Ionized Calcium Urine WBC (Auto) U Epithel Cells (Auto) Urine Creatinine 09/17/20 09/17/20 09/17/20 04:16 04:16 06:31 WBC Hgb Hct MCV MCH MCHC Plt Count Lymph % (Auto) Lymph # (Auto) Seg Neutrophils % Seg Neuts % (Manual) Lymphocytes % (Manual) Nucleated RBC % Seg Neutrophils # Seg Neutrophils # Man Lymphocytes # (Manual) PT INR APTT D-Dimer Heparin Anti-Xa Level ABG pH POC ABG pCO2 POC ABG pO2 ABG pO2 ABG HCO3 ABG O2 Saturation ABG Base Excess ABG Hemoglobin ABG Chloride ABG Glucose VBG pH Potassium Carbon Dioxide 18 L BUN 34 H Creatinine 1.5 H Glucose 171 H POC Glucose 136 H Lactic Acid 3.60 H* Magnesium Ferritin AST Lactate Dehydrogenase C-Reactive Protein Total Protein Albumin Arterial Blood Glucose Arterial Blood Ionized Calcium Urine WBC (Auto) U Epithel Cells (Auto) Urine Creatinine 09/17/20 09/17/20 09/17/20 11:37 11:37 11:37 WBC Hgb Hct MCV MCH MCHC Plt Count Lymph % (Auto) Lymph # (Auto) Seg Neutrophils % Seg Neuts % (Manual) Lymphocytes % (Manual) Nucleated RBC % Seg Neutrophils # Seg Neutrophils # Man Lymphocytes # (Manual) PT 18.0 H INR 1.49 H APTT D-Dimer > 18565 H Heparin Anti-Xa Level 0.25 L ABG pH POC ABG pCO2 POC ABG pO2 ABG pO2 ABG HCO3 ABG O2 Saturation ABG Base Excess ABG Hemoglobin ABG Chloride ABG Glucose VBG pH Potassium Carbon Dioxide BUN Creatinine Glucose POC Glucose Lactic Acid 2.80 H* Magnesium Ferritin AST Lactate Dehydrogenase C-Reactive Protein Total Protein Albumin Arterial Blood Glucose Arterial Blood Ionized Calcium Urine WBC (Auto) U Epithel Cells (Auto) Urine Creatinine 09/17/20 09/17/20 09/17/20 15:58 15:58 15:58 WBC Hgb Hct MCV MCH MCHC Plt Count Lymph % (Auto) Lymph # (Auto) Seg Neutrophils % Seg Neuts % (Manual) Lymphocytes % (Manual) Nucleated RBC % Seg Neutrophils # Seg Neutrophils # Man Lymphocytes # (Manual) PT INR APTT D-Dimer Heparin Anti-Xa Level ABG pH POC ABG pCO2 POC ABG pO2 ABG pO2 ABG HCO3 ABG O2 Saturation ABG Base Excess ABG Hemoglobin ABG Chloride ABG Glucose VBG pH Potassium Carbon Dioxide BUN Creatinine Glucose POC Glucose Lactic Acid 3.90 H* Magnesium Ferritin 1306.0 H AST Lactate Dehydrogenase 515 H C-Reactive Protein 24.30 H Total Protein Albumin Arterial Blood Glucose Arterial Blood Ionized Calcium Urine WBC (Auto) U Epithel Cells (Auto) Urine Creatinine 09/17/20 09/18/20 09/18/20 20:35 03:04 03:35 WBC Hgb Hct MCV MCH MCHC Plt Count Lymph % (Auto) Lymph # (Auto) Seg Neutrophils % Seg Neuts % (Manual) Lymphocytes % (Manual) Nucleated RBC % Seg Neutrophils # Seg Neutrophils # Man Lymphocytes # (Manual) PT INR APTT D-Dimer Heparin Anti-Xa Level ABG pH POC ABG pCO2 POC ABG pO2 ABG pO2 198.7 H ABG HCO3 18.9 L ABG O2 Saturation 99.3 H ABG Base Excess -4.3 L ABG Hemoglobin 10.8 L ABG Chloride ABG Glucose VBG pH Potassium Carbon Dioxide BUN Creatinine Glucose POC Glucose 111 H 129 H Lactic Acid Magnesium Ferritin AST Lactate Dehydrogenase C-Reactive Protein Total Protein Albumin Arterial Blood Glucose Arterial Blood Ionized Calcium Urine WBC (Auto) U Epithel Cells (Auto) Urine Creatinine 09/18/20 09/18/20 09/18/20 04:19 04:19 06:34 WBC 21.8 H Hgb 11.4 L Hct 35.2 L MCV 82 L MCH 26 L MCHC Plt Count Lymph % (Auto) 2.4 L Lymph # (Auto) 0.5 L Seg Neutrophils % 94.6 H Seg Neuts % (Manual) Lymphocytes % (Manual) Nucleated RBC % Seg Neutrophils # 20.6 H Seg Neutrophils # Man Lymphocytes # (Manual) PT INR APTT D-Dimer Heparin Anti-Xa Level ABG pH POC ABG pCO2 POC ABG pO2 ABG pO2 ABG HCO3 ABG O2 Saturation ABG Base Excess ABG Hemoglobin ABG Chloride ABG Glucose VBG pH Potassium 5.6 H Carbon Dioxide 20 L BUN 50 H Creatinine 2.4 H D Glucose 155 H POC Glucose 132 H Lactic Acid Magnesium Ferritin AST Lactate Dehydrogenase C-Reactive Protein Total Protein Albumin Arterial Blood Glucose Arterial Blood Ionized Calcium Urine WBC (Auto) U Epithel Cells (Auto) Urine Creatinine 09/19/20 09/19/20 09/19/20 04:00 05:02 05:02 WBC 20.5 H Hgb 10.0 L Hct 30.8 L MCV 82 L MCH 27 L MCHC Plt Count 130 L Lymph % (Auto) Lymph # (Auto) Seg Neutrophils % Seg Neuts % (Manual) 97.0 H Lymphocytes % (Manual) Nucleated RBC % 1.0 H Seg Neutrophils # Seg Neutrophils # Man 19.9 H Lymphocytes # (Manual) 0.0 L PT INR APTT D-Dimer Heparin Anti-Xa Level ABG pH 7.503 H POC ABG pCO2 POC ABG pO2 ABG pO2 159.2 H ABG HCO3 ABG O2 Saturation 99.1 H ABG Base Excess ABG Hemoglobin 10.3 L ABG Chloride ABG Glucose VBG pH Potassium Carbon Dioxide BUN 74 H Creatinine 3.5 H Glucose 168 H POC Glucose Lactic Acid Magnesium Ferritin AST Lactate Dehydrogenase C-Reactive Protein Total Protein Albumin Arterial Blood Glucose Arterial Blood Ionized Calcium Urine WBC (Auto) U Epithel Cells (Auto) Urine Creatinine 09/19/20 09/19/20 09:11 11:58 WBC Hgb Hct MCV MCH MCHC Plt Count Lymph % (Auto) Lymph # (Auto) Seg Neutrophils % Seg Neuts % (Manual) Lymphocytes % (Manual) Nucleated RBC % Seg Neutrophils # Seg Neutrophils # Man Lymphocytes # (Manual) PT INR APTT D-Dimer Heparin Anti-Xa Level ABG pH POC ABG pCO2 POC ABG pO2 ABG pO2 ABG HCO3 ABG O2 Saturation ABG Base Excess ABG Hemoglobin ABG Chloride ABG Glucose VBG pH Potassium Carbon Dioxide BUN Creatinine Glucose POC Glucose 143 H 155 H Lactic Acid Magnesium Ferritin AST Lactate Dehydrogenase C-Reactive Protein Total Protein Albumin Arterial Blood Glucose Arterial Blood Ionized Calcium Urine WBC (Auto) U Epithel Cells (Auto) Urine Creatinine Chest x-ray: image reviewed (no acute process) Allied health notes reviewed: nursing
--- NOTE | 2020-09-19 13:00 | Progress Note ---
Assessment and Plan Acute respiratory failure status post intubation Status post cardiac arrest bilateral PE Sepsis Acute renal insufficiency Hypotension Hyperlipidemia plan: tte reviewed - EF 40-45%, mild TR, RVSP 24mmHg. cont current cardiac management. The patient has been seen in conjunction with Dr. Melo who agrees with the assessment and plan of care. Subjective Date of service: 09/19/20 Principal diagnosis: Ac hypoxemic resp failure; Cardiac arrest; Acute P.E.; Severe sepsis; COVID Interval history: pt remains intubated, unresponsive, for f/u head CT today. in SR on tele. Objective Last Vital Signs Temp 100.3 F H 09/19/20 09:19 Pulse 93 H 09/19/20 08:15 Resp 16 09/19/20 08:15 BP 164/96 09/19/20 08:15 Pulse Ox 100 09/19/20 08:15 - Physical Examination General: Other (intubated, unresponsive) HEENT: Positive: Other Neck: Positive: neck supple Cardiac: Positive: Reg Rate and Rhythm, S1/S2 Lungs: Positive: Decreased Breath Sounds, Oxygen, Ventilated Respirations Neuro: Positive: Other (intubated, unresponsive) - Labs and Meds CBC 09/19/20 Range/Units 05:02 WBC 20.5 H (4.5-11.0) K/mm3 RBC 3.76 (3.65-5.03) M/mm3 Hgb 10.0 L (11.8-15.2) gm/dl Hct 30.8 L (35.5-45.6) % Plt Count 130 L (140-440) K/mm3 Comprehensive Metabolic Panel 09/19/20 Range/Units 05:02 Sodium 144 (137-145) mmol/L Potassium 4.9 (3.6-5.0) mmol/L Chloride 102.5 (98-107) mmol/L Carbon Dioxide 24 (22-30) mmol/L BUN 74 H (9-20) mg/dL Creatinine 3.5 H (0.8-1.3) mg/dL Glucose 168 H (75-100) mg/dL Calcium 8.6 (8.4-10.2) mg/dL - Imaging and Cardiology Echo: report reviewed (Small pericardial effusion EF 40 to 45% without significant regurgitation) - Telemetry EKG Rhythm: Sinus Rhythm - Allied health notes Allied health notes reviewed: nursing
--- NOTE | 2020-09-19 14:33 | Progress Note ---
Assessment and Plan 1. Acute kidney injury: Vasomotor nephropathy in the setting of Cardiac arrest + contrast induced nephropathy. Renal US negative for hydro. Monitor renal function. Creatinine level continue to increase, 3.5 from 2.4 from 1.5. Continue IV fluids. Renal prognosis is guarded. Avoid nephrotoxic agents. Meds dosage based on GFR. Monitor for [employer] needs. 2. FEN: Hyperkalemia, improved, monitor. Anion-gap metabolic acidosis, 2/2 lactic acidosis, bicarb drip, monitor. Monitor lytes and volume status. 3. S/p Cardiac arrest: Cardiac arrest 09/16. Seen by Cards. 4. Acute resp failure: Followed by Pulmonary. 5. Shock: Off pressors. 6. PE: CTA showed multiple filling defects involving L LL and R UL. 7. Anemia, POA: Monitor. 8. Acute Metabolic Encephalopathy, POA: Supportive care. Prognosis is guarded. Subjective: Patient was seen and examined at the bedside. Examination: General appearance: well-developed, appears emaciated, intubated, on vent HEENT: ATNC Neck: trachea midline Respiratory: MV sounds Heart: S1S2, regular, no murmur Gastrointestinal: not tender, BS heard Integumentary: no rash, warm and dry Neurologic: not responding, increased muscle tone Ext: no edema : Sanchez catheter Subjective Date of service: 09/19/20 Principal diagnosis: Ac hypoxemic resp failure; Cardiac arrest; Acute P.E.; Severe sepsis; COVID Objective - Vital Signs Vital signs: Vital Signs - 12hr 09/19/20 09/19/20 09/19/20 02:45 03:00 03:15 Temperature Pulse Rate 95 H 94 H 94 H Respiratory 18 18 18 Rate Blood Pressure 143/97 156/93 147/94 O2 Sat by Pulse 100 100 100 Oximetry 09/19/20 09/19/20 09/19/20 03:30 03:45 04:00 Temperature Pulse Rate 95 H 94 H 93 H Respiratory 18 18 19 Rate Blood Pressure 155/94 146/93 156/95 O2 Sat by Pulse 100 100 100 Oximetry 09/19/20 09/19/20 09/19/20 04:15 04:30 04:45 Temperature Pulse Rate 94 H 93 H 93 H Respiratory 11 L 17 18 Rate Blood Pressure 151/94 151/94 166/96 O2 Sat by Pulse 100 100 100 Oximetry 09/19/20 09/19/20 09/19/20 05:00 05:15 05:30 Temperature Pulse Rate 94 H 92 H 90 Respiratory 18 18 19 Rate Blood Pressure 153/94 152/95 153/103 O2 Sat by Pulse 100 100 100 Oximetry 09/19/20 09/19/20 09/19/20 05:45 06:00 06:15 Temperature Pulse Rate 91 H 92 H 91 H Respiratory 16 18 18 Rate Blood Pressure 161/99 158/95 167/97 O2 Sat by Pulse 100 100 100 Oximetry 09/19/20 09/19/20 09/19/20 06:30 06:45 07:00 Temperature Pulse Rate 94 H 95 H 91 H Respiratory 18 18 19 Rate Blood Pressure 166/98 167/98 145/96 O2 Sat by Pulse 100 100 100 Oximetry 09/19/20 09/19/20 09/19/20 07:15 07:30 07:45 Temperature Pulse Rate 94 H 94 H 93 H Respiratory 18 18 17 Rate Blood Pressure 160/94 151/94 156/97 O2 Sat by Pulse 100 100 100 Oximetry 09/19/20 09/19/20 09/19/20 08:00 08:06 08:15 Temperature Pulse Rate 94 H 95 H 93 H Respiratory 18 16 Rate Blood Pressure 160/95 160/95 164/96 O2 Sat by Pulse 100 100 100 Oximetry 09/19/20 09/19/20 09:19 11:02 Temperature 100.3 F H Pulse Rate 97 H Respiratory Rate Blood Pressure 166/101 O2 Sat by Pulse 100 Oximetry - Lab 09/19/20 05:02 09/19/20 05:02 Most recent lab results ABG pH 7.503 pH Units (7.350-7.450) H 09/19/20 04:00 ABG pCO2 31.2 mm Hg 09/19/20 04:00 ABG pO2 159.2 mm Hg (80.0-90.0) H 09/19/20 04:00 ABG HCO3 24.0 mmol/L (20.0-26.0) 09/19/20 04:00 ABG O2 Saturation 99.1 % (95.0-99.0) H 09/19/20 04:00 Calcium 8.6 mg/dL (8.4-10.2) 09/19/20 05:02 Magnesium 2.50 mg/dL (1.7-2.3) H 09/16/20 10:37 Urine Creatinine 181.1 mg/dL (0.1-20.0) H 09/17/20 00:57 Urine Sodium 78 mmol/L 09/17/20 00:57 Medications & Allergies - Medications Allergies/Adverse Reactions: Allergies No Known Allergies Allergy (Unverified 09/16/20 12:52) Home Medications: Home Medications Medication Instructions Recorded Confirmed Last Taken Type No Known Home Medications [No 09/18/20 09/18/20 Unknown History Reported Home Medications] Active Medications: Generic Name Dose Route Start Last Admin Trade Name Freq PRN Reason Stop Dose Admin Lipase/Protease/Amylase 1 each 09/17/20 08:56 Lipase 10,500/Protease 25,000/Amylase 43,750 (Units) Dr Cap FEEDTUBE PRN PRN For Clogged Feeding Tube Dextrose 50 ml 09/16/20 12:19 Dextrose 50% In Water (25gm) 50 Ml Syringe IV Q30MIN PRN Hypoglycemia Protocol Fentanyl 50 mcg 09/16/20 20:12 Fentanyl 100 Mcg/2 Ml Inj IV Q10MIN PRN ANALGESIA Heparin Sodium (Porcine) 2,400 unit 09/16/20 20:12 09/16/20 21:00 Heparin 10,000 Units/10 Ml Vial 40 unit/kg (2400 unit) 2,400 unit IV Administration Q6H PRN Anti-Xa Assay < 0.1 units/ml Hydrophilic Ointment 1 applic 09/16/20 20:12 Lip Therapy Vaseline TP Q2HR PRN Dry Lips Sodium Bicarbonate 150 meq/ 150 mls @ 100 mls/hr 09/16/20 13:00 09/18/20 15:26 Sterile Water IV 100 mls/hr DIRECT DARA Administration Norepinephrine 4 mg in 250 mls @ 7.5 mls/hr 09/16/20 13:15 09/16/20 16:30 Levophed Drip 4 Mg/Ns 250 Ml IV Infused TITR DARA Titration Protocol 2 MCG/MIN Fentanyl Citrate 2,000 mcg in 100 mls @ 3 mls/hr 09/16/20 21:00 09/16/20 21:00 Fentanyl Drip Premix IV 1 mcg/kg/hr TITR DARA 3 mls/hr Administration Protocol 1 MCG/KG/HR Propofol 1,000 mg in 100 mls @ 1.8 mls/hr 09/16/20 21:00 09/16/20 19:55 Diprivan 10 Mg/Ml IV 5 mcg/kg/min TITR DARA 1.8 mls/hr Administration Protocol 5 MCG/KG/MIN Heparin Sodium/Sodium Chloride 25,000 unit in 500 mls @ 18 mls/hr 09/16/20 21 :00 09/17/20 05:25 Heparin/ 0.45% Nacl-25,000 Unit/500 Ml IV 0 units/hr TITR DARA 0 mls/hr Titration Protocol 900 UNITS/HR Cefepime HCl 1 gm in 100 mls @ 200 mls/hr 09/19/20 22:00 Cefepime/Ns 1 Gm/100 Ml IV Q24H DARA Protocol Insulin Human Regular 0 unit 09/16/20 13:00 09/19/20 13:19 Insulin Regular, Human 100 Unit/Ml 3ml Vial SUB-Q 2 unit Q6H DARA Administration Protocol Lansoprazole 30 mg 09/19/20 10:00 09/19/20 11:54 Lansoprazole 30 Mg Solutab FEEDTUBE 30 mg BID DARA Administration Methylprednisolone Sodium Succinate 40 mg 09/16/20 22:00 09/19/20 05:41 Methylprednisolone Sod Succinate 40 Mg/1 Ml Inj IV 40 mg Q8HR DARA Administration Multi-Ingred Cream/Lotion/Oil/Oint 1 applic 09/16/20 20:12 Mineral Oil/Petrolatum, White Ophth Oint 3.5 Gm OU Q4HR PRN Dry Eye(s) Simple Syrup 15 ml 09/17/20 08:56 Simple Syrup 15 Ml FEEDTUBE PRN PRN Hypoglycemia Simple Syrup 30 ml 09/17/20 08:56 Simple Syrup 15 Ml FEEDTUBE PRN PRN Hypoglycemia Sodium Bicarbonate 325 mg 09/17/20 08:56 Sodium Bicarbonate 325 Mg Tab FEEDTUBE PRN PRN For Clogged Feeding Tube Sodium Chloride 10 ml 09/16/20 22:00 09/19/20 11:54 Sodium Chloride 0.9% 10 Ml Flush Syringe IV 10 ml BID DARA Administration Sodium Chloride 10 ml 09/16/20 12:19 Sodium Chloride 0.9% 10 Ml Flush Syringe IV PRN PRN LINE FLUSH
--- NOTE | 2020-09-19 16:46 | Consultation ---
History of Present Illness Consult date: 09/19/20 Reason for Consult: Anoxic Injury Chief complaint: Unresponsive History of present illness: 84 yo male with Alzhemier's dementia, hld, who presents s/p cardiopulmonary arrest and noted with acute encephalopathy. He underwent two NCHCTs that are unremarkable. Past History Past Medical History: hyperlipidemia, other (Alzheimer's dementia) Past Surgical History: No surgical history Social history: no significant social history Family history: no significant family history Medications and Allergies Allergies Allergy/AdvReac Type Severity Reaction Status Date / Time No Known Allergies Allergy Unverified 09/16/20 12:52 Home Medications Medication Instructions Recorded Confirmed Last Taken Type No Known Home Medications [No 09/18/20 09/18/20 Unknown History Reported Home Medications] Active Meds: Active Medications Lipase/Protease/Amylase (Lipase 10,500/Protease 25,000/Amylase 43,750 (Units) Dr Cap) 1 each FEEDTUBE PRN PRN PRN Reason: For Clogged Feeding Tube Dextrose (Dextrose 50% In Water (25gm) 50 Ml Syringe) 50 ml IV Q30MIN PRN; Protocol PRN Reason: Hypoglycemia Fentanyl (Fentanyl 100 Mcg/2 Ml Inj) 50 mcg IV Q10MIN PRN PRN Reason: ANALGESIA Heparin Sodium (Porcine) (Heparin 10,000 Units/10 Ml Vial) 2,400 unit 40 unit/kg (2400 unit) IV Q6H PRN PRN Reason: Anti-Xa Assay < 0.1 units/ml Last Admin: 09/16/20 21:00 Dose: 2,400 unit Documented by: Hydrophilic Ointment (Lip Therapy Vaseline) 1 applic TP Q2HR PRN PRN Reason: Dry Lips Sodium Bicarbonate 150 meq/ (Sterile Water) 150 mls @ 100 mls/hr IV DIRECT DARA Last Admin: 09/18/20 15:26 Dose: 100 mls/hr Documented by: Norepinephrine (Levophed Drip 4 Mg/Ns 250 Ml) 4 mg in 250 mls @ 7.5 mls/hr IV TITR DARA; Protocol Last Titration: 09/16/20 16:30 Dose: Infused Documented by: Fentanyl Citrate (Fentanyl Drip Premix) 2,000 mcg in 100 mls @ 3 mls/hr IV TITR DARA; Protocol Last Admin: 09/16/20 21:00 Dose: 1 mcg/kg/hr, 3 mls/hr Documented by: Propofol (Diprivan 10 Mg/Ml) 1,000 mg in 100 mls @ 1.8 mls/hr IV TITR DARA; Protocol Last Admin: 09/16/20 19:55 Dose: 5 mcg/kg/min, 1.8 mls/hr Documented by: Heparin Sodium/Sodium Chloride (Heparin/ 0.45% Nacl-25,000 Unit/500 Ml) 25,000 unit in 500 mls @ 18 mls/hr IV TITR DARA; Protocol Last Titration: 09/17/20 05:25 Dose: 0 units/hr, 0 mls/hr Documented by: Cefepime HCl (Cefepime/Ns 1 Gm/100 Ml) 1 gm in 100 mls @ 200 mls/hr IV Q24H DARA; Protocol Insulin Human Regular (Insulin Regular, Human 100 Unit/Ml 3ml Vial) 0 unit SUB- Q Q6H DARA; Protocol Last Admin: 09/19/20 13:19 Dose: 2 unit Documented by: Lansoprazole (Lansoprazole 30 Mg Solutab) 30 mg FEEDTUBE BID DARA Last Admin: 09/19/20 11:54 Dose: 30 mg Documented by: Methylprednisolone Sodium Succinate (Methylprednisolone Sod Succinate 40 Mg/1 Ml Inj) 40 mg IV Q8HR DARA Last Admin: 09/19/20 14:50 Dose: 40 mg Documented by: Multi-Ingred Cream/Lotion/Oil/Oint (Mineral Oil/Petrolatum, White Ophth Oint 3.5 Gm) 1 applic OU Q4HR PRN PRN Reason: Dry Eye(s) Simple Syrup (Simple Syrup 15 Ml) 15 ml FEEDTUBE PRN PRN PRN Reason: Hypoglycemia Simple Syrup (Simple Syrup 15 Ml) 30 ml FEEDTUBE PRN PRN PRN Reason: Hypoglycemia Sodium Bicarbonate (Sodium Bicarbonate 325 Mg Tab) 325 mg FEEDTUBE PRN PRN PRN Reason: For Clogged Feeding Tube Sodium Chloride (Sodium Chloride 0.9% 10 Ml Flush Syringe) 10 ml IV BID DARA Last Admin: 09/19/20 11:54 Dose: 10 ml Documented by: Sodium Chloride (Sodium Chloride 0.9% 10 Ml Flush Syringe) 10 ml IV PRN PRN PRN Reason: LINE FLUSH Review of Systems ROS unobtainable: due to mental status Physical Examination - Vital Signs Vital Signs: Vital Signs Pulse Resp BP 83 16 121/73 09/16/20 10:15 09/16/20 10:15 09/16/20 10:15 - Physical Exam Narrative exam: Patient not seen secondary to patient being a "POI" Results - Laboratory Findings CBC and BMP: 09/19/20 05:02 09/19/20 05:02 Abnormal Lab Findings: Abnormal Labs 09/16/20 09/16/20 09/16/20 10:37 10:37 10:37 WBC Hgb 11.2 L Hct MCV MCH 27 L MCHC 31 L Plt Count Lymph % (Auto) Lymph # (Auto) Seg Neutrophils % 71.0 H Seg Neuts % (Manual) Lymphocytes % (Manual) Nucleated RBC % Seg Neutrophils # Seg Neutrophils # Man Lymphocytes # (Manual) PT 18.6 H INR 1.55 H APTT 43.4 H D-Dimer > 91902 H Heparin Anti-Xa Level ABG pH POC ABG pCO2 POC ABG pO2 ABG pO2 ABG HCO3 ABG O2 Saturation ABG Base Excess ABG Hemoglobin ABG Chloride ABG Glucose VBG pH Potassium Carbon Dioxide BUN Creatinine Glucose POC Glucose Lactic Acid 10.00 H* Magnesium Ferritin AST Lactate Dehydrogenase C-Reactive Protein Total Protein Albumin Arterial Blood Glucose Arterial Blood Ionized Calcium Urine WBC (Auto) U Epithel Cells (Auto) Urine Creatinine 09/16/20 09/16/20 09/16/20 10:37 10:37 10:53 WBC Hgb Hct MCV MCH MCHC Plt Count Lymph % (Auto) Lymph # (Auto) Seg Neutrophils % Seg Neuts % (Manual) Lymphocytes % (Manual) Nucleated RBC % Seg Neutrophils # Seg Neutrophils # Man Lymphocytes # (Manual) PT INR APTT D-Dimer Heparin Anti-Xa Level ABG pH POC ABG pCO2 POC ABG pO2 ABG pO2 ABG HCO3 ABG O2 Saturation ABG Base Excess ABG Hemoglobin ABG Chloride ABG Glucose VBG pH 7.138 L* Potassium Carbon Dioxide 16 L BUN 25 H Creatinine 1.5 H Glucose 243 H POC Glucose Lactic Acid Magnesium 2.50 H Ferritin AST 54 H Lactate Dehydrogenase C-Reactive Protein Total Protein 6.1 L Albumin 3.2 L Arterial Blood Glucose Arterial Blood Ionized Calcium Urine WBC (Auto) 67.0 H U Epithel Cells (Auto) 27.0 H Urine Creatinine 09/16/20 09/16/20 09/16/20 16:00 20:12 20:49 WBC Hgb Hct MCV MCH MCHC Plt Count Lymph % (Auto) Lymph # (Auto) Seg Neutrophils % Seg Neuts % (Manual) Lymphocytes % (Manual) Nucleated RBC % Seg Neutrophils # Seg Neutrophils # Man Lymphocytes # (Manual) PT INR APTT D-Dimer Heparin Anti-Xa Level ABG pH POC ABG pCO2 31.0 L POC ABG pO2 427.0 H ABG pO2 ABG HCO3 ABG O2 Saturation ABG Base Excess ABG Hemoglobin ABG Chloride 109.0 H ABG Glucose 169 H VBG pH Potassium Carbon Dioxide BUN Creatinine Glucose POC Glucose 136 H Lactic Acid Magnesium Ferritin AST Lactate Dehydrogenase C-Reactive Protein 2.80 H Total Protein Albumin Arterial Blood Glucose 169 H Arterial Blood Ionized Calcium 4.5 L Urine WBC (Auto) U Epithel Cells (Auto) Urine Creatinine 09/16/20 09/17/20 09/17/20 20:49 00:44 00:57 WBC Hgb Hct MCV MCH MCHC Plt Count Lymph % (Auto) Lymph # (Auto) Seg Neutrophils % Seg Neuts % (Manual) Lymphocytes % (Manual) Nucleated RBC % Seg Neutrophils # Seg Neutrophils # Man Lymphocytes # (Manual) PT 18.2 H INR 1.51 H APTT 44.0 H D-Dimer Heparin Anti-Xa Level ABG pH POC ABG pCO2 POC ABG pO2 ABG pO2 ABG HCO3 ABG O2 Saturation ABG Base Excess ABG Hemoglobin ABG Chloride ABG Glucose VBG pH Potassium Carbon Dioxide BUN Creatinine Glucose POC Glucose 153 H Lactic Acid Magnesium Ferritin AST Lactate Dehydrogenase C-Reactive Protein Total Protein Albumin Arterial Blood Glucose Arterial Blood Ionized Calcium Urine WBC (Auto) U Epithel Cells (Auto) Urine Creatinine 181.1 H 09/17/20 09/17/20 09/17/20 03:05 04:16 04:16 WBC 20.1 H Hgb Hct MCV 83 L MCH 27 L MCHC Plt Count Lymph % (Auto) Lymph # (Auto) Seg Neutrophils % Seg Neuts % (Manual) 91.0 H Lymphocytes % (Manual) 6.0 L Nucleated RBC % Seg Neutrophils # Seg Neutrophils # Man 18.3 H Lymphocytes # (Manual) PT INR APTT D-Dimer Heparin Anti-Xa Level 1.26 H ABG pH POC ABG pCO2 POC ABG pO2 ABG pO2 237.5 H ABG HCO3 17.4 L ABG O2 Saturation 99.4 H ABG Base Excess -6.6 L ABG Hemoglobin 12.2 L ABG Chloride ABG Glucose VBG pH Potassium Carbon Dioxide BUN Creatinine Glucose POC Glucose Lactic Acid Magnesium Ferritin AST Lactate Dehydrogenase C-Reactive Protein Total Protein Albumin Arterial Blood Glucose Arterial Blood Ionized Calcium Urine WBC (Auto) U Epithel Cells (Auto) Urine Creatinine 09/17/20 09/17/20 09/17/20 04:16 04:16 06:31 WBC Hgb Hct MCV MCH MCHC Plt Count Lymph % (Auto) Lymph # (Auto) Seg Neutrophils % Seg Neuts % (Manual) Lymphocytes % (Manual) Nucleated RBC % Seg Neutrophils # Seg Neutrophils # Man Lymphocytes # (Manual) PT INR APTT D-Dimer Heparin Anti-Xa Level ABG pH POC ABG pCO2 POC ABG pO2 ABG pO2 ABG HCO3 ABG O2 Saturation ABG Base Excess ABG Hemoglobin ABG Chloride ABG Glucose VBG pH Potassium Carbon Dioxide 18 L BUN 34 H Creatinine 1.5 H Glucose 171 H POC Glucose 136 H Lactic Acid 3.60 H* Magnesium Ferritin AST Lactate Dehydrogenase C-Reactive Protein Total Protein Albumin Arterial Blood Glucose Arterial Blood Ionized Calcium Urine WBC (Auto) U Epithel Cells (Auto) Urine Creatinine 09/17/20 09/17/20 09/17/20 11:37 11:37 11:37 WBC Hgb Hct MCV MCH MCHC Plt Count Lymph % (Auto) Lymph # (Auto) Seg Neutrophils % Seg Neuts % (Manual) Lymphocytes % (Manual) Nucleated RBC % Seg Neutrophils # Seg Neutrophils # Man Lymphocytes # (Manual) PT 18.0 H INR 1.49 H APTT D-Dimer > 50449 H Heparin Anti-Xa Level 0.25 L ABG pH POC ABG pCO2 POC ABG pO2 ABG pO2 ABG HCO3 ABG O2 Saturation ABG Base Excess ABG Hemoglobin ABG Chloride ABG Glucose VBG pH Potassium Carbon Dioxide BUN Creatinine Glucose POC Glucose Lactic Acid 2.80 H* Magnesium Ferritin AST Lactate Dehydrogenase C-Reactive Protein Total Protein Albumin Arterial Blood Glucose Arterial Blood Ionized Calcium Urine WBC (Auto) U Epithel Cells (Auto) Urine Creatinine 09/17/20 09/17/20 09/17/20 15:58 15:58 15:58 WBC Hgb Hct MCV MCH MCHC Plt Count Lymph % (Auto) Lymph # (Auto) Seg Neutrophils % Seg Neuts % (Manual) Lymphocytes % (Manual) Nucleated RBC % Seg Neutrophils # Seg Neutrophils # Man Lymphocytes # (Manual) PT INR APTT D-Dimer Heparin Anti-Xa Level ABG pH POC ABG pCO2 POC ABG pO2 ABG pO2 ABG HCO3 ABG O2 Saturation ABG Base Excess ABG Hemoglobin ABG Chloride ABG Glucose VBG pH Potassium Carbon Dioxide BUN Creatinine Glucose POC Glucose Lactic Acid 3.90 H* Magnesium Ferritin 1306.0 H AST Lactate Dehydrogenase 515 H C-Reactive Protein 24.30 H Total Protein Albumin Arterial Blood Glucose Arterial Blood Ionized Calcium Urine WBC (Auto) U Epithel Cells (Auto) Urine Creatinine 09/17/20 09/18/20 09/18/20 20:35 03:04 03:35 WBC Hgb Hct MCV MCH MCHC Plt Count Lymph % (Auto) Lymph # (Auto) Seg Neutrophils % Seg Neuts % (Manual) Lymphocytes % (Manual) Nucleated RBC % Seg Neutrophils # Seg Neutrophils # Man Lymphocytes # (Manual) PT INR APTT D-Dimer Heparin Anti-Xa Level ABG pH POC ABG pCO2 POC ABG pO2 ABG pO2 198.7 H ABG HCO3 18.9 L ABG O2 Saturation 99.3 H ABG Base Excess -4.3 L ABG Hemoglobin 10.8 L ABG Chloride ABG Glucose VBG pH Potassium Carbon Dioxide BUN Creatinine Glucose POC Glucose 111 H 129 H Lactic Acid Magnesium Ferritin AST Lactate Dehydrogenase C-Reactive Protein Total Protein Albumin Arterial Blood Glucose Arterial Blood Ionized Calcium Urine WBC (Auto) U Epithel Cells (Auto) Urine Creatinine 09/18/20 09/18/20 09/18/20 04:19 04:19 06:34 WBC 21.8 H Hgb 11.4 L Hct 35.2 L MCV 82 L MCH 26 L MCHC Plt Count Lymph % (Auto) 2.4 L Lymph # (Auto) 0.5 L Seg Neutrophils % 94.6 H Seg Neuts % (Manual) Lymphocytes % (Manual) Nucleated RBC % Seg Neutrophils # 20.6 H Seg Neutrophils # Man Lymphocytes # (Manual) PT INR APTT D-Dimer Heparin Anti-Xa Level ABG pH POC ABG pCO2 POC ABG pO2 ABG pO2 ABG HCO3 ABG O2 Saturation ABG Base Excess ABG Hemoglobin ABG Chloride ABG Glucose VBG pH Potassium 5.6 H Carbon Dioxide 20 L BUN 50 H Creatinine 2.4 H D Glucose 155 H POC Glucose 132 H Lactic Acid Magnesium Ferritin AST Lactate Dehydrogenase C-Reactive Protein Total Protein Albumin Arterial Blood Glucose Arterial Blood Ionized Calcium Urine WBC (Auto) U Epithel Cells (Auto) Urine Creatinine 09/19/20 09/19/20 09/19/20 04:00 05:02 05:02 WBC 20.5 H Hgb 10.0 L Hct 30.8 L MCV 82 L MCH 27 L MCHC Plt Count 130 L Lymph % (Auto) Lymph # (Auto) Seg Neutrophils % Seg Neuts % (Manual) 97.0 H Lymphocytes % (Manual) Nucleated RBC % 1.0 H Seg Neutrophils # Seg Neutrophils # Man 19.9 H Lymphocytes # (Manual) 0.0 L PT INR APTT D-Dimer Heparin Anti-Xa Level ABG pH 7.503 H POC ABG pCO2 POC ABG pO2 ABG pO2 159.2 H ABG HCO3 ABG O2 Saturation 99.1 H ABG Base Excess ABG Hemoglobin 10.3 L ABG Chloride ABG Glucose VBG pH Potassium Carbon Dioxide BUN 74 H Creatinine 3.5 H Glucose 168 H POC Glucose Lactic Acid Magnesium Ferritin AST Lactate Dehydrogenase C-Reactive Protein Total Protein Albumin Arterial Blood Glucose Arterial Blood Ionized Calcium Urine WBC (Auto) U Epithel Cells (Auto) Urine Creatinine 09/19/20 09/19/20 09:11 11:58 WBC Hgb Hct MCV MCH MCHC Plt Count Lymph % (Auto) Lymph # (Auto) Seg Neutrophils % Seg Neuts % (Manual) Lymphocytes % (Manual) Nucleated RBC % Seg Neutrophils # Seg Neutrophils # Man Lymphocytes # (Manual) PT INR APTT D-Dimer Heparin Anti-Xa Level ABG pH POC ABG pCO2 POC ABG pO2 ABG pO2 ABG HCO3 ABG O2 Saturation ABG Base Excess ABG Hemoglobin ABG Chloride ABG Glucose VBG pH Potassium Carbon Dioxide BUN Creatinine Glucose POC Glucose 143 H 155 H Lactic Acid Magnesium Ferritin AST Lactate Dehydrogenase C-Reactive Protein Total Protein Albumin Arterial Blood Glucose Arterial Blood Ionized Calcium Urine WBC (Auto) U Epithel Cells (Auto) Urine Creatinine Assessment and Plan 84 yo male with alzheimer's disease s/p cardiopulnonary arrest. 1. Hypoxic Anxoic Encephalopathy - recommend MRI Brain wo contrast when clinically stable. 2. Seizure - pending EEG. 3. Metabolic Encephalopathy - in the setting of infection and renal failure. Enrique Esparza MD Neurology
[2020-09-19] MEDS ORDERED: PANTOPRAZOLE 80 MG in SODIUM CHLORIDE 0.9% 100 ML IV SCH (19:00)
[2020-09-19] MEDS ORDERED: CEFEPIME/NS 1 GM/100 ML 1 GM/100 ML BAG IV SCH (22:00)
[2020-09-20] MEDS: INSULIN REGULAR, HUMAN 100 UNIT/ML 3ML VIAL SUB-Q SCH ×3 (02:08→15:43)
[2020-09-20] MEDS: methylPREDNISolone Sod Succinate 40 MG/1 ML INJ IV SCH ×2 (06:23→15:43)
[2020-09-20 08:44] LABS: Hematocrit 29.2 % (35.5-45.6); Hemoglobin 9.4 gm/dl (11.8-15.2)
[2020-09-20 09:04] LABS: Calcium 8.3 mg/dL (8.4-10.2)
--- NOTE | 2020-09-20 11:42 | Progress Note ---
Assessment and Plan Acute respiratory failure status post intubation AMS / ? seizure Status post cardiac arrest bilateral PE Sepsis Acute renal insufficiency Hypotension Hyperlipidemia plan: tte reviewed - EF 40-45%, mild TR, RVSP 24mmHg. cont current cardiac management. Neuro w/u in progress. The patient has been seen in conjunction with Dr. Melo who agrees with the assessment and plan of care. Subjective Date of service: 09/20/20 Principal diagnosis: Ac hypoxemic resp failure; Cardiac arrest; Acute P.E.; Severe sepsis; COVID Interval history: pt remains intubated, unresponsive. in SR on tele. Objective Last Vital Signs Temp 96.6 F L 09/20/20 07:30 Pulse 59 L 09/20/20 10:15 Resp 17 09/20/20 10:15 BP 134/82 09/20/20 10:15 Pulse Ox 100 09/20/20 10:15 - Physical Examination General: Other (intubated, unresponsive) Cardiac: Positive: Reg Rate and Rhythm, S1/S2 Lungs: Positive: Decreased Breath Sounds, Oxygen, Ventilated Respirations Neuro: Positive: Other (intubated, unresponsive) - Labs and Meds CBC 09/20/20 Range/Units 04:49 Hgb 9.4 L (11.8-15.2) gm/dl Hct 29.2 L (35.5-45.6) % Plt Count 127 L (140-440) K/mm3 Comprehensive Metabolic Panel 09/20/20 Range/Units 04:49 Sodium 146 H (137-145) mmol/L Potassium 3.7 D (3.6-5.0) mmol/L Chloride 98.2 (98-107) mmol/L Carbon Dioxide 35 H D (22-30) mmol/L BUN 94 H (9-20) mg/dL Creatinine 3.7 H (0.8-1.3) mg/dL Glucose 157 H (75-100) mg/dL Calcium 8.3 L (8.4-10.2) mg/dL - Imaging and Cardiology Echo: report reviewed (Small pericardial effusion EF 40 to 45% without significant regurgitation) - Allied health notes Allied health notes reviewed: nursing
--- NOTE | 2020-09-20 12:13 | Progress Note ---
Assessment and Plan Cultures: SARS-CoV-2 PCR negative. Blood cultures 09/15/2020: ESBL E.coli Urine culture: ESBL E.coli Assessment: 85 year old male with history of dementia, hyperlipidemia, admitted on 09/16/2020 secondary to cardiac arrest, intubated upon arrival: #[id number] cardiac arrest: Unclear duration. Received CPR in route. #Severe sepsis with septic shock: present on admission with fever, tachycardia, hypotension, elevated lactate, patient was on pressors; source multifactorial - acute pulmonary embolism and gram-negative dinora bacteremia. SARS-CoV-2 PCR negative. #ESBL E.coli bacteremia: Likely from UTI. #Complicated UTI: with hematuria. Sanchez placed on admission. Urine culture growing ESBL E.coli #Bilateral pulmonary emboli: Very high D-dimer>10,000. #RENE: Secondary to sepsis. Renally dose antibiotics #Acute encephalopathy on chronic dementia: CT with extensive microvascular angiopathy and cardiopulmonary arrest. Neurology following. Recommendations: -Cefepime discontinued -IV Meropenem 1 gm daily ordered (renally adjusted) -Guarded prognosis Nora Tejada MD, FACP [facility] O: [phone] F: [phone] Subjective Date of service: 09/20/20 Principal diagnosis: Ac hypoxemic resp failure; Cardiac arrest; Acute P.E.; Severe sepsis; COVID Interval history: No fever. Remains on the vent Objective - Exam Narrative Exam: Physical Exam: Constitutional: sedated, intubated, on the vent Head, Ears, Nose: Normocephalic, atraumatic. External ears, nose normal Eyes: Conjunctivae/corneas clear. No icterus. No ptosis. Neck: intubated Oral: intubated Cardiovascular: S1, S2 + Respiratory: AE fair bilaterally and equal GI: Soft, bowel sounds + Musculoskeletal: No pedal edema, no cyanosis. Skin: No rash or abscess Hem/Lymphatic: No palpable cervical or supraclavicular nodes. No lymphangitis Psych: no agitation Neurological: sedated, intubated, on the vent, exam limited - Constitutional Vitals: Vital Signs Temp Pulse Resp BP Pulse Ox 96.6 F L 59 L 17 134/82 100 09/20/20 07:30 09/20/20 10:15 09/20/20 10:15 09/20/20 10:15 09/20/20 10:15 Temperature -Last 24 Hours Temperature 96.6 F Temperature 98.7 F - Labs CBC & Chem 7: 09/20/20 04:49 09/20/20 04:49 Labs: Abnormal lab results 09/19/20 09/20/20 09/20/20 Range/Units 18:58 04:49 04:49 Hgb 9.4 L (11.8-15.2) gm/dl Hct 29.2 L (35.5-45.6) % Plt Count 127 L (140-440) K/mm3 ABG pH (7.320-7.450) POC ABG pCO2 (32.0-48.0) mmHg POC ABG pO2 (83-108) mmHg ABG Hemoglobin (12.0-17.5) ABG Oxyhemoglobin (94-98) ABG Chloride (98-107) mmol/L ABG Glucose (65-95) mg/dL Carboxyhemoglobin (0.5-1.5) Sodium 146 H (137-145) mmol/L Carbon Dioxide 35 H D (22-30) mmol/L BUN 94 H (9-20) mg/dL Creatinine 3.7 H (0.8-1.3) mg/dL Glucose 157 H (75-100) mg/dL POC Glucose 153 H (70-105) mg/dL Calcium 8.3 L (8.4-10.2) mg/dL Total Creatine Kinase 1932 H (55-170) units/L Arterial Blood Glucose (65-95) mg/dL Arterial Blood Ionized Calcium (4.6-5.3) mg/dL 09/20/20 09/20/20 Range/Units 05:15 08:14 Hgb (11.8-15.2) gm/dl Hct (35.5-45.6) % Plt Count (140-440) K/mm3 ABG pH 7.628 H (7.320-7.450) POC ABG pCO2 24.6 L (32.0-48.0) mmHg POC ABG pO2 153.3 H (83-108) mmHg ABG Hemoglobin 10.7 L (12.0-17.5) ABG Oxyhemoglobin 98.7 H (94-98) ABG Chloride 97.0 L (98-107) mmol/L ABG Glucose 162 H (65-95) mg/dL Carboxyhemoglobin 0.3 L (0.5-1.5) Sodium (137-145) mmol/L Carbon Dioxide (22-30) mmol/L BUN (9-20) mg/dL Creatinine (0.8-1.3) mg/dL Glucose (75-100) mg/dL POC Glucose 160 H (70-105) mg/dL Calcium (8.4-10.2) mg/dL Total Creatine Kinase (55-170) units/L Arterial Blood Glucose 162 H (65-95) mg/dL Arterial Blood Ionized Calcium 4.0 L (4.6-5.3) mg/dL
--- NOTE | 2020-09-20 14:10 | Progress Note ---
Assessment and Plan 1. Acute kidney injury: Vasomotor nephropathy in the setting of Cardiac arrest + contrast induced nephropathy. Renal US negative for hydro. Monitor renal function. Creatinine level continue to increase, 3.7 from 3.5 from 2.4 from 1.5. Renal prognosis is guarded. Avoid nephrotoxic agents. Meds dosage based on GFR. Monitor for [employer] needs. 2. FEN: Hyperkalemia, improved, monitor. Metabolic alkalosis, bicarb drip stopped, monitor. Monitor lytes and volume status. 3. Out of hospital Cardiac arrest 09/16: Seen by Cards. 4. Acute resp failure: Currently intubated on vent. Followed by Pulmonary. 5. Septic Shock: Off pressors. ESBL E.coli bacteremia, likely from UTI. Meropenem. Followed by ID. 6. PE: CTA showed multiple filling defects involving L LL and R UL. Heparin drip. 7. Anemia, POA: Monitor. 8. Acute Metabolic Encephalopathy, POA: Supportive care. Prognosis is guarded. Subjective: Patient was seen and examined at the bedside. Examination: General appearance: well-developed, appears emaciated, intubated, on vent HEENT: ATNC Neck: trachea midline Respiratory: MV sounds Heart: S1S2, regular, no murmur Gastrointestinal: not tender, BS heard Integumentary: no rash, warm and dry Neurologic: not responding, increased muscle tone Ext: no edema : Sanchez catheter Subjective Date of service: 09/20/20 Principal diagnosis: Ac hypoxemic resp failure; Cardiac arrest; Acute P.E.; Severe sepsis; COVID Objective - Vital Signs Vital signs: Vital Signs - 12hr 09/20/20 09/20/20 09/20/20 02:15 02:30 02:45 Temperature Pulse Rate 75 73 76 Respiratory 18 18 18 Rate Blood Pressure 147/84 138/84 130/83 O2 Sat by Pulse 100 100 100 Oximetry 09/20/20 09/20/20 09/20/20 03:00 03:15 03:30 Temperature Pulse Rate 75 74 75 Respiratory 18 18 18 Rate Blood Pressure 133/83 130/82 136/84 O2 Sat by Pulse 100 100 100 Oximetry 09/20/20 09/20/20 09/20/20 03:45 04:00 04:15 Temperature Pulse Rate 74 76 75 Respiratory 18 18 18 Rate Blood Pressure 136/84 131/85 131/85 O2 Sat by Pulse 100 100 100 Oximetry 09/20/20 09/20/20 09/20/20 04:30 05:00 05:15 Temperature Pulse Rate 85 82 79 Respiratory 18 18 Rate Blood Pressure 131/85 131/87 131/87 O2 Sat by Pulse 100 100 100 Oximetry 09/20/20 09/20/20 09/20/20 05:30 05:45 06:00 Temperature Pulse Rate 79 79 76 Respiratory 17 18 13 Rate Blood Pressure 157/91 157/91 156/87 O2 Sat by Pulse 100 100 100 Oximetry 09/20/20 09/20/20 09/20/20 06:15 06:30 06:45 Temperature Pulse Rate 76 72 74 Respiratory 18 18 18 Rate Blood Pressure 156/87 127/84 127/84 O2 Sat by Pulse 100 100 100 Oximetry 09/20/20 09/20/20 09/20/20 07:00 07:15 07:30 Temperature 96.6 F L Pulse Rate 70 70 65 Respiratory 18 18 18 Rate Blood Pressure 134/83 134/83 127/80 O2 Sat by Pulse 100 100 100 Oximetry 09/20/20 09/20/20 09/20/20 07:45 08:00 08:15 Temperature Pulse Rate 70 69 68 Respiratory 18 18 17 Rate Blood Pressure 127/80 135/84 135/84 O2 Sat by Pulse 100 100 100 Oximetry 09/20/20 09/20/20 09/20/20 08:22 08:30 08:45 Temperature Pulse Rate 70 62 63 Respiratory 18 10 L Rate Blood Pressure 135/84 137/81 137/81 O2 Sat by Pulse 100 100 100 Oximetry 09/20/20 09/20/20 09/20/20 09:00 09:15 09:30 Temperature Pulse Rate 64 60 60 Respiratory 17 18 18 Rate Blood Pressure 143/84 143/84 138/82 O2 Sat by Pulse 100 100 100 Oximetry 09/20/20 09/20/20 09/20/20 09:45 10:00 10:15 Temperature Pulse Rate 61 59 L 59 L Respiratory 18 18 17 Rate Blood Pressure 138/82 134/82 134/82 O2 Sat by Pulse 100 100 100 Oximetry - Lab 09/20/20 04:49 09/20/20 04:49 Most recent lab results ABG pH 7.628 (7.320-7.450) H 09/20/20 05:15 ABG pCO2 31.2 mm Hg 09/19/20 04:00 ABG pO2 159.2 mm Hg (80.0-90.0) H 09/19/20 04:00 ABG HCO3 24.0 mmol/L (20.0-26.0) 09/19/20 04:00 ABG O2 Saturation 99.1 % (95.0-99.0) H 09/19/20 04:00 Calcium 8.3 mg/dL (8.4-10.2) L 09/20/20 04:49 Magnesium 2.50 mg/dL (1.7-2.3) H 09/16/20 10:37 Urine Creatinine 181.1 mg/dL (0.1-20.0) H 09/17/20 00:57 Urine Sodium 78 mmol/L 09/17/20 00:57 Medications & Allergies - Medications Allergies/Adverse Reactions: Allergies No Known Allergies Allergy (Unverified 09/16/20 12:52) Home Medications: Home Medications Medication Instructions Recorded Confirmed Last Taken Type No Known Home Medications [No 09/18/20 09/18/20 Unknown History Reported Home Medications] Active Medications: Generic Name Dose Route Start Last Admin Trade Name Freq PRN Reason Stop Dose Admin Lipase/Protease/Amylase 1 each 09/17/20 08:56 Lipase 10,500/Protease 25,000/Amylase 43,750 (Units) Dr Arciniega FEEDTUBE PRN PRN For Clogged Feeding Tube Dextrose 50 ml 09/16/20 12:19 Dextrose 50% In Water (25gm) 50 Ml Syringe IV Q30MIN PRN Hypoglycemia Protocol Fentanyl 50 mcg 09/16/20 20:12 Fentanyl 100 Mcg/2 Ml Inj IV Q10MIN PRN ANALGESIA Heparin Sodium (Porcine) 2,400 unit 09/16/20 20:12 09/16/20 21:00 Heparin 10,000 Units/10 Ml Vial 40 unit/kg (2400 unit) 2,400 unit IV Administration Q6H PRN Anti-Xa Assay < 0.1 units/ml Hydrophilic Ointment 1 applic 09/16/20 20:12 09/19/20 22:51 Lip Therapy Vaseline TP 1 applic Q2HR PRN Administration Dry Lips Norepinephrine 4 mg in 250 mls @ 7.5 mls/hr 09/16/20 13:15 09/16/20 16:30 Levophed Drip 4 Mg/Ns 250 Ml IV Infused TITR DARA Titration Protocol 2 MCG/MIN Fentanyl Citrate 2,000 mcg in 100 mls @ 3 mls/hr 09/16/20 21:00 09/16/20 21:00 Fentanyl Drip Premix IV 1 mcg/kg/hr TITR DARA 3 mls/hr Administration Protocol 1 MCG/KG/HR Propofol 1,000 mg in 100 mls @ 1.8 mls/hr 09/16/20 21:00 09/16/20 19:55 Diprivan 10 Mg/Ml IV 5 mcg/kg/min TITR DARA 1.8 mls/hr Administration Protocol 5 MCG/KG/MIN Heparin Sodium/Sodium Chloride 25,000 unit in 500 mls @ 18 mls/hr 09/16/20 21 :00 09/17/20 05:25 Heparin/ 0.45% Nacl-25,000 Unit/500 Ml IV 0 units/hr TITR DARA 0 mls/hr Titration Protocol 900 UNITS/HR Pantoprazole Sodium 80 mg/ 100 mls @ 10 mls/hr 09/19/20 19:00 09/20/20 00:15 Sodium Chloride IV 09/21/20 18:59 8 mg/hr DIRECT DARA 10 mls/hr Administration 8 MG/HR MEROPENEM/NS 1 GRAM/100 ML 1 gram in 100 mls @ 100 mls/hr 09/20/20 15:00 Merrem/Ns 1 Gram/100 Ml IV Q24H DARA Protocol Insulin Human Regular 0 unit 09/16/20 13:00 09/20/20 07:40 Insulin Regular, Human 100 Unit/Ml 3ml Vial SUB-Q 2 unit Q6H DARA Administration Protocol Methylprednisolone Sodium Succinate 40 mg 09/16/20 22:00 09/20/20 06:23 Methylprednisolone Sod Succinate 40 Mg/1 Ml Inj IV 40 mg Q8HR DARA Administration Multi-Ingred Cream/Lotion/Oil/Oint 1 applic 09/16/20 20:12 09/19/20 22:51 Mineral Oil/Petrolatum, White Ophth Oint 3.5 Gm OU 1 applic Q4HR PRN Administration Dry Eye(s) Simple Syrup 15 ml 09/17/20 08:56 Simple Syrup 15 Ml FEEDTUBE PRN PRN Hypoglycemia Simple Syrup 30 ml 09/17/20 08:56 Simple Syrup 15 Ml FEEDTUBE PRN PRN Hypoglycemia Sodium Bicarbonate 325 mg 09/17/20 08:56 Sodium Bicarbonate 325 Mg Tab FEEDTUBE PRN PRN For Clogged Feeding Tube Sodium Chloride 10 ml 09/16/20 22:00 09/20/20 10:06 Sodium Chloride 0.9% 10 Ml Flush Syringe IV 10 ml BID DARA Administration Sodium Chloride 10 ml 09/16/20 12:19 Sodium Chloride 0.9% 10 Ml Flush Syringe IV PRN PRN LINE FLUSH
[2020-09-20] MEDS ORDERED: SODIUM CHLORIDE 0.9% 1000 ML 1,000 ML ONE (14:29)
--- NOTE | 2020-09-20 14:49 | Progress Note ---
Assessment and Plan Acute hypoxemic respiratory failure, on mechanical ventilatory support. Cardiac arrest with return of spontaneous circulation Acute pulmonary emboli. Person under investigation for COVID-19 infection. CHF (EF 40%) History of dementia. Urinary tract infection. Anemia that is normocytic. Elevated serum D-dimers. Lactic acidosis. Severe sepsis - complete PPI therapy - neurology evaluation - will need IVC filter if unable to resume anticoagulation once more stable - prognosis for neurologic recovery remains poor and family conference is appropriate re: goals of care - continue care as below otherwise; - complete empiric Rocephin for tentative UTI driven sepsis but get ID opinion re: severe Procalcitonin elevation - coronavirus PCR negative - continue full anticoagulation for VTE - continue to wean supplemental oxygen for target O2 sat's > 92% acutely - VAP bundle addressed - continue lung protective strategies - continue bronchodilators with pulmonary hygiene per RT - wean per pulmonary driven protocols otherwise - continue Daily SAT and SBT assessment as tolerated - continue accuchecks with glycemic control per SSI (While critically ill target blood glucose of 140-180 mg/dL; avoid hypoglycemia) - sedation prn for target RASS 0 to -1 - avoid nephrotoxins, renally dose all medications - continue to avoid benzodiazepine's, reduce the possibility of delirium - completed AB's per ID rec's - prn analgesia per CPOT score - Maintenance of sleep-wake cycle, avoid delirium - continue enteral nutritional support at goal rate as tolerated - G.I. & VTE prophylaxis - PT/OT/ROM exercises - continue mobility protocols for pressure ulcer prophylaxis - Monitor hemodynamics closely - continue other care per attending / other consultants - discharge planning ongoing concurrently .... Re-evaluate in am & prn CONDITION: CRITICAL PROGNOSIS: GUARDED CODE STATUS: FULL CODE The high probability of a clinically significant, sudden or life-threatening deterioration of the [respiratory, cardiovascular, hematologic & neurologic] system(s) required my full and direct attention, intervention and personal management. The aggregate critical care time was [35] minutes without overlap. Time includes spent on; [x] Data Review and interpretation [x] Patient assessment and monitoring of vital signs [x] Documentation [x] Medication orders and management Subjective Date of service: 09/20/20 Principal diagnosis: Ac hypoxemic resp failure; Cardiac arrest; Acute P.E.; Severe sepsis; COVID Interval history: Patient is seen today for: Ac hypoxemic resp failure; Cardiac arrest with ROSC; Acute pulmonary emboli; Severe sepsis; PUI COVID-19; UTI Seen and examined at bedside; 24hour events reviewed; nursing and respiratory care staff consulted; no adverse overnight events reported to me; resting peacefully in bed; remains on MVS; tolerating some SBT's but AMS is persistent Objective Vital Signs - 12hr 09/20/20 09/20/20 09/20/20 03:00 03:15 03:30 Temperature Pulse Rate 75 74 75 Respiratory 18 18 18 Rate Blood Pressure 133/83 130/82 136/84 O2 Sat by Pulse 100 100 100 Oximetry 09/20/20 09/20/20 09/20/20 03:45 04:00 04:15 Temperature Pulse Rate 74 76 75 Respiratory 18 18 18 Rate Blood Pressure 136/84 131/85 131/85 O2 Sat by Pulse 100 100 100 Oximetry 09/20/20 09/20/20 09/20/20 04:30 05:00 05:15 Temperature Pulse Rate 85 82 79 Respiratory 18 18 Rate Blood Pressure 131/85 131/87 131/87 O2 Sat by Pulse 100 100 100 Oximetry 09/20/20 09/20/20 09/20/20 05:30 05:45 06:00 Temperature Pulse Rate 79 79 76 Respiratory 17 18 13 Rate Blood Pressure 157/91 157/91 156/87 O2 Sat by Pulse 100 100 100 Oximetry 09/20/20 09/20/20 09/20/20 06:15 06:30 06:45 Temperature Pulse Rate 76 72 74 Respiratory 18 18 18 Rate Blood Pressure 156/87 127/84 127/84 O2 Sat by Pulse 100 100 100 Oximetry 09/20/20 09/20/20 09/20/20 07:00 07:15 07:30 Temperature 96.6 F L Pulse Rate 70 70 65 Respiratory 18 18 18 Rate Blood Pressure 134/83 134/83 127/80 O2 Sat by Pulse 100 100 100 Oximetry 09/20/20 09/20/20 09/20/20 07:45 08:00 08:15 Temperature Pulse Rate 70 69 68 Respiratory 18 18 17 Rate Blood Pressure 127/80 135/84 135/84 O2 Sat by Pulse 100 100 100 Oximetry 09/20/20 09/20/20 09/20/20 08:22 08:30 08:45 Temperature Pulse Rate 70 62 63 Respiratory 18 10 L Rate Blood Pressure 135/84 137/81 137/81 O2 Sat by Pulse 100 100 100 Oximetry 09/20/20 09/20/20 09/20/20 09:00 09:15 09:30 Temperature Pulse Rate 64 60 60 Respiratory 17 18 18 Rate Blood Pressure 143/84 143/84 138/82 O2 Sat by Pulse 100 100 100 Oximetry 09/20/20 09/20/20 09/20/20 09:45 10:00 10:15 Temperature Pulse Rate 61 59 L 59 L Respiratory 18 18 17 Rate Blood Pressure 138/82 134/82 134/82 O2 Sat by Pulse 100 100 100 Oximetry Constitutional: appears uncomfortable, other (elderly thin male with mildly increased respiratory effort at rest on MVS) Eyes: non-icteric ENT: oropharynx moist, other (ETT 24 cm CAROL) Neck: supple, no lymphadenopathy, no JVD Effort: mildly labored Ascultation: Bilateral: diminished breath sounds, rhonchi Percussion: Bilateral: not dull Cardiovascular: regular rate and rhythm Gastrointestinal: normoactive bowel sounds, soft, non-tender, non-distended Integumentary: normal Extremities: no cyanosis, no edema, pulses normal, no ischemia or petechiae Neurologic: pupils equal and round, unable to assess Psychiatric: other (unable to assess re: AMS) CBC and BMP: 09/22/20 05:18 09/22/20 05:18 ABG, PT/INR, D-dimer: ABG ABG pH 7.628 (7.320-7.450) H 09/20/20 05:15 POC ABG pCO2 24.6 mmHg (32.0-48.0) L 09/20/20 05:15 ABG pCO2 31.2 mm Hg 09/19/20 04:00 POC ABG pO2 153.3 mmHg (83-108) H 09/20/20 05:15 ABG pO2 159.2 mm Hg (80.0-90.0) H 09/19/20 04:00 POC ABG HCO3 25.2 09/20/20 05:15 ABG O2 Saturation 99.1 % (95.0-99.0) H 09/19/20 04:00 PT/INR, D-dimer PT 18.0 Sec. (12.2-14.9) H 09/17/20 11:37 INR 1.49 (0.87-1.13) H 09/17/20 11:37 D-Dimer > 66466 ng/mlDDU (0-234) H 09/17/20 11:37 Abnormal lab findings: Abnormal Labs 09/16/20 09/16/20 09/16/20 10:37 10:37 10:37 WBC Hgb 11.2 L Hct MCV MCH 27 L MCHC 31 L Plt Count Lymph % (Auto) Lymph # (Auto) Seg Neutrophils % 71.0 H Seg Neuts % (Manual) Lymphocytes % (Manual) Nucleated RBC % Seg Neutrophils # Seg Neutrophils # Man Lymphocytes # (Manual) PT 18.6 H INR 1.55 H APTT 43.4 H D-Dimer > 10982 H Heparin Anti-Xa Level ABG pH POC ABG pCO2 POC ABG pO2 ABG pO2 ABG HCO3 ABG O2 Saturation ABG Base Excess ABG Hemoglobin ABG Oxyhemoglobin ABG Chloride ABG Glucose VBG pH Carboxyhemoglobin Sodium Potassium Carbon Dioxide BUN Creatinine Glucose POC Glucose Lactic Acid 10.00 H* Calcium Magnesium Ferritin AST Lactate Dehydrogenase Total Creatine Kinase C-Reactive Protein Total Protein Albumin Arterial Blood Glucose Arterial Blood Ionized Calcium Urine WBC (Auto) U Epithel Cells (Auto) Urine Creatinine 09/16/20 09/16/20 09/16/20 10:37 10:37 10:53 WBC Hgb Hct MCV MCH MCHC Plt Count Lymph % (Auto) Lymph # (Auto) Seg Neutrophils % Seg Neuts % (Manual) Lymphocytes % (Manual) Nucleated RBC % Seg Neutrophils # Seg Neutrophils # Man Lymphocytes # (Manual) PT INR APTT D-Dimer Heparin Anti-Xa Level ABG pH POC ABG pCO2 POC ABG pO2 ABG pO2 ABG HCO3 ABG O2 Saturation ABG Base Excess ABG Hemoglobin ABG Oxyhemoglobin ABG Chloride ABG Glucose VBG pH 7.138 L* Carboxyhemoglobin Sodium Potassium Carbon Dioxide 16 L BUN 25 H Creatinine 1.5 H Glucose 243 H POC Glucose Lactic Acid Calcium Magnesium 2.50 H Ferritin AST 54 H Lactate Dehydrogenase Total Creatine Kinase C-Reactive Protein Total Protein 6.1 L Albumin 3.2 L Arterial Blood Glucose Arterial Blood Ionized Calcium Urine WBC (Auto) 67.0 H U Epithel Cells (Auto) 27.0 H Urine Creatinine 09/16/20 09/16/20 09/16/20 16:00 20:12 20:49 WBC Hgb Hct MCV MCH MCHC Plt Count Lymph % (Auto) Lymph # (Auto) Seg Neutrophils % Seg Neuts % (Manual) Lymphocytes % (Manual) Nucleated RBC % Seg Neutrophils # Seg Neutrophils # Man Lymphocytes # (Manual) PT INR APTT D-Dimer Heparin Anti-Xa Level ABG pH POC ABG pCO2 31.0 L POC ABG pO2 427.0 H ABG pO2 ABG HCO3 ABG O2 Saturation ABG Base Excess ABG Hemoglobin ABG Oxyhemoglobin ABG Chloride 109.0 H ABG Glucose 169 H VBG pH Carboxyhemoglobin Sodium Potassium Carbon Dioxide BUN Creatinine Glucose POC Glucose 136 H Lactic Acid Calcium Magnesium Ferritin AST Lactate Dehydrogenase Total Creatine Kinase C-Reactive Protein 2.80 H Total Protein Albumin Arterial Blood Glucose 169 H Arterial Blood Ionized Calcium 4.5 L Urine WBC (Auto) U Epithel Cells (Auto) Urine Creatinine 09/16/20 09/17/20 09/17/20 20:49 00:44 00:57 WBC Hgb Hct MCV MCH MCHC Plt Count Lymph % (Auto) Lymph # (Auto) Seg Neutrophils % Seg Neuts % (Manual) Lymphocytes % (Manual) Nucleated RBC % Seg Neutrophils # Seg Neutrophils # Man Lymphocytes # (Manual) PT 18.2 H INR 1.51 H APTT 44.0 H D-Dimer Heparin Anti-Xa Level ABG pH POC ABG pCO2 POC ABG pO2 ABG pO2 ABG HCO3 ABG O2 Saturation ABG Base Excess ABG Hemoglobin ABG Oxyhemoglobin ABG Chloride ABG Glucose VBG pH Carboxyhemoglobin Sodium Potassium Carbon Dioxide BUN Creatinine Glucose POC Glucose 153 H Lactic Acid Calcium Magnesium Ferritin AST Lactate Dehydrogenase Total Creatine Kinase C-Reactive Protein Total Protein Albumin Arterial Blood Glucose Arterial Blood Ionized Calcium Urine WBC (Auto) U Epithel Cells (Auto) Urine Creatinine 181.1 H 09/17/20 09/17/20 09/17/20 03:05 04:16 04:16 WBC 20.1 H Hgb Hct MCV 83 L MCH 27 L MCHC Plt Count Lymph % (Auto) Lymph # (Auto) Seg Neutrophils % Seg Neuts % (Manual) 91.0 H Lymphocytes % (Manual) 6.0 L Nucleated RBC % Seg Neutrophils # Seg Neutrophils # Man 18.3 H Lymphocytes # (Manual) PT INR APTT D-Dimer Heparin Anti-Xa Level 1.26 H ABG pH POC ABG pCO2 POC ABG pO2 ABG pO2 237.5 H ABG HCO3 17.4 L ABG O2 Saturation 99.4 H ABG Base Excess -6.6 L ABG Hemoglobin 12.2 L ABG Oxyhemoglobin ABG Chloride ABG Glucose VBG pH Carboxyhemoglobin Sodium Potassium Carbon Dioxide BUN Creatinine Glucose POC Glucose Lactic Acid Calcium Magnesium Ferritin AST Lactate Dehydrogenase Total Creatine Kinase C-Reactive Protein Total Protein Albumin Arterial Blood Glucose Arterial Blood Ionized Calcium Urine WBC (Auto) U Epithel Cells (Auto) Urine Creatinine 09/17/20 09/17/20 09/17/20 04:16 04:16 06:31 WBC Hgb Hct MCV MCH MCHC Plt Count Lymph % (Auto) Lymph # (Auto) Seg Neutrophils % Seg Neuts % (Manual) Lymphocytes % (Manual) Nucleated RBC % Seg Neutrophils # Seg Neutrophils # Man Lymphocytes # (Manual) PT INR APTT D-Dimer Heparin Anti-Xa Level ABG pH POC ABG pCO2 POC ABG pO2 ABG pO2 ABG HCO3 ABG O2 Saturation ABG Base Excess ABG Hemoglobin ABG Oxyhemoglobin ABG Chloride ABG Glucose VBG pH Carboxyhemoglobin Sodium Potassium Carbon Dioxide 18 L BUN 34 H Creatinine 1.5 H Glucose 171 H POC Glucose 136 H Lactic Acid 3.60 H* Calcium Magnesium Ferritin AST Lactate Dehydrogenase Total Creatine Kinase C-Reactive Protein Total Protein Albumin Arterial Blood Glucose Arterial Blood Ionized Calcium Urine WBC (Auto) U Epithel Cells (Auto) Urine Creatinine 09/17/20 09/17/20 09/17/20 11:37 11:37 11:37 WBC Hgb Hct MCV MCH MCHC Plt Count Lymph % (Auto) Lymph # (Auto) Seg Neutrophils % Seg Neuts % (Manual) Lymphocytes % (Manual) Nucleated RBC % Seg Neutrophils # Seg Neutrophils # Man Lymphocytes # (Manual) PT 18.0 H INR 1.49 H APTT D-Dimer > 05016 H Heparin Anti-Xa Level 0.25 L ABG pH POC ABG pCO2 POC ABG pO2 ABG pO2 ABG HCO3 ABG O2 Saturation ABG Base Excess ABG Hemoglobin ABG Oxyhemoglobin ABG Chloride ABG Glucose VBG pH Carboxyhemoglobin Sodium Potassium Carbon Dioxide BUN Creatinine Glucose POC Glucose Lactic Acid 2.80 H* Calcium Magnesium Ferritin AST Lactate Dehydrogenase Total Creatine Kinase C-Reactive Protein Total Protein Albumin Arterial Blood Glucose Arterial Blood Ionized Calcium Urine WBC (Auto) U Epithel Cells (Auto) Urine Creatinine 09/17/20 09/17/20 09/17/20 15:58 15:58 15:58 WBC Hgb Hct MCV MCH MCHC Plt Count Lymph % (Auto) Lymph # (Auto) Seg Neutrophils % Seg Neuts % (Manual) Lymphocytes % (Manual) Nucleated RBC % Seg Neutrophils # Seg Neutrophils # Man Lymphocytes # (Manual) PT INR APTT D-Dimer Heparin Anti-Xa Level ABG pH POC ABG pCO2 POC ABG pO2 ABG pO2 ABG HCO3 ABG O2 Saturation ABG Base Excess ABG Hemoglobin ABG Oxyhemoglobin ABG Chloride ABG Glucose VBG pH Carboxyhemoglobin Sodium Potassium Carbon Dioxide BUN Creatinine Glucose POC Glucose Lactic Acid 3.90 H* Calcium Magnesium Ferritin 1306.0 H AST Lactate Dehydrogenase 515 H Total Creatine Kinase C-Reactive Protein 24.30 H Total Protein Albumin Arterial Blood Glucose Arterial Blood Ionized Calcium Urine WBC (Auto) U Epithel Cells (Auto) Urine Creatinine 09/17/20 09/18/20 09/18/20 20:35 03:04 03:35 WBC Hgb Hct MCV MCH MCHC Plt Count Lymph % (Auto) Lymph # (Auto) Seg Neutrophils % Seg Neuts % (Manual) Lymphocytes % (Manual) Nucleated RBC % Seg Neutrophils # Seg Neutrophils # Man Lymphocytes # (Manual) PT INR APTT D-Dimer Heparin Anti-Xa Level ABG pH POC ABG pCO2 POC ABG pO2 ABG pO2 198.7 H ABG HCO3 18.9 L ABG O2 Saturation 99.3 H ABG Base Excess -4.3 L ABG Hemoglobin 10.8 L ABG Oxyhemoglobin ABG Chloride ABG Glucose VBG pH Carboxyhemoglobin Sodium Potassium Carbon Dioxide BUN Creatinine Glucose POC Glucose 111 H 129 H Lactic Acid Calcium Magnesium Ferritin AST Lactate Dehydrogenase Total Creatine Kinase C-Reactive Protein Total Protein Albumin Arterial Blood Glucose Arterial Blood Ionized Calcium Urine WBC (Auto) U Epithel Cells (Auto) Urine Creatinine 09/18/20 09/18/20 09/18/20 04:19 04:19 06:34 WBC 21.8 H Hgb 11.4 L Hct 35.2 L MCV 82 L MCH 26 L MCHC Plt Count Lymph % (Auto) 2.4 L Lymph # (Auto) 0.5 L Seg Neutrophils % 94.6 H Seg Neuts % (Manual) Lymphocytes % (Manual) Nucleated RBC % Seg Neutrophils # 20.6 H Seg Neutrophils # Man Lymphocytes # (Manual) PT INR APTT D-Dimer Heparin Anti-Xa Level ABG pH POC ABG pCO2 POC ABG pO2 ABG pO2 ABG HCO3 ABG O2 Saturation ABG Base Excess ABG Hemoglobin ABG Oxyhemoglobin ABG Chloride ABG Glucose VBG pH Carboxyhemoglobin Sodium Potassium 5.6 H Carbon Dioxide 20 L BUN 50 H Creatinine 2.4 H D Glucose 155 H POC Glucose 132 H Lactic Acid Calcium Magnesium Ferritin AST Lactate Dehydrogenase Total Creatine Kinase C-Reactive Protein Total Protein Albumin Arterial Blood Glucose Arterial Blood Ionized Calcium Urine WBC (Auto) U Epithel Cells (Auto) Urine Creatinine 09/19/20 09/19/20 09/19/20 04:00 05:02 05:02 WBC 20.5 H Hgb 10.0 L Hct 30.8 L MCV 82 L MCH 27 L MCHC Plt Count 130 L Lymph % (Auto) Lymph # (Auto) Seg Neutrophils % Seg Neuts % (Manual) 97.0 H Lymphocytes % (Manual) Nucleated RBC % 1.0 H Seg Neutrophils # Seg Neutrophils # Man 19.9 H Lymphocytes # (Manual) 0.0 L PT INR APTT D-Dimer Heparin Anti-Xa Level ABG pH 7.503 H POC ABG pCO2 POC ABG pO2 ABG pO2 159.2 H ABG HCO3 ABG O2 Saturation 99.1 H ABG Base Excess ABG Hemoglobin 10.3 L ABG Oxyhemoglobin ABG Chloride ABG Glucose VBG pH Carboxyhemoglobin Sodium Potassium Carbon Dioxide BUN 74 H Creatinine 3.5 H Glucose 168 H POC Glucose Lactic Acid Calcium Magnesium Ferritin AST Lactate Dehydrogenase Total Creatine Kinase C-Reactive Protein Total Protein Albumin Arterial Blood Glucose Arterial Blood Ionized Calcium Urine WBC (Auto) U Epithel Cells (Auto) Urine Creatinine 09/19/20 09/19/20 09/19/20 09:11 11:58 18:58 WBC Hgb Hct MCV MCH MCHC Plt Count Lymph % (Auto) Lymph # (Auto) Seg Neutrophils % Seg Neuts % (Manual) Lymphocytes % (Manual) Nucleated RBC % Seg Neutrophils # Seg Neutrophils # Man Lymphocytes # (Manual) PT INR APTT D-Dimer Heparin Anti-Xa Level ABG pH POC ABG pCO2 POC ABG pO2 ABG pO2 ABG HCO3 ABG O2 Saturation ABG Base Excess ABG Hemoglobin ABG Oxyhemoglobin ABG Chloride ABG Glucose VBG pH Carboxyhemoglobin Sodium Potassium Carbon Dioxide BUN Creatinine Glucose POC Glucose 143 H 155 H 153 H Lactic Acid Calcium Magnesium Ferritin AST Lactate Dehydrogenase Total Creatine Kinase C-Reactive Protein Total Protein Albumin Arterial Blood Glucose Arterial Blood Ionized Calcium Urine WBC (Auto) U Epithel Cells (Auto) Urine Creatinine 09/20/20 09/20/20 09/20/20 04:49 04:49 05:15 WBC Hgb 9.4 L Hct 29.2 L MCV MCH MCHC Plt Count 127 L Lymph % (Auto) Lymph # (Auto) Seg Neutrophils % Seg Neuts % (Manual) Lymphocytes % (Manual) Nucleated RBC % Seg Neutrophils # Seg Neutrophils # Man Lymphocytes # (Manual) PT INR APTT D-Dimer Heparin Anti-Xa Level ABG pH 7.628 H POC ABG pCO2 24.6 L POC ABG pO2 153.3 H ABG pO2 ABG HCO3 ABG O2 Saturation ABG Base Excess ABG Hemoglobin 10.7 L ABG Oxyhemoglobin 98.7 H ABG Chloride 97.0 L ABG Glucose 162 H VBG pH Carboxyhemoglobin 0.3 L Sodium 146 H Potassium Carbon Dioxide 35 H D BUN 94 H Creatinine 3.7 H Glucose 157 H POC Glucose Lactic Acid Calcium 8.3 L Magnesium Ferritin AST Lactate Dehydrogenase Total Creatine Kinase 1932 H C-Reactive Protein Total Protein Albumin Arterial Blood Glucose 162 H Arterial Blood Ionized Calcium 4.0 L Urine WBC (Auto) U Epithel Cells (Auto) Urine Creatinine 09/20/20 08:14 WBC Hgb Hct MCV MCH MCHC Plt Count Lymph % (Auto) Lymph # (Auto) Seg Neutrophils % Seg Neuts % (Manual) Lymphocytes % (Manual) Nucleated RBC % Seg Neutrophils # Seg Neutrophils # Man Lymphocytes # (Manual) PT INR APTT D-Dimer Heparin Anti-Xa Level ABG pH POC ABG pCO2 POC ABG pO2 ABG pO2 ABG HCO3 ABG O2 Saturation ABG Base Excess ABG Hemoglobin ABG Oxyhemoglobin ABG Chloride ABG Glucose VBG pH Carboxyhemoglobin Sodium Potassium Carbon Dioxide BUN Creatinine Glucose POC Glucose 160 H Lactic Acid Calcium Magnesium Ferritin AST Lactate Dehydrogenase Total Creatine Kinase C-Reactive Protein Total Protein Albumin Arterial Blood Glucose Arterial Blood Ionized Calcium Urine WBC (Auto) U Epithel Cells (Auto) Urine Creatinine Chest x-ray: pending Allied health notes reviewed: nursing
[2020-09-20] MEDS: MEROPENEM/NS 1 GRAM/100 ML 1 GRAM/100 ML BAG IV SCH (15:43)
[2020-09-20] MEDS ORDERED: SODIUM CHLORIDE 0.9% 1000 ML 1,000 ML IV ONE (15:43)
--- NOTE | 2020-09-20 16:31 | XRay Report ---
CHEST 1 VIEW INDICATION: verify ng placement COMPARISON: One day prior. FINDINGS: Support devices: NG tube is in the proximal stomach. Most proximal sideholes appear to be at or immed iately above the GE junction. Endotracheal tube remains in good position. Heart: Normal and unchanged Lungs/Pleura: No acute pulmonary or pleural findings. IMPRESSION: 1. NG tube in the proximal stomach could probably be advanced several centimeters. Signer Name: Mt Her MD Signed: 09/20/2020 4:27 PM Workstation Name: [id number]
[2020-09-21] MEDS ORDERED: INSULIN REGULAR, HUMAN 100 UNITS/1 ML ONE ×4 (02:00→19:30)
[2020-09-21] MEDS: INSULIN REGULAR, HUMAN 100 UNIT/ML 3ML VIAL SUB-Q SCH ×5 (02:03→19:41)
[2020-09-21 05:26] LABS: Calcium 8.9 mg/dL (8.4-10.2)
[2020-09-21] MEDS: methylPREDNISolone Sod Succinate 40 MG/1 ML INJ IV SCH ×4 (06:19→23:08)
[2020-09-21 06:22] LABS: ABG Base Excess 7.3 mmol/L (-2.0-3.0); ABG Methemoglobin 0.4 % (0.0-1.5); ABG Oxygen Saturation 98.7 % (95.0-99.0); ABG PCO2 35.5 mm Hg; ABG PH 7.545 pH Units (7.350-7.450)
--- NOTE | 2020-09-21 08:30 | Progress Note ---
Assessment and Plan 1. Acute kidney injury: Vasomotor nephropathy in the setting of Cardiac arrest + contrast induced nephropathy. Renal US negative for hydro. Monitor renal function. Creatinine level 2.9 from 3.7 from 3.5 from 2.4 from 1.5. Renal prognosis is guarded. Avoid nephrotoxic agents. Meds dosage based on GFR. 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 2. FEN: Hyperkalemia, improved, monitor. Metabolic alkalosis, monitor. Monitor lytes and volume status. 3. Out of hospital Cardiac arrest 09/16: Seen by Cards. 4. Acute resp failure: Currently intubated on vent. Followed by Pulmonary. 5. Septic Shock: Off pressors. ESBL E.coli bacteremia, likely from UTI. Meropenem. Followed by ID. 6. PE: CTA showed multiple filling defects involving L LL and R UL. Heparin drip. 7. Anemia, POA: Monitor. 8. Acute Metabolic Encephalopathy, POA: Supportive care. Prognosis is guarded. Subjective: Patient was seen and examined at the bedside. Examination: General appearance: well-developed, appears emaciated, intubated, on vent HEENT: ATNC Neck: trachea midline Respiratory: MV sounds Heart: S1S2, regular, no murmur Gastrointestinal: not tender, BS heard Integumentary: no rash, warm and dry Neurologic: not responding, increased muscle tone Ext: no edema : Sanchez catheter Subjective Date of service: 09/21/20 Principal diagnosis: Ac hypoxemic resp failure; Cardiac arrest; Acute P.E.; Severe sepsis; COVID Objective - Vital Signs Vital signs: Vital Signs - 12hr 09/20/20 09/20/20 09/20/20 21:00 22:00 22:11 Pulse Rate 75 72 66 Respiratory 19 18 Rate Blood Pressure 157/86 136/76 136/76 O2 Sat by Pulse 100 100 100 Oximetry 09/20/20 09/21/20 09/21/20 23:00 00:00 00:15 Pulse Rate 69 70 63 Respiratory 18 18 Rate Blood Pressure 129/74 135/86 143/87 O2 Sat by Pulse 100 100 100 Oximetry 09/21/20 09/21/20 09/21/20 01:00 01:57 02:00 Pulse Rate 73 70 Respiratory 18 18 18 Rate Blood Pressure 147/89 124/81 O2 Sat by Pulse 100 96 100 Oximetry 09/21/20 09/21/20 09/21/20 03:00 04:00 04:15 Pulse Rate 66 63 60 Respiratory 18 18 Rate Blood Pressure 131/79 138/84 O2 Sat by Pulse 100 100 100 Oximetry - Lab 09/20/20 04:49 09/21/20 04:41 Most recent lab results ABG pH 7.545 pH Units (7.350-7.450) H 09/21/20 05:51 ABG pCO2 35.5 mm Hg 09/21/20 05:51 ABG pO2 129.0 mm Hg (80.0-90.0) H 09/21/20 05:51 ABG HCO3 30.0 mmol/L (20.0-26.0) H 09/21/20 05:51 ABG O2 Saturation 98.7 % (95.0-99.0) 09/21/20 05:51 Calcium 8.9 mg/dL (8.4-10.2) 09/21/20 04:41 Magnesium 2.50 mg/dL (1.7-2.3) H 09/16/20 10:37 Urine Creatinine 181.1 mg/dL (0.1-20.0) H 09/17/20 00:57 Urine Sodium 78 mmol/L 09/17/20 00:57 Medications & Allergies - Medications Allergies/Adverse Reactions: Allergies No Known Allergies Allergy (Unverified 09/16/20 12:52) Home Medications: Home Medications Medication Instructions Recorded Confirmed Last Taken Type No Known Home Medications [No 09/18/20 09/18/20 Unknown History Reported Home Medications] Active Medications: Generic Name Dose Route Start Last Admin Trade Name Freq PRN Reason Stop Dose Admin Lipase/Protease/Amylase 1 each 09/17/20 08:56 Lipase 10,500/Protease 25,000/Amylase 43,750 (Units) Dr Arciniega FEEDTUBE PRN PRN For Clogged Feeding Tube Dextrose 50 ml 09/16/20 12:19 Dextrose 50% In Water (25gm) 50 Ml Syringe IV Q30MIN PRN Hypoglycemia Protocol Fentanyl 50 mcg 09/16/20 20:12 Fentanyl 100 Mcg/2 Ml Inj IV Q10MIN PRN ANALGESIA Heparin Sodium (Porcine) 2,400 unit 09/16/20 20:12 09/16/20 21:00 Heparin 10,000 Units/10 Ml Vial 40 unit/kg (2400 unit) 2,400 unit IV Administration Q6H PRN Anti-Xa Assay < 0.1 units/ml Hydrophilic Ointment 1 applic 09/16/20 20:12 09/19/20 22:51 Lip Therapy Vaseline TP 1 applic Q2HR PRN Administration Dry Lips Norepinephrine 4 mg in 250 mls @ 7.5 mls/hr 09/16/20 13:15 09/16/20 16:30 Levophed Drip 4 Mg/Ns 250 Ml IV Infused TITR DARA Titration Protocol 2 MCG/MIN Fentanyl Citrate 2,000 mcg in 100 mls @ 3 mls/hr 09/16/20 21:00 09/16/20 21:00 Fentanyl Drip Premix IV 1 mcg/kg/hr TITR DARA 3 mls/hr Administration Protocol 1 MCG/KG/HR Propofol 1,000 mg in 100 mls @ 1.8 mls/hr 09/16/20 21:00 09/16/20 19:55 Diprivan 10 Mg/Ml IV 5 mcg/kg/min TITR DARA 1.8 mls/hr Administration Protocol 5 MCG/KG/MIN Heparin Sodium/Sodium Chloride 25,000 unit in 500 mls @ 18 mls/hr 09/16/20 21:00 09/17/20 05:25 Heparin/ 0.45% Nacl-25,000 Unit/500 Ml IV 0 units/hr TITR DARA 0 mls/hr Titration Protocol 900 UNITS/HR Pantoprazole Sodium 80 mg/ 100 mls @ 10 mls/hr 09/19/20 19:00 09/20/20 00:15 Sodium Chloride IV 09/21/20 18:59 8 mg/hr DIRECT DARA 10 mls/hr Administration 8 MG/HR MEROPENEM/NS 1 GRAM/100 ML 1 gram in 100 mls @ 100 mls/hr 09/20/20 15:00 09/20/20 15:43 Merrem/Ns 1 Gram/100 Ml IV 100 mls/hr Q24H DARA Administration Protocol Sodium Chloride 1,000 mls @ 42 mls/hr 09/20/20 15:43 09/20/20 15:57 Nacl 0.9% 1000 Ml IV 09/21/20 15:31 42 mls/hr ONCE ONE Administration Insulin Human Regular 0 unit 09/16/20 13:00 09/21/20 07:02 Insulin Regular, Human 100 Unit/Ml 3ml Vial SUB-Q 2 unit Q6H DARA Administration Protocol Methylprednisolone Sodium Succinate 40 mg 09/16/20 22:00 09/21/20 06:19 Methylprednisolone Sod Succinate 40 Mg/1 Ml Inj IV 40 mg Q8HR DARA Administration Multi-Ingred Cream/Lotion/Oil/Oint 1 applic 09/16/20 20:12 09/19/20 22:51 Mineral Oil/Petrolatum, White Ophth Oint 3.5 Gm OU 1 applic Q4HR PRN Administration Dry Eye(s) Simple Syrup 15 ml 09/17/20 08:56 Simple Syrup 15 Ml FEEDTUBE PRN PRN Hypoglycemia Simple Syrup 30 ml 09/17/20 08:56 Simple Syrup 15 Ml FEEDTUBE PRN PRN Hypoglycemia Sodium Bicarbonate 325 mg 09/17/20 08:56 Sodium Bicarbonate 325 Mg Tab FEEDTUBE PRN PRN For Clogged Feeding Tube Sodium Chloride 10 ml 09/16/20 22:00 09/21/20 02:04 Sodium Chloride 0.9% 10 Ml Flush Syringe IV 10 ml BID DARA Administration Sodium Chloride 10 ml 09/16/20 12:19 Sodium Chloride 0.9% 10 Ml Flush Syringe IV PRN PRN LINE FLUSH
--- NOTE | 2020-09-21 08:50 | Progress Note ---
Assessment and Plan The high probability of a clinically significant, sudden or life threatening deterioration of the [hemodynamic, neurologic, cardiac, respiratory] system(s) required my full and direct attention, intervention and personal management. The aggregate critical care time was [32] minutes. This time is in addition to time spent performing reported procedures but includes the following: [x] Data Review and interpretation [x] Patient assessment and monitoring of vital signs [x] Documentation [x] Medication orders and management Acute hypoxic respiratory failure. Etiology is unknown at this time. Chest x- ray shows no acute disease. Nephrology consultation Toxic metabolic encephalopathy. CT scan with extensive microvascular a ngiopathy. Multifocal bilateral pulmonary emboli. D-dimer > 10,000. Continue anticoagulation per pulmonary. Acute kidney injury. Etiology secondary to sepsis/ATN +/- vasomotor nephropathy/dehydration. Aggressive IV fluid hydration. Lactic acidosis. As above. DVT prophylaxis--- patient is anticoagulated and GI prophylaxis Subjective Date of service: 09/20/20 Principal diagnosis: Ac hypoxemic resp failure; Cardiac arrest; Acute P.E.; Severe sepsis; COVID Interval history: Cardiopulmonary arrest. Patient reportedly with [id number] cardiopulmonary arrest. Unsure of the patient's total time without a pulse. Cardiology and pulmonary consultation pending. Follow-up echocardiogram, cardiac isoenzymes and serial EKG. CT scan of the head pending. Check MRI and EEG when patient stabilized. D-dimer significantly elevated greater than 10,000. Check CTA of the chest. Lactic acid also elevated at 10 which increases mortality significantly. Severe sepsis with septic shock. Present on admission. Patient presented with fever, tachycardia, hypotension, elevated lactate, pressors and gram negative dinora bacteremia. 09/17/2020. Lactic acid improved. Follow-up blood and urine cultures. Start Rocephin IV daily. ID consultation. 09/18/2020. Urine culture reveals gram-negative rods. Await final identification and sensitivities. Await blood cultures. Continue IV antibiotics. ID consulted. Covid testing found to be negative. Check EEG given cardiopulmonary arrest. Neurology consultation with Dr. Esparza in a.m. No neurology coverage today. MRI brain with patient medically stable. Continue anticoagulation for pulmonary embolus. Await renal ultrasound. 09/19/2020. Patient with severe sepsis secondary to complicated UTI/gram- negative bacilli bacteremia. Follow-up identification and sensitivities. ID following. Antibiotics adjusted to cefepime. Renal ultrasound did not reveal obstructing stone. Small right kidney without hydronephrosis or medical renal d isease. Complex right renal cyst. Nonvisualization of left kidney sonographically but CTA showed simple cyst appearing lesion in the left kidney without hydronephrosis. Check EEG and MRI given cardiopulmonary arrest. Neurology consultation. Objective - Constitutional Vitals: Vital Signs - 12hr 09/20/20 09/20/20 09/20/20 21:00 22:00 22:11 Pulse Rate 75 72 66 Respiratory 19 18 Rate Blood Pressure 157/86 136/76 136/76 O2 Sat by Pulse 100 100 100 Oximetry 09/20/20 09/21/20 09/21/20 23:00 00:00 00:15 Pulse Rate 69 70 63 Respiratory 18 18 Rate Blood Pressure 129/74 135/86 143/87 O2 Sat by Pulse 100 100 100 Oximetry 09/21/20 09/21/20 09/21/20 01:00 01:57 02:00 Pulse Rate 73 70 Respiratory 18 18 18 Rate Blood Pressure 147/89 124/81 O2 Sat by Pulse 100 96 100 Oximetry 09/21/20 09/21/20 09/21/20 03:00 04:00 04:15 Pulse Rate 66 63 60 Respiratory 18 18 Rate Blood Pressure 131/79 138/84 O2 Sat by Pulse 100 100 100 Oximetry 09/21/20 07:52 Pulse Rate 55 L Respiratory Rate Blood Pressure 147/82 O2 Sat by Pulse 100 Oximetry General appearance: Present: no acute distress, well-nourished - EENT Eyes: PERRL, EOM intact ENT: hearing intact, clear oral mucosa Ears: bilateral: normal - Neck Neck: supple, normal ROM - Respiratory Respiratory effort: normal Respiratory: bilateral: CTA - Breasts Breasts: normal - Cardiovascular Heart rate: 78 Rhythm: regular Heart Sounds: Present: S1 & S2. Absent: gallop, rub Extremities: pulses intact, No edema, normal color, Full ROM - Gastrointestinal General gastrointestinal: Present: soft, non-tender, non-distended, normal bowel sounds - Genitourinary Male genitourinary: normal - Integumentary Integumentary: clear, warm, dry - Musculoskeletal Musculoskeletal: 1, strength equal bilaterally - Neurologic Neurologic: moves all extremities - Psychiatric Psychiatric: memory intact, appropriate mood/affect, intact judgment & insight - Labs CBC & Chem 7: 09/20/20 04:49 09/21/20 04:41 Labs: Abnormal lab results 09/20/20 09/21/20 09/21/20 Range/Units 04:49 01:46 04:41 ABG pH (7.350-7.450) pH Units ABG pO2 (80.0-90.0) mm Hg ABG HCO3 (20.0-26.0) mmol/L ABG Base Excess (-2.0-3.0) mmol/L ABG Hemoglobin (14.0-18.0) gm/dl Sodium 146 H 146 H (137-145) mmol/L Potassium 3.4 L (3.6-5.0) mmol/L Carbon Dioxide 35 H D 32 H (22-30) mmol/L BUN 94 H 99 H (9-20) mg/dL Creatinine 3.7 H 2.9 H (0.8-1.3) mg/dL Glucose 157 H 201 H (75-100) mg/dL POC Glucose 181 H (70-105) mg/dL Calcium 8.3 L (8.4-10.2) mg/dL Total Creatine Kinase 1932 H (55-170) units/L 09/21/20 09/21/20 Range/Units 05:51 06:24 ABG pH 7.545 H (7.350-7.450) pH Units ABG pO2 129.0 H (80.0-90.0) mm Hg ABG HCO3 30.0 H (20.0-26.0) mmol/L ABG Base Excess 7.3 H (-2.0-3.0) mmol/L ABG Hemoglobin 11.7 L (14.0-18.0) gm/dl Sodium (137-145) mmol/L Potassium (3.6-5.0) mmol/L Carbon Dioxide (22-30) mmol/L BUN (9-20) mg/dL Creatinine (0.8-1.3) mg/dL Glucose (75-100) mg/dL POC Glucose 176 H (70-105) mg/dL Calcium (8.4-10.2) mg/dL Total Creatine Kinase (55-170) units/L
--- NOTE | 2020-09-21 10:58 | Progress Note ---
Assessment and Plan Acute respiratory failure status post intubation AMS / ? seizure Status post cardiac arrest bilateral PE Sepsis Acute renal insufficiency Hypotension Hyperlipidemia plan: tte reviewed - EF 40-45%, mild TR, RVSP 24mmHg. cont current cardiac management. Neuro w/u in progress. The patient has been seen in conjunction with Dr. Melo who agrees with the assessment and plan of care. Subjective Date of service: 09/21/20 Principal diagnosis: Ac hypoxemic resp failure; Cardiac arrest; Acute P.E.; Severe sepsis; COVID Interval history: pt remains intubated, unresponsive. in SR on tele. Objective Last Vital Signs Temp 96.6 F L 09/20/20 07:30 Pulse 55 L 09/21/20 07:52 Resp 18 09/21/20 04:00 BP 147/82 09/21/20 07:52 Pulse Ox 100 09/21/20 07:52 - Physical Examination General: Other (intubated, unresponsive) HEENT: Positive: Other Neck: Positive: neck supple Cardiac: Positive: Reg Rate and Rhythm, S1/S2 Neuro: Positive: Other (intubated, unresponsive) - Labs and Meds Comprehensive Metabolic Panel 09/21/20 Range/Units 04:41 Sodium 146 H (137-145) mmol/L Potassium 3.4 L (3.6-5.0) mmol/L Chloride 98.0 (98-107) mmol/L Carbon Dioxide 32 H (22-30) mmol/L BUN 99 H (9-20) mg/dL Creatinine 2.9 H (0.8-1.3) mg/dL Glucose 201 H (75-100) mg/dL Calcium 8.9 (8.4-10.2) mg/dL - Imaging and Cardiology Echo: report reviewed (Small pericardial effusion EF 40 to 45% without significant regurgitation) - Allied health notes Allied health notes reviewed: nursing
--- NOTE | 2020-09-21 12:54 | Progress Note ---
Assessment and Plan Cultures: SARS-CoV-2 PCR negative. Blood cultures 09/15/2020: ESBL E.coli Urine culture: ESBL E.coli Assessment: 85 year old male with history of dementia, hyperlipidemia, admitted on 09/16/2020 secondary to cardiac arrest, intubated upon arrival: #[id number] cardiac arrest: Unclear duration. Received CPR in route. #Severe sepsis with septic shock: present on admission with fever, tachycardia, hypotension, elevated lactate, patient was on pressors; source multifactorial - acute pulmonary embolism and gram-negative dinora bacteremia. SARS-CoV-2 PCR negative. #ESBL E.coli bacteremia: Likely from UTI. #Complicated UTI: with hematuria. Sanchez placed on admission. Urine culture growing ESBL E.coli #Bilateral pulmonary emboli: Very high D-dimer>10,000. #RENE: Secondary to sepsis. Renally dose antibiotics #Acute encephalopathy on chronic dementia: CT with extensive microvascular angiopathy and cardiopulmonary arrest. Neurology following. Recommendations: -continue IV Meropenem 1 gm daily, D2 of 7 -Guarded prognosis Nora Tejada MD, FACP [facility] ([facility] O: [phone] F: [phone] Subjective Date of service: 09/21/20 Principal diagnosis: Ac hypoxemic resp failure; Cardiac arrest; Acute P.E.; Severe sepsis; COVID Interval history: No fever. Remains on the vent Objective - Exam Narrative Exam: Physical Exam: Constitutional: unresponsive, intubated, on the vent Head, Ears, Nose: Normocephalic, atraumatic. External ears, nose normal Eyes: Conjunctivae/corneas clear. No icterus. No ptosis. Neck: intubated Oral: intubated Cardiovascular: S1, S2 + Respiratory: AE fair bilaterally and equal GI: Soft, bowel sounds + Musculoskeletal: No pedal edema, no cyanosis. Skin: No rash or abscess Hem/Lymphatic: No palpable cervical or supraclavicular nodes. No lymphangitis Psych: no agitation Neurological: unresponsive intubated, on the vent, exam limited - Constitutional Vitals: Vital Signs Temp Pulse Resp BP Pulse Ox 96.6 F L 55 L 18 147/82 100 09/20/20 07:30 09/21/20 07:52 09/21/20 04:00 09/21/20 07:52 09/21/20 07:52 - Labs CBC & Chem 7: 09/20/20 04:49 09/21/20 04:41 Labs: Abnormal lab results 09/21/20 09/21/20 09/21/20 Range/Units 01:46 04:41 05:51 ABG pH 7.545 H (7.350-7.450) pH Units ABG pO2 129.0 H (80.0-90.0) mm Hg ABG HCO3 30.0 H (20.0-26.0) mmol/L ABG Base Excess 7.3 H (-2.0-3.0) mmol/L ABG Hemoglobin 11.7 L (14.0-18.0) gm/dl Sodium 146 H (137-145) mmol/L Potassium 3.4 L (3.6-5.0) mmol/L Carbon Dioxide 32 H (22-30) mmol/L BUN 99 H (9-20) mg/dL Creatinine 2.9 H (0.8-1.3) mg/dL Glucose 201 H (75-100) mg/dL POC Glucose 181 H (70-105) mg/dL 09/21/20 Range/Units 06:24 ABG pH (7.350-7.450) pH Units ABG pO2 (80.0-90.0) mm Hg ABG HCO3 (20.0-26.0) mmol/L ABG Base Excess (-2.0-3.0) mmol/L ABG Hemoglobin (14.0-18.0) gm/dl Sodium (137-145) mmol/L Potassium (3.6-5.0) mmol/L Carbon Dioxide (22-30) mmol/L BUN (9-20) mg/dL Creatinine (0.8-1.3) mg/dL Glucose (75-100) mg/dL POC Glucose 176 H (70-105) mg/dL
--- NOTE | 2020-09-21 15:41 | Progress Note ---
Subjective Date of service: 09/21/20 Principal diagnosis: Ac hypoxemic resp failure; Cardiac arrest; Acute P.E.; Severe sepsis; COVID Interval history: Patient is seen today for: Ac hypoxemic resp failure; Cardiac arrest with ROSC; Acute pulmonary emboli; Severe sepsis; PUI COVID-19; UTI Seen and examined at bedside; 24hour events reviewed; nursing and respiratory ca re staff consulted; no adverse overnight events reported to me; resting peacefully in bed; Objective Vital Signs - 12hr 09/21/20 09/21/20 09/21/20 04:00 04:15 05:00 Pulse Rate 63 60 71 Respiratory 18 18 Rate Blood Pressure 138/84 151/92 O2 Sat by Pulse 100 100 100 Oximetry 09/21/20 09/21/20 09/21/20 06:00 07:00 07:52 Pulse Rate 62 58 L 55 L Respiratory 18 18 Rate Blood Pressure 143/87 141/85 147/82 O2 Sat by Pulse 100 100 100 Oximetry 09/21/20 09/21/20 09/21/20 08:00 09:00 10:00 Pulse Rate 57 L 56 L 53 L Respiratory 18 18 18 Rate Blood Pressure 150/83 143/84 141/82 O2 Sat by Pulse 100 100 100 Oximetry 09/21/20 09/21/20 09/21/20 11:00 12:00 12:42 Pulse Rate 54 L 57 L 55 L Respiratory 18 18 Rate Blood Pressure 151/84 151/84 156/87 O2 Sat by Pulse 100 100 100 Oximetry 09/21/20 13:00 Pulse Rate 56 L Respiratory 18 Rate Blood Pressure 164/85 O2 Sat by Pulse 100 Oximetry Constitutional: appears uncomfortable, other (elderly thin male with mildly increased respiratory effort at rest on MVS) Eyes: non-icteric ENT: oropharynx moist, other (ETT 24 cm CAROL) Neck: supple, no lymphadenopathy, no JVD Effort: mildly labored Ascultation: Bilateral: diminished breath sounds, rhonchi Percussion: Bilateral: not dull Cardiovascular: regular rate and rhythm Gastrointestinal: normoactive bowel sounds, soft, non-tender, non-distended Integumentary: normal Extremities: no cyanosis, no edema, pulses normal, no ischemia or petechiae Neurologic: pupils equal and round, unable to assess Psychiatric: other (unable to assess re: AMS) CBC and BMP: 09/20/20 04:49 09/21/20 04:41 ABG, PT/INR, D-dimer: ABG ABG pH 7.545 pH Units (7.350-7.450) H 09/21/20 05:51 POC ABG pCO2 24.6 mmHg (32.0-48.0) L 09/20/20 05:15 ABG pCO2 35.5 mm Hg 09/21/20 05:51 POC ABG pO2 153.3 mmHg (83-108) H 09/20/20 05:15 ABG pO2 129.0 mm Hg (80.0-90.0) H 09/21/20 05:51 POC ABG HCO3 25.2 09/20/20 05:15 ABG O2 Saturation 98.7 % (95.0-99.0) 09/21/20 05:51 PT/INR, D-dimer PT 18.0 Sec. (12.2-14.9) H 09/17/20 11:37 INR 1.49 (0.87-1.13) H 09/17/20 11:37 D-Dimer > 85164 ng/mlDDU (0-234) H 09/17/20 11:37 Abnormal lab findings: Abnormal Labs 09/16/20 09/16/20 09/16/20 10:37 10:37 10:37 WBC Hgb 11.2 L Hct MCV MCH 27 L MCHC 31 L Plt Count Lymph % (Auto) Lymph # (Auto) Seg Neutrophils % 71.0 H Seg Neuts % (Manual) Lymphocytes % (Manual) Nucleated RBC % Seg Neutrophils # Seg Neutrophils # Man Lymphocytes # (Manual) PT 18.6 H INR 1.55 H APTT 43.4 H D-Dimer > 21711 H Heparin Anti-Xa Level ABG pH POC ABG pCO2 POC ABG pO2 ABG pO2 ABG HCO3 ABG O2 Saturation ABG Base Excess ABG Hemoglobin ABG Oxyhemoglobin ABG Chloride ABG Glucose VBG pH Carboxyhemoglobin Sodium Potassium Carbon Dioxide BUN Creatinine Glucose POC Glucose Lactic Acid 10.00 H* Calcium Magnesium Ferritin AST Lactate Dehydrogenase Total Creatine Kinase C-Reactive Protein Total Protein Albumin Arterial Blood Glucose Arterial Blood Ionized Calcium Urine WBC (Auto) U Epithel Cells (Auto) Urine Creatinine 09/16/20 09/16/20 09/16/20 10:37 10:37 10:53 WBC Hgb Hct MCV MCH MCHC Plt Count Lymph % (Auto) Lymph # (Auto) Seg Neutrophils % Seg Neuts % (Manual) Lymphocytes % (Manual) Nucleated RBC % Seg Neutrophils # Seg Neutrophils # Man Lymphocytes # (Manual) PT INR APTT D-Dimer Heparin Anti-Xa Level ABG pH POC ABG pCO2 POC ABG pO2 ABG pO2 ABG HCO3 ABG O2 Saturation ABG Base Excess ABG Hemoglobin ABG Oxyhemoglobin ABG Chloride ABG Glucose VBG pH 7.138 L* Carboxyhemoglobin Sodium Potassium Carbon Dioxide 16 L BUN 25 H Creatinine 1.5 H Glucose 243 H POC Glucose Lactic Acid Calcium Magnesium 2.50 H Ferritin AST 54 H Lactate Dehydrogenase Total Creatine Kinase C-Reactive Protein Total Protein 6.1 L Albumin 3.2 L Arterial Blood Glucose Arterial Blood Ionized Calcium Urine WBC (Auto) 67.0 H U Epithel Cells (Auto) 27.0 H Urine Creatinine 09/16/20 09/16/20 09/16/20 16:00 20:12 20:49 WBC Hgb Hct MCV MCH MCHC Plt Count Lymph % (Auto) Lymph # (Auto) Seg Neutrophils % Seg Neuts % (Manual) Lymphocytes % (Manual) Nucleated RBC % Seg Neutrophils # Seg Neutrophils # Man Lymphocytes # (Manual) PT INR APTT D-Dimer Heparin Anti-Xa Level ABG pH POC ABG pCO2 31.0 L POC ABG pO2 427.0 H ABG pO2 ABG HCO3 ABG O2 Saturation ABG Base Excess ABG Hemoglobin ABG Oxyhemoglobin ABG Chloride 109.0 H ABG Glucose 169 H VBG pH Carboxyhemoglobin Sodium Potassium Carbon Dioxide BUN Creatinine Glucose POC Glucose 136 H Lactic Acid Calcium Magnesium Ferritin AST Lactate Dehydrogenase Total Creatine Kinase C-Reactive Protein 2.80 H Total Protein Albumin Arterial Blood Glucose 169 H Arterial Blood Ionized Calcium 4.5 L Urine WBC (Auto) U Epithel Cells (Auto) Urine Creatinine 09/16/20 09/17/20 09/17/20 20:49 00:44 00:57 WBC Hgb Hct MCV MCH MCHC Plt Count Lymph % (Auto) Lymph # (Auto) Seg Neutrophils % Seg Neuts % (Manual) Lymphocytes % (Manual) Nucleated RBC % Seg Neutrophils # Seg Neutrophils # Man Lymphocytes # (Manual) PT 18.2 H INR 1.51 H APTT 44.0 H D-Dimer Heparin Anti-Xa Level ABG pH POC ABG pCO2 POC ABG pO2 ABG pO2 ABG HCO3 ABG O2 Saturation ABG Base Excess ABG Hemoglobin ABG Oxyhemoglobin ABG Chloride ABG Glucose VBG pH Carboxyhemoglobin Sodium Potassium Carbon Dioxide BUN Creatinine Glucose POC Glucose 153 H Lactic Acid Calcium Magnesium Ferritin AST Lactate Dehydrogenase Total Creatine Kinase C-Reactive Protein Total Protein Albumin Arterial Blood Glucose Arterial Blood Ionized Calcium Urine WBC (Auto) U Epithel Cells (Auto) Urine Creatinine 181.1 H 09/17/20 09/17/20 09/17/20 03:05 04:16 04:16 WBC 20.1 H Hgb Hct MCV 83 L MCH 27 L MCHC Plt Count Lymph % (Auto) Lymph # (Auto) Seg Neutrophils % Seg Neuts % (Manual) 91.0 H Lymphocytes % (Manual) 6.0 L Nucleated RBC % Seg Neutrophils # Seg Neutrophils # Man 18.3 H Lymphocytes # (Manual) PT INR APTT D-Dimer Heparin Anti-Xa Level 1.26 H ABG pH POC ABG pCO2 POC ABG pO2 ABG pO2 237.5 H ABG HCO3 17.4 L ABG O2 Saturation 99.4 H ABG Base Excess -6.6 L ABG Hemoglobin 12.2 L ABG Oxyhemoglobin ABG Chloride ABG Glucose VBG pH Carboxyhemoglobin Sodium Potassium Carbon Dioxide BUN Creatinine Glucose POC Glucose Lactic Acid Calcium Magnesium Ferritin AST Lactate Dehydrogenase Total Creatine Kinase C-Reactive Protein Total Protein Albumin Arterial Blood Glucose Arterial Blood Ionized Calcium Urine WBC (Auto) U Epithel Cells (Auto) Urine Creatinine 09/17/20 09/17/20 09/17/20 04:16 04:16 06:31 WBC Hgb Hct MCV MCH MCHC Plt Count Lymph % (Auto) Lymph # (Auto) Seg Neutrophils % Seg Neuts % (Manual) Lymphocytes % (Manual) Nucleated RBC % Seg Neutrophils # Seg Neutrophils # Man Lymphocytes # (Manual) PT INR APTT D-Dimer Heparin Anti-Xa Level ABG pH POC ABG pCO2 POC ABG pO2 ABG pO2 ABG HCO3 ABG O2 Saturation ABG Base Excess ABG Hemoglobin ABG Oxyhemoglobin ABG Chloride ABG Glucose VBG pH Carboxyhemoglobin Sodium Potassium Carbon Dioxide 18 L BUN 34 H Creatinine 1.5 H Glucose 171 H POC Glucose 136 H Lactic Acid 3.60 H* Calcium Magnesium Ferritin AST Lactate Dehydrogenase Total Creatine Kinase C-Reactive Protein Total Protein Albumin Arterial Blood Glucose Arterial Blood Ionized Calcium Urine WBC (Auto) U Epithel Cells (Auto) Urine Creatinine 09/17/20 09/17/20 09/17/20 11:37 11:37 11:37 WBC Hgb Hct MCV MCH MCHC Plt Count Lymph % (Auto) Lymph # (Auto) Seg Neutrophils % Seg Neuts % (Manual) Lymphocytes % (Manual) Nucleated RBC % Seg Neutrophils # Seg Neutrophils # Man Lymphocytes # (Manual) PT 18.0 H INR 1.49 H APTT D-Dimer > 36759 H Heparin Anti-Xa Level 0.25 L ABG pH POC ABG pCO2 POC ABG pO2 ABG pO2 ABG HCO3 ABG O2 Saturation ABG Base Excess ABG Hemoglobin ABG Oxyhemoglobin ABG Chloride ABG Glucose VBG pH Carboxyhemoglobin Sodium Potassium Carbon Dioxide BUN Creatinine Glucose POC Glucose Lactic Acid 2.80 H* Calcium Magnesium Ferritin AST Lactate Dehydrogenase Total Creatine Kinase C-Reactive Protein Total Protein Albumin Arterial Blood Glucose Arterial Blood Ionized Calcium Urine WBC (Auto) U Epithel Cells (Auto) Urine Creatinine 09/17/20 09/17/20 09/17/20 15:58 15:58 15:58 WBC Hgb Hct MCV MCH MCHC Plt Count Lymph % (Auto) Lymph # (Auto) Seg Neutrophils % Seg Neuts % (Manual) Lymphocytes % (Manual) Nucleated RBC % Seg Neutrophils # Seg Neutrophils # Man Lymphocytes # (Manual) PT INR APTT D-Dimer Heparin Anti-Xa Level ABG pH POC ABG pCO2 POC ABG pO2 ABG pO2 ABG HCO3 ABG O2 Saturation ABG Base Excess ABG Hemoglobin ABG Oxyhemoglobin ABG Chloride ABG Glucose VBG pH Carboxyhemoglobin Sodium Potassium Carbon Dioxide BUN Creatinine Glucose POC Glucose Lactic Acid 3.90 H* Calcium Magnesium Ferritin 1306.0 H AST Lactate Dehydrogenase 515 H Total Creatine Kinase C-Reactive Protein 24.30 H Total Protein Albumin Arterial Blood Glucose Arterial Blood Ionized Calcium Urine WBC (Auto) U Epithel Cells (Auto) Urine Creatinine 09/17/20 09/18/20 09/18/20 20:35 03:04 03:35 WBC Hgb Hct MCV MCH MCHC Plt Count Lymph % (Auto) Lymph # (Auto) Seg Neutrophils % Seg Neuts % (Manual) Lymphocytes % (Manual) Nucleated RBC % Seg Neutrophils # Seg Neutrophils # Man Lymphocytes # (Manual) PT INR APTT D-Dimer Heparin Anti-Xa Level ABG pH POC ABG pCO2 POC ABG pO2 ABG pO2 198.7 H ABG HCO3 18.9 L ABG O2 Saturation 99.3 H ABG Base Excess -4.3 L ABG Hemoglobin 10.8 L ABG Oxyhemoglobin ABG Chloride ABG Glucose VBG pH Carboxyhemoglobin Sodium Potassium Carbon Dioxide BUN Creatinine Glucose POC Glucose 111 H 129 H Lactic Acid Calcium Magnesium Ferritin AST Lactate Dehydrogenase Total Creatine Kinase C-Reactive Protein Total Protein Albumin Arterial Blood Glucose Arterial Blood Ionized Calcium Urine WBC (Auto) U Epithel Cells (Auto) Urine Creatinine 09/18/20 09/18/20 09/18/20 04:19 04:19 06:34 WBC 21.8 H Hgb 11.4 L Hct 35.2 L MCV 82 L MCH 26 L MCHC Plt Count Lymph % (Auto) 2.4 L Lymph # (Auto) 0.5 L Seg Neutrophils % 94.6 H Seg Neuts % (Manual) Lymphocytes % (Manual) Nucleated RBC % Seg Neutrophils # 20.6 H Seg Neutrophils # Man Lymphocytes # (Manual) PT INR APTT D-Dimer Heparin Anti-Xa Level ABG pH POC ABG pCO2 POC ABG pO2 ABG pO2 ABG HCO3 ABG O2 Saturation ABG Base Excess ABG Hemoglobin ABG Oxyhemoglobin ABG Chloride ABG Glucose VBG pH Carboxyhemoglobin Sodium Potassium 5.6 H Carbon Dioxide 20 L BUN 50 H Creatinine 2.4 H D Glucose 155 H POC Glucose 132 H Lactic Acid Calcium Magnesium Ferritin AST Lactate Dehydrogenase Total Creatine Kinase C-Reactive Protein Total Protein Albumin Arterial Blood Glucose Arterial Blood Ionized Calcium Urine WBC (Auto) U Epithel Cells (Auto) Urine Creatinine 09/19/20 09/19/20 09/19/20 04:00 05:02 05:02 WBC 20.5 H Hgb 10.0 L Hct 30.8 L MCV 82 L MCH 27 L MCHC Plt Count 130 L Lymph % (Auto) Lymph # (Auto) Seg Neutrophils % Seg Neuts % (Manual) 97.0 H Lymphocytes % (Manual) Nucleated RBC % 1.0 H Seg Neutrophils # Seg Neutrophils # Man 19.9 H Lymphocytes # (Manual) 0.0 L PT INR APTT D-Dimer Heparin Anti-Xa Level ABG pH 7.503 H POC ABG pCO2 POC ABG pO2 ABG pO2 159.2 H ABG HCO3 ABG O2 Saturation 99.1 H ABG Base Excess ABG Hemoglobin 10.3 L ABG Oxyhemoglobin ABG Chloride ABG Glucose VBG pH Carboxyhemoglobin Sodium Potassium Carbon Dioxide BUN 74 H Creatinine 3.5 H Glucose 168 H POC Glucose Lactic Acid Calcium Magnesium Ferritin AST Lactate Dehydrogenase Total Creatine Kinase C-Reactive Protein Total Protein Albumin Arterial Blood Glucose Arterial Blood Ionized Calcium Urine WBC (Auto) U Epithel Cells (Auto) Urine Creatinine 09/19/20 09/19/20 09/19/20 09:11 11:58 18:58 WBC Hgb Hct MCV MCH MCHC Plt Count Lymph % (Auto) Lymph # (Auto) Seg Neutrophils % Seg Neuts % (Manual) Lymphocytes % (Manual) Nucleated RBC % Seg Neutrophils # Seg Neutrophils # Man Lymphocytes # (Manual) PT INR APTT D-Dimer Heparin Anti-Xa Level ABG pH POC ABG pCO2 POC ABG pO2 ABG pO2 ABG HCO3 ABG O2 Saturation ABG Base Excess ABG Hemoglobin ABG Oxyhemoglobin ABG Chloride ABG Glucose VBG pH Carboxyhemoglobin Sodium Potassium Carbon Dioxide BUN Creatinine Glucose POC Glucose 143 H 155 H 153 H Lactic Acid Calcium Magnesium Ferritin AST Lactate Dehydrogenase Total Creatine Kinase C-Reactive Protein Total Protein Albumin Arterial Blood Glucose Arterial Blood Ionized Calcium Urine WBC (Auto) U Epithel Cells (Auto) Urine Creatinine 09/20/20 09/20/20 09/20/20 04:49 04:49 05:15 WBC Hgb 9.4 L Hct 29.2 L MCV MCH MCHC Plt Count 127 L Lymph % (Auto) Lymph # (Auto) Seg Neutrophils % Seg Neuts % (Manual) Lymphocytes % (Manual) Nucleated RBC % Seg Neutrophils # Seg Neutrophils # Man Lymphocytes # (Manual) PT INR APTT D-Dimer Heparin Anti-Xa Level ABG pH 7.628 H POC ABG pCO2 24.6 L POC ABG pO2 153.3 H ABG pO2 ABG HCO3 ABG O2 Saturation ABG Base Excess ABG Hemoglobin 10.7 L ABG Oxyhemoglobin 98.7 H ABG Chloride 97.0 L ABG Glucose 162 H VBG pH Carboxyhemoglobin 0.3 L Sodium 146 H Potassium Carbon Dioxide 35 H D BUN 94 H Creatinine 3.7 H Glucose 157 H POC Glucose Lactic Acid Calcium 8.3 L Magnesium Ferritin AST Lactate Dehydrogenase Total Creatine Kinase 1932 H C-Reactive Protein Total Protein Albumin Arterial Blood Glucose 162 H Arterial Blood Ionized Calcium 4.0 L Urine WBC (Auto) U Epithel Cells (Auto) Urine Creatinine 09/20/20 09/21/20 09/21/20 08:14 01:46 04:41 WBC Hgb Hct MCV MCH MCHC Plt Count Lymph % (Auto) Lymph # (Auto) Seg Neutrophils % Seg Neuts % (Manual) Lymphocytes % (Manual) Nucleated RBC % Seg Neutrophils # Seg Neutrophils # Man Lymphocytes # (Manual) PT INR APTT D-Dimer Heparin Anti-Xa Level ABG pH POC ABG pCO2 POC ABG pO2 ABG pO2 ABG HCO3 ABG O2 Saturation ABG Base Excess ABG Hemoglobin ABG Oxyhemoglobin ABG Chloride ABG Glucose VBG pH Carboxyhemoglobin Sodium 146 H Potassium 3.4 L Carbon Dioxide 32 H BUN 99 H Creatinine 2.9 H Glucose 201 H POC Glucose 160 H 181 H Lactic Acid Calcium Magnesium Ferritin AST Lactate Dehydrogenase Total Creatine Kinase C-Reactive Protein Total Protein Albumin Arterial Blood Glucose Arterial Blood Ionized Calcium Urine WBC (Auto) U Epithel Cells (Auto) Urine Creatinine 09/21/20 09/21/20 09/21/20 05:51 06:24 15:34 WBC Hgb Hct MCV MCH MCHC Plt Count Lymph % (Auto) Lymph # (Auto) Seg Neutrophils % Seg Neuts % (Manual) Lymphocytes % (Manual) Nucleated RBC % Seg Neutrophils # Seg Neutrophils # Man Lymphocytes # (Manual) PT INR APTT D-Dimer Heparin Anti-Xa Level ABG pH 7.545 H POC ABG pCO2 POC ABG pO2 ABG pO2 129.0 H ABG HCO3 30.0 H ABG O2 Saturation ABG Base Excess 7.3 H ABG Hemoglobin 11.7 L ABG Oxyhemoglobin ABG Chloride ABG Glucose VBG pH Carboxyhemoglobin Sodium Potassium Carbon Dioxide BUN Creatinine Glucose POC Glucose 176 H 189 H Lactic Acid Calcium Magnesium Ferritin AST Lactate Dehydrogenase Total Creatine Kinase C-Reactive Protein Total Protein Albumin Arterial Blood Glucose Arterial Blood Ionized Calcium Urine WBC (Auto) U Epithel Cells (Auto) Urine Creatinine Allied health notes reviewed: nursing
[2020-09-21] MEDS: MEROPENEM/NS 1 GRAM/100 ML 1 GRAM/100 ML BAG IV SCH (16:00)
--- NOTE | 2020-09-21 22:44 | Progress Note ---
Assessment and Plan The high probability of a clinically significant, sudden or life threatening deterioration of the [hemodynamic, neurologic, cardiac, respiratory] system(s) required my full and direct attention, intervention and personal management. The aggregate critical care time was [32] minutes. This time is in addition to time spent performing reported procedures but includes the following: [x] Data Review and interpretation [x] Patient assessment and monitoring of vital signs [x] Documentation [x] Medication orders and management Acute hypoxic respiratory failure. Etiology is unknown at this time. Chest x- ray shows no acute disease. Nephrology consultation Sepsis--continue IV cefepime Toxic metabolic encephalopathy. CT scan with extensive microvascular angiopathy. Also secondary to sepsis Multifocal bilateral pulmonary emboli. D-dimer > 10,000. Continue anticoagulation per pulmonary. Acute kidney injury. Etiology secondary to sepsis/ATN +/- vasomotor nephropathy/dehydration. Aggressive IV fluid hydration. Lactic acidosis. As above. DVT prophylaxis--- patient is anticoagulated and GI prophylaxis Subjective Date of service: 09/21/20 Principal diagnosis: Ac hypoxemic resp failure; Cardiac arrest; Acute P.E.; Severe sepsis; COVID Interval history: Cardiopulmonary arrest. Patient reportedly with [id number] cardiopulmonary arrest. Unsure of the patient's total time without a pulse. Cardiology and pulmonary consultation pending. Follow-up echocardiogram, cardiac isoenzymes and serial EKG. CT scan of the head pending. Check MRI and EEG when patient stabilized. D-dimer significantly elevated greater than 10,000. Check CTA of the chest. Lactic acid also elevated at 10 which increases mortality significa ntly. Severe sepsis with septic shock. Present on admission. Patient presented with fever, tachycardia, hypotension, elevated lactate, pressors and gram negative dinora bacteremia. 09/17/2020. Lactic acid improved. Follow-up blood and urine cultures. Start Rocephin IV daily. ID consultation. 09/18/2020. Urine culture reveals gram-negative rods. Await final identification and sensitivities. Await blood cultures. Continue IV antibiotics. ID consulted. Covid testing found to be negative. Check EEG given cardiopulmonary arrest. Neurology consultation with Dr. Esparza in a.m. No neurology coverage today. MRI brain with patient medically stable. Continue anticoagulation for pulmonary embolus. Await renal ultrasound. 09/19/2020. Patient with severe sepsis secondary to complicated UTI/gram- negative bacilli bacteremia. Follow-up identification and sensitivities. ID following. Antibiotics adjusted to cefepime. Renal ultrasound did not reveal obstructing stone. Small right kidney without hydronephrosis or medical renal disease. Complex right renal cyst. Nonvisualization of left kidney sonographically but CTA showed simple cyst appearing lesion in the left kidney w ithout hydronephrosis. Check EEG and MRI given cardiopulmonary arrest. Neurology consultation. 09/20/2020 Patient with severe sepsis and gram-negative bacteremia Patient on cefepime neurology consult requested Objective - Constitutional Vitals: Vital Signs - 12hr 09/21/20 09/21/20 09/21/20 11:00 12:00 12:42 Pulse Rate 54 L 57 L 55 L Respiratory 18 18 Rate Blood Pressure 151/84 151/84 156/87 O2 Sat by Pulse 100 100 100 Oximetry 09/21/20 09/21/20 09/21/20 13:00 14:00 15:00 Pulse Rate 56 L 52 L 54 L Respiratory 18 18 18 Rate Blood Pressure 164/85 148/82 139/82 O2 Sat by Pulse 100 100 100 Oximetry 09/21/20 09/21/20 09/21/20 16:00 16:45 17:00 Pulse Rate 58 L 55 L 54 L Respiratory 18 18 Rate Blood Pressure 156/86 160/82 144/82 O2 Sat by Pulse 100 100 100 Oximetry 09/21/20 09/21/20 09/21/20 18:00 19:00 21:26 Pulse Rate 53 L 60 53 L Respiratory 18 19 Rate Blood Pressure 151/81 157/92 163/78 O2 Sat by Pulse 100 100 100 Oximetry General appearance: Present: no acute distress, well-nourished - EENT Eyes: PERRL, EOM intact ENT: hearing intact, clear oral mucosa Ears: bilateral: normal - Neck Neck: supple, normal ROM - Respiratory Respiratory effort: normal Respiratory: bilateral: CTA - Breasts Breasts: normal - Cardiovascular Heart rate: 78 Rhythm: regular Heart Sounds: Present: S1 & S2. Absent: gallop, rub Extremities: pulses intact, No edema, normal color, Full ROM - Gastrointestinal General gastrointestinal: Present: soft, non-tender, non-distended, normal bowel sounds - Genitourinary Male genitourinary: normal - Integumentary Integumentary: clear, warm, dry - Musculoskeletal Musculoskeletal: 1, strength equal bilaterally - Neurologic Neurologic: moves all extremities - Psychiatric Psychiatric: memory intact, appropriate mood/affect, intact judgment & insight - Labs CBC & Chem 7: 09/26/20 17:06 09/26/20 05:55 Labs: Abnormal lab results 09/21/20 09/21/20 09/21/20 Range/Units 01:46 04:41 05:51 ABG pH 7.545 H (7.350-7.450) pH Units ABG pO2 129.0 H (80.0-90.0) mm Hg ABG HCO3 30.0 H (20.0-26.0) mmol/L ABG Base Excess 7.3 H (-2.0-3.0) mmol/L ABG Hemoglobin 11.7 L (14.0-18.0) gm/dl Sodium 146 H (137-145) mmol/L Potassium 3.4 L (3.6-5.0) mmol/L Carbon Dioxide 32 H (22-30) mmol/L BUN 99 H (9-20) mg/dL Creatinine 2.9 H (0.8-1.3) mg/dL Glucose 201 H (75-100) mg/dL POC Glucose 181 H (70-105) mg/dL 09/21/20 09/21/20 09/21/20 Range/Units 06:24 15:34 19:32 ABG pH (7.350-7.450) pH Units ABG pO2 (80.0-90.0) mm Hg ABG HCO3 (20.0-26.0) mmol/L ABG Base Excess (-2.0-3.0) mmol/L ABG Hemoglobin (14.0-18.0) gm/dl Sodium (137-145) mmol/L Potassium (3.6-5.0) mmol/L Carbon Dioxide (22-30) mmol/L BUN (9-20) mg/dL Creatinine (0.8-1.3) mg/dL Glucose (75-100) mg/dL POC Glucose 176 H 189 H 194 H (70-105) mg/dL
[2020-09-22] MEDS ORDERED: INSULIN REGULAR, HUMAN 100 UNITS/1 ML ONE ×4 (01:00→18:41)
[2020-09-22] MEDS: INSULIN REGULAR, HUMAN 100 UNIT/ML 3ML VIAL SUB-Q SCH ×4 (01:12→18:37)
[2020-09-22] MEDS ORDERED: hydrALAZINE 20 MG/1 ML INJ IV PRN (02:34)
[2020-09-22] MEDS: hydrALAZINE 20 MG/1 ML INJ IV PRN (02:42)
[2020-09-22 05:22] LABS: ABG Base Excess 5.6 mmol/L (-2.0-3.0); ABG HCO3 28.2 mmol/L (20.0-26.0); ABG Methemoglobin 0.5 % (0.0-1.5); ABG PCO2 33.3 mm Hg; ABG PH 7.545 pH Units (7.350-7.450); ABG PO2 153.8 mm Hg (80.0-90.0)
[2020-09-22 06:07] LABS: Hematocrit 30.3 % (35.5-45.6); Hemoglobin 9.7 gm/dl (11.8-15.2)
[2020-09-22] MEDS: methylPREDNISolone Sod Succinate 40 MG/1 ML INJ IV SCH ×2 (06:09→13:45)
[2020-09-22] MEDS ORDERED: POTASSIUM CHLORIDE 20 MEQ PACKET FEEDTUBE SCH (09:00)
--- NOTE | 2020-09-22 10:11 | Progress Note ---
Assessment and Plan Acute respiratory failure status post intubation AMS / ? seizure Status post cardiac arrest bilateral PE Sepsis Acute renal insufficiency Hypotension Hyperlipidemia plan: no change from cardiac perspective. cont present cardiac management. will follow on as needed basis over the weekend. The patient has been seen in conjunction with Dr. Melo who agrees with the assessment and plan of care. Subjective Date of service: 09/22/20 Principal diagnosis: Ac hypoxemic resp failure; Cardiac arrest; Acute P.E.; Severe sepsis; COVID Interval history: pt remains intubated, unresponsive. in SR on tele. Objective Last Vital Signs Temp 96.6 F L 09/20/20 07:30 Pulse 65 09/22/20 08:34 Resp 16 09/22/20 08:34 BP 139/79 09/22/20 08:34 Pulse Ox 100 09/22/20 08:34 - Physical Examination General: Other (intubated, unresponsive) HEENT: Positive: Other Neck: Positive: neck supple Cardiac: Positive: Reg Rate and Rhythm, S1/S2 Lungs: Positive: Ventilated Respirations Neuro: Positive: Other (intubated, unresponsive) - Labs and Meds CBC 09/22/20 Range/Units 05:18 Hgb 9.7 L (11.8-15.2) gm/dl Hct 30.3 L (35.5-45.6) % Plt Count 122 L (140-440) K/mm3 Comprehensive Metabolic Panel 09/22/20 Range/Units 05:18 Sodium 147 H (137-145) mmol/L Potassium 3.0 L (3.6-5.0) mmol/L Chloride 103.5 (98-107) mmol/L Carbon Dioxide 30 (22-30) mmol/L BUN 101 H (9-20) mg/dL Creatinine 2.3 H (0.8-1.3) mg/dL Glucose 217 H (75-100) mg/dL Calcium 9.0 (8.4-10.2) mg/dL - Imaging and Cardiology Echo: report reviewed (Small pericardial effusion EF 40 to 45% without significant regurgitation) - Allied health notes Allied health notes reviewed: nursing
--- NOTE | 2020-09-22 10:30 | Progress Note ---
Assessment and Plan Cultures: SARS-CoV-2 PCR negative. Blood cultures 09/15/2020: ESBL E.coli Urine culture: ESBL E.coli Assessment: 85 year old male with history of dementia, hyperlipidemia, admitted on 09/16/2020 secondary to cardiac arrest, intubated upon arrival: #[id number] cardiac arrest: Unclear duration. Received CPR en route. #Severe sepsis with septic shock: present on admission with fever, tachycardia, hypotension, elevated lactate, patient was on pressors; source multifactorial - acute pulmonary embolism and gram-negative dinora bacteremia. SARS-CoV-2 PCR negative. #ESBL E.coli bacteremia: Likely from UTI. #Complicated UTI: with hematuria. Sanchez placed on admission. Urine culture also growing ESBL E.coli #Bilateral pulmonary emboli: Very high D-dimer>10,000. #RENE: Renally dose antibiotics. #Acute encephalopathy on chronic dementia: CT with extensive microvascular angiopathy and cardiopulmonary arrest. Neurology following. Recommendations: -continue IV Meropenem 1 gm daily, D3 of 7 -Guarded prognosis ID will sign off. Please call with questions. Nora Tejada MD, FACP [facility] ([facility] O: [phone] F: [phone] Subjective Date of service: 09/22/20 Principal diagnosis: Ac hypoxemic resp failure; Cardiac arrest; Acute P.E.; Severe sepsis; COVID Interval history: No fever. Remains on the vent. Objective - Exam Narrative Exam: Physical Exam: Constitutional: unresponsive, intubated, on the vent Head, Ears, Nose: Normocephalic, atraumatic. External ears, nose normal Eyes: Conjunctivae/corneas clear. No icterus. No ptosis. Neck: intubated Oral: intubated Cardiovascular: S1, S2 + Respiratory: AE fair bilaterally and equal GI: Soft, bowel sounds + Musculoskeletal: No pedal edema, no cyanosis. Skin: No rash or abscess Hem/Lymphatic: No palpable cervical or supraclavicular nodes. No lymphangitis Psych: no agitation Neurological: unresponsive intubated, on the vent, exam limited - Constitutional Vitals: Vital Signs Temp Pulse Resp BP Pulse Ox 96.6 F L 65 16 139/79 100 09/20/20 07:30 09/22/20 08:34 09/22/20 08:34 09/22/20 08:34 09/22/20 08:34 - Labs CBC & Chem 7: 09/22/20 05:18 09/22/20 05:18 Labs: Abnormal lab results 09/21/20 09/21/20 09/21/20 Range/Units 15:34 19:32 23:31 Hgb (11.8-15.2) gm/dl Hct (35.5-45.6) % Plt Count (140-440) K/mm3 ABG pH (7.350-7.450) pH Units ABG pO2 (80.0-90.0) mm Hg ABG HCO3 (20.0-26.0) mmol/L ABG Base Excess (-2.0-3.0) mmol/L ABG Hemoglobin (14.0-18.0) gm/dl Sodium (137-145) mmol/L Potassium (3.6-5.0) mmol/L BUN (9-20) mg/dL Creatinine (0.8-1.3) mg/dL Glucose (75-100) mg/dL POC Glucose 189 H 194 H 174 H (70-105) mg/dL Total Creatine Kinase (55-170) units/L 09/22/20 09/22/20 09/22/20 Range/Units 04:32 05:18 05:18 Hgb 9.7 L (11.8-15.2) gm/dl Hct 30.3 L (35.5-45.6) % Plt Count 122 L (140-440) K/mm3 ABG pH 7.545 H (7.350-7.450) pH Units ABG pO2 153.8 H (80.0-90.0) mm Hg ABG HCO3 28.2 H (20.0-26.0) mmol/L ABG Base Excess 5.6 H (-2.0-3.0) mmol/L ABG Hemoglobin 9.4 L (14.0-18.0) gm/dl Sodium 147 H (137-145) mmol/L Potassium 3.0 L (3.6-5.0) mmol/L BUN 101 H (9-20) mg/dL Creatinine 2.3 H (0.8-1.3) mg/dL Glucose 217 H (75-100) mg/dL POC Glucose (70-105) mg/dL Total Creatine Kinase 1202 H (55-170) units/L 09/22/20 Range/Units 06:11 Hgb (11.8-15.2) gm/dl Hct (35.5-45.6) % Plt Count (140-440) K/mm3 ABG pH (7.350-7.450) pH Units ABG pO2 (80.0-90.0) mm Hg ABG HCO3 (20.0-26.0) mmol/L ABG Base Excess (-2.0-3.0) mmol/L ABG Hemoglobin (14.0-18.0) gm/dl Sodium (137-145) mmol/L Potassium (3.6-5.0) mmol/L BUN (9-20) mg/dL Creatinine (0.8-1.3) mg/dL Glucose (75-100) mg/dL POC Glucose 179 H (70-105) mg/dL Total Creatine Kinase (55-170) units/L
[2020-09-22] MEDS: PANTOPRAZOLE 40 MG INJ IV SCH (11:35)
--- NOTE | 2020-09-22 13:58 | Progress Note ---
Assessment and Plan 1. Acute kidney injury: Vasomotor nephropathy in the setting of Cardiac arrest + contrast induced nephropathy. Renal US negative for hydro. Monitor renal function. Creatinine level 2.3 from 2.9 from 3.7 from 3.5 from 2.4 from 1.5. Renal prognosis is guarded. Avoid nephrotoxic agents. Meds dosage based on GFR. Monitor for PREPRESS PROOFER needs. 2. FEN: Hypokalemia, replete K, monitor. Metabolic alkalosis, monitor. Monitor lytes and volume status. 3. Out of hospital Cardiac arrest 09/16: Seen by Cards. 4. Acute resp failure: Currently intubated on vent. Followed by Pulmonary. 5. Septic Shock: Off pressors. ESBL E.coli bacteremia, likely from UTI. Meropenem. Followed by ID. 6. PE: CTA showed multiple filling defects involving L LL and R UL. Heparin drip. 7. Anemia, POA: Monitor. 8. Acute Metabolic Encephalopathy, POA: Supportive care. Prognosis is guarded. Subjective: Patient was seen and examined at the bedside. Examination: General appearance: well-developed, appears emaciated, intubated, on vent HEENT: ATNC Neck: trachea midline Respiratory: MV sounds Heart: S1S2, regular, no murmur Gastrointestinal: not tender, BS heard Integumentary: no rash, warm and dry Neurologic: not responding, increased muscle tone Ext: no edema : Sanchez catheter Subjective Date of service: 09/22/20 Principal diagnosis: Ac hypoxemic resp failure; Cardiac arrest; Acute P.E.; Severe sepsis; COVID Objective - Vital Signs Vital signs: Vital Signs - 12hr 09/22/20 09/22/20 09/22/20 02:00 02:42 03:01 Pulse Rate 50 L 57 L 63 Respiratory 18 18 Rate Blood Pressure 185/83 185/83 136/70 O2 Sat by Pulse 100 100 Oximetry 09/22/20 09/22/20 09/22/20 04:00 04:15 05:00 Pulse Rate 72 67 69 Respiratory 18 18 Rate Blood Pressure 141/73 126/72 O2 Sat by Pulse 100 100 100 Oximetry 09/22/20 09/22/20 09/22/20 06:00 07:00 08:00 Pulse Rate 65 65 54 L Respiratory 18 18 13 Rate Blood Pressure 139/79 132/76 134/73 O2 Sat by Pulse 100 100 100 Oximetry 09/22/20 09/22/20 09/22/20 08:34 09:00 10:00 Pulse Rate 65 55 L 69 Respiratory 14 20 Rate Blood Pressure 139/79 142/75 143/77 O2 Sat by Pulse 100 100 100 Oximetry 09/22/20 09/22/20 09/22/20 11:00 12:00 12:28 Pulse Rate 60 59 L 59 L Respiratory 18 18 Rate Blood Pressure 133/78 137/79 137/79 O2 Sat by Pulse 100 100 100 Oximetry - Lab 09/22/20 05:18 09/23/20 06:39 Most recent lab results ABG pH 7.545 pH Units (7.350-7.450) H 09/22/20 04:32 ABG pCO2 33.3 mm Hg 09/22/20 04:32 ABG pO2 153.8 mm Hg (80.0-90.0) H 09/22/20 04:32 ABG HCO3 28.2 mmol/L (20.0-26.0) H 09/22/20 04:32 ABG O2 Saturation 99.0 % (95.0-99.0) 09/22/20 04:32 Calcium 9.0 mg/dL (8.4-10.2) 09/22/20 05:18 Magnesium 2.50 mg/dL (1.7-2.3) H 09/16/20 10:37 Urine Creatinine 181.1 mg/dL (0.1-20.0) H 09/17/20 00:57 Urine Sodium 78 mmol/L 09/17/20 00:57 Medications & Allergies - Medications Allergies/Adverse Reactions: Allergies No Known Allergies Allergy (Unverified 09/16/20 12:52) Home Medications: Home Medications Medication Instructions Recorded Confirmed Last Taken Type No Known Home Medications [No 09/18/20 09/18/20 Unknown History Reported Home Medications] Active Medications: Generic Name Dose Route Start Last Admin Trade Name Freq PRN Reason Stop Dose Admin Lipase/Protease/Amylase 1 each 09/17/20 08:56 Lipase 10,500/Protease 25,000/Amylase 43,750 (Units) Dr Arciniega FEEDTUBE PRN PRN For Clogged Feeding Tube Dextrose 50 ml 09/16/20 12:19 Dextrose 50% In Water (25gm) 50 Ml Syringe IV Q30MIN PRN Hypoglycemia Protocol Fentanyl 50 mcg 09/16/20 20:12 Fentanyl 100 Mcg/2 Ml Inj IV Q10MIN PRN ANALGESIA Heparin Sodium (Porcine) 2,400 unit 09/16/20 20:12 09/16/20 21:00 Heparin 10,000 Units/10 Ml Vial 40 unit/kg (2400 unit) 2,400 unit IV Administration Q6H PRN Anti-Xa Assay < 0.1 units/ml Hydralazine HCl 10 mg 09/22/20 02:39 09/22/20 02:42 Hydralazine 20 Mg/1 Ml Inj IV 10 mg Q6H PRN Administration Hypertension Hydrophilic Ointment 1 applic 09/16/20 20:12 09/19/20 22:51 Lip Therapy Vaseline TP 1 applic Q2HR PRN Administration Dry Lips Norepinephrine 4 mg in 250 mls @ 7.5 mls/hr 09/16/20 13:15 09/16/20 16:30 Levophed Drip 4 Mg/Ns 250 Ml IV Infused TITR DARA Titration Protocol 2 MCG/MIN Fentanyl Citrate 2,000 mcg in 100 mls @ 3 mls/hr 09/16/20 21:00 09/16/20 21:00 Fentanyl Drip Premix IV 1 mcg/kg/hr TITR DARA 3 mls/hr Administration Protocol 1 MCG/KG/HR Propofol 1,000 mg in 100 mls @ 1.8 mls/hr 09/16/20 21:00 09/16/20 19:55 Diprivan 10 Mg/Ml IV 5 mcg/kg/min TITR DARA 1.8 mls/hr Administration Protocol 5 MCG/KG/MIN Heparin Sodium/Sodium Chloride 25,000 unit in 500 mls @ 18 mls/hr 09/16/20 21:00 09/17/20 05:25 Heparin/ 0.45% Nacl-25,000 Unit/500 Ml IV 0 units/hr TITR DARA 0 mls/hr Titration Protocol 900 UNITS/HR MEROPENEM/NS 1 GRAM/100 ML 1 gram in 100 mls @ 100 mls/hr 09/20/20 15:00 09/21/20 16:00 Merrem/Ns 1 Gram/100 Ml IV 09/26/20 15:59 100 mls/hr Q24H DARA Administration Protocol Insulin Human Regular 0 unit 09/16/20 13:00 09/22/20 06:44 Insulin Regular, Human 100 Unit/Ml 3ml Vial SUB-Q 1 unit Q6H DARA Administration Protocol Methylprednisolone Sodium Succinate 40 mg 09/16/20 22:00 09/22/20 13:45 Methylprednisolone Sod Succinate 40 Mg/1 Ml Inj IV 40 mg Q8HR DARA Administration Multi-Ingred Cream/Lotion/Oil/Oint 1 applic 09/16/20 20:12 09/19/20 22:51 Mineral Oil/Petrolatum, White Ophth Oint 3.5 Gm OU 1 applic Q4HR PRN Administration Dry Eye(s) Pantoprazole Sodium 40 mg 09/22/20 10:00 09/22/20 11:35 Pantoprazole 40 Mg Inj IV 40 mg BID DARA Administration Simple Syrup 15 ml 09/17/20 08:56 Simple Syrup 15 Ml FEEDTUBE PRN PRN Hypoglycemia Simple Syrup 30 ml 09/17/20 08:56 Simple Syrup 15 Ml FEEDTUBE PRN PRN Hypoglycemia Sodium Bicarbonate 325 mg 09/17/20 08:56 Sodium Bicarbonate 325 Mg Tab FEEDTUBE PRN PRN For Clogged Feeding Tube Sodium Chloride 10 ml 09/16/20 22:00 09/22/20 11:09 Sodium Chloride 0.9% 10 Ml Flush Syringe IV 10 ml BID DARA Administration Sodium Chloride 10 ml 09/16/20 12:19 Sodium Chloride 0.9% 10 Ml Flush Syringe IV PRN PRN LINE FLUSH
[2020-09-22] MEDS: MEROPENEM/NS 1 GRAM/100 ML 1 GRAM/100 ML BAG IV SCH (14:50)
--- NOTE | 2020-09-22 15:35 | Progress Note ---
Assessment and Plan Acute hypoxemic respiratory failure, on mechanical ventilatory support. Cardiac arrest with return of spontaneous circulation Acute pulmonary emboli. Person under investigation for COVID-19 infection. CHF (EF 40%) History of dementia. Urinary tract infection. Anemia that is normocytic. Elevated serum D-dimers. Lactic acidosis. Severe sepsis - continue double dose PPI therapy - will tentatively resume IV heparin next 24 hours if no gross bleeding re: P.E.; if he bleeds again will get IVC filter - neurology evaluation ongoing; prognosis for neurologic recovery remains poor and family conference is appropriate re: goals of care - continue care as below otherwise; - continue to wean supplemental oxygen for target O2 sat's > 92% acutely - VAP bundle addressed - continue lung protective strategies - continue bronchodilators with pulmonary hygiene per RT - wean per pulmonary driven protocols otherwise - continue Daily SAT and SBT assessment as tolerated - continue accuchecks with glycemic control per SSI (While critically ill target blood glucose of 140-180 mg/dL; avoid hypoglycemia) - sedation prn for target RASS 0 to -1 - anti-infective's per ID recommendations - coronavirus PCR negative - Azotemia per nephrology team - avoid nephrotoxins, renally dose all medications - continue to avoid benzodiazepine's, reduce the possibility of delirium - completed AB's per ID rec's - prn analgesia per CPOT score - Maintenance of sleep-wake cycle, avoid delirium - continue enteral nutritional support at goal rate as tolerated - G.I. & VTE prophylaxis - PT/OT/ROM exercises - continue mobility protocols for pressure ulcer prophylaxis - Monitor hemodynamics closely - continue other care per attending / other consultants - discharge planning ongoing concurrently .... Re-evaluate in am & prn CONDITION: CRITICAL PROGNOSIS: GUARDED CODE STATUS: FULL CODE The high probability of a clinically significant, sudden or life-threatening deterioration of the [respiratory, cardiovascular, hematologic & neurologic] sys tem(s) required my full and direct attention, intervention and personal management. The aggregate critical care time was [33] minutes without overlap. Time includes spent on; [x] Data Review and interpretation [x] Patient assessment and monitoring of vital signs [x] Documentation [x] Medication orders and management Subjective Date of service: 09/22/20 Principal diagnosis: Ac hypoxemic resp failure; Cardiac arrest; Acute P.E.; Severe sepsis; COVID Interval history: Patient is seen today for: Ac hypoxemic resp failure; Cardiac arrest with ROSC; Acute pulmonary emboli; Severe sepsis; PUI COVID-19; UTI Seen and examined at bedside; 24hour events reviewed; nursing and respiratory care staff consulted; no adverse overnight events reported to me; resting peacefully in bed; remains on MVS; No more active bleeding recorded; Hb has trended down but not massively; AMS is persistent and remains on MVS Objective Vital Signs - 12hr 09/22/20 09/22/20 09/22/20 04:00 04:15 05:00 Pulse Rate 72 67 69 Respiratory 18 18 Rate Blood Pressure 141/73 126/72 O2 Sat by Pulse 100 100 100 Oximetry 09/22/20 09/22/20 09/22/20 06:00 07:00 08:00 Pulse Rate 65 65 54 L Respiratory 18 18 13 Rate Blood Pressure 139/79 132/76 134/73 O2 Sat by Pulse 100 100 100 Oximetry 09/22/20 09/22/20 09/22/20 08:34 09:00 10:00 Pulse Rate 65 55 L 69 Respiratory 14 20 Rate Blood Pressure 139/79 142/75 143/77 O2 Sat by Pulse 100 100 100 Oximetry 09/22/20 09/22/20 09/22/20 11:00 12:00 12:28 Pulse Rate 60 59 L 59 L Respiratory 18 18 Rate Blood Pressure 133/78 137/79 137/79 O2 Sat by Pulse 100 100 100 Oximetry Constitutional: appears uncomfortable, other (elderly thin male with mildly increased respiratory effort at rest on MVS) Eyes: non-icteric ENT: oropharynx moist, other (ETT 24 cm CAROL) Neck: supple, no lymphadenopathy, no JVD Effort: mildly labored Ascultation: Bilateral: diminished breath sounds, rhonchi Percussion: Bilateral: not dull Cardiovascular: regular rate and rhythm Gastrointestinal: normoactive bowel sounds, soft, non-tender, non-distended Integumentary: normal Extremities: no cyanosis, no edema, pulses normal, no ischemia or petechiae Neurologic: pupils equal and round, unable to assess Psychiatric: other (unable to assess re: AMS) CBC and BMP: 09/23/20 Unknown 09/23/20 06:39 ABG, PT/INR, D-dimer: ABG ABG pH 7.545 pH Units (7.350-7.450) H 12/31/20 04:32 POC ABG pCO2 24.6 mmHg (32.0-48.0) L 09/20/20 05:15 ABG pCO2 33.3 mm Hg 09/22/20 04:32 POC ABG pO2 153.3 mmHg (83-108) H 09/20/20 05:15 ABG pO2 153.8 mm Hg (80.0-90.0) H 09/22/20 04:32 POC ABG HCO3 25.2 09/20/20 05:15 ABG O2 Saturation 99.0 % (95.0-99.0) 09/22/20 04:32 PT/INR, D-dimer PT 18.0 Sec. (12.2-14.9) H 09/17/20 11:37 INR 1.49 (0.87-1.13) H 09/17/20 11:37 D-Dimer > 85879 ng/mlDDU (0-234) H 09/17/20 11:37 Abnormal lab findings: Abnormal Labs 09/16/20 09/16/20 09/16/20 10:37 10:37 10:37 WBC Hgb 11.2 L Hct MCV MCH 27 L MCHC 31 L Plt Count Lymph % (Auto) Lymph # (Auto) Seg Neutrophils % 71.0 H Seg Neuts % (Manual) Lymphocytes % (Manual) Nucleated RBC % Seg Neutrophils # Seg Neutrophils # Man Lymphocytes # (Manual) PT 18.6 H INR 1.55 H APTT 43.4 H D-Dimer > 52542 H Heparin Anti-Xa Level ABG pH POC ABG pCO2 POC ABG pO2 ABG pO2 ABG HCO3 ABG O2 Saturation ABG Base Excess ABG Hemoglobin ABG Oxyhemoglobin ABG Chloride ABG Glucose VBG pH Carboxyhemoglobin Sodium Potassium Carbon Dioxide BUN Creatinine Glucose POC Glucose Lactic Acid 10.00 H* Calcium Magnesium Ferritin AST Lactate Dehydrogenase Total Creatine Kinase C-Reactive Protein Total Protein Albumin Arterial Blood Glucose Arterial Blood Ionized Calcium Urine WBC (Auto) U Epithel Cells (Auto) Urine Creatinine 09/16/20 09/16/20 09/16/20 10:37 10:37 10:53 WBC Hgb Hct MCV MCH MCHC Plt Count Lymph % (Auto) Lymph # (Auto) Seg Neutrophils % Seg Neuts % (Manual) Lymphocytes % (Manual) Nucleated RBC % Seg Neutrophils # Seg Neutrophils # Man Lymphocytes # (Manual) PT INR APTT D-Dimer Heparin Anti-Xa Level ABG pH POC ABG pCO2 POC ABG pO2 ABG pO2 ABG HCO3 ABG O2 Saturation ABG Base Excess ABG Hemoglobin ABG Oxyhemoglobin ABG Chloride ABG Glucose VBG pH 7.138 L* Carboxyhemoglobin Sodium Potassium Carbon Dioxide 16 L BUN 25 H Creatinine 1.5 H Glucose 243 H POC Glucose Lactic Acid Calcium Magnesium 2.50 H Ferritin AST 54 H Lactate Dehydrogenase Total Creatine Kinase C-Reactive Protein Total Protein 6.1 L Albumin 3.2 L Arterial Blood Glucose Arterial Blood Ionized Calcium Urine WBC (Auto) 67.0 H U Epithel Cells (Auto) 27.0 H Urine Creatinine 09/16/20 09/16/20 09/16/20 16:00 20:12 20:49 WBC Hgb Hct MCV MCH MCHC Plt Count Lymph % (Auto) Lymph # (Auto) Seg Neutrophils % Seg Neuts % (Manual) Lymphocytes % (Manual) Nucleated RBC % Seg Neutrophils # Seg Neutrophils # Man Lymphocytes # (Manual) PT INR APTT D-Dimer Heparin Anti-Xa Level ABG pH POC ABG pCO2 31.0 L POC ABG pO2 427.0 H ABG pO2 ABG HCO3 ABG O2 Saturation ABG Base Excess ABG Hemoglobin ABG Oxyhemoglobin ABG Chloride 109.0 H ABG Glucose 169 H VBG pH Carboxyhemoglobin Sodium Potassium Carbon Dioxide BUN Creatinine Glucose POC Glucose 136 H Lactic Acid Calcium Magnesium Ferritin AST Lactate Dehydrogenase Total Creatine Kinase C-Reactive Protein 2.80 H Total Protein Albumin Arterial Blood Glucose 169 H Arterial Blood Ionized Calcium 4.5 L Urine WBC (Auto) U Epithel Cells (Auto) Urine Creatinine 09/16/20 09/17/20 09/17/20 20:49 00:44 00:57 WBC Hgb Hct MCV MCH MCHC Plt Count Lymph % (Auto) Lymph # (Auto) Seg Neutrophils % Seg Neuts % (Manual) Lymphocytes % (Manual) Nucleated RBC % Seg Neutrophils # Seg Neutrophils # Man Lymphocytes # (Manual) PT 18.2 H INR 1.51 H APTT 44.0 H D-Dimer Heparin Anti-Xa Level ABG pH POC ABG pCO2 POC ABG pO2 ABG pO2 ABG HCO3 ABG O2 Saturation ABG Base Excess ABG Hemoglobin ABG Oxyhemoglobin ABG Chloride ABG Glucose VBG pH Carboxyhemoglobin Sodium Potassium Carbon Dioxide BUN Creatinine Glucose POC Glucose 153 H Lactic Acid Calcium Magnesium Ferritin AST Lactate Dehydrogenase Total Creatine Kinase C-Reactive Protein Total Protein Albumin Arterial Blood Glucose Arterial Blood Ionized Calcium Urine WBC (Auto) U Epithel Cells (Auto) Urine Creatinine 181.1 H 09/17/20 09/17/20 09/17/20 03:05 04:16 04:16 WBC 20.1 H Hgb Hct MCV 83 L MCH 27 L MCHC Plt Count Lymph % (Auto) Lymph # (Auto) Seg Neutrophils % Seg Neuts % (Manual) 91.0 H Lymphocytes % (Manual) 6.0 L Nucleated RBC % Seg Neutrophils # Seg Neutrophils # Man 18.3 H Lymphocytes # (Manual) PT INR APTT D-Dimer Heparin Anti-Xa Level 1.26 H ABG pH POC ABG pCO2 POC ABG pO2 ABG pO2 237.5 H ABG HCO3 17.4 L ABG O2 Saturation 99.4 H ABG Base Excess -6.6 L ABG Hemoglobin 12.2 L ABG Oxyhemoglobin ABG Chloride ABG Glucose VBG pH Carboxyhemoglobin Sodium Potassium Carbon Dioxide BUN Creatinine Glucose POC Glucose Lactic Acid Calcium Magnesium Ferritin AST Lactate Dehydrogenase Total Creatine Kinase C-Reactive Protein Total Protein Albumin Arterial Blood Glucose Arterial Blood Ionized Calcium Urine WBC (Auto) U Epithel Cells (Auto) Urine Creatinine 09/17/20 09/17/20 09/17/20 04:16 04:16 06:31 WBC Hgb Hct MCV MCH MCHC Plt Count Lymph % (Auto) Lymph # (Auto) Seg Neutrophils % Seg Neuts % (Manual) Lymphocytes % (Manual) Nucleated RBC % Seg Neutrophils # Seg Neutrophils # Man Lymphocytes # (Manual) PT INR APTT D-Dimer Heparin Anti-Xa Level ABG pH POC ABG pCO2 POC ABG pO2 ABG pO2 ABG HCO3 ABG O2 Saturation ABG Base Excess ABG Hemoglobin ABG Oxyhemoglobin ABG Chloride ABG Glucose VBG pH Carboxyhemoglobin Sodium Potassium Carbon Dioxide 18 L BUN 34 H Creatinine 1.5 H Glucose 171 H POC Glucose 136 H Lactic Acid 3.60 H* Calcium Magnesium Ferritin AST Lactate Dehydrogenase Total Creatine Kinase C-Reactive Protein Total Protein Albumin Arterial Blood Glucose Arterial Blood Ionized Calcium Urine WBC (Auto) U Epithel Cells (Auto) Urine Creatinine 09/17/20 09/17/20 09/17/20 11:37 11:37 11:37 WBC Hgb Hct MCV MCH MCHC Plt Count Lymph % (Auto) Lymph # (Auto) Seg Neutrophils % Seg Neuts % (Manual) Lymphocytes % (Manual) Nucleated RBC % Seg Neutrophils # Seg Neutrophils # Man Lymphocytes # (Manual) PT 18.0 H INR 1.49 H APTT D-Dimer > 91318 H Heparin Anti-Xa Level 0.25 L ABG pH POC ABG pCO2 POC ABG pO2 ABG pO2 ABG HCO3 ABG O2 Saturation ABG Base Excess ABG Hemoglobin ABG Oxyhemoglobin ABG Chloride ABG Glucose VBG pH Carboxyhemoglobin Sodium Potassium Carbon Dioxide BUN Creatinine Glucose POC Glucose Lactic Acid 2.80 H* Calcium Magnesium Ferritin AST Lactate Dehydrogenase Total Creatine Kinase C-Reactive Protein Total Protein Albumin Arterial Blood Glucose Arterial Blood Ionized Calcium Urine WBC (Auto) U Epithel Cells (Auto) Urine Creatinine 09/17/20 09/17/20 09/17/20 15:58 15:58 15:58 WBC Hgb Hct MCV MCH MCHC Plt Count Lymph % (Auto) Lymph # (Auto) Seg Neutrophils % Seg Neuts % (Manual) Lymphocytes % (Manual) Nucleated RBC % Seg Neutrophils # Seg Neutrophils # Man Lymphocytes # (Manual) PT INR APTT D-Dimer Heparin Anti-Xa Level ABG pH POC ABG pCO2 POC ABG pO2 ABG pO2 ABG HCO3 ABG O2 Saturation ABG Base Excess ABG Hemoglobin ABG Oxyhemoglobin ABG Chloride ABG Glucose VBG pH Carboxyhemoglobin Sodium Potassium Carbon Dioxide BUN Creatinine Glucose POC Glucose Lactic Acid 3.90 H* Calcium Magnesium Ferritin 1306.0 H AST Lactate Dehydrogenase 515 H Total Creatine Kinase C-Reactive Protein 24.30 H Total Protein Albumin Arterial Blood Glucose Arterial Blood Ionized Calcium Urine WBC (Auto) U Epithel Cells (Auto) Urine Creatinine 09/17/20 09/18/20 09/18/20 20:35 03:04 03:35 WBC Hgb Hct MCV MCH MCHC Plt Count Lymph % (Auto) Lymph # (Auto) Seg Neutrophils % Seg Neuts % (Manual) Lymphocytes % (Manual) Nucleated RBC % Seg Neutrophils # Seg Neutrophils # Man Lymphocytes # (Manual) PT INR APTT D-Dimer Heparin Anti-Xa Level ABG pH POC ABG pCO2 POC ABG pO2 ABG pO2 198.7 H ABG HCO3 18.9 L ABG O2 Saturation 99.3 H ABG Base Excess -4.3 L ABG Hemoglobin 10.8 L ABG Oxyhemoglobin ABG Chloride ABG Glucose VBG pH Carboxyhemoglobin Sodium Potassium Carbon Dioxide BUN Creatinine Glucose POC Glucose 111 H 129 H Lactic Acid Calcium Magnesium Ferritin AST Lactate Dehydrogenase Total Creatine Kinase C-Reactive Protein Total Protein Albumin Arterial Blood Glucose Arterial Blood Ionized Calcium Urine WBC (Auto) U Epithel Cells (Auto) Urine Creatinine 09/18/20 09/18/20 09/18/20 04:19 04:19 06:34 WBC 21.8 H Hgb 11.4 L Hct 35.2 L MCV 82 L MCH 26 L MCHC Plt Count Lymph % (Auto) 2.4 L Lymph # (Auto) 0.5 L Seg Neutrophils % 94.6 H Seg Neuts % (Manual) Lymphocytes % (Manual) Nucleated RBC % Seg Neutrophils # 20.6 H Seg Neutrophils # Man Lymphocytes # (Manual) PT INR APTT D-Dimer Heparin Anti-Xa Level ABG pH POC ABG pCO2 POC ABG pO2 ABG pO2 ABG HCO3 ABG O2 Saturation ABG Base Excess ABG Hemoglobin ABG Oxyhemoglobin ABG Chloride ABG Glucose VBG pH Carboxyhemoglobin Sodium Potassium 5.6 H Carbon Dioxide 20 L BUN 50 H Creatinine 2.4 H D Glucose 155 H POC Glucose 132 H Lactic Acid Calcium Magnesium Ferritin AST Lactate Dehydrogenase Total Creatine Kinase C-Reactive Protein Total Protein Albumin Arterial Blood Glucose Arterial Blood Ionized Calcium Urine WBC (Auto) U Epithel Cells (Auto) Urine Creatinine 09/19/20 09/19/20 09/19/20 04:00 05:02 05:02 WBC 20.5 H Hgb 10.0 L Hct 30.8 L MCV 82 L MCH 27 L MCHC Plt Count 130 L Lymph % (Auto) Lymph # (Auto) Seg Neutrophils % Seg Neuts % (Manual) 97.0 H Lymphocytes % (Manual) Nucleated RBC % 1.0 H Seg Neutrophils # Seg Neutrophils # Man 19.9 H Lymphocytes # (Manual) 0.0 L PT INR APTT D-Dimer Heparin Anti-Xa Level ABG pH 7.503 H POC ABG pCO2 POC ABG pO2 ABG pO2 159.2 H ABG HCO3 ABG O2 Saturation 99.1 H ABG Base Excess ABG Hemoglobin 10.3 L ABG Oxyhemoglobin ABG Chloride ABG Glucose VBG pH Carboxyhemoglobin Sodium Potassium Carbon Dioxide BUN 74 H Creatinine 3.5 H Glucose 168 H POC Glucose Lactic Acid Calcium Magnesium Ferritin AST Lactate Dehydrogenase Total Creatine Kinase C-Reactive Protein Total Protein Albumin Arterial Blood Glucose Arterial Blood Ionized Calcium Urine WBC (Auto) U Epithel Cells (Auto) Urine Creatinine 09/19/20 09/19/20 09/19/20 09:11 11:58 18:58 WBC Hgb Hct MCV MCH MCHC Plt Count Lymph % (Auto) Lymph # (Auto) Seg Neutrophils % Seg Neuts % (Manual) Lymphocytes % (Manual) Nucleated RBC % Seg Neutrophils # Seg Neutrophils # Man Lymphocytes # (Manual) PT INR APTT D-Dimer Heparin Anti-Xa Level ABG pH POC ABG pCO2 POC ABG pO2 ABG pO2 ABG HCO3 ABG O2 Saturation ABG Base Excess ABG Hemoglobin ABG Oxyhemoglobin ABG Chloride ABG Glucose VBG pH Carboxyhemoglobin Sodium Potassium Carbon Dioxide BUN Creatinine Glucose POC Glucose 143 H 155 H 153 H Lactic Acid Calcium Magnesium Ferritin AST Lactate Dehydrogenase Total Creatine Kinase C-Reactive Protein Total Protein Albumin Arterial Blood Glucose Arterial Blood Ionized Calcium Urine WBC (Auto) U Epithel Cells (Auto) Urine Creatinine 09/20/20 09/20/20 09/20/20 04:49 04:49 05:15 WBC Hgb 9.4 L Hct 29.2 L MCV MCH MCHC Plt Count 127 L Lymph % (Auto) Lymph # (Auto) Seg Neutrophils % Seg Neuts % (Manual) Lymphocytes % (Manual) Nucleated RBC % Seg Neutrophils # Seg Neutrophils # Man Lymphocytes # (Manual) PT INR APTT D-Dimer Heparin Anti-Xa Level ABG pH 7.628 H POC ABG pCO2 24.6 L POC ABG pO2 153.3 H ABG pO2 ABG HCO3 ABG O2 Saturation ABG Base Excess ABG Hemoglobin 10.7 L ABG Oxyhemoglobin 98.7 H ABG Chloride 97.0 L ABG Glucose 162 H VBG pH Carboxyhemoglobin 0.3 L Sodium 146 H Potassium Carbon Dioxide 35 H D BUN 94 H Creatinine 3.7 H Glucose 157 H POC Glucose Lactic Acid Calcium 8.3 L Magnesium Ferritin AST Lactate Dehydrogenase Total Creatine Kinase 1932 H C-Reactive Protein Total Protein Albumin Arterial Blood Glucose 162 H Arterial Blood Ionized Calcium 4.0 L Urine WBC (Auto) U Epithel Cells (Auto) Urine Creatinine 09/20/20 09/21/20 09/21/20 08:14 01:46 04:41 WBC Hgb Hct MCV MCH MCHC Plt Count Lymph % (Auto) Lymph # (Auto) Seg Neutrophils % Seg Neuts % (Manual) Lymphocytes % (Manual) Nucleated RBC % Seg Neutrophils # Seg Neutrophils # Man Lymphocytes # (Manual) PT INR APTT D-Dimer Heparin Anti-Xa Level ABG pH POC ABG pCO2 POC ABG pO2 ABG pO2 ABG HCO3 ABG O2 Saturation ABG Base Excess ABG Hemoglobin ABG Oxyhemoglobin ABG Chloride ABG Glucose VBG pH Carboxyhemoglobin Sodium 146 H Potassium 3.4 L Carbon Dioxide 32 H BUN 99 H Creatinine 2.9 H Glucose 201 H POC Glucose 160 H 181 H Lactic Acid Calcium Magnesium Ferritin AST Lactate Dehydrogenase Total Creatine Kinase C-Reactive Protein Total Protein Albumin Arterial Blood Glucose Arterial Blood Ionized Calcium Urine WBC (Auto) U Epithel Cells (Auto) Urine Creatinine 09/21/20 09/21/20 09/21/20 05:51 06:24 15:34 WBC Hgb Hct MCV MCH MCHC Plt Count Lymph % (Auto) Lymph # (Auto) Seg Neutrophils % Seg Neuts % (Manual) Lymphocytes % (Manual) Nucleated RBC % Seg Neutrophils # Seg Neutrophils # Man Lymphocytes # (Manual) PT INR APTT D-Dimer Heparin Anti-Xa Level ABG pH 7.545 H POC ABG pCO2 POC ABG pO2 ABG pO2 129.0 H ABG HCO3 30.0 H ABG O2 Saturation ABG Base Excess 7.3 H ABG Hemoglobin 11.7 L ABG Oxyhemoglobin ABG Chloride ABG Glucose VBG pH Carboxyhemoglobin Sodium Potassium Carbon Dioxide BUN Creatinine Glucose POC Glucose 176 H 189 H Lactic Acid Calcium Magnesium Ferritin AST Lactate Dehydrogenase Total Creatine Kinase C-Reactive Protein Total Protein Albumin Arterial Blood Glucose Arterial Blood Ionized Calcium Urine WBC (Auto) U Epithel Cells (Auto) Urine Creatinine 09/21/20 09/21/20 09/22/20 19:32 23:31 04:32 WBC Hgb Hct MCV MCH MCHC Plt Count Lymph % (Auto) Lymph # (Auto) Seg Neutrophils % Seg Neuts % (Manual) Lymphocytes % (Manual) Nucleated RBC % Seg Neutrophils # Seg Neutrophils # Man Lymphocytes # (Manual) PT INR APTT D-Dimer Heparin Anti-Xa Level ABG pH 7.545 H POC ABG pCO2 POC ABG pO2 ABG pO2 153.8 H ABG HCO3 28.2 H ABG O2 Saturation ABG Base Excess 5.6 H ABG Hemoglobin 9.4 L ABG Oxyhemoglobin ABG Chloride ABG Glucose VBG pH Carboxyhemoglobin Sodium Potassium Carbon Dioxide BUN Creatinine Glucose POC Glucose 194 H 174 H Lactic Acid Calcium Magnesium Ferritin AST Lactate Dehydrogenase Total Creatine Kinase C-Reactive Protein Total Protein Albumin Arterial Blood Glucose Arterial Blood Ionized Calcium Urine WBC (Auto) U Epithel Cells (Auto) Urine Creatinine 09/22/20 09/22/20 09/22/20 05:18 05:18 06:11 WBC Hgb 9.7 L Hct 30.3 L MCV MCH MCHC Plt Count 122 L Lymph % (Auto) Lymph # (Auto) Seg Neutrophils % Seg Neuts % (Manual) Lymphocytes % (Manual) Nucleated RBC % Seg Neutrophils # Seg Neutrophils # Man Lymphocytes # (Manual) PT INR APTT D-Dimer Heparin Anti-Xa Level ABG pH POC ABG pCO2 POC ABG pO2 ABG pO2 ABG HCO3 ABG O2 Saturation ABG Base Excess ABG Hemoglobin ABG Oxyhemoglobin ABG Chloride ABG Glucose VBG pH Carboxyhemoglobin Sodium 147 H Potassium 3.0 L Carbon Dioxide BUN 101 H Creatinine 2.3 H Glucose 217 H POC Glucose 179 H Lactic Acid Calcium Magnesium Ferritin AST Lactate Dehydrogenase Total Creatine Kinase 1202 H C-Reactive Protein Total Protein Albumin Arterial Blood Glucose Arterial Blood Ionized Calcium Urine WBC (Auto) U Epithel Cells (Auto) Urine Creatinine 09/22/20 13:51 WBC Hgb Hct MCV MCH MCHC Plt Count Lymph % (Auto) Lymph # (Auto) Seg Neutrophils % Seg Neuts % (Manual) Lymphocytes % (Manual) Nucleated RBC % Seg Neutrophils # Seg Neutrophils # Man Lymphocytes # (Manual) PT INR APTT D-Dimer Heparin Anti-Xa Level ABG pH POC ABG pCO2 POC ABG pO2 ABG pO2 ABG HCO3 ABG O2 Saturation ABG Base Excess ABG Hemoglobin ABG Oxyhemoglobin ABG Chloride ABG Glucose VBG pH Carboxyhemoglobin Sodium Potassium Carbon Dioxide BUN Creatinine Glucose POC Glucose 175 H Lactic Acid Calcium Magnesium Ferritin AST Lactate Dehydrogenase Total Creatine Kinase C-Reactive Protein Total Protein Albumin Arterial Blood Glucose Arterial Blood Ionized Calcium Urine WBC (Auto) U Epithel Cells (Auto) Urine Creatinine Chest x-ray: pending Allied health notes reviewed: nursing
[2020-09-22] MEDS ORDERED: POTASSIUM CHLORIDE 20 MEQ PACKET FEEDTUBE ONE (22:58)
--- NOTE | 2020-09-23 00:47 | Progress Note ---
Assessment and Plan The high probability of a clinically significant, sudden or life threatening deterioration of the [hemodynamic, neurologic, cardiac, respiratory] system(s) required my full and direct attention, intervention and personal management. The aggregate critical care time was [32] minutes. This time is in addition to time spent performing reported procedures but includes the following: [x] Data Review and interpretation [x] Patient assessment and monitoring of vital signs [x] Documentation [x] Medication orders and management Acute hypoxic respiratory failure. Etiology is unknown at this time. Chest x- ray shows no acute disease. Nephrology consultation Toxic metabolic encephalopathy. CT scan with extensive microvascular a ngiopathy. Multifocal bilateral pulmonary emboli. D-dimer > 10,000. Continue anticoagulation per pulmonary. Acute kidney injury. Etiology secondary to sepsis/ATN +/- vasomotor nephropathy/dehydration. Aggressive IV fluid hydration. Lactic acidosis. As above. DVT prophylaxis--- patient is anticoagulated and GI prophylaxis Subjective Date of service: 09/22/20 Principal diagnosis: Ac hypoxemic resp failure; Cardiac arrest; Acute P.E.; Severe sepsis; COVID Interval history: Cardiopulmonary arrest. Patient reportedly with [id number] cardiopulmonary arrest. Unsure of the patient's total time without a pulse. Cardiology and pulmonary consultation pending. Follow-up echocardiogram, cardiac isoenzymes and serial EKG. CT scan of the head pending. Check MRI and EEG when patient stabilized. D-dimer significantly elevated greater than 10,000. Check CTA of the chest. Lactic acid also elevated at 10 which increases mortality significantly. Severe sepsis with septic shock. Present on admission. Patient presented with fever, tachycardia, hypotension, elevated lactate, pressors and gram negative dinora bacteremia. 09/17/2020. Lactic acid improved. Follow-up blood and urine cultures. Start Rocephin IV daily. ID consultation. 09/18/2020. Urine culture reveals gram-negative rods. Await final identification and sensitivities. Await blood cultures. Continue IV antibiotics. ID consulted. Covid testing found to be negative. Check EEG given cardiopulmonary arrest. Neurology consultation with Dr. Esparza in a.m. No neurology coverage today. MRI brain with patient medically stable. Continue anticoagulation for pulmonary embolus. Await renal ultrasound. 09/19/2020. Patient with severe sepsis secondary to complicated UTI/gram- negative bacilli bacteremia. Follow-up identification and sensitivities. ID following. Antibiotics adjusted to cefepime. Renal ultrasound did not reveal obstructing stone. Small right kidney without hydronephrosis or medical renal disease. Complex right renal cyst. Nonvisualization of left kidney sonographically but CTA showed simple cyst appearing lesion in the left kidney without hydronephrosis. Check EEG and MRI given cardiopulmonary arrest. Neurology consultation. 09/20/2020 Patient with severe sepsis and gram-negative bacteremia Patient on cefepime neurology consult requested 09/21/2020 Patient with sepsis Possible anoxic encephalopathy Patient on IV antibiotics 09/22/2020 Patient septic and on antibiotics Anoxic encephalopathy Continue IV antibiotics Poor prognosis Objective - Constitutional Vitals: Vital Signs - 12hr 09/22/20 09/22/20 09/22/20 13:01 14:00 15:00 Pulse Rate 69 65 60 Respiratory 18 18 18 Rate Blood Pressure 152/81 130/81 140/83 O2 Sat by Pulse 100 100 100 Oximetry 09/22/20 09/22/20 09/22/20 16:00 16:21 17:00 Pulse Rate 63 63 65 Respiratory 18 18 Rate Blood Pressure 141/80 139/84 O2 Sat by Pulse 100 100 100 Oximetry 09/22/20 09/22/20 19:00 20:24 Pulse Rate 67 68 Respiratory 18 Rate Blood Pressure 122/86 148/81 O2 Sat by Pulse 100 100 Oximetry General appearance: Present: no acute distress, well-nourished - EENT Eyes: PERRL, EOM intact ENT: hearing intact, clear oral mucosa Ears: bilateral: normal - Neck Neck: supple, normal ROM - Respiratory Respiratory effort: normal Respiratory: bilateral: CTA - Breasts Breasts: normal - Cardiovascular Heart rate: 78 Rhythm: regular Heart Sounds: Present: S1 & S2. Absent: gallop, rub Extremities: pulses intact, No edema, normal color, Full ROM - Gastrointestinal General gastrointestinal: Present: soft, non-tender, non-distended, normal bowel sounds - Genitourinary Male genitourinary: normal - Integumentary Integumentary: clear, warm, dry - Musculoskeletal Musculoskeletal: 1, strength equal bilaterally - Neurologic Neurologic: moves all extremities - Psychiatric Psychiatric: memory intact, appropriate mood/affect, intact judgment & insight - Labs CBC & Chem 7: 09/26/20 17:06 09/26/20 05:55 Labs: Abnormal lab results 09/22/20 09/22/20 09/22/20 Range/Units 04:32 05:18 05:18 Hgb 9.7 L (11.8-15.2) gm/dl Hct 30.3 L (35.5-45.6) % Plt Count 122 L (140-440) K/mm3 ABG pH 7.545 H (7.350-7.450) pH Units ABG pO2 153.8 H (80.0-90.0) mm Hg ABG HCO3 28.2 H (20.0-26.0) mmol/L ABG Base Excess 5.6 H (-2.0-3.0) mmol/L ABG Hemoglobin 9.4 L (14.0-18.0) gm/dl Sodium 147 H (137-145) mmol/L Potassium 3.0 L (3.6-5.0) mmol/L BUN 101 H (9-20) mg/dL Creatinine 2.3 H (0.8-1.3) mg/dL Glucose 217 H (75-100) mg/dL POC Glucose (70-105) mg/dL Total Creatine Kinase 1202 H (55-170) units/L 09/22/20 09/22/20 09/22/20 Range/Units 06:11 13:51 18:35 Hgb (11.8-15.2) gm/dl Hct (35.5-45.6) % Plt Count (140-440) K/mm3 ABG pH (7.350-7.450) pH Units ABG pO2 (80.0-90.0) mm Hg ABG HCO3 (20.0-26.0) mmol/L ABG Base Excess (-2.0-3.0) mmol/L ABG Hemoglobin (14.0-18.0) gm/dl Sodium (137-145) mmol/L Potassium (3.6-5.0) mmol/L BUN (9-20) mg/dL Creatinine (0.8-1.3) mg/dL Glucose (75-100) mg/dL POC Glucose 179 H 175 H 191 H (70-105) mg/dL Total Creatine Kinase (55-170) units/L
[2020-09-23] MEDS: PANTOPRAZOLE 40 MG INJ IV SCH ×3 (02:28→22:35)
[2020-09-23] MEDS: methylPREDNISolone Sod Succinate 40 MG/1 ML INJ IV SCH ×4 (02:28→22:35)
[2020-09-23] MEDS: INSULIN REGULAR, HUMAN 100 UNIT/ML 3ML VIAL SUB-Q SCH ×4 (02:28→18:44)
[2020-09-23 08:25] LABS: Calcium 9.3 mg/dL (8.4-10.2)
[2020-09-23] MEDS: hydrALAZINE 20 MG/1 ML INJ IV PRN (09:52)
[2020-09-23 10:14] LABS: Hematocrit 30.7 % (35.5-45.6); Hemoglobin 9.8 gm/dl (11.8-15.2); Mean Corpuscular HGB Conc 32 % (32-34); Mean Corpuscular Volume 83 fl (84-94); Platelet Count 132 K/mm3 (140-440); Red Cell Distribution Width 14.4 % (13.2-15.2)
--- NOTE | 2020-09-23 10:16 | Progress Note ---
Assessment and Plan 1. Acute kidney injury: Vasomotor nephropathy in the setting of Cardiac arrest + contrast induced nephropathy. Renal US negative for hydro. Monitor renal function. Creatinine level 2.1 from 2.3 from 2.9 from 3.7 from 3.5 from 2.4 from 1.5. Renal prognosis is guarded. Avoid nephrotoxic agents. Meds dosage based on GFR. Monitor for [employer] needs. 2. FEN: Hypernatremia, started on IV D5W, monitor. Hypokalemia, replete K, monitor. Metabolic alkalosis, monitor. Monitor lytes and volume status. 3. Out of hospital Cardiac arrest 09/16: Seen by Cards. 4. Acute resp failure: Currently intubated on vent. Followed by Pulmonary. 5. Septic Shock: Off pressors. ESBL E.coli bacteremia, likely from UTI. Meropenem. Followed by ID. 6. PE: CTA showed multiple filling defects involving L LL and R UL. Heparin drip. 7. Anemia, POA: Monitor. 8. Acute Metabolic Encephalopathy, POA: Supportive care. Prognosis is guarded. Subjective: The patient was not examined today. However the examination findings from other providers noted. The current and previous medical records are reviewed in detail as are laboratory and imaging data reviewed when appropriate. Medications being given are also reviewed. In addition the case has been discussed with the attending hospitalist and the nurse when needed. New renal recommendations as above. Examination: Subjective Date of service: 09/23/20 Principal diagnosis: Ac hypoxemic resp failure; Cardiac arrest; Acute P.E.; Severe sepsis; COVID Objective - Vital Signs Vital signs: Vital Signs - 12hr 09/22/20 09/23/20 09/23/20 23:00 00:00 01:00 Temperature Pulse Rate 60 65 Pulse Rate [ 76 Left Radial] Pulse Rate [ Radial] Respiratory 18 Rate Blood Pressure 139/80 137/85 O2 Sat by Pulse 100 100 99 Oximetry 09/23/20 09/23/20 09/23/20 02:33 03:25 04:00 Temperature 97.6 F Pulse Rate 65 Pulse Rate [ 76 Left Radial] Pulse Rate [ Radial] Respiratory 18 Rate Blood Pressure O2 Sat by Pulse 100 99 Oximetry 09/23/20 09/23/20 09/23/20 05:06 06:27 09:52 Temperature 98.2 F Pulse Rate 65 114 H Pulse Rate [ Left Radial] Pulse Rate [ 67 Radial] Respiratory 18 Rate Blood Pressure 144/89 135/87 185/89 O2 Sat by Pulse 100 98 Oximetry - Lab 09/23/20 Unknown 09/23/20 06:39 Most recent lab results ABG pH 7.545 pH Units (7.350-7.450) H 09/22/20 04:32 ABG pCO2 33.3 mm Hg 09/22/20 04:32 ABG pO2 153.8 mm Hg (80.0-90.0) H 09/22/20 04:32 ABG HCO3 28.2 mmol/L (20.0-26.0) H 09/22/20 04:32 ABG O2 Saturation 99.0 % (95.0-99.0) 09/22/20 04:32 Calcium 9.3 mg/dL (8.4-10.2) 09/23/20 06:39 Magnesium 2.50 mg/dL (1.7-2.3) H 09/16/20 10:37 Urine Creatinine 181.1 mg/dL (0.1-20.0) H 09/17/20 00:57 Urine Sodium 78 mmol/L 09/17/20 00:57 Medications & Allergies - Medications Allergies/Adverse Reactions: Allergies No Known Allergies Allergy (Unverified 09/16/20 12:52) Home Medications: Home Medications Medication Instructions Recorded Confirmed Last Taken Type No Known Home Medications [No 09/18/20 09/18/20 Unknown History Reported Home Medications] Active Medications: Generic Name Dose Route Start Last Admin Trade Name Freq PRN Reason Stop Dose Admin Lipase/Protease/Amylase 1 each 09/17/20 08:56 Lipase 10,500/Protease 25,000/Amylase 43,750 (Units) Dr Arciniega FEEDTUBE PRN PRN For Clogged Feeding Tube Dextrose 50 ml 09/16/20 12:19 Dextrose 50% In Water (25gm) 50 Ml Syringe IV Q30MIN PRN Hypoglycemia Protocol Fentanyl 50 mcg 09/16/20 20:12 Fentanyl 100 Mcg/2 Ml Inj IV Q10MIN PRN ANALGESIA Heparin Sodium (Porcine) 2,400 unit 09/16/20 20:12 09/16/20 21:00 Heparin 10,000 Units/10 Ml Vial 40 unit/kg (2400 unit) 2,400 unit IV Administration Q6H PRN Anti-Xa Assay < 0.1 units/ml Hydralazine HCl 10 mg 09/22/20 02:39 09/23/20 09:52 Hydralazine 20 Mg/1 Ml Inj IV 10 mg Q6H PRN Administration Hypertension Hydrophilic Ointment 1 applic 09/16/20 20:12 09/19/20 22:51 Lip Therapy Vaseline TP 1 applic Q2HR PRN Administration Dry Lips Norepinephrine 4 mg in 250 mls @ 7.5 mls/hr 09/16/20 13:15 09/16/20 16:30 Levophed Drip 4 Mg/Ns 250 Ml IV Infused TITR DARA Titration Protocol 2 MCG/MIN Fentanyl Citrate 2,000 mcg in 100 mls @ 3 mls/hr 09/16/20 21:00 09/16/20 21:00 Fentanyl Drip Premix IV 1 mcg/kg/hr TITR DARA 3 mls/hr Administration Protocol 1 MCG/KG/HR Propofol 1,000 mg in 100 mls @ 1.8 mls/hr 09/16/20 21:00 09/16/20 19:55 Diprivan 10 Mg/Ml IV 5 mcg/kg/min TITR DARA 1.8 mls/hr Administration Protocol 5 MCG/KG/MIN Heparin Sodium/Sodium Chloride 25,000 unit in 500 mls @ 18 mls/hr 09/16/20 21:00 09/17/20 05:25 Heparin/ 0.45% Nacl-25,000 Unit/500 Ml IV 0 units/hr TITR DARA 0 mls/hr Titration Protocol 900 UNITS/HR MEROPENEM/NS 1 GRAM/100 ML 1 gram in 100 mls @ 100 mls/hr 09/20/20 15:00 09/22/20 14:50 Merrem/Ns 1 Gram/100 Ml IV 09/26/20 15:59 100 mls/hr Q24H DARA Administration Protocol Potassium Chloride 20 meq/ 1,010 mls @ 60 mls/hr 09/23/20 10:15 Dextrose IV DIRECT [facility] Insulin Human Regular 0 unit 09/16/20 13:00 09/23/20 06:27 Insulin Regular, Human 100 Unit/Ml 3ml Vial SUB-Q Not Given Q6H DARA Protocol Methylprednisolone Sodium Succinate 40 mg 09/16/20 22:00 09/23/20 06:26 Methylprednisolone Sod Succinate 40 Mg/1 Ml Inj IV 40 mg Q8HR DARA Administration Multi-Ingred Cream/Lotion/Oil/Oint 1 applic 09/16/20 20:12 09/19/20 22:51 Mineral Oil/Petrolatum, White Ophth Oint 3.5 Gm OU 1 applic Q4HR PRN Administration Dry Eye(s) Pantoprazole Sodium 40 mg 09/22/20 10:00 09/23/20 09:46 Pantoprazole 40 Mg Inj IV 40 mg BID DARA Administration Simple Syrup 15 ml 09/17/20 08:56 Simple Syrup 15 Ml FEEDTUBE PRN PRN Hypoglycemia Simple Syrup 30 ml 09/17/20 08:56 Simple Syrup 15 Ml FEEDTUBE PRN PRN Hypoglycemia Sodium Bicarbonate 325 mg 09/17/20 08:56 Sodium Bicarbonate 325 Mg Tab FEEDTUBE PRN PRN For Clogged Feeding Tube Sodium Chloride 10 ml 09/16/20 22:00 09/23/20 09:47 Sodium Chloride 0.9% 10 Ml Flush Syringe IV 10 ml BID DARA Administration Sodium Chloride 10 ml 09/16/20 12:19 Sodium Chloride 0.9% 10 Ml Flush Syringe IV PRN PRN LINE FLUSH
[2020-09-23 10:24] LABS: INR 1.21 (0.87-1.13); Partial Thromboplastin Time 25.2 Sec. (24.2-36.6)
[2020-09-23] MEDS: POTASSIUM CHLORIDE 20 MEQ in DEXTROSE 5% IN WATER 1,000 ML IV SCH (10:56)
[2020-09-23 12:14] LABS: Band Neutrophils # (Manual) 0.2 K/mm3; Total Cells Counted 100
[2020-09-23 12:15] LABS: Anisocytosis Few; Giant Platelets Rare; Platelet Estimate Consistent w Auto; Stomatocytes Few
[2020-09-23] MEDS: MEROPENEM/NS 1 GRAM/100 ML 1 GRAM/100 ML BAG IV SCH (14:08)
--- NOTE | 2020-09-23 16:04 | Progress Note ---
Assessment and Plan Acute hypoxemic respiratory failure, on mechanical ventilatory support. Cardiac arrest with return of spontaneous circulation Acute pulmonary emboli. Person under investigation for COVID-19 infection. CHF (EF 40%) History of dementia. Urinary tract infection. Anemia that is normocytic. Elevated serum D-dimers. Lactic acidosis. Severe sepsis - resume IV heparin, no bolus - get stool guaiac - H&H q6h X 3 draws - continue care as below otherwise; - continue double dose PPI therapy - will tentatively resume IV heparin next 24 hours if no gross bleeding re: P.E.; if he bleeds again will get IVC filter - neurology evaluation ongoing; prognosis for neurologic recovery remains poor and family conference is appropriate re: goals of care - continue to wean supplemental oxygen for target O2 sat's > 92% acutely - VAP bundle addressed - continue lung protective strategies - continue bronchodilators with pulmonary hygiene per RT - wean per pulmonary driven protocols otherwise - continue Daily SAT and SBT assessment as tolerated - continue accuchecks with glycemic control per SSI (While critically ill target blood glucose of 140-180 mg/dL; avoid hypoglycemia) - sedation prn for target RASS 0 to -1 - anti-infective's per ID recommendations - coronavirus PCR negative - Azotemia per nephrology team - avoid nephrotoxins, renally dose all medications - continue to avoid benzodiazepine's, reduce the possibility of delirium - completed AB's per ID rec's - prn analgesia per CPOT score - Maintenance of sleep-wake cycle, avoid delirium - continue enteral nutritional support at goal rate as tolerated - G.I. & VTE prophylaxis - PT/OT/ROM exercises - continue mobility protocols for pressure ulcer prophylaxis - Monitor hemodynamics closely - continue other care per attending / other consultants - discharge planning ongoing concurrently .... Re-evaluate in am & prn CONDITION: CRITICAL PROGNOSIS: GUARDED CODE STATUS: FULL CODE The high probability of a clinically significant, sudden or life-threatening deterioration of the [respiratory, cardiovascular, hematologic & neurologic] system(s) required my full and direct attention, intervention and personal management. The aggregate critical care time was [36] minutes without overlap. Time includes spent on; [x] Data Review and interpretation [x] Patient assessment and monitoring of vital signs [x] Documentation [x] Medication orders and management Subjective Date of service: 09/23/20 Principal diagnosis: Ac hypoxemic resp failure; Cardiac arrest; Acute P.E.; Severe sepsis; COVID Interval history: Patient is seen today for: Ac hypoxemic resp failure; Cardiac arrest with ROSC; Acute pulmonary emboli; Severe sepsis; PUI COVID-19; UTI Seen and examined at bedside; 24hour events reviewed; nursing and respiratory care staff consulted; no adverse overnight events reported to me; resting peacefully in bed; remains on MVS; No active bleeding recorded overnight; H&H holding; AMS is persistent; tolerated 2 hours on SBT today Objective Vital Signs - 12hr 09/23/20 09/23/20 09/23/20 05:06 06:27 08:00 Temperature 98.2 F Pulse Rate 65 Pulse Rate [ 67 Radial] Respiratory 18 Rate Blood Pressure 144/89 135/87 O2 Sat by Pulse 100 98 100 Oximetry 09/23/20 09/23/20 09/23/20 09:35 09:52 11:00 Temperature Pulse Rate 114 H 114 H 87 Pulse Rate [ Radial] Respiratory 18 Rate Blood Pressure 185/89 185/89 122/71 O2 Sat by Pulse 100 100 Oximetry 09/23/20 09/23/20 09/23/20 13:00 13:05 15:21 Temperature Pulse Rate 71 67 Pulse Rate [ Radial] Respiratory Rate Blood Pressure 114/68 124/66 O2 Sat by Pulse 100 100 100 Oximetry Constitutional: appears uncomfortable, other (elderly thin male with mildly increased respiratory effort at rest on MVS) Eyes: non-icteric ENT: oropharynx moist, other (ETT 24 cm CAROL) Neck: supple, no lymphadenopathy, no JVD Effort: mildly labored Ascultation: Bilateral: diminished breath sounds, rhonchi Percussion: Bilateral: not dull Cardiovascular: regular rate and rhythm Gastrointestinal: normoactive bowel sounds, soft, non-tender, non-distended Integumentary: normal Extremities: no cyanosis, no edema, pulses normal, no ischemia or petechiae Neurologic: pupils equal and round, unable to assess Psychiatric: other (unable to assess re: AMS) CBC and BMP: 09/23/20 Unknown 09/23/20 06:39 ABG, PT/INR, D-dimer: ABG ABG pH 7.545 pH Units (7.350-7.450) H 09/22/20 04:32 POC ABG pCO2 24.6 mmHg (32.0-48.0) L 09/20/20 05:15 ABG pCO2 33.3 mm Hg 09/22/20 04:32 POC ABG pO2 153.3 mmHg (83-108) H 09/20/20 05:15 ABG pO2 153.8 mm Hg (80.0-90.0) H 09/22/20 04:32 POC ABG HCO3 25.2 09/20/20 05:15 ABG O2 Saturation 99.0 % (95.0-99.0) 09/22/20 04:32 PT/INR, D-dimer PT 15.1 Sec. (12.2-14.9) H 09/23/20 Unknown INR 1.21 (0.87-1.13) H 09/23/20 Unknown D-Dimer > 09526 ng/mlDDU (0-234) H 09/17/20 11:37 Abnormal lab findings: Abnormal Labs 09/16/20 09/16/20 09/16/20 10:37 10:37 10:37 WBC Hgb 11.2 L Hct MCV MCH 27 L MCHC 31 L Plt Count Lymph % (Auto) Lymph # (Auto) Seg Neutrophils % 71.0 H Seg Neuts % (Manual) Lymphocytes % (Manual) Nucleated RBC % Seg Neutrophils # Seg Neutrophils # Man Lymphocytes # (Manual) PT 18.6 H INR 1.55 H APTT 43.4 H D-Dimer > 33537 H Heparin Anti-Xa Level ABG pH POC ABG pCO2 POC ABG pO2 ABG pO2 ABG HCO3 ABG O2 Saturation ABG Base Excess ABG Hemoglobin ABG Oxyhemoglobin ABG Chloride ABG Glucose VBG pH Carboxyhemoglobin Sodium Potassium Carbon Dioxide BUN Creatinine Glucose POC Glucose Lactic Acid 10.00 H* Calcium Magnesium Ferritin AST Lactate Dehydrogenase Total Creatine Kinase C-Reactive Protein Total Protein Albumin Arterial Blood Glucose Arterial Blood Ionized Calcium Urine WBC (Auto) U Epithel Cells (Auto) Urine Creatinine 09/16/20 09/16/20 09/16/20 10:37 10:37 10:53 WBC Hgb Hct MCV MCH MCHC Plt Count Lymph % (Auto) Lymph # (Auto) Seg Neutrophils % Seg Neuts % (Manual) Lymphocytes % (Manual) Nucleated RBC % Seg Neutrophils # Seg Neutrophils # Man Lymphocytes # (Manual) PT INR APTT D-Dimer Heparin Anti-Xa Level ABG pH POC ABG pCO2 POC ABG pO2 ABG pO2 ABG HCO3 ABG O2 Saturation ABG Base Excess ABG Hemoglobin ABG Oxyhemoglobin ABG Chloride ABG Glucose VBG pH 7.138 L* Carboxyhemoglobin Sodium Potassium Carbon Dioxide 16 L BUN 25 H Creatinine 1.5 H Glucose 243 H POC Glucose Lactic Acid Calcium Magnesium 2.50 H Ferritin AST 54 H Lactate Dehydrogenase Total Creatine Kinase C-Reactive Protein Total Protein 6.1 L Albumin 3.2 L Arterial Blood Glucose Arterial Blood Ionized Calcium Urine WBC (Auto) 67.0 H U Epithel Cells (Auto) 27.0 H Urine Creatinine 09/16/20 09/16/20 09/16/20 16:00 20:12 20:49 WBC Hgb Hct MCV MCH MCHC Plt Count Lymph % (Auto) Lymph # (Auto) Seg Neutrophils % Seg Neuts % (Manual) Lymphocytes % (Manual) Nucleated RBC % Seg Neutrophils # Seg Neutrophils # Man Lymphocytes # (Manual) PT INR APTT D-Dimer Heparin Anti-Xa Level ABG pH POC ABG pCO2 31.0 L POC ABG pO2 427.0 H ABG pO2 ABG HCO3 ABG O2 Saturation ABG Base Excess ABG Hemoglobin ABG Oxyhemoglobin ABG Chloride 109.0 H ABG Glucose 169 H VBG pH Carboxyhemoglobin Sodium Potassium Carbon Dioxide BUN Creatinine Glucose POC Glucose 136 H Lactic Acid Calcium Magnesium Ferritin AST Lactate Dehydrogenase Total Creatine Kinase C-Reactive Protein 2.80 H Total Protein Albumin Arterial Blood Glucose 169 H Arterial Blood Ionized Calcium 4.5 L Urine WBC (Auto) U Epithel Cells (Auto) Urine Creatinine 09/16/20 09/17/20 09/17/20 20:49 00:44 00:57 WBC Hgb Hct MCV MCH MCHC Plt Count Lymph % (Auto) Lymph # (Auto) Seg Neutrophils % Seg Neuts % (Manual) Lymphocytes % (Manual) Nucleated RBC % Seg Neutrophils # Seg Neutrophils # Man Lymphocytes # (Manual) PT 18.2 H INR 1.51 H APTT 44.0 H D-Dimer Heparin Anti-Xa Level ABG pH POC ABG pCO2 POC ABG pO2 ABG pO2 ABG HCO3 ABG O2 Saturation ABG Base Excess ABG Hemoglobin ABG Oxyhemoglobin ABG Chloride ABG Glucose VBG pH Carboxyhemoglobin Sodium Potassium Carbon Dioxide BUN Creatinine Glucose POC Glucose 153 H Lactic Acid Calcium Magnesium Ferritin AST Lactate Dehydrogenase Total Creatine Kinase C-Reactive Protein Total Protein Albumin Arterial Blood Glucose Arterial Blood Ionized Calcium Urine WBC (Auto) U Epithel Cells (Auto) Urine Creatinine 181.1 H 09/17/20 09/17/20 09/17/20 03:05 04:16 04:16 WBC 20.1 H Hgb Hct MCV 83 L MCH 27 L MCHC Plt Count Lymph % (Auto) Lymph # (Auto) Seg Neutrophils % Seg Neuts % (Manual) 91.0 H Lymphocytes % (Manual) 6.0 L Nucleated RBC % Seg Neutrophils # Seg Neutrophils # Man 18.3 H Lymphocytes # (Manual) PT INR APTT D-Dimer Heparin Anti-Xa Level 1.26 H ABG pH POC ABG pCO2 POC ABG pO2 ABG pO2 237.5 H ABG HCO3 17.4 L ABG O2 Saturation 99.4 H ABG Base Excess -6.6 L ABG Hemoglobin 12.2 L ABG Oxyhemoglobin ABG Chloride ABG Glucose VBG pH Carboxyhemoglobin Sodium Potassium Carbon Dioxide BUN Creatinine Glucose POC Glucose Lactic Acid Calcium Magnesium Ferritin AST Lactate Dehydrogenase Total Creatine Kinase C-Reactive Protein Total Protein Albumin Arterial Blood Glucose Arterial Blood Ionized Calcium Urine WBC (Auto) U Epithel Cells (Auto) Urine Creatinine 09/17/20 09/17/20 09/17/20 04:16 04:16 06:31 WBC Hgb Hct MCV MCH MCHC Plt Count Lymph % (Auto) Lymph # (Auto) Seg Neutrophils % Seg Neuts % (Manual) Lymphocytes % (Manual) Nucleated RBC % Seg Neutrophils # Seg Neutrophils # Man Lymphocytes # (Manual) PT INR APTT D-Dimer Heparin Anti-Xa Level ABG pH POC ABG pCO2 POC ABG pO2 ABG pO2 ABG HCO3 ABG O2 Saturation ABG Base Excess ABG Hemoglobin ABG Oxyhemoglobin ABG Chloride ABG Glucose VBG pH Carboxyhemoglobin Sodium Potassium Carbon Dioxide 18 L BUN 34 H Creatinine 1.5 H Glucose 171 H POC Glucose 136 H Lactic Acid 3.60 H* Calcium Magnesium Ferritin AST Lactate Dehydrogenase Total Creatine Kinase C-Reactive Protein Total Protein Albumin Arterial Blood Glucose Arterial Blood Ionized Calcium Urine WBC (Auto) U Epithel Cells (Auto) Urine Creatinine 09/17/20 09/17/20 09/17/20 11:37 11:37 11:37 WBC Hgb Hct MCV MCH MCHC Plt Count Lymph % (Auto) Lymph # (Auto) Seg Neutrophils % Seg Neuts % (Manual) Lymphocytes % (Manual) Nucleated RBC % Seg Neutrophils # Seg Neutrophils # Man Lymphocytes # (Manual) PT 18.0 H INR 1.49 H APTT D-Dimer > 96396 H Heparin Anti-Xa Level 0.25 L ABG pH POC ABG pCO2 POC ABG pO2 ABG pO2 ABG HCO3 ABG O2 Saturation ABG Base Excess ABG Hemoglobin ABG Oxyhemoglobin ABG Chloride ABG Glucose VBG pH Carboxyhemoglobin Sodium Potassium Carbon Dioxide BUN Creatinine Glucose POC Glucose Lactic Acid 2.80 H* Calcium Magnesium Ferritin AST Lactate Dehydrogenase Total Creatine Kinase C-Reactive Protein Total Protein Albumin Arterial Blood Glucose Arterial Blood Ionized Calcium Urine WBC (Auto) U Epithel Cells (Auto) Urine Creatinine 09/17/20 09/17/20 09/17/20 15:58 15:58 15:58 WBC Hgb Hct MCV MCH MCHC Plt Count Lymph % (Auto) Lymph # (Auto) Seg Neutrophils % Seg Neuts % (Manual) Lymphocytes % (Manual) Nucleated RBC % Seg Neutrophils # Seg Neutrophils # Man Lymphocytes # (Manual) PT INR APTT D-Dimer Heparin Anti-Xa Level ABG pH POC ABG pCO2 POC ABG pO2 ABG pO2 ABG HCO3 ABG O2 Saturation ABG Base Excess ABG Hemoglobin ABG Oxyhemoglobin ABG Chloride ABG Glucose VBG pH Carboxyhemoglobin Sodium Potassium Carbon Dioxide BUN Creatinine Glucose POC Glucose Lactic Acid 3.90 H* Calcium Magnesium Ferritin 1306.0 H AST Lactate Dehydrogenase 515 H Total Creatine Kinase C-Reactive Protein 24.30 H Total Protein Albumin Arterial Blood Glucose Arterial Blood Ionized Calcium Urine WBC (Auto) U Epithel Cells (Auto) Urine Creatinine 09/17/20 09/18/20 09/18/20 20:35 03:04 03:35 WBC Hgb Hct MCV MCH MCHC Plt Count Lymph % (Auto) Lymph # (Auto) Seg Neutrophils % Seg Neuts % (Manual) Lymphocytes % (Manual) Nucleated RBC % Seg Neutrophils # Seg Neutrophils # Man Lymphocytes # (Manual) PT INR APTT D-Dimer Heparin Anti-Xa Level ABG pH POC ABG pCO2 POC ABG pO2 ABG pO2 198.7 H ABG HCO3 18.9 L ABG O2 Saturation 99.3 H ABG Base Excess -4.3 L ABG Hemoglobin 10.8 L ABG Oxyhemoglobin ABG Chloride ABG Glucose VBG pH Carboxyhemoglobin Sodium Potassium Carbon Dioxide BUN Creatinine Glucose POC Glucose 111 H 129 H Lactic Acid Calcium Magnesium Ferritin AST Lactate Dehydrogenase Total Creatine Kinase C-Reactive Protein Total Protein Albumin Arterial Blood Glucose Arterial Blood Ionized Calcium Urine WBC (Auto) U Epithel Cells (Auto) Urine Creatinine 09/18/20 09/18/20 09/18/20 04:19 04:19 06:34 WBC 21.8 H Hgb 11.4 L Hct 35.2 L MCV 82 L MCH 26 L MCHC Plt Count Lymph % (Auto) 2.4 L Lymph # (Auto) 0.5 L Seg Neutrophils % 94.6 H Seg Neuts % (Manual) Lymphocytes % (Manual) Nucleated RBC % Seg Neutrophils # 20.6 H Seg Neutrophils # Man Lymphocytes # (Manual) PT INR APTT D-Dimer Heparin Anti-Xa Level ABG pH POC ABG pCO2 POC ABG pO2 ABG pO2 ABG HCO3 ABG O2 Saturation ABG Base Excess ABG Hemoglobin ABG Oxyhemoglobin ABG Chloride ABG Glucose VBG pH Carboxyhemoglobin Sodium Potassium 5.6 H Carbon Dioxide 20 L BUN 50 H Creatinine 2.4 H D Glucose 155 H POC Glucose 132 H Lactic Acid Calcium Magnesium Ferritin AST Lactate Dehydrogenase Total Creatine Kinase C-Reactive Protein Total Protein Albumin Arterial Blood Glucose Arterial Blood Ionized Calcium Urine WBC (Auto) U Epithel Cells (Auto) Urine Creatinine 09/19/20 09/19/20 09/19/20 04:00 05:02 05:02 WBC 20.5 H Hgb 10.0 L Hct 30.8 L MCV 82 L MCH 27 L MCHC Plt Count 130 L Lymph % (Auto) Lymph # (Auto) Seg Neutrophils % Seg Neuts % (Manual) 97.0 H Lymphocytes % (Manual) Nucleated RBC % 1.0 H Seg Neutrophils # Seg Neutrophils # Man 19.9 H Lymphocytes # (Manual) 0.0 L PT INR APTT D-Dimer Heparin Anti-Xa Level ABG pH 7.503 H POC ABG pCO2 POC ABG pO2 ABG pO2 159.2 H ABG HCO3 ABG O2 Saturation 99.1 H ABG Base Excess ABG Hemoglobin 10.3 L ABG Oxyhemoglobin ABG Chloride ABG Glucose VBG pH Carboxyhemoglobin Sodium Potassium Carbon Dioxide BUN 74 H Creatinine 3.5 H Glucose 168 H POC Glucose Lactic Acid Calcium Magnesium Ferritin AST Lactate Dehydrogenase Total Creatine Kinase C-Reactive Protein Total Protein Albumin Arterial Blood Glucose Arterial Blood Ionized Calcium Urine WBC (Auto) U Epithel Cells (Auto) Urine Creatinine 09/19/20 09/19/20 09/19/20 09:11 11:58 18:58 WBC Hgb Hct MCV MCH MCHC Plt Count Lymph % (Auto) Lymph # (Auto) Seg Neutrophils % Seg Neuts % (Manual) Lymphocytes % (Manual) Nucleated RBC % Seg Neutrophils # Seg Neutrophils # Man Lymphocytes # (Manual) PT INR APTT D-Dimer Heparin Anti-Xa Level ABG pH POC ABG pCO2 POC ABG pO2 ABG pO2 ABG HCO3 ABG O2 Saturation ABG Base Excess ABG Hemoglobin ABG Oxyhemoglobin ABG Chloride ABG Glucose VBG pH Carboxyhemoglobin Sodium Potassium Carbon Dioxide BUN Creatinine Glucose POC Glucose 143 H 155 H 153 H Lactic Acid Calcium Magnesium Ferritin AST Lactate Dehydrogenase Total Creatine Kinase C-Reactive Protein Total Protein Albumin Arterial Blood Glucose Arterial Blood Ionized Calcium Urine WBC (Auto) U Epithel Cells (Auto) Urine Creatinine 09/20/20 09/20/20 09/20/20 04:49 04:49 05:15 WBC Hgb 9.4 L Hct 29.2 L MCV MCH MCHC Plt Count 127 L Lymph % (Auto) Lymph # (Auto) Seg Neutrophils % Seg Neuts % (Manual) Lymphocytes % (Manual) Nucleated RBC % Seg Neutrophils # Seg Neutrophils # Man Lymphocytes # (Manual) PT INR APTT D-Dimer Heparin Anti-Xa Level ABG pH 7.628 H POC ABG pCO2 24.6 L POC ABG pO2 153.3 H ABG pO2 ABG HCO3 ABG O2 Saturation ABG Base Excess ABG Hemoglobin 10.7 L ABG Oxyhemoglobin 98.7 H ABG Chloride 97.0 L ABG Glucose 162 H VBG pH Carboxyhemoglobin 0.3 L Sodium 146 H Potassium Carbon Dioxide 35 H D BUN 94 H Creatinine 3.7 H Glucose 157 H POC Glucose Lactic Acid Calcium 8.3 L Magnesium Ferritin AST Lactate Dehydrogenase Total Creatine Kinase 1932 H C-Reactive Protein Total Protein Albumin Arterial Blood Glucose 162 H Arterial Blood Ionized Calcium 4.0 L Urine WBC (Auto) U Epithel Cells (Auto) Urine Creatinine 09/20/20 09/21/20 09/21/20 08:14 01:46 04:41 WBC Hgb Hct MCV MCH MCHC Plt Count Lymph % (Auto) Lymph # (Auto) Seg Neutrophils % Seg Neuts % (Manual) Lymphocytes % (Manual) Nucleated RBC % Seg Neutrophils # Seg Neutrophils # Man Lymphocytes # (Manual) PT INR APTT D-Dimer Heparin Anti-Xa Level ABG pH POC ABG pCO2 POC ABG pO2 ABG pO2 ABG HCO3 ABG O2 Saturation ABG Base Excess ABG Hemoglobin ABG Oxyhemoglobin ABG Chloride ABG Glucose VBG pH Carboxyhemoglobin Sodium 146 H Potassium 3.4 L Carbon Dioxide 32 H BUN 99 H Creatinine 2.9 H Glucose 201 H POC Glucose 160 H 181 H Lactic Acid Calcium Magnesium Ferritin AST Lactate Dehydrogenase Total Creatine Kinase C-Reactive Protein Total Protein Albumin Arterial Blood Glucose Arterial Blood Ionized Calcium Urine WBC (Auto) U Epithel Cells (Auto) Urine Creatinine 09/21/20 09/21/20 09/21/20 05:51 06:24 15:34 WBC Hgb Hct MCV MCH MCHC Plt Count Lymph % (Auto) Lymph # (Auto) Seg Neutrophils % Seg Neuts % (Manual) Lymphocytes % (Manual) Nucleated RBC % Seg Neutrophils # Seg Neutrophils # Man Lymphocytes # (Manual) PT INR APTT D-Dimer Heparin Anti-Xa Level ABG pH 7.545 H POC ABG pCO2 POC ABG pO2 ABG pO2 129.0 H ABG HCO3 30.0 H ABG O2 Saturation ABG Base Excess 7.3 H ABG Hemoglobin 11.7 L ABG Oxyhemoglobin ABG Chloride ABG Glucose VBG pH Carboxyhemoglobin Sodium Potassium Carbon Dioxide BUN Creatinine Glucose POC Glucose 176 H 189 H Lactic Acid Calcium Magnesium Ferritin AST Lactate Dehydrogenase Total Creatine Kinase C-Reactive Protein Total Protein Albumin Arterial Blood Glucose Arterial Blood Ionized Calcium Urine WBC (Auto) U Epithel Cells (Auto) Urine Creatinine 09/21/20 09/21/20 09/22/20 19:32 23:31 04:32 WBC Hgb Hct MCV MCH MCHC Plt Count Lymph % (Auto) Lymph # (Auto) Seg Neutrophils % Seg Neuts % (Manual) Lymphocytes % (Manual) Nucleated RBC % Seg Neutrophils # Seg Neutrophils # Man Lymphocytes # (Manual) PT INR APTT D-Dimer Heparin Anti-Xa Level ABG pH 7.545 H POC ABG pCO2 POC ABG pO2 ABG pO2 153.8 H ABG HCO3 28.2 H ABG O2 Saturation ABG Base Excess 5.6 H ABG Hemoglobin 9.4 L ABG Oxyhemoglobin ABG Chloride ABG Glucose VBG pH Carboxyhemoglobin Sodium Potassium Carbon Dioxide BUN Creatinine Glucose POC Glucose 194 H 174 H Lactic Acid Calcium Magnesium Ferritin AST Lactate Dehydrogenase Total Creatine Kinase C-Reactive Protein Total Protein Albumin Arterial Blood Glucose Arterial Blood Ionized Calcium Urine WBC (Auto) U Epithel Cells (Auto) Urine Creatinine 09/22/20 09/22/20 09/22/20 05:18 05:18 06:11 WBC Hgb 9.7 L Hct 30.3 L MCV MCH MCHC Plt Count 122 L Lymph % (Auto) Lymph # (Auto) Seg Neutrophils % Seg Neuts % (Manual) Lymphocytes % (Manual) Nucleated RBC % Seg Neutrophils # Seg Neutrophils # Man Lymphocytes # (Manual) PT INR APTT D-Dimer Heparin Anti-Xa Level ABG pH POC ABG pCO2 POC ABG pO2 ABG pO2 ABG HCO3 ABG O2 Saturation ABG Base Excess ABG Hemoglobin ABG Oxyhemoglobin ABG Chloride ABG Glucose VBG pH Carboxyhemoglobin Sodium 147 H Potassium 3.0 L Carbon Dioxide BUN 101 H Creatinine 2.3 H Glucose 217 H POC Glucose 179 H Lactic Acid Calcium Magnesium Ferritin AST Lactate Dehydrogenase Total Creatine Kinase 1202 H C-Reactive Protein Total Protein Albumin Arterial Blood Glucose Arterial Blood Ionized Calcium Urine WBC (Auto) U Epithel Cells (Auto) Urine Creatinine 09/22/20 09/22/20 09/23/20 13:51 18:35 05:29 WBC Hgb Hct MCV MCH MCHC Plt Count Lymph % (Auto) Lymph # (Auto) Seg Neutrophils % Seg Neuts % (Manual) Lymphocytes % (Manual) Nucleated RBC % Seg Neutrophils # Seg Neutrophils # Man Lymphocytes # (Manual) PT INR APTT D-Dimer Heparin Anti-Xa Level ABG pH POC ABG pCO2 POC ABG pO2 ABG pO2 ABG HCO3 ABG O2 Saturation ABG Base Excess ABG Hemoglobin ABG Oxyhemoglobin ABG Chloride ABG Glucose VBG pH Carboxyhemoglobin Sodium Potassium Carbon Dioxide BUN Creatinine Glucose POC Glucose 175 H 191 H 142 H Lactic Acid Calcium Magnesium Ferritin AST Lactate Dehydrogenase Total Creatine Kinase C-Reactive Protein Total Protein Albumin Arterial Blood Glucose Arterial Blood Ionized Calcium Urine WBC (Auto) U Epithel Cells (Auto) Urine Creatinine 09/23/20 09/23/20 09/23/20 06:39 12:07 Unknown WBC 23.3 H Hgb 9.8 L Hct 30.7 L MCV 83 L MCH 27 L MCHC Plt Count 132 L Lymph % (Auto) Lymph # (Auto) Seg Neutrophils % Seg Neuts % (Manual) 92.0 H Lymphocytes % (Manual) 5.0 L Nucleated RBC % 1.0 H Seg Neutrophils # Seg Neutrophils # Man 21.4 H Lymphocytes # (Manual) PT INR APTT D-Dimer Heparin Anti-Xa Level ABG pH POC ABG pCO2 POC ABG pO2 ABG pO2 ABG HCO3 ABG O2 Saturation ABG Base Excess ABG Hemoglobin ABG Oxyhemoglobin ABG Chloride ABG Glucose VBG pH Carboxyhemoglobin Sodium 151 H Potassium Carbon Dioxide 35 H BUN 99 H Creatinine 2.1 H Glucose 159 H POC Glucose 200 H Lactic Acid Calcium Magnesium Ferritin AST Lactate Dehydrogenase Total Creatine Kinase C-Reactive Protein Total Protein Albumin Arterial Blood Glucose Arterial Blood Ionized Calcium Urine WBC (Auto) U Epithel Cells (Auto) Urine Creatinine 09/23/20 Unknown WBC Hgb Hct MCV MCH MCHC Plt Count Lymph % (Auto) Lymph # (Auto) Seg Neutrophils % Seg Neuts % (Manual) Lymphocytes % (Manual) Nucleated RBC % Seg Neutrophils # Seg Neutrophils # Man Lymphocytes # (Manual) PT 15.1 H INR 1.21 H APTT D-Dimer Heparin Anti-Xa Level ABG pH POC ABG pCO2 POC ABG pO2 ABG pO2 ABG HCO3 ABG O2 Saturation ABG Base Excess ABG Hemoglobin ABG Oxyhemoglobin ABG Chloride ABG Glucose VBG pH Carboxyhemoglobin Sodium Potassium Carbon Dioxide BUN Creatinine Glucose POC Glucose Lactic Acid Calcium Magnesium Ferritin AST Lactate Dehydrogenase Total Creatine Kinase C-Reactive Protein Total Protein Albumin Arterial Blood Glucose Arterial Blood Ionized Calcium Urine WBC (Auto) U Epithel Cells (Auto) Urine Creatinine Allied health notes reviewed: nursing
[2020-09-23] MEDS: HEPARIN/ 0.45% NACL DRIP 25,000 UNIT/500 ML BAG IV SCH (16:57)
[2020-09-23 17:15] LABS: Hematocrit 29.2 % (35.5-45.6); Hemoglobin 9.3 gm/dl (11.8-15.2)
--- NOTE | 2020-09-23 23:54 | Progress Note ---
Assessment and Plan The high probability of a clinically significant, sudden or life threatening deterioration of the [hemodynamic, neurologic, cardiac, respiratory] system(s) required my full and direct attention, intervention and personal management. The aggregate critical care time was [32] minutes. This time is in addition to time spent performing reported procedures but includes the following: [x] Data Review and interpretation [x] Patient assessment and monitoring of vital signs [x] Documentation [x] Medication orders and management Acute hypoxic respiratory failure. Etiology is unknown at this time. Chest x- ray shows no acute disease. Nephrology consultation Unable to wean Toxic metabolic encephalopathy. CT scan with extensive microvascular angiopathy. Continue IV antibiotics Multifocal bilateral pulmonary emboli. D-dimer > 10,000. Continue anticoagulation per pulmonary. Acute kidney injury. Etiology secondary to sepsis/ATN +/- vasomotor nephropathy/dehydration. Aggressive IV fluid hydration. Lactic acidosis. As above. DVT prophylaxis--- patient is anticoagulated and GI prophylaxis Subjective Date of service: 09/23/20 Principal diagnosis: Ac hypoxemic resp failure; Cardiac arrest; Acute P.E.; Severe sepsis; COVID Interval history: Cardiopulmonary arrest. Patient reportedly with [id number] cardiopulmonary arrest. Unsure of the patient's total time without a pulse. Cardiology and pulmonary consultation pending. Follow-up echocardiogram, cardiac isoenzymes and serial EKG. CT scan of the head pending. Check MRI and EEG when patient stabilized. D-dimer significantly elevated greater than 10,000. Check CTA of the chest. Lactic acid also elevated at 10 which increases mortality significantly. Severe sepsis with septic shock. Present on admission. Patient presented with fever, tachycardia, hypotension, elevated lactate, pressors and gram negative dinora bacteremia. 09/17/2020. Lactic acid improved. Follow-up blood and urine cultures. Start Rocephin IV daily. ID consultation. 09/18/2020. Urine culture reveals gram-negative rods. Await final identification and sensitivities. Await blood cultures. Continue IV antibiotics. ID consulted. Covid testing found to be negative. Check EEG given cardiopulmonary arrest. Neurology consultation with Dr. Esparza in a.m. No neurology coverage today. MRI brain with patient medically stable. Continue anticoagulation for pulmonary embolus. Await renal ultrasound. 09/19/2020. Patient with severe sepsis secondary to complicated UTI/gram- negative bacilli bacteremia. Follow-up identification and sensitivities. ID following. Antibiotics adjusted to cefepime. Renal ultrasound did not reveal obstructing stone. Small right kidney without hydronephrosis or medical renal disease. Complex right renal cyst. Nonvisualization of left kidney sonographically but CTA showed simple cyst appearing lesion in the left kidney without hydronephrosis. Check EEG and MRI given cardiopulmonary arrest. Neurology consultation. 09/20/2020 Patient with severe sepsis and gram-negative bacteremia Patient on cefepime neurology consult requested 09/21/2020 Patient with sepsis Possible anoxic encephalopathy Patient on IV antibiotics 09/22/2020 Patient septic and on antibiotics Anoxic encephalopathy Continue IV antibiotics Poor prognosis 09/23/2020 Unable to wean Patient is septic Anoxic encephalopathy Continue IV antibiotics Objective - Constitutional Vitals: Vital Signs - 12hr 09/23/20 09/23/20 09/23/20 12:00 13:00 13:05 Temperature 97.6 F Pulse Rate 77 71 Pulse Rate [ From Monitor] Pulse Rate [ 77 75 Radial] Respiratory 15 20 Rate Blood Pressure 125/65 113/63 114/68 O2 Sat by Pulse 100 100 100 Oximetry 09/23/20 09/23/20 09/23/20 14:00 15:00 15:21 Temperature Pulse Rate 67 Pulse Rate [ From Monitor] Pulse Rate [ 73 68 Radial] Respiratory 18 18 Rate Blood Pressure 132/63 116/66 124/66 O2 Sat by Pulse 100 100 100 Oximetry 09/23/20 09/23/20 09/23/20 16:00 17:00 20:00 Temperature 98.3 F 97.9 F Pulse Rate 68 Pulse Rate [ 67 From Monitor] Pulse Rate [ 70 66 Radial] Respiratory 18 17 18 Rate Blood Pressure 110/62 111/64 O2 Sat by Pulse 100 100 100 Oximetry 09/23/20 20:34 Temperature Pulse Rate 72 Pulse Rate [ From Monitor] Pulse Rate [ Radial] Respiratory Rate Blood Pressure 120/67 O2 Sat by Pulse 100 Oximetry General appearance: Present: no acute distress, well-nourished - EENT Eyes: PERRL, EOM intact ENT: hearing intact, clear oral mucosa Ears: bilateral: normal - Neck Neck: supple, normal ROM - Respiratory Respiratory effort: normal Respiratory: bilateral: CTA - Breasts Breasts: normal - Cardiovascular Rhythm: regular Heart Sounds: Present: S1 & S2. Absent: gallop, rub Extremities: pulses intact, No edema, normal color, Full ROM - Gastrointestinal General gastrointestinal: Present: soft, non-tender, non-distended, normal bowel sounds - Genitourinary Male genitourinary: normal - Integumentary Integumentary: clear, warm, dry - Musculoskeletal Musculoskeletal: 1, strength equal bilaterally - Neurologic Neurologic: moves all extremities - Psychiatric Psychiatric: memory intact, appropriate mood/affect, intact judgment & insight - Labs CBC & Chem 7: 09/26/20 17:06 09/26/20 05:55 Labs: Abnormal lab results 09/23/20 09/23/20 09/23/20 Range/Units 05:29 06:39 12:07 WBC (4.5-11.0) K/mm3 Hgb (11.8-15.2) gm/dl Hct (35.5-45.6) % MCV (84-94) fl MCH (28-32) pg Plt Count (140-440) K/mm3 Seg Neuts % (Manual) (40.0-70.0) % Lymphocytes % (Manual) (13.4-35.0) % Nucleated RBC % (0.0-0.9) % Seg Neutrophils # Man (1.8-7.7) K/mm3 PT (12.2-14.9) Sec. INR (0.87-1.13) Sodium 151 H (137-145) mmol/L Carbon Dioxide 35 H (22-30) mmol/L BUN 99 H (9-20) mg/dL Creatinine 2.1 H (0.8-1.3) mg/dL Glucose 159 H (75-100) mg/dL POC Glucose 142 H 200 H (70-105) mg/dL 09/23/20 09/23/20 09/23/20 Range/Units 16:30 16:31 23:37 WBC (4.5-11.0) K/mm3 Hgb 9.3 L (11.8-15.2) gm/dl Hct 29.2 L (35.5-45.6) % MCV (84-94) fl MCH (28-32) pg Plt Count (140-440) K/mm3 Seg Neuts % (Manual) (40.0-70.0) % Lymphocytes % (Manual) (13.4-35.0) % Nucleated RBC % (0.0-0.9) % Seg Neutrophils # Man (1.8-7.7) K/mm3 PT (12.2-14.9) Sec. INR (0.87-1.13) Sodium (137-145) mmol/L Carbon Dioxide (22-30) mmol/L BUN (9-20) mg/dL Creatinine (0.8-1.3) mg/dL Glucose (75-100) mg/dL POC Glucose 185 H 169 H (70-105) mg/dL 09/23/20 09/23/20 Range/Units Unknown Unknown WBC 23.3 H (4.5-11.0) K/mm3 Hgb 9.8 L (11.8-15.2) gm/dl Hct 30.7 L (35.5-45.6) % MCV 83 L (84-94) fl MCH 27 L (28-32) pg Plt Count 132 L (140-440) K/mm3 Seg Neuts % (Manual) 92.0 H (40.0-70.0) % Lymphocytes % (Manual) 5.0 L (13.4-35.0) % Nucleated RBC % 1.0 H (0.0-0.9) % Seg Neutrophils # Man 21.4 H (1.8-7.7) K/mm3 PT 15.1 H (12.2-14.9) Sec. INR 1.21 H (0.87-1.13) Sodium (137-145) mmol/L Carbon Dioxide (22-30) mmol/L BUN (9-20) mg/dL Creatinine (0.8-1.3) mg/dL Glucose (75-100) mg/dL POC Glucose (70-105) mg/dL
[2020-09-24] MEDS: INSULIN REGULAR, HUMAN 100 UNIT/ML 3ML VIAL SUB-Q SCH ×4 (00:05→18:56)
[2020-09-24 01:07] LABS: Hematocrit 27.7 % (35.5-45.6); Hemoglobin 8.8 gm/dl (11.8-15.2)
[2020-09-24 04:53] LABS: ABG HCO3 27.7 mmol/L (20.0-26.0); ABG Methemoglobin 0.5 % (0.0-1.5); ABG Oxygen Saturation 99.2 % (95.0-99.0); ABG PCO2 29.5 mm Hg; ABG PH 7.591 pH Units (7.350-7.450); ABG PO2 170.3 mm Hg (80.0-90.0)
[2020-09-24 05:23] LABS: Hematocrit 29.3 % (35.5-45.6); Hemoglobin 9.2 gm/dl (11.8-15.2)
[2020-09-24] MEDS: methylPREDNISolone Sod Succinate 40 MG/1 ML INJ IV SCH ×3 (05:26→21:27)
[2020-09-24] MEDS: POTASSIUM CHLORIDE 20 MEQ in DEXTROSE 5% IN WATER 1,000 ML IV SCH (08:31)
[2020-09-24] MEDS: MEROPENEM/NS 1 GRAM/100 ML 1 GRAM/100 ML BAG IV SCH ×2 (09:36→21:27)
[2020-09-24] MEDS: LANSOPRAZOLE 30 MG SOLUTAB FEEDTUBE SCH ×2 (09:36→21:27)
--- NOTE | 2020-09-24 14:44 | Progress Note ---
Assessment and Plan Acute hypoxemic respiratory failure, on mechanical ventilatory support. Cardiac arrest with return of spontaneous circulation Acute pulmonary emboli. Person under investigation for COVID-19 infection. CHF (EF 40%) History of dementia. Urinary tract infection. Anemia that is normocytic. Elevated serum D-dimers. Lactic acidosis. Severe sepsis - bolus 500 mls IVNS then run at 100/hr X 15 hours - complete current D5W bag re: hypernatremia then stop - repeat H&H in am - continue IV heparin, no bolus - follow stool guaiac - continue double dose PPI therapy - neurology evaluation ongoing; prognosis for neurologic recovery remains poor and family conference is appropriate re: goals of care - continue care as below otherwise; - continue to wean supplemental oxygen for target O2 sat's > 92% acutely - VAP bundle addressed - continue lung protective strategies - continue bronchodilators with pulmonary hygiene per RT - wean per pulmonary driven protocols otherwise - continue Daily SAT and SBT assessment as tolerated - continue accuchecks with glycemic control per SSI (While critically ill target blood glucose of 140-180 mg/dL; avoid hypoglycemia) - sedation prn for target RASS 0 to -1 - anti-infective's per ID recommendations - coronavirus PCR negative - Azotemia per nephrology team - avoid nephrotoxins, renally dose all medications - continue to avoid benzodiazepine's, reduce the possibility of delirium - completed AB's per ID rec's - prn analgesia per CPOT score - Maintenance of sleep-wake cycle, avoid delirium - continue enteral nutritional support at goal rate as tolerated - G.I. & VTE prophylaxis - PT/OT/ROM exercises - continue mobility protocols for pressure ulcer prophylaxis - Monitor hemodynamics closely - continue other care per attending / other consultants - discharge planning ongoing concurrently .... Re-evaluate in am & prn CONDITION: CRITICAL PROGNOSIS: GUARDED CODE STATUS: FULL CODE The high probability of a clinically significant, sudden or life-threatening deterioration of the [respiratory, cardiovascular, hematologic & neurologic] system(s) required my full and direct attention, intervention and personal management. The aggregate critical care time was [32] minutes without overlap. Time includes spent on; [x] Data Review and interpretation [x] Patient assessment and monitoring of vital signs [x] Documentation [x] Medication orders and management Subjective Date of service: 09/24/20 Principal diagnosis: Ac hypoxemic resp failure; Cardiac arrest; Acute P.E.; Severe sepsis; COVID Interval history: Patient is seen today for: Ac hypoxemic resp failure; Cardiac arrest with ROSC; Acute pulmonary emboli; Severe sepsis; PUI COVID-19; UTI Seen and examined at bedside; 24hour events reviewed; nursing and respiratory care staff consulted; no adverse overnight events reported to me; resting peacefully in bed; remains on MVS; tolerating IV Heparin without gross bleeding; H&H holding; tolerated a few hours on SBT but AMS is persistent; also hypotensive now Objective Vital Signs - 12hr 09/24/20 09/24/20 09/24/20 03:49 04:00 05:05 Temperature 97.3 F L Pulse Rate 77 Pulse Rate [ 66 From Monitor] Respiratory 18 Rate Respiratory Rate [Bilateral Knee] Blood Pressure 143/87 O2 Sat by Pulse 100 100 Oximetry 09/24/20 09/24/20 09/24/20 08:00 10:00 11:31 Temperature 97.7 F Pulse Rate 89 74 Pulse Rate [ 77 90 From Monitor] Respiratory 19 19 24 Rate Respiratory 18 Rate [Bilateral Knee] Blood Pressure 130/81 104/74 O2 Sat by Pulse 100 99 100 Oximetry 09/24/20 12:17 Temperature Pulse Rate 92 H Pulse Rate [ From Monitor] Respiratory 24 Rate Respiratory Rate [Bilateral Knee] Blood Pressure 92/66 O2 Sat by Pulse 99 Oximetry Constitutional: appears uncomfortable, other (elderly thin male with mildly in creased respiratory effort at rest on MVS) Eyes: non-icteric ENT: oropharynx moist, other (ETT 24 cm CAROL) Neck: supple, no lymphadenopathy, no JVD Effort: mildly labored Ascultation: Bilateral: diminished breath sounds, rhonchi Percussion: Bilateral: not dull Cardiovascular: regular rate and rhythm Gastrointestinal: normoactive bowel sounds, soft, non-tender, non-distended Integumentary: normal Extremities: no cyanosis, no edema, pulses normal, no ischemia or petechiae Neurologic: pupils equal and round, unable to assess Psychiatric: other (unable to assess re: AMS) CBC and BMP: 09/24/20 04:29 09/24/20 04:29 ABG, PT/INR, D-dimer: ABG ABG pH 7.591 pH Units (7.350-7.450) H 09/24/20 04:20 POC ABG pCO2 24.6 mmHg (32.0-48.0) L 09/20/20 05:15 ABG pCO2 29.5 mm Hg 09/24/20 04:20 POC ABG pO2 153.3 mmHg (83-108) H 09/20/20 05:15 ABG pO2 170.3 mm Hg (80.0-90.0) H 09/24/20 04:20 POC ABG HCO3 25.2 09/20/20 05:15 ABG O2 Saturation 99.2 % (95.0-99.0) H 09/24/20 04:20 PT/INR, D-dimer PT 15.1 Sec. (12.2-14.9) H 09/23/20 Unknown INR 1.21 (0.87-1.13) H 09/23/20 Unknown D-Dimer > 65766 ng/mlDDU (0-234) H 09/17/20 11:37 Abnormal lab findings: Abnormal Labs 09/16/20 09/16/20 09/16/20 10:37 10:37 10:37 WBC Hgb 11.2 L Hct MCV MCH 27 L MCHC 31 L Plt Count Lymph % (Auto) Lymph # (Auto) Seg Neutrophils % 71.0 H Seg Neuts % (Manual) Lymphocytes % (Manual) Nucleated RBC % Seg Neutrophils # Seg Neutrophils # Man Lymphocytes # (Manual) PT 18.6 H INR 1.55 H APTT 43.4 H D-Dimer > 44415 H Heparin Anti-Xa Level ABG pH POC ABG pCO2 POC ABG pO2 ABG pO2 ABG HCO3 ABG O2 Saturation ABG Base Excess ABG Hemoglobin ABG Oxyhemoglobin ABG Chloride ABG Glucose VBG pH Carboxyhemoglobin Sodium Potassium Carbon Dioxide BUN Creatinine Glucose POC Glucose Lactic Acid 10.00 H* Calcium Magnesium Ferritin AST Lactate Dehydrogenase Total Creatine Kinase C-Reactive Protein Total Protein Albumin Arterial Blood Glucose Arterial Blood Ionized Calcium Urine WBC (Auto) U Epithel Cells (Auto) Urine Creatinine 09/16/20 09/16/20 09/16/20 10:37 10:37 10:53 WBC Hgb Hct MCV MCH MCHC Plt Count Lymph % (Auto) Lymph # (Auto) Seg Neutrophils % Seg Neuts % (Manual) Lymphocytes % (Manual) Nucleated RBC % Seg Neutrophils # Seg Neutrophils # Man Lymphocytes # (Manual) PT INR APTT D-Dimer Heparin Anti-Xa Level ABG pH POC ABG pCO2 POC ABG pO2 ABG pO2 ABG HCO3 ABG O2 Saturation ABG Base Excess ABG Hemoglobin ABG Oxyhemoglobin ABG Chloride ABG Glucose VBG pH 7.138 L* Carboxyhemoglobin Sodium Potassium Carbon Dioxide 16 L BUN 25 H Creatinine 1.5 H Glucose 243 H POC Glucose Lactic Acid Calcium Magnesium 2.50 H Ferritin AST 54 H Lactate Dehydrogenase Total Creatine Kinase C-Reactive Protein Total Protein 6.1 L Albumin 3.2 L Arterial Blood Glucose Arterial Blood Ionized Calcium Urine WBC (Auto) 67.0 H U Epithel Cells (Auto) 27.0 H Urine Creatinine 09/16/20 09/16/20 09/16/20 16:00 20:12 20:49 WBC Hgb Hct MCV MCH MCHC Plt Count Lymph % (Auto) Lymph # (Auto) Seg Neutrophils % Seg Neuts % (Manual) Lymphocytes % (Manual) Nucleated RBC % Seg Neutrophils # Seg Neutrophils # Man Lymphocytes # (Manual) PT INR APTT D-Dimer Heparin Anti-Xa Level ABG pH POC ABG pCO2 31.0 L POC ABG pO2 427.0 H ABG pO2 ABG HCO3 ABG O2 Saturation ABG Base Excess ABG Hemoglobin ABG Oxyhemoglobin ABG Chloride 109.0 H ABG Glucose 169 H VBG pH Carboxyhemoglobin Sodium Potassium Carbon Dioxide BUN Creatinine Glucose POC Glucose 136 H Lactic Acid Calcium Magnesium Ferritin AST Lactate Dehydrogenase Total Creatine Kinase C-Reactive Protein 2.80 H Total Protein Albumin Arterial Blood Glucose 169 H Arterial Blood Ionized Calcium 4.5 L Urine WBC (Auto) U Epithel Cells (Auto) Urine Creatinine 09/16/20 09/17/20 09/17/20 20:49 00:44 00:57 WBC Hgb Hct MCV MCH MCHC Plt Count Lymph % (Auto) Lymph # (Auto) Seg Neutrophils % Seg Neuts % (Manual) Lymphocytes % (Manual) Nucleated RBC % Seg Neutrophils # Seg Neutrophils # Man Lymphocytes # (Manual) PT 18.2 H INR 1.51 H APTT 44.0 H D-Dimer Heparin Anti-Xa Level ABG pH POC ABG pCO2 POC ABG pO2 ABG pO2 ABG HCO3 ABG O2 Saturation ABG Base Excess ABG Hemoglobin ABG Oxyhemoglobin ABG Chloride ABG Glucose VBG pH Carboxyhemoglobin Sodium Potassium Carbon Dioxide BUN Creatinine Glucose POC Glucose 153 H Lactic Acid Calcium Magnesium Ferritin AST Lactate Dehydrogenase Total Creatine Kinase C-Reactive Protein Total Protein Albumin Arterial Blood Glucose Arterial Blood Ionized Calcium Urine WBC (Auto) U Epithel Cells (Auto) Urine Creatinine 181.1 H 09/17/20 09/17/20 09/17/20 03:05 04:16 04:16 WBC 20.1 H Hgb Hct MCV 83 L MCH 27 L MCHC Plt Count Lymph % (Auto) Lymph # (Auto) Seg Neutrophils % Seg Neuts % (Manual) 91.0 H Lymphocytes % (Manual) 6.0 L Nucleated RBC % Seg Neutrophils # Seg Neutrophils # Man 18.3 H Lymphocytes # (Manual) PT INR APTT D-Dimer Heparin Anti-Xa Level 1.26 H ABG pH POC ABG pCO2 POC ABG pO2 ABG pO2 237.5 H ABG HCO3 17.4 L ABG O2 Saturation 99.4 H ABG Base Excess -6.6 L ABG Hemoglobin 12.2 L ABG Oxyhemoglobin ABG Chloride ABG Glucose VBG pH Carboxyhemoglobin Sodium Potassium Carbon Dioxide BUN Creatinine Glucose POC Glucose Lactic Acid Calcium Magnesium Ferritin AST Lactate Dehydrogenase Total Creatine Kinase C-Reactive Protein Total Protein Albumin Arterial Blood Glucose Arterial Blood Ionized Calcium Urine WBC (Auto) U Epithel Cells (Auto) Urine Creatinine 09/17/20 09/17/20 09/17/20 04:16 04:16 06:31 WBC Hgb Hct MCV MCH MCHC Plt Count Lymph % (Auto) Lymph # (Auto) Seg Neutrophils % Seg Neuts % (Manual) Lymphocytes % (Manual) Nucleated RBC % Seg Neutrophils # Seg Neutrophils # Man Lymphocytes # (Manual) PT INR APTT D-Dimer Heparin Anti-Xa Level ABG pH POC ABG pCO2 POC ABG pO2 ABG pO2 ABG HCO3 ABG O2 Saturation ABG Base Excess ABG Hemoglobin ABG Oxyhemoglobin ABG Chloride ABG Glucose VBG pH Carboxyhemoglobin Sodium Potassium Carbon Dioxide 18 L BUN 34 H Creatinine 1.5 H Glucose 171 H POC Glucose 136 H Lactic Acid 3.60 H* Calcium Magnesium Ferritin AST Lactate Dehydrogenase Total Creatine Kinase C-Reactive Protein Total Protein Albumin Arterial Blood Glucose Arterial Blood Ionized Calcium Urine WBC (Auto) U Epithel Cells (Auto) Urine Creatinine 09/17/20 09/17/20 09/17/20 11:37 11:37 11:37 WBC Hgb Hct MCV MCH MCHC Plt Count Lymph % (Auto) Lymph # (Auto) Seg Neutrophils % Seg Neuts % (Manual) Lymphocytes % (Manual) Nucleated RBC % Seg Neutrophils # Seg Neutrophils # Man Lymphocytes # (Manual) PT 18.0 H INR 1.49 H APTT D-Dimer > 76730 H Heparin Anti-Xa Level 0.25 L ABG pH POC ABG pCO2 POC ABG pO2 ABG pO2 ABG HCO3 ABG O2 Saturation ABG Base Excess ABG Hemoglobin ABG Oxyhemoglobin ABG Chloride ABG Glucose VBG pH Carboxyhemoglobin Sodium Potassium Carbon Dioxide BUN Creatinine Glucose POC Glucose Lactic Acid 2.80 H* Calcium Magnesium Ferritin AST Lactate Dehydrogenase Total Creatine Kinase C-Reactive Protein Total Protein Albumin Arterial Blood Glucose Arterial Blood Ionized Calcium Urine WBC (Auto) U Epithel Cells (Auto) Urine Creatinine 09/17/20 09/17/20 09/17/20 15:58 15:58 15:58 WBC Hgb Hct MCV MCH MCHC Plt Count Lymph % (Auto) Lymph # (Auto) Seg Neutrophils % Seg Neuts % (Manual) Lymphocytes % (Manual) Nucleated RBC % Seg Neutrophils # Seg Neutrophils # Man Lymphocytes # (Manual) PT INR APTT D-Dimer Heparin Anti-Xa Level ABG pH POC ABG pCO2 POC ABG pO2 ABG pO2 ABG HCO3 ABG O2 Saturation ABG Base Excess ABG Hemoglobin ABG Oxyhemoglobin ABG Chloride ABG Glucose VBG pH Carboxyhemoglobin Sodium Potassium Carbon Dioxide BUN Creatinine Glucose POC Glucose Lactic Acid 3.90 H* Calcium Magnesium Ferritin 1306.0 H AST Lactate Dehydrogenase 515 H Total Creatine Kinase C-Reactive Protein 24.30 H Total Protein Albumin Arterial Blood Glucose Arterial Blood Ionized Calcium Urine WBC (Auto) U Epithel Cells (Auto) Urine Creatinine 09/17/20 09/18/20 09/18/20 20:35 03:04 03:35 WBC Hgb Hct MCV MCH MCHC Plt Count Lymph % (Auto) Lymph # (Auto) Seg Neutrophils % Seg Neuts % (Manual) Lymphocytes % (Manual) Nucleated RBC % Seg Neutrophils # Seg Neutrophils # Man Lymphocytes # (Manual) PT INR APTT D-Dimer Heparin Anti-Xa Level ABG pH POC ABG pCO2 POC ABG pO2 ABG pO2 198.7 H ABG HCO3 18.9 L ABG O2 Saturation 99.3 H ABG Base Excess -4.3 L ABG Hemoglobin 10.8 L ABG Oxyhemoglobin ABG Chloride ABG Glucose VBG pH Carboxyhemoglobin Sodium Potassium Carbon Dioxide BUN Creatinine Glucose POC Glucose 111 H 129 H Lactic Acid Calcium Magnesium Ferritin AST Lactate Dehydrogenase Total Creatine Kinase C-Reactive Protein Total Protein Albumin Arterial Blood Glucose Arterial Blood Ionized Calcium Urine WBC (Auto) U Epithel Cells (Auto) Urine Creatinine 09/18/20 09/18/20 09/18/20 04:19 04:19 06:34 WBC 21.8 H Hgb 11.4 L Hct 35.2 L MCV 82 L MCH 26 L MCHC Plt Count Lymph % (Auto) 2.4 L Lymph # (Auto) 0.5 L Seg Neutrophils % 94.6 H Seg Neuts % (Manual) Lymphocytes % (Manual) Nucleated RBC % Seg Neutrophils # 20.6 H Seg Neutrophils # Man Lymphocytes # (Manual) PT INR APTT D-Dimer Heparin Anti-Xa Level ABG pH POC ABG pCO2 POC ABG pO2 ABG pO2 ABG HCO3 ABG O2 Saturation ABG Base Excess ABG Hemoglobin ABG Oxyhemoglobin ABG Chloride ABG Glucose VBG pH Carboxyhemoglobin Sodium Potassium 5.6 H Carbon Dioxide 20 L BUN 50 H Creatinine 2.4 H D Glucose 155 H POC Glucose 132 H Lactic Acid Calcium Magnesium Ferritin AST Lactate Dehydrogenase Total Creatine Kinase C-Reactive Protein Total Protein Albumin Arterial Blood Glucose Arterial Blood Ionized Calcium Urine WBC (Auto) U Epithel Cells (Auto) Urine Creatinine 09/19/20 09/19/20 09/19/20 04:00 05:02 05:02 WBC 20.5 H Hgb 10.0 L Hct 30.8 L MCV 82 L MCH 27 L MCHC Plt Count 130 L Lymph % (Auto) Lymph # (Auto) Seg Neutrophils % Seg Neuts % (Manual) 97.0 H Lymphocytes % (Manual) Nucleated RBC % 1.0 H Seg Neutrophils # Seg Neutrophils # Man 19.9 H Lymphocytes # (Manual) 0.0 L PT INR APTT D-Dimer Heparin Anti-Xa Level ABG pH 7.503 H POC ABG pCO2 POC ABG pO2 ABG pO2 159.2 H ABG HCO3 ABG O2 Saturation 99.1 H ABG Base Excess ABG Hemoglobin 10.3 L ABG Oxyhemoglobin ABG Chloride ABG Glucose VBG pH Carboxyhemoglobin Sodium Potassium Carbon Dioxide BUN 74 H Creatinine 3.5 H Glucose 168 H POC Glucose Lactic Acid Calcium Magnesium Ferritin AST Lactate Dehydrogenase Total Creatine Kinase C-Reactive Protein Total Protein Albumin Arterial Blood Glucose Arterial Blood Ionized Calcium Urine WBC (Auto) U Epithel Cells (Auto) Urine Creatinine 09/19/20 09/19/20 09/19/20 09:11 11:58 18:58 WBC Hgb Hct MCV MCH MCHC Plt Count Lymph % (Auto) Lymph # (Auto) Seg Neutrophils % Seg Neuts % (Manual) Lymphocytes % (Manual) Nucleated RBC % Seg Neutrophils # Seg Neutrophils # Man Lymphocytes # (Manual) PT INR APTT D-Dimer Heparin Anti-Xa Level ABG pH POC ABG pCO2 POC ABG pO2 ABG pO2 ABG HCO3 ABG O2 Saturation ABG Base Excess ABG Hemoglobin ABG Oxyhemoglobin ABG Chloride ABG Glucose VBG pH Carboxyhemoglobin Sodium Potassium Carbon Dioxide BUN Creatinine Glucose POC Glucose 143 H 155 H 153 H Lactic Acid Calcium Magnesium Ferritin AST Lactate Dehydrogenase Total Creatine Kinase C-Reactive Protein Total Protein Albumin Arterial Blood Glucose Arterial Blood Ionized Calcium Urine WBC (Auto) U Epithel Cells (Auto) Urine Creatinine 09/20/20 09/20/20 09/20/20 04:49 04:49 05:15 WBC Hgb 9.4 L Hct 29.2 L MCV MCH MCHC Plt Count 127 L Lymph % (Auto) Lymph # (Auto) Seg Neutrophils % Seg Neuts % (Manual) Lymphocytes % (Manual) Nucleated RBC % Seg Neutrophils # Seg Neutrophils # Man Lymphocytes # (Manual) PT INR APTT D-Dimer Heparin Anti-Xa Level ABG pH 7.628 H POC ABG pCO2 24.6 L POC ABG pO2 153.3 H ABG pO2 ABG HCO3 ABG O2 Saturation ABG Base Excess ABG Hemoglobin 10.7 L ABG Oxyhemoglobin 98.7 H ABG Chloride 97.0 L ABG Glucose 162 H VBG pH Carboxyhemoglobin 0.3 L Sodium 146 H Potassium Carbon Dioxide 35 H D BUN 94 H Creatinine 3.7 H Glucose 157 H POC Glucose Lactic Acid Calcium 8.3 L Magnesium Ferritin AST Lactate Dehydrogenase Total Creatine Kinase 1932 H C-Reactive Protein Total Protein Albumin Arterial Blood Glucose 162 H Arterial Blood Ionized Calcium 4.0 L Urine WBC (Auto) U Epithel Cells (Auto) Urine Creatinine 09/20/20 09/21/20 09/21/20 08:14 01:46 04:41 WBC Hgb Hct MCV MCH MCHC Plt Count Lymph % (Auto) Lymph # (Auto) Seg Neutrophils % Seg Neuts % (Manual) Lymphocytes % (Manual) Nucleated RBC % Seg Neutrophils # Seg Neutrophils # Man Lymphocytes # (Manual) PT INR APTT D-Dimer Heparin Anti-Xa Level ABG pH POC ABG pCO2 POC ABG pO2 ABG pO2 ABG HCO3 ABG O2 Saturation ABG Base Excess ABG Hemoglobin ABG Oxyhemoglobin ABG Chloride ABG Glucose VBG pH Carboxyhemoglobin Sodium 146 H Potassium 3.4 L Carbon Dioxide 32 H BUN 99 H Creatinine 2.9 H Glucose 201 H POC Glucose 160 H 181 H Lactic Acid Calcium Magnesium Ferritin AST Lactate Dehydrogenase Total Creatine Kinase C-Reactive Protein Total Protein Albumin Arterial Blood Glucose Arterial Blood Ionized Calcium Urine WBC (Auto) U Epithel Cells (Auto) Urine Creatinine 09/21/20 09/21/20 09/21/20 05:51 06:24 15:34 WBC Hgb Hct MCV MCH MCHC Plt Count Lymph % (Auto) Lymph # (Auto) Seg Neutrophils % Seg Neuts % (Manual) Lymphocytes % (Manual) Nucleated RBC % Seg Neutrophils # Seg Neutrophils # Man Lymphocytes # (Manual) PT INR APTT D-Dimer Heparin Anti-Xa Level ABG pH 7.545 H POC ABG pCO2 POC ABG pO2 ABG pO2 129.0 H ABG HCO3 30.0 H ABG O2 Saturation ABG Base Excess 7.3 H ABG Hemoglobin 11.7 L ABG Oxyhemoglobin ABG Chloride ABG Glucose VBG pH Carboxyhemoglobin Sodium Potassium Carbon Dioxide BUN Creatinine Glucose POC Glucose 176 H 189 H Lactic Acid Calcium Magnesium Ferritin AST Lactate Dehydrogenase Total Creatine Kinase C-Reactive Protein Total Protein Albumin Arterial Blood Glucose Arterial Blood Ionized Calcium Urine WBC (Auto) U Epithel Cells (Auto) Urine Creatinine 09/21/20 09/21/20 09/22/20 19:32 23:31 04:32 WBC Hgb Hct MCV MCH MCHC Plt Count Lymph % (Auto) Lymph # (Auto) Seg Neutrophils % Seg Neuts % (Manual) Lymphocytes % (Manual) Nucleated RBC % Seg Neutrophils # Seg Neutrophils # Man Lymphocytes # (Manual) PT INR APTT D-Dimer Heparin Anti-Xa Level ABG pH 7.545 H POC ABG pCO2 POC ABG pO2 ABG pO2 153.8 H ABG HCO3 28.2 H ABG O2 Saturation ABG Base Excess 5.6 H ABG Hemoglobin 9.4 L ABG Oxyhemoglobin ABG Chloride ABG Glucose VBG pH Carboxyhemoglobin Sodium Potassium Carbon Dioxide BUN Creatinine Glucose POC Glucose 194 H 174 H Lactic Acid Calcium Magnesium Ferritin AST Lactate Dehydrogenase Total Creatine Kinase C-Reactive Protein Total Protein Albumin Arterial Blood Glucose Arterial Blood Ionized Calcium Urine WBC (Auto) U Epithel Cells (Auto) Urine Creatinine 09/22/20 09/22/20 09/22/20 05:18 05:18 06:11 WBC Hgb 9.7 L Hct 30.3 L MCV MCH MCHC Plt Count 122 L Lymph % (Auto) Lymph # (Auto) Seg Neutrophils % Seg Neuts % (Manual) Lymphocytes % (Manual) Nucleated RBC % Seg Neutrophils # Seg Neutrophils # Man Lymphocytes # (Manual) PT INR APTT D-Dimer Heparin Anti-Xa Level ABG pH POC ABG pCO2 POC ABG pO2 ABG pO2 ABG HCO3 ABG O2 Saturation ABG Base Excess ABG Hemoglobin ABG Oxyhemoglobin ABG Chloride ABG Glucose VBG pH Carboxyhemoglobin Sodium 147 H Potassium 3.0 L Carbon Dioxide BUN 101 H Creatinine 2.3 H Glucose 217 H POC Glucose 179 H Lactic Acid Calcium Magnesium Ferritin AST Lactate Dehydrogenase Total Creatine Kinase 1202 H C-Reactive Protein Total Protein Albumin Arterial Blood Glucose Arterial Blood Ionized Calcium Urine WBC (Auto) U Epithel Cells (Auto) Urine Creatinine 09/22/20 09/22/20 09/23/20 13:51 18:35 05:29 WBC Hgb Hct MCV MCH MCHC Plt Count Lymph % (Auto) Lymph # (Auto) Seg Neutrophils % Seg Neuts % (Manual) Lymphocytes % (Manual) Nucleated RBC % Seg Neutrophils # Seg Neutrophils # Man Lymphocytes # (Manual) PT INR APTT D-Dimer Heparin Anti-Xa Level ABG pH POC ABG pCO2 POC ABG pO2 ABG pO2 ABG HCO3 ABG O2 Saturation ABG Base Excess ABG Hemoglobin ABG Oxyhemoglobin ABG Chloride ABG Glucose VBG pH Carboxyhemoglobin Sodium Potassium Carbon Dioxide BUN Creatinine Glucose POC Glucose 175 H 191 H 142 H Lactic Acid Calcium Magnesium Ferritin AST Lactate Dehydrogenase Total Creatine Kinase C-Reactive Protein Total Protein Albumin Arterial Blood Glucose Arterial Blood Ionized Calcium Urine WBC (Auto) U Epithel Cells (Auto) Urine Creatinine 09/23/20 09/23/20 09/23/20 06:39 12:07 16:30 WBC Hgb 9.3 L Hct 29.2 L MCV MCH MCHC Plt Count Lymph % (Auto) Lymph # (Auto) Seg Neutrophils % Seg Neuts % (Manual) Lymphocytes % (Manual) Nucleated RBC % Seg Neutrophils # Seg Neutrophils # Man Lymphocytes # (Manual) PT INR APTT D-Dimer Heparin Anti-Xa Level ABG pH POC ABG pCO2 POC ABG pO2 ABG pO2 ABG HCO3 ABG O2 Saturation ABG Base Excess ABG Hemoglobin ABG Oxyhemoglobin ABG Chloride ABG Glucose VBG pH Carboxyhemoglobin Sodium 151 H Potassium Carbon Dioxide 35 H BUN 99 H Creatinine 2.1 H Glucose 159 H POC Glucose 200 H Lactic Acid Calcium Magnesium Ferritin AST Lactate Dehydrogenase Total Creatine Kinase C-Reactive Protein Total Protein Albumin Arterial Blood Glucose Arterial Blood Ionized Calcium Urine WBC (Auto) U Epithel Cells (Auto) Urine Creatinine 09/23/20 09/23/20 09/23/20 16:31 23:37 Unknown WBC 23.3 H Hgb 9.8 L Hct 30.7 L MCV 83 L MCH 27 L MCHC Plt Count 132 L Lymph % (Auto) Lymph # (Auto) Seg Neutrophils % Seg Neuts % (Manual) 92.0 H Lymphocytes % (Manual) 5.0 L Nucleated RBC % 1.0 H Seg Neutrophils # Seg Neutrophils # Man 21.4 H Lymphocytes # (Manual) PT INR APTT D-Dimer Heparin Anti-Xa Level ABG pH POC ABG pCO2 POC ABG pO2 ABG pO2 ABG HCO3 ABG O2 Saturation ABG Base Excess ABG Hemoglobin ABG Oxyhemoglobin ABG Chloride ABG Glucose VBG pH Carboxyhemoglobin Sodium Potassium Carbon Dioxide BUN Creatinine Glucose POC Glucose 185 H 169 H Lactic Acid Calcium Magnesium Ferritin AST Lactate Dehydrogenase Total Creatine Kinase C-Reactive Protein Total Protein Albumin Arterial Blood Glucose Arterial Blood Ionized Calcium Urine WBC (Auto) U Epithel Cells (Auto) Urine Creatinine 09/23/20 09/24/20 09/24/20 Unknown 00:39 00:39 WBC Hgb 8.8 L Hct 27.7 L MCV MCH MCHC Plt Count Lymph % (Auto) Lymph # (Auto) Seg Neutrophils % Seg Neuts % (Manual) Lymphocytes % (Manual) Nucleated RBC % Seg Neutrophils # Seg Neutrophils # Man Lymphocytes # (Manual) PT 15.1 H INR 1.21 H APTT D-Dimer Heparin Anti-Xa Level 1.25 H ABG pH POC ABG pCO2 POC ABG pO2 ABG pO2 ABG HCO3 ABG O2 Saturation ABG Base Excess ABG Hemoglobin ABG Oxyhemoglobin ABG Chloride ABG Glucose VBG pH Carboxyhemoglobin Sodium Potassium Carbon Dioxide BUN Creatinine Glucose POC Glucose Lactic Acid Calcium Magnesium Ferritin AST Lactate Dehydrogenase Total Creatine Kinase C-Reactive Protein Total Protein Albumin Arterial Blood Glucose Arterial Blood Ionized Calcium Urine WBC (Auto) U Epithel Cells (Auto) Urine Creatinine 09/24/20 09/24/20 09/24/20 04:20 04:29 04:29 WBC Hgb 9.2 L Hct 29.3 L MCV MCH MCHC Plt Count 128 L Lymph % (Auto) Lymph # (Auto) Seg Neutrophils % Seg Neuts % (Manual) Lymphocytes % (Manual) Nucleated RBC % Seg Neutrophils # Seg Neutrophils # Man Lymphocytes # (Manual) PT INR APTT D-Dimer Heparin Anti-Xa Level ABG pH 7.591 H POC ABG pCO2 POC ABG pO2 ABG pO2 170.3 H ABG HCO3 27.7 H ABG O2 Saturation 99.2 H ABG Base Excess 6.0 H ABG Hemoglobin 9.1 L ABG Oxyhemoglobin ABG Chloride ABG Glucose VBG pH Carboxyhemoglobin Sodium 146 H Potassium Carbon Dioxide BUN 96 H Creatinine 1.8 H Glucose 262 H POC Glucose Lactic Acid Calcium Magnesium Ferritin AST Lactate Dehydrogenase Total Creatine Kinase 517 H C-Reactive Protein Total Protein Albumin Arterial Blood Glucose Arterial Blood Ionized Calcium Urine WBC (Auto) U Epithel Cells (Auto) Urine Creatinine 09/24/20 09/24/20 09/24/20 05:10 11:31 12:59 WBC Hgb Hct MCV MCH MCHC Plt Count Lymph % (Auto) Lymph # (Auto) Seg Neutrophils % Seg Neuts % (Manual) Lymphocytes % (Manual) Nucleated RBC % Seg Neutrophils # Seg Neutrophils # Man Lymphocytes # (Manual) PT INR APTT D-Dimer Heparin Anti-Xa Level 1.67 H ABG pH POC ABG pCO2 POC ABG pO2 ABG pO2 ABG HCO3 ABG O2 Saturation ABG Base Excess ABG Hemoglobin ABG Oxyhemoglobin ABG Chloride ABG Glucose VBG pH Carboxyhemoglobin Sodium Potassium Carbon Dioxide BUN Creatinine Glucose POC Glucose 212 H 325 H Lactic Acid Calcium Magnesium Ferritin AST Lactate Dehydrogenase Total Creatine Kinase C-Reactive Protein Total Protein Albumin Arterial Blood Glucose Arterial Blood Ionized Calcium Urine WBC (Auto) U Epithel Cells (Auto) Urine Creatinine Allied health notes reviewed: nursing
[2020-09-24] MEDS: SODIUM CHLORIDE 0.9% 1000 ML 1,000 ML IV SCH ×2 (15:20→21:27)
--- NOTE | 2020-09-24 15:49 | Progress Note ---
Assessment and Plan 1. Acute kidney injury: Vasomotor nephropathy in the setting of Cardiac arrest + contrast induced nephropathy. Renal US negative for hydro. Monitor renal function. Creatinine level 1.8 from 2.1 from 2.3 from 2.9 from 3.7 from 3.5 from 2.4 from 1.5. Renal prognosis is guarded. Avoid nephrotoxic agents. Meds dosage based on GFR. Monitor for CLIENT OPERATIONS MANAGER needs. 2. FEN: Hypernatremia, on IV D5W, monitor. Hypokalemia, improved, monitor. Metabolic alkalosis, monitor. Monitor lytes and volume status. 3. Out of hospital Cardiac arrest 09/16: Seen by Cards. 4. Acute resp failure: Currently intubated on vent. Followed by Pulmonary. 5. Septic Shock: Off pressors. ESBL E.coli bacteremia, likely from UTI. Meropenem. Followed by ID. 6. PE: CTA showed multiple filling defects involving L LL and R UL. Heparin drip. 7. Anemia, POA: Monitor. 8. Acute Metabolic Encephalopathy, POA: Supportive care. Prognosis is guarded. Subjective: The patient was not examined today. However the examination findings from other providers noted. The current and previous medical records are reviewed in detail as are laboratory and imaging data reviewed when appropriate. Medications being given are also reviewed. In addition the case has been discussed with the attending hospitalist and the nurse when needed. New renal recommendations as above. Examination: Subjective Date of service: 09/24/20 Principal diagnosis: Ac hypoxemic resp failure; Cardiac arrest; Acute P.E.; Severe sepsis; COVID Objective - Vital Signs Vital signs: Vital Signs - 12hr 09/24/20 09/24/20 09/24/20 04:00 05:05 07:00 Temperature Pulse Rate 77 Pulse Rate [ 66 From Monitor] Pulse Rate [ 73 Radial] Respiratory 18 19 Rate Respiratory Rate [Bilateral Knee] Blood Pressure 143/87 123/77 O2 Sat by Pulse 100 100 100 Oximetry 09/24/20 09/24/20 09/24/20 08:00 09:00 10:00 Temperature 97.7 F Pulse Rate 89 74 Pulse Rate [ 77 From Monitor] Pulse Rate [ 85 100 H 87 Radial] Respiratory 18 18 19 Rate Respiratory 18 Rate [Bilateral Knee] Blood Pressure 135/86 130/85 127/90 O2 Sat by Pulse 100 99 97 Oximetry 0109/24/20 09/24/20 11:00 11:31 12:00 Temperature Pulse Rate Pulse Rate [ 90 From Monitor] Pulse Rate [ 90 89 Radial] Respiratory 26 H 24 26 H Rate Respiratory Rate [Bilateral Knee] Blood Pressure 110/73 101/72 O2 Sat by Pulse 98 100 99 Oximetry 09/24/20 09/24/20 09/24/20 12:17 13:00 14:00 Temperature Pulse Rate 92 H Pulse Rate [ From Monitor] Pulse Rate [ 91 H 86 Radial] Respiratory 24 25 H 24 Rate Respiratory Rate [Bilateral Knee] Blood Pressure 92/66 99/63 90/54 O2 Sat by Pulse 99 98 99 Oximetry 09/24/20 15:18 Temperature Pulse Rate 93 H Pulse Rate [ From Monitor] Pulse Rate [ Radial] Respiratory Rate Respiratory Rate [Bilateral Knee] Blood Pressure 81/56 O2 Sat by Pulse 100 Oximetry - Lab 09/25/20 20:38 09/25/20 20:38 Most recent lab results ABG pH 7.591 pH Units (7.350-7.450) H 09/24/20 04:20 ABG pCO2 29.5 mm Hg 09/24/20 04:20 ABG pO2 170.3 mm Hg (80.0-90.0) H 09/24/20 04:20 ABG HCO3 27.7 mmol/L (20.0-26.0) H 09/24/20 04:20 ABG O2 Saturation 99.2 % (95.0-99.0) H 09/24/20 04:20 Calcium 9.0 mg/dL (8.4-10.2) 09/24/20 04:29 Phosphorus 3.40 mg/dL (2.5-4.5) 09/24/20 04:29 Magnesium 2.50 mg/dL (1.7-2.3) H 09/16/20 10:37 Urine Creatinine 181.1 mg/dL (0.1-20.0) H 09/17/20 00:57 Urine Sodium 78 mmol/L 09/17/20 00:57 Medications & Allergies - Medications Allergies/Adverse Reactions: Allergies No Known Allergies Allergy (Unverified 09/16/20 12:52) Home Medications: Home Medications Medication Instructions Recorded Confirmed Last Taken Type No Known Home Medications [No 09/18/20 09/18/20 Unknown History Reported Home Medications] Active Medications: Generic Name Dose Route Start Last Admin Trade Name Freq PRN Reason Stop Dose Admin Lipase/Protease/Amylase 1 each 09/17/20 08:56 Lipase 10,500/Protease 25,000/Amylase 43,750 (Units) Dr Cap FEEDTUBE PRN PRN For Clogged Feeding Tube Dextrose 50 ml 09/16/20 12:19 Dextrose 50% In Water (25gm) 50 Ml Syringe IV Q30MIN PRN Hypoglycemia Protocol Fentanyl 50 mcg 09/16/20 20:12 Fentanyl 100 Mcg/2 Ml Inj IV Q10MIN PRN ANALGESIA Heparin Sodium (Porcine) 2,400 unit 09/16/20 20:12 09/16/20 21:00 Heparin 10,000 Units/10 Ml Vial 40 unit/kg (2400 unit) 2,400 unit IV Administration Q6H PRN Anti-Xa Assay < 0.1 units/ml Hydralazine HCl 10 mg 09/22/20 02:39 09/23/20 09:52 Hydralazine 20 Mg/1 Ml Inj IV 10 mg Q6H PRN Administration Hypertension Hydrophilic Ointment 1 applic 09/16/20 20:12 09/19/20 22:51 Lip Therapy Vaseline TP 1 applic Q2HR PRN Administration Dry Lips Norepinephrine 4 mg in 250 mls @ 7.5 mls/hr 09/16/20 13:15 09/16/20 16:30 Levophed Drip 4 Mg/Ns 250 Ml IV Infused TITR DARA Titration Protocol 2 MCG/MIN Fentanyl Citrate 2,000 mcg in 100 mls @ 3 mls/hr 09/16/20 21:00 09/16/20 21:00 Fentanyl Drip Premix IV 1 mcg/kg/hr TITR DARA 3 mls/hr Administration Protocol 1 MCG/KG/HR Propofol 1,000 mg in 100 mls @ 1.8 mls/hr 09/16/20 21:00 09/16/20 19:55 Diprivan 10 Mg/Ml IV 5 mcg/kg/min TITR DARA 1.8 mls/hr Administration Protocol 5 MCG/KG/MIN Heparin Sodium/Sodium Chloride 25,000 unit in 500 mls @ 18 mls/hr 09/16/20 21:00 09/24/20 14:30 Heparin/ 0.45% Nacl-25,000 Unit/500 Ml IV 700 units/hr TITR DARA 14 mls/hr Titration Protocol 900 UNITS/HR Potassium Chloride 20 meq/ 1,010 mls @ 60 mls/hr 09/23/20 10:15 09/24/20 08:31 Dextrose IV 60 mls/hr DIRECT DARA Administration MEROPENEM/NS 1 GRAM/100 ML 1 gram in 100 mls @ 100 mls/hr 09/24/20 10:00 09/24/20 09:36 Merrem/Ns 1 Gram/100 Ml IV 09/26/20 22:59 100 mls/hr Q12HR DARA Administration Protocol Sodium Chloride 1,000 mls @ 100 mls/hr 09/24/20 14:45 09/24/20 15:20 Nacl 0.9% 1000 Ml IV 09/26/20 00:44 100 mls/hr DIRECT DARA Administration Insulin Human Regular 0 unit 09/16/20 13:00 09/24/20 13:31 Insulin Regular, Human 100 Unit/Ml 3ml Vial SUB-Q 6 unit Q6H DARA Administration Protocol Lansoprazole 30 mg 09/24/20 10:00 09/24/20 09:36 Lansoprazole 30 Mg Solutab FEEDTUBE 30 mg BID DARA Administration Methylprednisolone Sodium Succinate 40 mg 09/16/20 22:00 09/24/20 13:42 Methylprednisolone Sod Succinate 40 Mg/1 Ml Inj IV 40 mg Q8HR DARA Administration Multi-Ingred Cream/Lotion/Oil/Oint 1 applic 09/16/20 20:12 09/19/20 22:51 Mineral Oil/Petrolatum, White Ophth Oint 3.5 Gm OU 1 applic Q4HR PRN Administration Dry Eye(s) Simple Syrup 15 ml 09/17/20 08:56 Simple Syrup 15 Ml FEEDTUBE PRN PRN Hypoglycemia Simple Syrup 30 ml 09/17/20 08:56 Simple Syrup 15 Ml FEEDTUBE PRN PRN Hypoglycemia Sodium Bicarbonate 325 mg 09/17/20 08:56 Sodium Bicarbonate 325 Mg Tab FEEDTUBE PRN PRN For Clogged Feeding Tube Sodium Chloride 10 ml 09/16/20 22:00 09/24/20 09:36 Sodium Chloride 0.9% 10 Ml Flush Syringe IV 10 ml BID DARA Administration Sodium Chloride 10 ml 09/16/20 12:19 Sodium Chloride 0.9% 10 Ml Flush Syringe IV PRN PRN LINE FLUSH
[2020-09-24] MEDS: NORepinephrine/NS 4 MG-250 ML 4 MG/250 ML BAG IV SCH (20:03)
--- NOTE | 2020-09-24 21:43 | Progress Note ---
Assessment and Plan The high probability of a clinically significant, sudden or life threatening deterioration of the [hemodynamic, neurologic, cardiac, respiratory] system(s) required my full and direct attention, intervention and personal management. The aggregate critical care time was [32] minutes. This time is in addition to time spent performing reported procedures but includes the following: [x] Data Review and interpretation [x] Patient assessment and monitoring of vital signs [x] Documentation [x] Medication orders and management Acute hypoxic respiratory failure. Etiology is unknown at this time. Chest x- ray shows no acute disease. Nephrology consultation Toxic metabolic encephalopathy. CT scan with extensive microvascular a ngiopathy. Multifocal bilateral pulmonary emboli. D-dimer > 10,000. Continue anticoagulation per pulmonary. Acute kidney injury. Etiology secondary to sepsis/ATN +/- vasomotor nephropathy/dehydration. Aggressive IV fluid hydration. Lactic acidosis. As above Hyperkalemia--treated. DVT prophylaxis--- patient is anticoagulated and GI prophylaxis Subjective Date of service: 09/24/20 Principal diagnosis: Ac hypoxemic resp failure; Cardiac arrest; Acute P.E.; Severe sepsis; COVID Interval history: Cardiopulmonary arrest. Patient reportedly with [id number] cardiopulmonary arrest. Unsure of the patient's total time without a pulse. Cardiology and pulmonary consultation pending. Follow-up echocardiogram, cardiac isoenzymes and serial EKG. CT scan of the head pending. Check MRI and EEG when patient stabilized. D-dimer significantly elevated greater than 10,000. Check CTA of the chest. Lactic acid also elevated at 10 which increases mortality significantly. Severe sepsis with septic shock. Present on admission. Patient presented with fever, tachycardia, hypotension, elevated lactate, pressors and gram negative dinora bacteremia. 09/17/2020. Lactic acid improved. Follow-up blood and urine cultures. Start Rocephin IV daily. ID consultation. 09/18/2020. Urine culture reveals gram-negative rods. Await final identification and sensitivities. Await blood cultures. Continue IV antibiotics. ID consulted. Covid testing found to be negative. Check EEG given cardiopulmonary arrest. Neurology consultation with Dr. Esparza in a.m. No neurology coverage today. MRI brain with patient medically stable. Continue anticoagulation for pulmonary embolus. Await renal ultrasound. 09/19/2020. Patient with severe sepsis secondary to complicated UTI/gram- negative bacilli bacteremia. Follow-up identification and sensitivities. ID following. Antibiotics adjusted to cefepime. Renal ultrasound did not reveal obstructing stone. Small right kidney without hydronephrosis or medical renal disease. Complex right renal cyst. Nonvisualization of left kidney sonograph ically but CTA showed simple cyst appearing lesion in the left kidney without hydronephrosis. Check EEG and MRI given cardiopulmonary arrest. Neurology consultation. 09/20/2020 Patient with severe sepsis and gram-negative bacteremia Patient on cefepime neurology consult requested 09/21/2020 Patient with sepsis Possible anoxic encephalopathy Patient on IV antibiotics 09/22/2020 Patient septic and on antibiotics Anoxic encephalopathy Continue IV antibiotics Poor prognosis 09/23/2020 Unable to wean Patient is septic Anoxic encephalopathy Continue IV antibiotics 09/24/2020 Patient on IV antibiotics Sepsis Anoxic encephalopathy Objective - Constitutional Vitals: Vital Signs - 12hr 09/24/20 09/24/20 09/24/20 10:00 11:00 11:31 Temperature Pulse Rate 74 Pulse Rate [ 90 From Monitor] Pulse Rate [ 87 90 Radial] Respiratory 19 26 H 24 Rate Respiratory 18 Rate [Bilateral Knee] Blood Pressure 127/90 110/73 O2 Sat by Pulse 97 98 100 Oximetry 09/24/20 09/24/20 09/24/20 12:00 12:17 13:00 Temperature Pulse Rate 92 H Pulse Rate [ From Monitor] Pulse Rate [ 89 91 H Radial] Respiratory 26 H 24 25 H Rate Respiratory Rate [Bilateral Knee] Blood Pressure 101/72 92/66 99/63 O2 Sat by Pulse 99 99 98 Oximetry 09/24/20 09/24/20 09/24/20 14:00 15:00 15:18 Temperature Pulse Rate 93 H Pulse Rate [ From Monitor] Pulse Rate [ 86 88 Radial] Respiratory 24 24 Rate Respiratory Rate [Bilateral Knee] Blood Pressure 90/54 82/53 81/56 O2 Sat by Pulse 99 99 100 Oximetry 09/24/20 09/24/20 09/24/20 16:00 17:00 18:00 Temperature 97.0 F L Pulse Rate Pulse Rate [ 85 From Monitor] Pulse Rate [ 84 89 89 Radial] Respiratory 22 31 H 24 Rate Respiratory Rate [Bilateral Knee] Blood Pressure 104/72 86/58 97/56 O2 Sat by Pulse 98 Oximetry 09/24/20 09/24/20 09/24/20 19:00 20:00 20:33 Temperature 97.2 F L Pulse Rate 87 Pulse Rate [ From Monitor] Pulse Rate [ 86 Radial] Respiratory 21 Rate Respiratory Rate [Bilateral Knee] Blood Pressure 86/53 79/37 O2 Sat by Pulse 95 Oximetry 09/24/20 20:40 Temperature Pulse Rate 82 Pulse Rate [ From Monitor] Pulse Rate [ Radial] Respiratory Rate Respiratory Rate [Bilateral Knee] Blood Pressure O2 Sat by Pulse Oximetry General appearance: Present: no acute distress, well-nourished - EENT Eyes: PERRL, EOM intact ENT: hearing intact, clear oral mucosa Ears: bilateral: normal - Neck Neck: supple, normal ROM - Respiratory Respiratory effort: normal Respiratory: bilateral: CTA - Breasts Breasts: normal - Cardiovascular Heart rate: 78 Rhythm: regular Heart Sounds: Present: S1 & S2. Absent: gallop, rub Extremities: pulses intact, No edema, normal color, Full ROM - Gastrointestinal General gastrointestinal: Present: soft, non-tender, non-distended, normal bowel sounds - Genitourinary Male genitourinary: normal - Integumentary Integumentary: clear, warm, dry - Musculoskeletal Musculoskeletal: strength equal bilaterally - Neurologic Neurologic: other (Patient is sedated) - Psychiatric Psychiatric: appropriate mood/affect, other (Unresponsive) - Labs CBC & Chem 7: 09/26/20 17:06 09/26/20 05:55 Labs: Abnormal lab results 09/23/20 09/24/20 09/24/20 Range/Units 23:37 00:39 00:39 Hgb 8.8 L (11.8-15.2) gm/dl Hct 27.7 L (35.5-45.6) % Plt Count (140-440) K/mm3 Heparin Anti-Xa Level 1.25 H (0.3-0.7) U.I./ml ABG pH (7.350-7.450) pH Units ABG pO2 (80.0-90.0) mm Hg ABG HCO3 (20.0-26.0) mmol/L ABG O2 Saturation (95.0-99.0) % ABG Base Excess (-2.0-3.0) mmol/L ABG Hemoglobin (14.0-18.0) gm/dl Sodium (137-145) mmol/L BUN (9-20) mg/dL Creatinine (0.8-1.3) mg/dL Glucose (75-100) mg/dL POC Glucose 169 H (70-105) mg/dL Total Creatine Kinase (55-170) units/L 09/24/20 09/24/20 09/24/20 Range/Units 04:20 04:29 04:29 Hgb 9.2 L (11.8-15.2) gm/dl Hct 29.3 L (35.5-45.6) % Plt Count 128 L (140-440) K/mm3 Heparin Anti-Xa Level (0.3-0.7) U.I./ml ABG pH 7.591 H (7.350-7.450) pH Units ABG pO2 170.3 H (80.0-90.0) mm Hg ABG HCO3 27.7 H (20.0-26.0) mmol/L ABG O2 Saturation 99.2 H (95.0-99.0) % ABG Base Excess 6.0 H (-2.0-3.0) mmol/L ABG Hemoglobin 9.1 L (14.0-18.0) gm/dl Sodium 146 H (137-145) mmol/L BUN 96 H (9-20) mg/dL Creatinine 1.8 H (0.8-1.3) mg/dL Glucose 262 H (75-100) mg/dL POC Glucose (70-105) mg/dL Total Creatine Kinase 517 H (55-170) units/L 09/24/20 09/24/20 09/24/20 Range/Units 05:10 11:31 12:59 Hgb (11.8-15.2) gm/dl Hct (35.5-45.6) % Plt Count (140-440) K/mm3 Heparin Anti-Xa Level 1.67 H (0.3-0.7) U.I./ml ABG pH (7.350-7.450) pH Units ABG pO2 (80.0-90.0) mm Hg ABG HCO3 (20.0-26.0) mmol/L ABG O2 Saturation (95.0-99.0) % ABG Base Excess (-2.0-3.0) mmol/L ABG Hemoglobin (14.0-18.0) gm/dl Sodium (137-145) mmol/L BUN (9-20) mg/dL Creatinine (0.8-1.3) mg/dL Glucose (75-100) mg/dL POC Glucose 212 H 325 H (70-105) mg/dL Total Creatine Kinase (55-170) units/L 09/24/20 Range/Units 18:09 Hgb (11.8-15.2) gm/dl Hct (35.5-45.6) % Plt Count (140-440) K/mm3 Heparin Anti-Xa Level (0.3-0.7) U.I./ml ABG pH (7.350-7.450) pH Units ABG pO2 (80.0-90.0) mm Hg ABG HCO3 (20.0-26.0) mmol/L ABG O2 Saturation (95.0-99.0) % ABG Base Excess (-2.0-3.0) mmol/L ABG Hemoglobin (14.0-18.0) gm/dl Sodium (137-145) mmol/L BUN (9-20) mg/dL Creatinine (0.8-1.3) mg/dL Glucose (75-100) mg/dL POC Glucose 273 H (70-105) mg/dL Total Creatine Kinase (55-170) units/L
[2020-09-24] MEDS ORDERED: SODIUM BICARB 8.4% 50 MEQ/50 ML SYRINGE IV STA (22:41)
[2020-09-24] MEDS ORDERED: SODIUM BICARB 8.4% 50 MEQ/50 ML SYRINGE IV ONE (22:46)
[2020-09-25] MEDS: INSULIN REGULAR, HUMAN 100 UNIT/ML 3ML VIAL SUB-Q SCH ×4 (00:23→19:07)
[2020-09-25] MEDS ORDERED: SODIUM BICARB 8.4% 50 MEQ/50 ML SYRINGE IV ONE ×3 (00:51→21:30)
[2020-09-25] MEDS: NORepinephrine/NS 4 MG-250 ML 4 MG/250 ML BAG IV SCH ×2 (01:24→04:32)
[2020-09-25] MEDS: HEPARIN/ 0.45% NACL DRIP 25,000 UNIT/500 ML BAG IV SCH (04:17)
[2020-09-25] MEDS ORDERED: SODIUM CHLORIDE 0.9% 500 ML 500 ML IV ONE (04:37)
[2020-09-25] MEDS: VASOPRESSIN 20 UNIT in SODIUM CHLORIDE 0.9% 100 ML IV SCH ×2 (05:04→15:16)
[2020-09-25] MEDS: methylPREDNISolone Sod Succinate 40 MG/1 ML INJ IV SCH ×3 (05:48→21:13)
[2020-09-25 06:50] LABS: Eosinophils # (Auto) 0.1 K/mm3 (0.0-0.4); Eosinophils % (Auto) 0.2 % (0.0-4.3); Monocytes # (Auto) 1.8 K/mm3 (0.0-0.8); Monocytes % (Auto) 3.6 % (0.0-7.3)
[2020-09-25 07:14] LABS: Mean Corpuscular HGB Conc 29 % (32-34); Mean Corpuscular Volume 89 fl (84-94); Platelet Count 121 K/mm3 (140-440); Red Cell Distribution Width 15.4 % (13.2-15.2)
[2020-09-25 07:34] LABS: Anisocytosis Few; Schistocytes Few; Total Cells Counted 100
[2020-09-25 07:35] LABS: Platelet Estimate Consistent w Auto
[2020-09-25] MEDS: NORepinephrine 8 MG in SODIUM CHLORIDE 0.9% 250ML 242 ML IV SCH ×2 (08:00→22:16)
[2020-09-25] MEDS ORDERED: SODIUM CHLORIDE 0.9% 500 ML 500 ML IV SCH (09:47)
[2020-09-25] MEDS: SODIUM BICARBONATE 150 MEQ in DEXTROSE 5% IN WATER 1,000 ML IV SCH ×2 (10:06→22:17)
[2020-09-25] MEDS: LANSOPRAZOLE 30 MG SOLUTAB FEEDTUBE SCH ×2 (10:10→21:14)
[2020-09-25] MEDS: MEROPENEM/NS 1 GRAM/100 ML 1 GRAM/100 ML BAG IV SCH ×2 (10:11→21:14)
[2020-09-25 10:17] LABS: Mean Corpuscular HGB Conc 28 % (32-34); Mean Corpuscular Volume 93 fl (84-94); Platelet Count 121 K/mm3 (140-440); Red Blood Count 1.87 M/mm3 (3.65-5.03); Red Cell Distribution Width 16.4 % (13.2-15.2)
[2020-09-25 10:21] LABS: Hemoglobin 4.9 gm/dl (11.8-15.2)
[2020-09-25 10:22] LABS: Hematocrit 17.4 % (35.5-45.6)
[2020-09-25 10:27] LABS: INR 3.39 (0.87-1.13)
[2020-09-25 10:34] LABS: Calcium 7.7 mg/dL (8.4-10.2)
[2020-09-25] MEDS ORDERED: SODIUM POLYSTYRENE 15 GM/60 ML ORAL LIQD PO ONE ×4 (12:18→22:52)
--- NOTE | 2020-09-25 12:19 | Progress Note ---
Assessment and Plan 1. Acute kidney injury: Vasomotor nephropathy in the setting of Cardiac arrest + contrast induced nephropathy. Renal US negative for hydro. Monitor renal function. Creatinine level 3.5 from 1.8 from 2.1 from 2.3 from 2.9 from 3.7 from 3.5 from 2.4 from 1.5. Renal prognosis is guarded. Avoid nephrotoxic agents. Meds dosage based on GFR. Monitor for PHYSICIAN ANESTHESIOLOGIST needs. 2. FEN: Hypernatremia, monitor. Hyperkalemia, kayexalate ordered, monitor. Metabolic alkalosis, Sodium bicarbonate ordered, monitor. Monitor lytes and volume status. 3. Out of hospital Cardiac arrest 09/16: Seen by Cards. 4. Acute resp failure: Intubated on vent. Followed by Pulmonary. 5. Septic Shock: On Levophed and Vasopressin. Patient is hypotensive since yesterday. ESBL E.coli bacteremia, likely from UTI. Meropenem. Followed by ID. 6. PE: CTA showed multiple filling defects involving L LL and R UL. Heparin drip. 7. Anemia, POA: Monitor. 8. Acute Metabolic Encephalopathy, POA: Supportive care. Prognosis is guarded. Subjective: The patient was not examined today. However the examination findings from other providers noted. The current and previous medical records are reviewed in detail as are laboratory and imaging data reviewed when appropriate. Medications being given are also reviewed. In addition the case has been discussed with the attending hospitalist and the nurse when needed. New renal recommendations as above. Examination: Subjective Date of service: 09/25/20 Principal diagnosis: Ac hypoxemic resp failure; Cardiac arrest; Acute P.E.; Severe sepsis; COVID Objective - Vital Signs Vital signs: Vital Signs - 12hr 09/25/20 09/25/20 09/25/20 03:25 04:00 05:02 Temperature 96.8 F L Pulse Rate 98 H 99 H Respiratory Rate Blood Pressure 110/67 O2 Sat by Pulse 100 Oximetry 09/25/20 09/25/20 09/25/20 08:00 08:15 11:22 Temperature Pulse Rate 91 H 86 89 Respiratory Rate Blood Pressure 98/74 120/37 O2 Sat by Pulse 100 100 Oximetry 09/25/20 09/25/20 11:45 12:00 Temperature 96.5 F L 96.4 F L Pulse Rate 91 H 89 Respiratory 31 H 28 H Rate Blood Pressure 127/58 O2 Sat by Pulse Oximetry - Lab 09/25/20 20:38 09/25/20 20:38 Most recent lab results ABG pH 7.340 (7.320-7.450) 09/25/20 03:50 ABG pCO2 29.5 mm Hg 09/24/20 04:20 ABG pO2 170.3 mm Hg (80.0-90.0) H 09/24/20 04:20 ABG HCO3 27.7 mmol/L (20.0-26.0) H 09/24/20 04:20 ABG O2 Saturation 99.2 % (95.0-99.0) H 09/24/20 04:20 Calcium 7.7 mg/dL (8.4-10.2) L 09/25/20 10:08 Phosphorus 3.40 mg/dL (2.5-4.5) 09/24/20 04:29 Magnesium 2.50 mg/dL (1.7-2.3) H 09/16/20 10:37 Urine Creatinine 181.1 mg/dL (0.1-20.0) H 09/17/20 00:57 Urine Sodium 78 mmol/L 09/17/20 00:57 Medications & Allergies - Medications Allergies/Adverse Reactions: Allergies No Known Allergies Allergy (Unverified 09/16/20 12:52) Home Medications: Home Medications Medication Instructions Recorded Confirmed Last Taken Type No Known Home Medications [No 09/18/20 09/18/20 Unknown History Reported Home Medications] Active Medications: Generic Name Dose Route Start Last Admin Trade Name Freq PRN Reason Stop Dose Admin Lipase/Protease/Amylase 1 each 09/17/20 08:56 Lipase 10,500/Protease 25,000/Amylase 43,750 (Units) Dr Arciniega FEEDTUBE PRN PRN For Clogged Feeding Tube Dextrose 50 ml 09/16/20 12:19 Dextrose 50% In Water (25gm) 50 Ml Syringe IV Q30MIN PRN Hypoglycemia Protocol Fentanyl 50 mcg 09/16/20 20:12 Fentanyl 100 Mcg/2 Ml Inj IV Q10MIN PRN ANALGESIA Heparin Sodium (Porcine) 2,400 unit 09/16/20 20:12 09/16/20 21:00 Heparin 10,000 Units/10 Ml Vial 40 unit/kg (2400 unit) 2,400 unit IV Administration Q6H PRN Anti-Xa Assay < 0.1 units/ml Hydralazine HCl 10 mg 09/22/20 02:39 09/23/20 09:52 Hydralazine 20 Mg/1 Ml Inj IV 10 mg Q6H PRN Administration Hypertension Hydrophilic Ointment 1 applic 09/16/20 20:12 09/19/20 22:51 Lip Therapy Vaseline TP 1 applic Q2HR PRN Administration Dry Lips Fentanyl Citrate 2,000 mcg in 100 mls @ 3 mls/hr 09/16/20 21:00 09/16/20 21:00 Fentanyl Drip Premix IV 1 mcg/kg/hr TITR DARA 3 mls/hr Administration Protocol 1 MCG/KG/HR Propofol 1,000 mg in 100 mls @ 1.8 mls/hr 09/16/20 21:00 09/16/20 19:55 Diprivan 10 Mg/Ml IV 5 mcg/kg/min TITR DARA 1.8 mls/hr Administration Protocol 5 MCG/KG/MIN Heparin Sodium/Sodium Chloride 25,000 unit in 500 mls @ 18 mls/hr 09/16/20 21:00 09/25/20 09:42 Heparin/ 0.45% Nacl-25,000 Unit/500 Ml IV 0 units/hr TITR DARA 0 mls/hr Titration Protocol 900 UNITS/HR MEROPENEM/NS 1 GRAM/100 ML 1 gram in 100 mls @ 100 mls/hr 09/24/20 10:00 09/25/20 10:11 Merrem/Ns 1 Gram/100 Ml IV 09/26/20 22:59 100 mls/hr Q12HR DARA Administration Protocol Sodium Bicarbonate 150 meq/ 1,150 mls @ 100 mls/hr 09/24/20 23:45 09/25/20 10:06 Dextrose IV 09/26/20 11:14 100 mls/hr DIRECT DARA Administration Vasopressin 20 unit/ Sodium 101 mls @ 9.09 mls/hr 09/25/20 05:00 09/25/20 05:04 Chloride IV 0.03 units/min TITR DARA 9.09 mls/hr Administration Protocol 0.03 UNITS/MIN Norepinephrine 8 mg/ Sodium 250 mls @ 3.75 mls/hr 09/25/20 06:00 09/25/20 11:30 Chloride IV 12 mcg/min TITR DARA 22.5 mls/hr Titration Protocol 2 MCG/MIN Sodium Chloride 500 mls @ 0 mls/hr 09/25/20 09:47 09/25/20 11:20 Nacl 0.9% 500 Ml IV 09/25/20 23:59 50 mls/hr ONCE DARA Administration As Directed Insulin Human Regular 0 unit 09/16/20 13:00 09/25/20 06:35 Insulin Regular, Human 100 Unit/Ml 3ml Vial SUB-Q Not Given Q6H DARA Protocol Lansoprazole 30 mg 09/24/20 10:00 09/25/20 10:10 Lansoprazole 30 Mg Solutab FEEDTUBE 30 mg BID DARA Administration Methylprednisolone Sodium Succinate 40 mg 09/16/20 22:00 09/25/20 05:48 Methylprednisolone Sod Succinate 40 Mg/1 Ml Inj IV 40 mg Q8HR DARA Administration Multi-Ingred Cream/Lotion/Oil/Oint 1 applic 09/16/20 20:12 09/19/20 22:51 Mineral Oil/Petrolatum, White Ophth Oint 3.5 Gm OU 1 applic Q4HR PRN Administration Dry Eye(s) Simple Syrup 15 ml 09/17/20 08:56 Simple Syrup 15 Ml FEEDTUBE PRN PRN Hypoglycemia Simple Syrup 30 ml 09/17/20 08:56 Simple Syrup 15 Ml FEEDTUBE PRN PRN Hypoglycemia Sodium Bicarbonate 325 mg 09/17/20 08:56 Sodium Bicarbonate 325 Mg Tab FEEDTUBE PRN PRN For Clogged Feeding Tube Sodium Chloride 10 ml 09/16/20 22:00 09/25/20 10:12 Sodium Chloride 0.9% 10 Ml Flush Syringe IV 10 ml BID DARA Administration Sodium Chloride 10 ml 09/16/20 12:19 Sodium Chloride 0.9% 10 Ml Flush Syringe IV PRN PRN LINE FLUSH Sodium Polystyrene Sulfonate 30 gm 09/25/20 12:18 Sodium Polystyrene 15 Gm/60 Ml Oral Liqd PO 09/25/20 12:19 ONCE ONE
--- NOTE | 2020-09-25 15:00 | Progress Note ---
Assessment and Plan Acute hypoxemic respiratory failure, on mechanical ventilatory support. Cardiac arrest with return of spontaneous circulation Acute pulmonary emboli. Person under investigation for COVID-19 infection. CHF (EF 40%) History of dementia. Urinary tract infection. Anemia that is normocytic. Elevated serum D-dimers. Lactic acidosis. Severe sepsis - stat repeat CBC - type for 2 units PRBC's and transfuse if repeat Hb confirmed low - stop anticoagulation - SCD's - get G.I. input - follow stool guaiac - continue double dose PPI therapy - neurology evaluation ongoing; prognosis for neurologic recovery remains poor and family conference is appropriate re: goals of care - continue care as below otherwise; - continue to wean supplemental oxygen for target O2 sat's > 92% acutely - VAP bundle addressed - continue lung protective strategies - continue bronchodilators with pulmonary hygiene per RT - wean per pulmonary driven protocols otherwise - continue Daily SAT and SBT assessment as tolerated - continue accuchecks with glycemic control per SSI (While critically ill target blood glucose of 140-180 mg/dL; avoid hypoglycemia) - sedation prn for target RASS 0 to -1 - anti-infective's per ID recommendations - coronavirus PCR negative - Azotemia per nephrology team - avoid nephrotoxins, renally dose all medications - continue to avoid benzodiazepine's, reduce the possibility of delirium - completed AB's per ID rec's - prn analgesia per CPOT score - Maintenance of sleep-wake cycle, avoid delirium - continue enteral nutritional support at goal rate as tolerated - G.I. & VTE prophylaxis - PT/OT/ROM exercises - continue mobility protocols for pressure ulcer prophylaxis - Monitor hemodynamics closely - continue other care per attending / other consultants - discharge planning ongoing concurrently .... Re-evaluate in am & prn CONDITION: CRITICAL PROGNOSIS: GUARDED CODE STATUS: FULL CODE The high probability of a clinically significant, sudden or life-threatening deterioration of the [respiratory, cardiovascular, hematologic & neurologic] system(s) required my full and direct attention, intervention and personal management. The aggregate critical care time was [37] minutes without overlap. Time includes spent on; [x] Data Review and interpretation [x] Patient assessment and monitoring of vital signs [x] Documentation [x] Medication orders and management Subjective Date of service: 09/25/20 Principal diagnosis: Ac hypoxemic resp failure; Cardiac arrest; Acute P.E.; Severe sepsis; COVID Interval history: Patient is seen today for: Ac hypoxemic resp failure; Cardiac arrest with ROSC; Acute pulmonary emboli; Severe sepsis; PUI COVID-19; UTI Seen and examined at bedside; 24hour events reviewed; nursing and respiratory care staff consulted; no adverse overnight events reported to me; resting peacefully in bed; remains on MVS; significant drop in H&H overnight but no active bleeding reported; AMS is persistentr; also RN reports non-bloody emesis overbight; stool was not bloody / melena type but stool guaiac is pending Objective Vital Signs - 12hr 09/25/20 09/25/20 09/25/20 03:25 04:00 05:02 Temperature 96.8 F L Pulse Rate 98 H 99 H Respiratory Rate Blood Pressure 110/67 O2 Sat by Pulse 100 Oximetry 09/25/20 09/25/20 09/25/20 08:00 08:15 11:22 Temperature Pulse Rate 91 H 86 89 Respiratory Rate Blood Pressure 98/74 120/37 O2 Sat by Pulse 100 100 Oximetry 09/25/20 09/25/20 09/25/20 11:45 12:00 12:30 Temperature 96.5 F L 96.4 F L 96.6 F L Pulse Rate 91 H 89 82 Respiratory 31 H 28 H 30 H Rate Blood Pressure 127/58 127/99 O2 Sat by Pulse Oximetry 09/25/20 09/25/20 09/25/20 13:00 13:30 14:00 Temperature 97.2 F L 97.7 F 97.8 F Pulse Rate 80 76 82 Respiratory 27 H 26 H 27 H Rate Blood Pressure 64/33 65/36 84/51 O2 Sat by Pulse Oximetry 09/25/20 14:30 Temperature 98.3 F Pulse Rate 84 Respiratory 25 H Rate Blood Pressure 99/49 O2 Sat by Pulse Oximetry Constitutional: appears uncomfortable, other (elderly thin male with mildly increased respiratory effort at rest on MVS) Eyes: non-icteric ENT: oropharynx moist, other (ETT 24 cm CAROL) Neck: supple, no lymphadenopathy, no JVD Effort: mildly labored Ascultation: Bilateral: diminished breath sounds, rhonchi Percussion: Bilateral: not dull Cardiovascular: regular rate and rhythm Gastrointestinal: normoactive bowel sounds, soft, non-tender, non-distended Integumentary: normal Extremities: no cyanosis, no edema, pulses normal, no ischemia or petechiae Neurologic: pupils equal and round, unable to assess Psychiatric: other (unable to assess re: AMS) CBC and BMP: 09/25/20 20:38 09/26/20 05:55 ABG, PT/INR, D-dimer: ABG ABG pH 7.340 (7.320-7.450) 09/25/20 03:50 POC ABG pCO2 19.6 mmHg (32.0-48.0) L 09/25/20 03:50 ABG pCO2 29.5 mm Hg 09/24/20 04:20 POC ABG pO2 133.2 mmHg (83-108) H 09/25/20 03:50 ABG pO2 170.3 mm Hg (80.0-90.0) H 09/24/20 04:20 POC ABG HCO3 10.3 09/25/20 03:50 ABG O2 Saturation 99.2 % (95.0-99.0) H 09/24/20 04:20 PT/INR, D-dimer PT 34.5 Sec. (12.2-14.9) H 09/25/20 10:05 INR 3.39 (0.87-1.13) H 09/25/20 10:05 D-Dimer > 42649 ng/mlDDU (0-234) H 09/17/20 11:37 Abnormal lab findings: Abnormal Labs 09/16/20 09/16/20 09/16/20 10:37 10:37 10:37 WBC RBC Hgb 11.2 L Hct MCV MCH 27 L MCHC 31 L RDW Plt Count Lymph % (Auto) Lymph # (Auto) [place] # (Auto) Seg Neutrophils % 71.0 H Seg Neuts % (Manual) Lymphocytes % (Manual) Nucleated RBC % Seg Neutrophils # Seg Neutrophils # Man Lymphocytes # (Manual) Monocytes # (Manual) PT 18.6 H INR 1.55 H APTT 43.4 H D-Dimer > 96284 H Heparin Anti-Xa Level ABG pH POC ABG pCO2 POC ABG pO2 ABG pO2 ABG HCO3 ABG O2 Saturation ABG Base Excess ABG Hemoglobin ABG Oxyhemoglobin ABG Potassium ABG Chloride ABG Glucose VBG pH Carboxyhemoglobin Sodium Potassium Chloride Carbon Dioxide BUN Creatinine Glucose POC Glucose Lactic Acid 10.00 H* Calcium Magnesium Ferritin AST Lactate Dehydrogenase Total Creatine Kinase C-Reactive Protein Total Protein Albumin Arterial Blood Glucose Arterial Blood Ionized Calcium Urine WBC (Auto) U Epithel Cells (Auto) Urine Creatinine Crossmatch 09/16/20 09/16/20 09/16/20 10:37 10:37 10:53 WBC RBC Hgb Hct MCV MCH MCHC RDW Plt Count Lymph % (Auto) Lymph # (Auto) [place] # (Auto) Seg Neutrophils % Seg Neuts % (Manual) Lymphocytes % (Manual) Nucleated RBC % Seg Neutrophils # Seg Neutrophils # Man Lymphocytes # (Manual) Monocytes # (Manual) PT INR APTT D-Dimer Heparin Anti-Xa Level ABG pH POC ABG pCO2 POC ABG pO2 ABG pO2 ABG HCO3 ABG O2 Saturation ABG Base Excess ABG Hemoglobin ABG Oxyhemoglobin ABG Potassium ABG Chloride ABG Glucose VBG pH 7.138 L* Carboxyhemoglobin Sodium Potassium Chloride Carbon Dioxide 16 L BUN 25 H Creatinine 1.5 H Glucose 243 H POC Glucose Lactic Acid Calcium Magnesium 2.50 H Ferritin AST 54 H Lactate Dehydrogenase Total Creatine Kinase C-Reactive Protein Total Protein 6.1 L Albumin 3.2 L Arterial Blood Glucose Arterial Blood Ionized Calcium Urine WBC (Auto) 67.0 H U Epithel Cells (Auto) 27.0 H Urine Creatinine Crossmatch 09/16/20 09/16/20 09/16/20 16:00 20:12 20:49 WBC RBC Hgb Hct MCV MCH MCHC RDW Plt Count Lymph % (Auto) Lymph # (Auto) [place] # (Auto) Seg Neutrophils % Seg Neuts % (Manual) Lymphocytes % (Manual) Nucleated RBC % Seg Neutrophils # Seg Neutrophils # Man Lymphocytes # (Manual) Monocytes # (Manual) PT INR APTT D-Dimer Heparin Anti-Xa Level ABG pH POC ABG pCO2 31.0 L POC ABG pO2 427.0 H ABG pO2 ABG HCO3 ABG O2 Saturation ABG Base Excess ABG Hemoglobin ABG Oxyhemoglobin ABG Potassium ABG Chloride 109.0 H ABG Glucose 169 H VBG pH Carboxyhemoglobin Sodium Potassium Chloride Carbon Dioxide BUN Creatinine Glucose POC Glucose 136 H Lactic Acid Calcium Magnesium Ferritin AST Lactate Dehydrogenase Total Creatine Kinase C-Reactive Protein 2.80 H Total Protein Albumin Arterial Blood Glucose 169 H Arterial Blood Ionized Calcium 4.5 L Urine WBC (Auto) U Epithel Cells (Auto) Urine Creatinine Crossmatch 09/16/20 09/17/20 09/17/20 20:49 00:44 00:57 WBC RBC Hgb Hct MCV MCH MCHC RDW Plt Count Lymph % (Auto) Lymph # (Auto) [place] # (Auto) Seg Neutrophils % Seg Neuts % (Manual) Lymphocytes % (Manual) Nucleated RBC % Seg Neutrophils # Seg Neutrophils # Man Lymphocytes # (Manual) Monocytes # (Manual) PT 18.2 H INR 1.51 H APTT 44.0 H D-Dimer Heparin Anti-Xa Level ABG pH POC ABG pCO2 POC ABG pO2 ABG pO2 ABG HCO3 ABG O2 Saturation ABG Base Excess ABG Hemoglobin ABG Oxyhemoglobin ABG Potassium ABG Chloride ABG Glucose VBG pH Carboxyhemoglobin Sodium Potassium Chloride Carbon Dioxide BUN Creatinine Glucose POC Glucose 153 H Lactic Acid Calcium Magnesium Ferritin AST Lactate Dehydrogenase Total Creatine Kinase C-Reactive Protein Total Protein Albumin Arterial Blood Glucose Arterial Blood Ionized Calcium Urine WBC (Auto) U Epithel Cells (Auto) Urine Creatinine 181.1 H Crossmatch 09/17/20 09/17/20 09/17/20 03:05 04:16 04:16 WBC 20.1 H RBC Hgb Hct MCV 83 L MCH 27 L MCHC RDW Plt Count Lymph % (Auto) Lymph # (Auto) [place] # (Auto) Seg Neutrophils % Seg Neuts % (Manual) 91.0 H Lymphocytes % (Manual) 6.0 L Nucleated RBC % Seg Neutrophils # Seg Neutrophils # Man 18.3 H Lymphocytes # (Manual) Monocytes # (Manual) PT INR APTT D-Dimer Heparin Anti-Xa Level 1.26 H ABG pH POC ABG pCO2 POC ABG pO2 ABG pO2 237.5 H ABG HCO3 17.4 L ABG O2 Saturation 99.4 H ABG Base Excess -6.6 L ABG Hemoglobin 12.2 L ABG Oxyhemoglobin ABG Potassium ABG Chloride ABG Glucose VBG pH Carboxyhemoglobin Sodium Potassium Chloride Carbon Dioxide BUN Creatinine Glucose POC Glucose Lactic Acid Calcium Magnesium Ferritin AST Lactate Dehydrogenase Total Creatine Kinase C-Reactive Protein Total Protein Albumin Arterial Blood Glucose Arterial Blood Ionized Calcium Urine WBC (Auto) U Epithel Cells (Auto) Urine Creatinine Crossmatch 09/17/20 09/17/20 09/17/20 04:16 04:16 06:31 WBC RBC Hgb Hct MCV MCH MCHC RDW Plt Count Lymph % (Auto) Lymph # (Auto) [place] # (Auto) Seg Neutrophils % Seg Neuts % (Manual) Lymphocytes % (Manual) Nucleated RBC % Seg Neutrophils # Seg Neutrophils # Man Lymphocytes # (Manual) Monocytes # (Manual) PT INR APTT D-Dimer Heparin Anti-Xa Level ABG pH POC ABG pCO2 POC ABG pO2 ABG pO2 ABG HCO3 ABG O2 Saturation ABG Base Excess ABG Hemoglobin ABG Oxyhemoglobin ABG Potassium ABG Chloride ABG Glucose VBG pH Carboxyhemoglobin Sodium Potassium Chloride Carbon Dioxide 18 L BUN 34 H Creatinine 1.5 H Glucose 171 H POC Glucose 136 H Lactic Acid 3.60 H* Calcium Magnesium Ferritin AST Lactate Dehydrogenase Total Creatine Kinase C-Reactive Protein Total Protein Albumin Arterial Blood Glucose Arterial Blood Ionized Calcium Urine WBC (Auto) U Epithel Cells (Auto) Urine Creatinine Crossmatch 09/17/20 09/17/20 09/17/20 11:37 11:37 11:37 WBC RBC Hgb Hct MCV MCH MCHC RDW Plt Count Lymph % (Auto) Lymph # (Auto) [place] # (Auto) Seg Neutrophils % Seg Neuts % (Manual) Lymphocytes % (Manual) Nucleated RBC % Seg Neutrophils # Seg Neutrophils # Man Lymphocytes # (Manual) Monocytes # (Manual) PT 18.0 H INR 1.49 H APTT D-Dimer > 77001 H Heparin Anti-Xa Level 0.25 L ABG pH POC ABG pCO2 POC ABG pO2 ABG pO2 ABG HCO3 ABG O2 Saturation ABG Base Excess ABG Hemoglobin ABG Oxyhemoglobin ABG Potassium ABG Chloride ABG Glucose VBG pH Carboxyhemoglobin Sodium Potassium Chloride Carbon Dioxide BUN Creatinine Glucose POC Glucose Lactic Acid 2.80 H* Calcium Magnesium Ferritin AST Lactate Dehydrogenase Total Creatine Kinase C-Reactive Protein Total Protein Albumin Arterial Blood Glucose Arterial Blood Ionized Calcium Urine WBC (Auto) U Epithel Cells (Auto) Urine Creatinine Crossmatch 09/17/20 09/17/20 09/17/20 15:58 15:58 15:58 WBC RBC Hgb Hct MCV MCH MCHC RDW Plt Count Lymph % (Auto) Lymph # (Auto) [place] # (Auto) Seg Neutrophils % Seg Neuts % (Manual) Lymphocytes % (Manual) Nucleated RBC % Seg Neutrophils # Seg Neutrophils # Man Lymphocytes # (Manual) Monocytes # (Manual) PT INR APTT D-Dimer Heparin Anti-Xa Level ABG pH POC ABG pCO2 POC ABG pO2 ABG pO2 ABG HCO3 ABG O2 Saturation ABG Base Excess ABG Hemoglobin ABG Oxyhemoglobin ABG Potassium ABG Chloride ABG Glucose VBG pH Carboxyhemoglobin Sodium Potassium Chloride Carbon Dioxide BUN Creatinine Glucose POC Glucose Lactic Acid 3.90 H* Calcium Magnesium Ferritin 1306.0 H AST Lactate Dehydrogenase 515 H Total Creatine Kinase C-Reactive Protein 24.30 H Total Protein Albumin Arterial Blood Glucose Arterial Blood Ionized Calcium Urine WBC (Auto) U Epithel Cells (Auto) Urine Creatinine Crossmatch 09/17/20 09/18/20 09/18/20 20:35 03:04 03:35 WBC RBC Hgb Hct MCV MCH MCHC RDW Plt Count Lymph % (Auto) Lymph # (Auto) [place] # (Auto) Seg Neutrophils % Seg Neuts % (Manual) Lymphocytes % (Manual) Nucleated RBC % Seg Neutrophils # Seg Neutrophils # Man Lymphocytes # (Manual) Monocytes # (Manual) PT INR APTT D-Dimer Heparin Anti-Xa Level ABG pH POC ABG pCO2 POC ABG pO2 ABG pO2 198.7 H ABG HCO3 18.9 L ABG O2 Saturation 99.3 H ABG Base Excess -4.3 L ABG Hemoglobin 10.8 L ABG Oxyhemoglobin ABG Potassium ABG Chloride ABG Glucose VBG pH Carboxyhemoglobin Sodium Potassium Chloride Carbon Dioxide BUN Creatinine Glucose POC Glucose 111 H 129 H Lactic Acid Calcium Magnesium Ferritin AST Lactate Dehydrogenase Total Creatine Kinase C-Reactive Protein Total Protein Albumin Arterial Blood Glucose Arterial Blood Ionized Calcium Urine WBC (Auto) U Epithel Cells (Auto) Urine Creatinine Crossmatch 09/18/20 09/18/20 09/18/20 04:19 04:19 06:34 WBC 21.8 H RBC Hgb 11.4 L Hct 35.2 L MCV 82 L MCH 26 L MCHC RDW Plt Count Lymph % (Auto) 2.4 L Lymph # (Auto) 0.5 L [place] # (Auto) Seg Neutrophils % 94.6 H Seg Neuts % (Manual) Lymphocytes % (Manual) Nucleated RBC % Seg Neutrophils # 20.6 H Seg Neutrophils # Man Lymphocytes # (Manual) Monocytes # (Manual) PT INR APTT D-Dimer Heparin Anti-Xa Level ABG pH POC ABG pCO2 POC ABG pO2 ABG pO2 ABG HCO3 ABG O2 Saturation ABG Base Excess ABG Hemoglobin ABG Oxyhemoglobin ABG Potassium ABG Chloride ABG Glucose VBG pH Carboxyhemoglobin Sodium Potassium 5.6 H Chloride Carbon Dioxide 20 L BUN 50 H Creatinine 2.4 H D Glucose 155 H POC Glucose 132 H Lactic Acid Calcium Magnesium Ferritin AST Lactate Dehydrogenase Total Creatine Kinase C-Reactive Protein Total Protein Albumin Arterial Blood Glucose Arterial Blood Ionized Calcium Urine WBC (Auto) U Epithel Cells (Auto) Urine Creatinine Crossmatch 09/19/20 09/19/20 09/19/20 04:00 05:02 05:02 WBC 20.5 H RBC Hgb 10.0 L Hct 30.8 L MCV 82 L MCH 27 L MCHC RDW Plt Count 130 L Lymph % (Auto) Lymph # (Auto) [place] # (Auto) Seg Neutrophils % Seg Neuts % (Manual) 97.0 H Lymphocytes % (Manual) Nucleated RBC % 1.0 H Seg Neutrophils # Seg Neutrophils # Man 19.9 H Lymphocytes # (Manual) 0.0 L Monocytes # (Manual) PT INR APTT D-Dimer Heparin Anti-Xa Level ABG pH 7.503 H POC ABG pCO2 POC ABG pO2 ABG pO2 159.2 H ABG HCO3 ABG O2 Saturation 99.1 H ABG Base Excess ABG Hemoglobin 10.3 L ABG Oxyhemoglobin ABG Potassium ABG Chloride ABG Glucose VBG pH Carboxyhemoglobin Sodium Potassium Chloride Carbon Dioxide BUN 74 H Creatinine 3.5 H Glucose 168 H POC Glucose Lactic Acid Calcium Magnesium Ferritin AST Lactate Dehydrogenase Total Creatine Kinase C-Reactive Protein Total Protein Albumin Arterial Blood Glucose Arterial Blood Ionized Calcium Urine WBC (Auto) U Epithel Cells (Auto) Urine Creatinine Crossmatch 09/19/20 09/19/20 09/19/20 09:11 11:58 18:58 WBC RBC Hgb Hct MCV MCH MCHC RDW Plt Count Lymph % (Auto) Lymph # (Auto) [place] # (Auto) Seg Neutrophils % Seg Neuts % (Manual) Lymphocytes % (Manual) Nucleated RBC % Seg Neutrophils # Seg Neutrophils # Man Lymphocytes # (Manual) Monocytes # (Manual) PT INR APTT D-Dimer Heparin Anti-Xa Level ABG pH POC ABG pCO2 POC ABG pO2 ABG pO2 ABG HCO3 ABG O2 Saturation ABG Base Excess ABG Hemoglobin ABG Oxyhemoglobin ABG Potassium ABG Chloride ABG Glucose VBG pH Carboxyhemoglobin Sodium Potassium Chloride Carbon Dioxide BUN Creatinine Glucose POC Glucose 143 H 155 H 153 H Lactic Acid Calcium Magnesium Ferritin AST Lactate Dehydrogenase Total Creatine Kinase C-Reactive Protein Total Protein Albumin Arterial Blood Glucose Arterial Blood Ionized Calcium Urine WBC (Auto) U Epithel Cells (Auto) Urine Creatinine Crossmatch 09/20/20 09/20/20 09/20/20 04:49 04:49 05:15 WBC RBC Hgb 9.4 L Hct 29.2 L MCV MCH MCHC RDW Plt Count 127 L Lymph % (Auto) Lymph # (Auto) [place] # (Auto) Seg Neutrophils % Seg Neuts % (Manual) Lymphocytes % (Manual) Nucleated RBC % Seg Neutrophils # Seg Neutrophils # Man Lymphocytes # (Manual) Monocytes # (Manual) PT INR APTT D-Dimer Heparin Anti-Xa Level ABG pH 7.628 H POC ABG pCO2 24.6 L POC ABG pO2 153.3 H ABG pO2 ABG HCO3 ABG O2 Saturation ABG Base Excess ABG Hemoglobin 10.7 L ABG Oxyhemoglobin 98.7 H ABG Potassium ABG Chloride 97.0 L ABG Glucose 162 H VBG pH Carboxyhemoglobin 0.3 L Sodium 146 H Potassium Chloride Carbon Dioxide 35 H D BUN 94 H Creatinine 3.7 H Glucose 157 H POC Glucose Lactic Acid Calcium 8.3 L Magnesium Ferritin AST Lactate Dehydrogenase Total Creatine Kinase 1932 H C-Reactive Protein Total Protein Albumin Arterial Blood Glucose 162 H Arterial Blood Ionized Calcium 4.0 L Urine WBC (Auto) U Epithel Cells (Auto) Urine Creatinine Crossmatch 09/20/20 09/21/20 09/21/20 08:14 01:46 04:41 WBC RBC Hgb Hct MCV MCH MCHC RDW Plt Count Lymph % (Auto) Lymph # (Auto) [place] # (Auto) Seg Neutrophils % Seg Neuts % (Manual) Lymphocytes % (Manual) Nucleated RBC % Seg Neutrophils # Seg Neutrophils # Man Lymphocytes # (Manual) Monocytes # (Manual) PT INR APTT D-Dimer Heparin Anti-Xa Level ABG pH POC ABG pCO2 POC ABG pO2 ABG pO2 ABG HCO3 ABG O2 Saturation ABG Base Excess ABG Hemoglobin ABG Oxyhemoglobin ABG Potassium ABG Chloride ABG Glucose VBG pH Carboxyhemoglobin Sodium 146 H Potassium 3.4 L Chloride Carbon Dioxide 32 H BUN 99 H Creatinine 2.9 H Glucose 201 H POC Glucose 160 H 181 H Lactic Acid Calcium Magnesium Ferritin AST Lactate Dehydrogenase Total Creatine Kinase C-Reactive Protein Total Protein Albumin Arterial Blood Glucose Arterial Blood Ionized Calcium Urine WBC (Auto) U Epithel Cells (Auto) Urine Creatinine Crossmatch 09/21/20 09/21/20 09/21/20 05:51 06:24 15:34 WBC RBC Hgb Hct MCV MCH MCHC RDW Plt Count Lymph % (Auto) Lymph # (Auto) [place] # (Auto) Seg Neutrophils % Seg Neuts % (Manual) Lymphocytes % (Manual) Nucleated RBC % Seg Neutrophils # Seg Neutrophils # Man Lymphocytes # (Manual) Monocytes # (Manual) PT INR APTT D-Dimer Heparin Anti-Xa Level ABG pH 7.545 H POC ABG pCO2 POC ABG pO2 ABG pO2 129.0 H ABG HCO3 30.0 H ABG O2 Saturation ABG Base Excess 7.3 H ABG Hemoglobin 11.7 L ABG Oxyhemoglobin ABG Potassium ABG Chloride ABG Glucose VBG pH Carboxyhemoglobin Sodium Potassium Chloride Carbon Dioxide BUN Creatinine Glucose POC Glucose 176 H 189 H Lactic Acid Calcium Magnesium Ferritin AST Lactate Dehydrogenase Total Creatine Kinase C-Reactive Protein Total Protein Albumin Arterial Blood Glucose Arterial Blood Ionized Calcium Urine WBC (Auto) U Epithel Cells (Auto) Urine Creatinine Crossmatch 09/21/20 09/21/20 09/22/20 19:32 23:31 04:32 WBC RBC Hgb Hct MCV MCH MCHC RDW Plt Count Lymph % (Auto) Lymph # (Auto) [place] # (Auto) Seg Neutrophils % Seg Neuts % (Manual) Lymphocytes % (Manual) Nucleated RBC % Seg Neutrophils # Seg Neutrophils # Man Lymphocytes # (Manual) Monocytes # (Manual) PT INR APTT D-Dimer Heparin Anti-Xa Level ABG pH 7.545 H POC ABG pCO2 POC ABG pO2 ABG pO2 153.8 H ABG HCO3 28.2 H ABG O2 Saturation ABG Base Excess 5.6 H ABG Hemoglobin 9.4 L ABG Oxyhemoglobin ABG Potassium ABG Chloride ABG Glucose VBG pH Carboxyhemoglobin Sodium Potassium Chloride Carbon Dioxide BUN Creatinine Glucose POC Glucose 194 H 174 H Lactic Acid Calcium Magnesium Ferritin AST Lactate Dehydrogenase Total Creatine Kinase C-Reactive Protein Total Protein Albumin Arterial Blood Glucose Arterial Blood Ionized Calcium Urine WBC (Auto) U Epithel Cells (Auto) Urine Creatinine Crossmatch 09/22/20 09/22/20 09/22/20 05:18 05:18 06:11 WBC RBC Hgb 9.7 L Hct 30.3 L MCV MCH MCHC RDW Plt Count 122 L Lymph % (Auto) Lymph # (Auto) [place] # (Auto) Seg Neutrophils % Seg Neuts % (Manual) Lymphocytes % (Manual) Nucleated RBC % Seg Neutrophils # Seg Neutrophils # Man Lymphocytes # (Manual) Monocytes # (Manual) PT INR APTT D-Dimer Heparin Anti-Xa Level ABG pH POC ABG pCO2 POC ABG pO2 ABG pO2 ABG HCO3 ABG O2 Saturation ABG Base Excess ABG Hemoglobin ABG Oxyhemoglobin ABG Potassium ABG Chloride ABG Glucose VBG pH Carboxyhemoglobin Sodium 147 H Potassium 3.0 L Chloride Carbon Dioxide BUN 101 H Creatinine 2.3 H Glucose 217 H POC Glucose 179 H Lactic Acid Calcium Magnesium Ferritin AST Lactate Dehydrogenase Total Creatine Kinase 1202 H C-Reactive Protein Total Protein Albumin Arterial Blood Glucose Arterial Blood Ionized Calcium Urine WBC (Auto) U Epithel Cells (Auto) Urine Creatinine Crossmatch 09/22/20 09/22/20 09/23/20 13:51 18:35 05:29 WBC RBC Hgb Hct MCV MCH MCHC RDW Plt Count Lymph % (Auto) Lymph # (Auto) [place] # (Auto) Seg Neutrophils % Seg Neuts % (Manual) Lymphocytes % (Manual) Nucleated RBC % Seg Neutrophils # Seg Neutrophils # Man Lymphocytes # (Manual) Monocytes # (Manual) PT INR APTT D-Dimer Heparin Anti-Xa Level ABG pH POC ABG pCO2 POC ABG pO2 ABG pO2 ABG HCO3 ABG O2 Saturation ABG Base Excess ABG Hemoglobin ABG Oxyhemoglobin ABG Potassium ABG Chloride ABG Glucose VBG pH Carboxyhemoglobin Sodium Potassium Chloride Carbon Dioxide BUN Creatinine Glucose POC Glucose 175 H 191 H 142 H Lactic Acid Calcium Magnesium Ferritin AST Lactate Dehydrogenase Total Creatine Kinase C-Reactive Protein Total Protein Albumin Arterial Blood Glucose Arterial Blood Ionized Calcium Urine WBC (Auto) U Epithel Cells (Auto) Urine Creatinine Crossmatch 09/23/20 09/23/20 09/23/20 06:39 12:07 16:30 WBC RBC Hgb 9.3 L Hct 29.2 L MCV MCH MCHC RDW Plt Count Lymph % (Auto) Lymph # (Auto) [place] # (Auto) Seg Neutrophils % Seg Neuts % (Manual) Lymphocytes % (Manual) Nucleated RBC % Seg Neutrophils # Seg Neutrophils # Man Lymphocytes # (Manual) Monocytes # (Manual) PT INR APTT D-Dimer Heparin Anti-Xa Level ABG pH POC ABG pCO2 POC ABG pO2 ABG pO2 ABG HCO3 ABG O2 Saturation ABG Base Excess ABG Hemoglobin ABG Oxyhemoglobin ABG Potassium ABG Chloride ABG Glucose VBG pH Carboxyhemoglobin Sodium 151 H Potassium Chloride Carbon Dioxide 35 H BUN 99 H Creatinine 2.1 H Glucose 159 H POC Glucose 200 H Lactic Acid Calcium Magnesium Ferritin AST Lactate Dehydrogenase Total Creatine Kinase C-Reactive Protein Total Protein Albumin Arterial Blood Glucose Arterial Blood Ionized Calcium Urine WBC (Auto) U Epithel Cells (Auto) Urine Creatinine Crossmatch 09/23/20 09/23/20 09/23/20 16:31 23:37 Unknown WBC 23.3 H RBC Hgb 9.8 L Hct 30.7 L MCV 83 L MCH 27 L MCHC RDW Plt Count 132 L Lymph % (Auto) Lymph # (Auto) [place] # (Auto) Seg Neutrophils % Seg Neuts % (Manual) 92.0 H Lymphocytes % (Manual) 5.0 L Nucleated RBC % 1.0 H Seg Neutrophils # Seg Neutrophils # Man 21.4 H Lymphocytes # (Manual) Monocytes # (Manual) PT INR APTT D-Dimer Heparin Anti-Xa Level ABG pH POC ABG pCO2 POC ABG pO2 ABG pO2 ABG HCO3 ABG O2 Saturation ABG Base Excess ABG Hemoglobin ABG Oxyhemoglobin ABG Potassium ABG Chloride ABG Glucose VBG pH Carboxyhemoglobin Sodium Potassium Chloride Carbon Dioxide BUN Creatinine Glucose POC Glucose 185 H 169 H Lactic Acid Calcium Magnesium Ferritin AST Lactate Dehydrogenase Total Creatine Kinase C-Reactive Protein Total Protein Albumin Arterial Blood Glucose Arterial Blood Ionized Calcium Urine WBC (Auto) U Epithel Cells (Auto) Urine Creatinine Crossmatch 09/23/20 09/24/20 09/24/20 Unknown 00:39 00:39 WBC RBC Hgb 8.8 L Hct 27.7 L MCV MCH MCHC RDW Plt Count Lymph % (Auto) Lymph # (Auto) [place] # (Auto) Seg Neutrophils % Seg Neuts % (Manual) Lymphocytes % (Manual) Nucleated RBC % Seg Neutrophils # Seg Neutrophils # Man Lymphocytes # (Manual) Monocytes # (Manual) PT 15.1 H INR 1.21 H APTT D-Dimer Heparin Anti-Xa Level 1.25 H ABG pH POC ABG pCO2 POC ABG pO2 ABG pO2 ABG HCO3 ABG O2 Saturation ABG Base Excess ABG Hemoglobin ABG Oxyhemoglobin ABG Potassium ABG Chloride ABG Glucose VBG pH Carboxyhemoglobin Sodium Potassium Chloride Carbon Dioxide BUN Creatinine Glucose POC Glucose Lactic Acid Calcium Magnesium Ferritin AST Lactate Dehydrogenase Total Creatine Kinase C-Reactive Protein Total Protein Albumin Arterial Blood Glucose Arterial Blood Ionized Calcium Urine WBC (Auto) U Epithel Cells (Auto) Urine Creatinine Crossmatch 09/24/20 09/24/20 09/24/20 04:20 04:29 04:29 WBC RBC Hgb 9.2 L Hct 29.3 L MCV MCH MCHC RDW Plt Count 128 L Lymph % (Auto) Lymph # (Auto) [place] # (Auto) Seg Neutrophils % Seg Neuts % (Manual) Lymphocytes % (Manual) Nucleated RBC % Seg Neutrophils # Seg Neutrophils # Man Lymphocytes # (Manual) Monocytes # (Manual) PT INR APTT D-Dimer Heparin Anti-Xa Level ABG pH 7.591 H POC ABG pCO2 POC ABG pO2 ABG pO2 170.3 H ABG HCO3 27.7 H ABG O2 Saturation 99.2 H ABG Base Excess 6.0 H ABG Hemoglobin 9.1 L ABG Oxyhemoglobin ABG Potassium ABG Chloride ABG Glucose VBG pH Carboxyhemoglobin Sodium 146 H Potassium Chloride Carbon Dioxide BUN 96 H Creatinine 1.8 H Glucose 262 H POC Glucose Lactic Acid Calcium Magnesium Ferritin AST Lactate Dehydrogenase Total Creatine Kinase 517 H C-Reactive Protein Total Protein Albumin Arterial Blood Glucose Arterial Blood Ionized Calcium Urine WBC (Auto) U Epithel Cells (Auto) Urine Creatinine Crossmatch 09/24/20 09/24/20 09/24/20 05:10 11:31 12:59 WBC RBC Hgb Hct MCV MCH MCHC RDW Plt Count Lymph % (Auto) Lymph # (Auto) [place] # (Auto) Seg Neutrophils % Seg Neuts % (Manual) Lymphocytes % (Manual) Nucleated RBC % Seg Neutrophils # Seg Neutrophils # Man Lymphocytes # (Manual) Monocytes # (Manual) PT INR APTT D-Dimer Heparin Anti-Xa Level 1.67 H ABG pH POC ABG pCO2 POC ABG pO2 ABG pO2 ABG HCO3 ABG O2 Saturation ABG Base Excess ABG Hemoglobin ABG Oxyhemoglobin ABG Potassium ABG Chloride ABG Glucose VBG pH Carboxyhemoglobin Sodium Potassium Chloride Carbon Dioxide BUN Creatinine Glucose POC Glucose 212 H 325 H Lactic Acid Calcium Magnesium Ferritin AST Lactate Dehydrogenase Total Creatine Kinase C-Reactive Protein Total Protein Albumin Arterial Blood Glucose Arterial Blood Ionized Calcium Urine WBC (Auto) U Epithel Cells (Auto) Urine Creatinine Crossmatch 09/24/20 09/24/20 09/24/20 18:09 22:10 23:31 WBC RBC Hgb Hct MCV MCH MCHC RDW Plt Count Lymph % (Auto) Lymph # (Auto) [place] # (Auto) Seg Neutrophils % Seg Neuts % (Manual) Lymphocytes % (Manual) Nucleated RBC % Seg Neutrophils # Seg Neutrophils # Man Lymphocytes # (Manual) Monocytes # (Manual) PT INR APTT D-Dimer Heparin Anti-Xa Level 1.41 H ABG pH 7.214 L POC ABG pCO2 20.3 L POC ABG pO2 129.5 H ABG pO2 ABG HCO3 ABG O2 Saturation ABG Base Excess ABG Hemoglobin 6.5 L ABG Oxyhemoglobin ABG Potassium ABG Chloride ABG Glucose 158 H VBG pH Carboxyhemoglobin 0.4 L Sodium Potassium Chloride Carbon Dioxide BUN Creatinine Glucose POC Glucose 273 H Lactic Acid Calcium Magnesium Ferritin AST Lactate Dehydrogenase Total Creatine Kinase C-Reactive Protein Total Protein Albumin Arterial Blood Glucose 158 H Arterial Blood Ionized Calcium 4.5 L Urine WBC (Auto) U Epithel Cells (Auto) Urine Creatinine Crossmatch 09/25/20 09/25/20 09/25/20 00:13 03:50 05:57 WBC 48.7 H* RBC 1.90 L Hgb 5.0 L* D Hct 17.0 L* D MCV MCH 26 L MCHC 29 L RDW 15.4 H Plt Count 121 L Lymph % (Auto) Lymph # (Auto) [place] # (Auto) 1.8 H Seg Neutrophils % Seg Neuts % (Manual) 92.0 H Lymphocytes % (Manual) 2.0 L Nucleated RBC % 2.0 H Seg Neutrophils # 45.6 H Seg Neutrophils # Man 44.8 H Lymphocytes # (Manual) 1.0 L Monocytes # (Manual) 1.9 H PT INR APTT D-Dimer Heparin Anti-Xa Level ABG pH POC ABG pCO2 19.6 L POC ABG pO2 133.2 H ABG pO2 ABG HCO3 ABG O2 Saturation ABG Base Excess ABG Hemoglobin 5.9 L ABG Oxyhemoglobin ABG Potassium 4.7 H ABG Chloride ABG Glucose 150 H VBG pH Carboxyhemoglobin Sodium Potassium Chloride Carbon Dioxide BUN Creatinine Glucose POC Glucose 129 H Lactic Acid Calcium Magnesium Ferritin AST Lactate Dehydrogenase Total Creatine Kinase C-Reactive Protein Total Protein Albumin Arterial Blood Glucose 150 H Arterial Blood Ionized Calcium 4.0 L Urine WBC (Auto) U Epithel Cells (Auto) Urine Creatinine Crossmatch 09/25/20 09/25/20 09/25/20 10:05 10:05 10:06 WBC 43.2 H* RBC 1.87 L Hgb 4.9 L* Hct 17.4 L* MCV MCH 26 L MCHC 28 L RDW 16.4 H Plt Count 121 L Lymph % (Auto) Lymph # (Auto) [place] # (Auto) Seg Neutrophils % Seg Neuts % (Manual) Lymphocytes % (Manual) Nucleated RBC % Seg Neutrophils # Seg Neutrophils # Man Lymphocytes # (Manual) Monocytes # (Manual) PT 34.5 H INR 3.39 H APTT D-Dimer Heparin Anti-Xa Level ABG pH POC ABG pCO2 POC ABG pO2 ABG pO2 ABG HCO3 ABG O2 Saturation ABG Base Excess ABG Hemoglobin ABG Oxyhemoglobin ABG Potassium ABG Chloride ABG Glucose VBG pH Carboxyhemoglobin Sodium Potassium Chloride Carbon Dioxide BUN Creatinine Glucose POC Glucose Lactic Acid Calcium Magnesium Ferritin AST Lactate Dehydrogenase Total Creatine Kinase C-Reactive Protein Total Protein Albumin Arterial Blood Glucose Arterial Blood Ionized Calcium Urine WBC (Auto) U Epithel Cells (Auto) Urine Creatinine Crossmatch See Detail 09/25/20 10:08 WBC RBC Hgb Hct MCV MCH MCHC RDW Plt Count Lymph % (Auto) Lymph # (Auto) [place] # (Auto) Seg Neutrophils % Seg Neuts % (Manual) Lymphocytes % (Manual) Nucleated RBC % Seg Neutrophils # Seg Neutrophils # Man Lymphocytes # (Manual) Monocytes # (Manual) PT INR APTT D-Dimer Heparin Anti-Xa Level ABG pH POC ABG pCO2 POC ABG pO2 ABG pO2 ABG HCO3 ABG O2 Saturation ABG Base Excess ABG Hemoglobin ABG Oxyhemoglobin ABG Potassium ABG Chloride ABG Glucose VBG pH Carboxyhemoglobin Sodium 146 H Potassium 5.3 H D Chloride 96.2 L Carbon Dioxide 11 L D BUN 103 H Creatinine 3.5 H D Glucose 157 H POC Glucose Lactic Acid Calcium 7.7 L Magnesium Ferritin AST Lactate Dehydrogenase Total Creatine Kinase C-Reactive Protein Total Protein Albumin Arterial Blood Glucose Arterial Blood Ionized Calcium Urine WBC (Auto) U Epithel Cells (Auto) Urine Creatinine Crossmatch Allied health notes reviewed: nursing
[2020-09-25 21:09] LABS: Hematocrit 27.2 % (35.5-45.6); Hemoglobin 8.7 gm/dl (11.8-15.2); Mean Corpuscular HGB Conc 32 % (32-34); Mean Corpuscular Volume 91 fl (84-94); Platelet Count 103 K/mm3 (140-440); Red Cell Distribution Width 15.7 % (13.2-15.2)
[2020-09-25 21:11] LABS: Calcium 7.2 mg/dL (8.4-10.2)
[2020-09-25] MEDS ORDERED: DEXTROSE 50% IN WATER (25GM) 50 ML SYRINGE IV ONE (21:26)
[2020-09-25] MEDS ORDERED: CALCIUM GLUCONATE 1,000 MG in SODIUM CHLORIDE 0.9% 100 ML IV ONE (21:27)
[2020-09-25] MEDS ORDERED: INSULIN REGULAR, HUMAN 100 UNIT/ML 3ML VIAL IV ONE (21:27)
[2020-09-26] MEDS: INSULIN REGULAR, HUMAN 100 UNIT/ML 3ML VIAL SUB-Q SCH ×4 (01:04→18:00)
--- NOTE | 2020-09-26 01:50 | Progress Note ---
Assessment and Plan The high probability of a clinically significant, sudden or life threatening deterioration of the [hemodynamic, neurologic, cardiac, respiratory] system(s) required my full and direct attention, intervention and personal management. The aggregate critical care time was [32] minutes. This time is in addition to time spent performing reported procedures but includes the following: [x] Data Review and interpretation [x] Patient assessment and monitoring of vital signs [x] Documentation [x] Medication orders and management Acute hypoxic respiratory failure. Etiology is unknown at this time. Chest x- ray shows no acute disease. Nephrology consultation Toxic metabolic encephalopathy. CT scan with extensive microvascular a ngiopathy. Multifocal bilateral pulmonary emboli. D-dimer > 10,000. Continue anticoagulation per pulmonary. Acute kidney injury. Etiology secondary to sepsis/ATN +/- vasomotor nephropathy/dehydration. Aggressive IV fluid hydration. Lactic acidosis. As above. Hyperkalemia--being treated DVT prophylaxis--- patient is anticoagulated and GI prophylaxis Subjective Date of service: 09/25/20 Principal diagnosis: Ac hypoxemic resp failure; Cardiac arrest; Acute P.E.; Severe sepsis; COVID Interval history: Cardiopulmonary arrest. Patient reportedly with [id number] cardiopulmonary arrest. Unsure of the patient's total time without a pulse. Cardiology and pulmonary consultation pending. Follow-up echocardiogram, cardiac isoenzymes and serial EKG. CT scan of the head pending. Check MRI and EEG when patient stabilized. D-dimer significantly elevated greater than 10,000. Check CTA of the chest. Lactic acid also elevated at 10 which increases mortality significantly. Severe sepsis with septic shock. Present on admission. Patient presented with fever, tachycardia, hypotension, elevated lactate, pressors and gram negative dinora bacteremia. 09/17/2020. Lactic acid improved. Follow-up blood and urine cultures. Start Rocephin IV daily. ID consultation. 09/18/2020. Urine culture reveals gram-negative rods. Await final identification and sensitivities. Await blood cultures. Continue IV antibiotics. ID consulted. Covid testing found to be negative. Check EEG given cardiopulmonary arrest. Neurology consultation with Dr. Esparza in a.m. No neurology coverage today. MRI brain with patient medically stable. Continue anticoagulation for pulmonary embolus. Await renal ultrasound. 09/19/2020. Patient with severe sepsis secondary to complicated UTI/gram-negative bacilli bacteremia. Follow-up identification and sensitivities. ID following. Antibiotics adjusted to cefepime. Renal ultrasound did not reveal obstructing stone. Small right kidney without hydr onephrosis or medical renal disease. Complex right renal cyst. Nonvisualization of left kidney sonographically but CTA showed simple cyst appearing lesion in the left kidney without hydronephrosis. Check EEG and MRI given cardiopulmonary arrest. Neurology consultation. 09/20/2020 Patient with severe sepsis and gram-negative bacteremia Patient on cefepime neurology consult requested 09/21/2020 Patient with sepsis Possible anoxic encephalopathy Patient on IV antibiotics 09/22/2020 Patient septic and on antibiotics Anoxic encephalopathy Continue IV antibiotics Poor prognosis 09/23/2020 Unable to wean Patient is septic Anoxic encephalopathy Continue IV antibiotics 09/24/2020 Patient on IV antibiotics Sepsis Anoxic encephalopathy 09/25/2020 Unable to wean Anoxic encephalopathy Sepsis Objective - Constitutional Vitals: Vital Signs - 12hr 09/25/20 09/25/20 09/25/20 14:00 14:30 15:20 Temperature 97.8 F 98.3 F 98.1 F Pulse Rate 82 84 86 Pulse Rate [ From Monitor] Pulse Rate [ 82 Radial] Respiratory 21 25 H 27 H Rate Blood Pressure 84/51 99/49 104/58 O2 Sat by Pulse Oximetry 09/25/20 09/25/20 09/25/20 15:35 15:54 16:00 Temperature 97.9 F 98.0 F Pulse Rate 85 86 86 Pulse Rate [ 85 From Monitor] Pulse Rate [ Radial] Respiratory 26 H Rate Blood Pressure 105/69 104/58 O2 Sat by Pulse 100 100 Oximetry 09/25/20 09/25/20 09/25/20 16:05 16:35 17:05 Temperature 98.1 F 98.2 F 98.3 F Pulse Rate 85 86 85 Pulse Rate [ From Monitor] Pulse Rate [ Radial] Respiratory 25 H 27 H 25 H Rate Blood Pressure 104/62 109/57 117/64 O2 Sat by Pulse 100 100 Oximetry 09/25/20 09/25/20 09/25/20 17:30 18:00 18:40 Temperature 97.9 F Pulse Rate 84 85 Pulse Rate [ From Monitor] Pulse Rate [ 85 Radial] Respiratory 26 H 26 H Rate Blood Pressure 113/66 107/68 113/66 O2 Sat by Pulse 100 100 Oximetry 09/25/20 09/25/20 09/25/20 20:00 23:31 23:55 Temperature 97.9 F 98.1 F Pulse Rate 87 89 Pulse Rate [ From Monitor] Pulse Rate [ Radial] Respiratory Rate Blood Pressure 109/64 O2 Sat by Pulse 100 Oximetry 09/26/20 00:00 Temperature Pulse Rate 91 H Pulse Rate [ From Monitor] Pulse Rate [ Radial] Respiratory Rate Blood Pressure O2 Sat by Pulse Oximetry General appearance: Present: no acute distress, well-nourished - EENT Eyes: PERRL, EOM intact ENT: hearing intact, clear oral mucosa Ears: bilateral: normal - Neck Neck: supple, normal ROM - Respiratory Respiratory effort: normal Respiratory: bilateral: CTA - Breasts Breasts: normal - Cardiovascular Heart rate: 78 Rhythm: regular Heart Sounds: Present: S1 & S2. Absent: gallop, rub Extremities: pulses intact, No edema, normal color, Full ROM - Gastrointestinal General gastrointestinal: Present: soft, non-tender, non-distended, normal bowel sounds - Genitourinary Male genitourinary: normal - Integumentary Integumentary: clear, warm, dry - Musculoskeletal Musculoskeletal: 1, strength equal bilaterally - Neurologic Neurologic: moves all extremities - Psychiatric Psychiatric: memory intact, appropriate mood/affect, intact judgment & insight - Labs CBC & Chem 7: 09/26/20 17:06 09/26/20 05:55 Labs: Abnormal lab results 09/24/20 09/25/20 09/25/20 Range/Units 23:31 03:50 05:57 WBC 48.7 H* (4.5-11.0) K/mm3 RBC 1.90 L (3.65-5.03) M/mm3 Hgb 5.0 L* D (11.8-15.2) gm/dl Hct 17.0 L* D (35.5-45.6) % MCH 26 L (28-32) pg MCHC 29 L (32-34) % RDW 15.4 H (13.2-15.2) % Plt Count 121 L (140-440) K/mm3 [place] # (Auto) 1.8 H (0.0-0.8) K/mm3 Seg Neuts % (Manual) 92.0 H (40.0-70.0) % Lymphocytes % (Manual) 2.0 L (13.4-35.0) % Nucleated RBC % 2.0 H (0.0-0.9) % Seg Neutrophils # 45.6 H (1.8-7.7) K/mm3 Seg Neutrophils # Man 44.8 H (1.8-7.7) K/mm3 Lymphocytes # (Manual) 1.0 L (1.2-5.4) K/mm3 Monocytes # (Manual) 1.9 H (0.0-0.8) K/mm3 PT (12.2-14.9) Sec. INR (0.87-1.13) Heparin Anti-Xa Level 1.41 H (0.3-0.7) U.I./ml POC ABG pCO2 19.6 L (32.0-48.0) mmHg POC ABG pO2 133.2 H (83-108) mmHg ABG Hemoglobin 5.9 L (12.0-17.5) ABG Potassium 4.7 H (3.40-4.50) mmol/L ABG Glucose 150 H (65-95) mg/dL Sodium (137-145) mmol/L Potassium (3.6-5.0) mmol/L Chloride (98-107) mmol/L Carbon Dioxide (22-30) mmol/L BUN (9-20) mg/dL Creatinine (0.8-1.3) mg/dL Glucose (75-100) mg/dL POC Glucose (70-105) mg/dL Calcium (8.4-10.2) mg/dL Arterial Blood Glucose 150 H (65-95) mg/dL Arterial Blood Ionized Calcium 4.0 L (4.6-5.3) mg/dL Crossmatch 09/25/20 09/25/20 09/25/20 Range/Units 10:05 10:05 10:06 WBC 43.2 H* (4.5-11.0) K/mm3 RBC 1.87 L (3.65-5.03) M/mm3 Hgb 4.9 L* (11.8-15.2) gm/dl Hct 17.4 L* (35.5-45.6) % MCH 26 L (28-32) pg MCHC 28 L (32-34) % RDW 16.4 H (13.2-15.2) % Plt Count 121 L (140-440) K/mm3 [place] # (Auto) (0.0-0.8) K/mm3 Seg Neuts % (Manual) (40.0-70.0) % Lymphocytes % (Manual) (13.4-35.0) % Nucleated RBC % (0.0-0.9) % Seg Neutrophils # (1.8-7.7) K/mm3 Seg Neutrophils # Man (1.8-7.7) K/mm3 Lymphocytes # (Manual) (1.2-5.4) K/mm3 Monocytes # (Manual) (0.0-0.8) K/mm3 PT 34.5 H (12.2-14.9) Sec. INR 3.39 H (0.87-1.13) Heparin Anti-Xa Level (0.3-0.7) U.I./ml POC ABG pCO2 (32.0-48.0) mmHg POC ABG pO2 (83-108) mmHg ABG Hemoglobin (12.0-17.5) ABG Potassium (3.40-4.50) mmol/L ABG Glucose (65-95) mg/dL Sodium (137-145) mmol/L Potassium (3.6-5.0) mmol/L Chloride (98-107) mmol/L Carbon Dioxide (22-30) mmol/L BUN (9-20) mg/dL Creatinine (0.8-1.3) mg/dL Glucose (75-100) mg/dL POC Glucose (70-105) mg/dL Calcium (8.4-10.2) mg/dL Arterial Blood Glucose (65-95) mg/dL Arterial Blood Ionized Calcium (4.6-5.3) mg/dL Crossmatch See Detail 09/25/20 09/25/20 09/25/20 Range/Units 10:08 20:38 20:38 WBC 41.0 H* (4.5-11.0) K/mm3 RBC 3.00 L (3.65-5.03) M/mm3 Hgb 8.7 L D (11.8-15.2) gm/dl Hct 27.2 L D (35.5-45.6) % MCH (28-32) pg MCHC (32-34) % RDW 15.7 H (13.2-15.2) % Plt Count 103 L (140-440) K/mm3 [place] # (Auto) (0.0-0.8) K/mm3 Seg Neuts % (Manual) (40.0-70.0) % Lymphocytes % (Manual) (13.4-35.0) % Nucleated RBC % (0.0-0.9) % Seg Neutrophils # (1.8-7.7) K/mm3 Seg Neutrophils # Man (1.8-7.7) K/mm3 Lymphocytes # (Manual) (1.2-5.4) K/mm3 Monocytes # (Manual) (0.0-0.8) K/mm3 PT (12.2-14.9) Sec. INR (0.87-1.13) Heparin Anti-Xa Level (0.3-0.7) U.I./ml POC ABG pCO2 (32.0-48.0) mmHg POC ABG pO2 (83-108) mmHg ABG Hemoglobin (12.0-17.5) ABG Potassium (3.40-4.50) mmol/L ABG Glucose (65-95) mg/dL Sodium 146 H (137-145) mmol/L Potassium 5.3 H D 6.3 H* (3.6-5.0) mmol/L Chloride 96.2 L 92.7 L (98-107) mmol/L Carbon Dioxide 11 L D 11 L (22-30) mmol/L BUN 103 H 109 H (9-20) mg/dL Creatinine 3.5 H D 3.8 H (0.8-1.3) mg/dL Glucose 157 H 161 H (75-100) mg/dL POC Glucose (70-105) mg/dL Calcium 7.7 L 7.2 L (8.4-10.2) mg/dL Arterial Blood Glucose (65-95) mg/dL Arterial Blood Ionized Calcium (4.6-5.3) mg/dL Crossmatch 09/25/20 Range/Units 23:12 WBC (4.5-11.0) K/mm3 RBC (3.65-5.03) M/mm3 Hgb (11.8-15.2) gm/dl Hct (35.5-45.6) % MCH (28-32) pg MCHC (32-34) % RDW (13.2-15.2) % Plt Count (140-440) K/mm3 [place] # (Auto) (0.0-0.8) K/mm3 Seg Neuts % (Manual) (40.0-70.0) % Lymphocytes % (Manual) (13.4-35.0) % Nucleated RBC % (0.0-0.9) % Seg Neutrophils # (1.8-7.7) K/mm3 Seg Neutrophils # Man (1.8-7.7) K/mm3 Lymphocytes # (Manual) (1.2-5.4) K/mm3 Monocytes # (Manual) (0.0-0.8) K/mm3 PT (12.2-14.9) Sec. INR (0.87-1.13) Heparin Anti-Xa Level (0.3-0.7) U.I./ml POC ABG pCO2 (32.0-48.0) mmHg POC ABG pO2 (83-108) mmHg ABG Hemoglobin (12.0-17.5) ABG Potassium (3.40-4.50) mmol/L ABG Glucose (65-95) mg/dL Sodium (137-145) mmol/L Potassium (3.6-5.0) mmol/L Chloride (98-107) mmol/L Carbon Dioxide (22-30) mmol/L BUN (9-20) mg/dL Creatinine (0.8-1.3) mg/dL Glucose (75-100) mg/dL POC Glucose 141 H (70-105) mg/dL Calcium (8.4-10.2) mg/dL Arterial Blood Glucose (65-95) mg/dL Arterial Blood Ionized Calcium (4.6-5.3) mg/dL Crossmatch
[2020-09-26] MEDS: VASOPRESSIN 20 UNIT in SODIUM CHLORIDE 0.9% 100 ML IV SCH ×2 (02:38→13:06)
[2020-09-26] MEDS: methylPREDNISolone Sod Succinate 40 MG/1 ML INJ IV SCH ×2 (06:38→13:04)
[2020-09-26 06:45] LABS: Albumin 2.4 g/dL (3.9-5); Calcium 6.8 mg/dL (8.4-10.2)
[2020-09-26] MEDS ORDERED: DEXTROSE 50% IN WATER (25GM) 50 ML SYRINGE IV ONE ×3 (08:00→17:38)
[2020-09-26] MEDS ORDERED: SODIUM BICARB 8.4% 50 MEQ/50 ML SYRINGE IV ONE ×3 (08:00→17:38)
[2020-09-26] MEDS ORDERED: INSULIN REGULAR, HUMAN 100 UNIT/ML 3ML VIAL IV ONE (08:00)
[2020-09-26] MEDS ORDERED: SODIUM POLYSTYRENE 15 GM/60 ML ORAL LIQD PO ONE (09:00)
[2020-09-26] MEDS ORDERED: SODIUM CHLORIDE 0.9% 100 ML IV PRN (09:08)
--- NOTE | 2020-09-26 09:11 | Event Note ---
Date: 09/26/20 Patient with worsening renal function and persistent hyperkalemia, requiring hemodialysis. Spoke to his daughter over the phone, d/w indications, benefits, risks and alternatives involved in hemodialysis. Specifically discussed about the increased risks due to shock. She voiced understanding and gave verbal consent. Vascular was requested to place hemodialysis catheter. HD orders placed.
[2020-09-26] MEDS ORDERED: MEROPENEM/NS 1 GRAM/100 ML 1 GRAM/100 ML BAG IV SCH (10:00)
[2020-09-26] MEDS: LANSOPRAZOLE 30 MG SOLUTAB FEEDTUBE SCH (10:09)
--- NOTE | 2020-09-26 10:53 | Progress Note ---
Assessment and Plan Acute respiratory failure status post intubation AMS / ? seizure Status post cardiac arrest bilateral PE Sepsis Acute renal insufficiency Hypotension Hyperlipidemia plan: no change from cardiac perspective. pt for initiation of HD per nephrology team. cont present cardiac management. will follow on as needed basis. The patient has been seen in conjunction with Dr. Melo who agrees with the assessment and plan of care. Subjective Date of service: 09/26/20 Principal diagnosis: Ac hypoxemic resp failure; Cardiac arrest; Acute P.E.; Severe sepsis; COVID Interval history: pt remains intubated, unresponsive. in SR on tele. Objective Last Vital Signs Temp 98.2 F 09/26/20 03:05 Pulse 93 H 09/26/20 08:28 Resp 27 H 09/26/20 08:28 BP 125/62 09/26/20 08:28 Pulse Ox 97 09/26/20 08:28 - Physical Examination General: Other (intubated, unresponsive) HEENT: Positive: Other Neck: Positive: neck supple Cardiac: Positive: Reg Rate and Rhythm, S1/S2 Lungs: Positive: Decreased Breath Sounds, Oxygen, Ventilated Respirations Neuro: Positive: Other (intubated, unresponsive) - Labs and Meds Cardiac Enzymes 09/26/20 Range/Units 05:55 AST 9400 H (5-40) units/L CBC 09/25/20 Range/Units 20:38 WBC 41.0 H* (4.5-11.0) K/mm3 RBC 3.00 L (3.65-5.03) M/mm3 Hgb 8.7 L D (11.8-15.2) gm/dl Hct 27.2 L D (35.5-45.6) % Plt Count 103 L (140-440) K/mm3 Comprehensive Metabolic Panel 09/25/20 09/26/20 Range/Units 20:38 05:55 Sodium 143 145 (137-145) mmol/L Potassium 6.3 H* 6.5 H* (3.6-5.0) mmol/L Chloride 92.7 L 92.6 L (98-107) mmol/L Carbon Dioxide 11 L 15 L (22-30) mmol/L BUN 109 H 119 H (9-20) mg/dL Creatinine 3.8 H 4.4 H (0.8-1.3) mg/dL Glucose 161 H 195 H (75-100) mg/dL Calcium 7.2 L 6.8 L (8.4-10.2) mg/dL AST 9400 H (5-40) units/L ALT 5711 H (7-56) units/L Alkaline Phosphatase 537 H (35-129) units/L Total Protein 4.2 L (6.3-8.2) g/dL Albumin 2.4 L (3.9-5) g/dL - Imaging and Cardiology Echo: report reviewed (Small pericardial effusion EF 40 to 45% without significant regurgitation) - Allied health notes Allied health notes reviewed: nursing
--- NOTE | 2020-09-26 10:57 | Gastroenterology Consultation ---
History of Present Illness - Reason for Consult Consult date: 09/26/20 Anemia Requesting physician: MAURA BAEZ - History of Present Illness Cardiopulmonary arrest. Patient reportedly with [id number] cardiopulmonary arrest. Unsure of the patient's total time without a pulse. Cardiology and pulmonary consultation pending. Follow-up echocardiogram, cardiac isoenzymes and serial EKG. CT scan of the head pending. Check MRI and EEG when patient stabilized. D-dimer significantly elevated greater than 10,000. Check CTA of the chest. Lactic acid also elevated at 10 which increases mortality significantly. Severe sepsis with septic shock. Present on admission. Patient presented with fever, tachycardia, hypotension, elevated lactate, pressors and gram negative dinora bacteremia. Drop in hemoglobin requiring 2 unit PRBC I spoke with the patient's nurse who reports no melena no blood seen when checking gastric residuals from tube feeds Obtained/updated/reviewed patient's current medications Past History Past Medical History: hyperlipidemia, other (Alzheimer's dementia) Past Surgical History: No surgical history Social history: no significant social history Family history: no significant family history Medications and Allergies Allergies Allergy/AdvReac Type Severity Reaction Status Date / Time No Known Allergies Allergy Unverified 09/16/20 12:52 Home Medications Medication Instructions Recorded Confirmed Last Taken Type No Known Home Medications [No 09/18/20 09/18/20 Unknown History Reported Home Medications] Active Meds: Active Medications Alteplase, Recombinant (Alteplase 2 Mg Inj) 2 mg IV PRN PRN PRN Reason: OCCLUDED CVL LUMEN Stop: 09/26/20 23:59 Lipase/Protease/Amylase (Lipase 10,500/Protease 25,000/Amylase 43,750 (Units) Dr Arciniega) 1 each FEEDTUBE PRN PRN PRN Reason: For Clogged Feeding Tube Dextrose (Dextrose 50% In Water (25gm) 50 Ml Syringe) 50 ml IV Q30MIN PRN; Protocol PRN Reason: Hypoglycemia Fentanyl (Fentanyl 100 Mcg/2 Ml Inj) 50 mcg IV Q10MIN PRN PRN Reason: ANALGESIA Heparin Sodium (Porcine) (Heparin 10,000 Units/10 Ml Vial) 2,400 unit 40 unit/kg (2400 unit) IV Q6H PRN PRN Reason: Anti-Xa Assay < 0.1 units/ml Last Admin: 09/16/20 21:00 Dose: 2,400 unit Documented by: Hydralazine HCl (Hydralazine 20 Mg/1 Ml Inj) 10 mg IV Q6H PRN PRN Reason: Hypertension Last Admin: 09/23/20 09:52 Dose: 10 mg Documented by: Hydrophilic Ointment (Lip Therapy Vaseline) 1 applic TP Q2HR PRN PRN Reason: Dry Lips Last Admin: 09/19/20 22:51 Dose: 1 applic Documented by: Fentanyl Citrate (Fentanyl Drip Premix) 2,000 mcg in 100 mls @ 3 mls/hr IV TITR DARA; Protocol Last Admin: 09/16/20 21:00 Dose: 1 mcg/kg/hr, 3 mls/hr Documented by: Heparin Sodium/Sodium Chloride (Heparin/ 0.45% Nacl-25,000 Unit/500 Ml) 25,000 unit in 500 mls @ 18 mls/hr IV TITR DARA; Protocol Last Titration: 09/25/20 09:42 Dose: 0 units/hr, 0 mls/hr Documented by: Sodium Bicarbonate 150 meq/ (Dextrose) 1,150 mls @ 100 mls/hr IV DIRECT DARA Stop: 09/26/20 11:14 Last Admin: 09/25/20 22:17 Dose: 100 mls/hr Documented by: Vasopressin 20 unit/ Sodium (Chloride) 101 mls @ 9.09 mls/hr IV TITR DARA; Protocol Last Admin: 09/26/20 02:38 Dose: 0.03 units/min, 9.09 mls/hr Documented by: Norepinephrine 8 mg/ Sodium (Chloride) 250 mls @ 3.75 mls/hr IV TITR DARA; Pr otocol Last Titration: 09/26/20 10:30 Dose: 8 mcg/min, 15 mls/hr Documented by: MEROPENEM/NS 1 GRAM/100 ML (Merrem/Ns 1 Gram/100 Ml) 1 gram in 100 mls @ 100 mls/hr IV Q24HR DARA; Protocol Stop: 09/26/20 23:59 Last Admin: 09/26/20 10:09 Dose: 100 mls/hr Documented by: Sodium Chloride (Nacl 0.9%) 100 mls @ 999 mls/hr IV SHER PRN PRN Reason: Hypotension Insulin Human Regular (Insulin Regular, Human 100 Unit/Ml 3ml Vial) 0 unit SUB- Q Q6H DARA; Protocol Last Admin: 09/26/20 08:47 Dose: 3 unit Documented by: Lansoprazole (Lansoprazole 30 Mg Solutab) 30 mg FEEDTUBE BID [facility] Last Admin: 09/26/20 10:09 Dose: 30 mg Documented by: Methylprednisolone Sodium Succinate (Methylprednisolone Sod Succinate 40 Mg/1 Ml Inj) 40 mg IV Q8HR [facility] Last Admin: 09/26/20 06:38 Dose: 40 mg Documented by: Multi-Ingred Cream/Lotion/Oil/Oint (Mineral Oil/Petrolatum, White Ophth Oint 3.5 Gm) 1 applic OU Q4HR PRN PRN Reason: Dry Eye(s) Last Admin: 09/19/20 22:51 Dose: 1 applic Documented by: Simple Syrup (Simple Syrup 15 Ml) 15 ml FEEDTUBE PRN PRN PRN Reason: Hypoglycemia Simple Syrup (Simple Syrup 15 Ml) 30 ml FEEDTUBE PRN PRN PRN Reason: Hypoglycemia Sodium Bicarbonate (Sodium Bicarbonate 325 Mg Tab) 325 mg FEEDTUBE PRN PRN PRN Reason: For Clogged Feeding Tube Sodium Chloride (Sodium Chloride 0.9% 10 Ml Flush Syringe) 10 ml IV BID [facility] Last Admin: 09/26/20 10:10 Dose: 10 ml Documented by: Sodium Chloride (Sodium Chloride 0.9% 10 Ml Flush Syringe) 10 ml IV PRN PRN PRN Reason: LINE FLUSH Review of Systems - Review of Systems ROS unobtainable: due to endotracheal tube Exam - Constitutional Vital Signs: Temp Pulse Resp BP Pulse Ox 98.2 F 93 H 27 H 125/62 97 09/26/20 03:05 09/26/20 08:28 09/26/20 08:28 09/26/20 08:28 09/26/20 08:28 General appearance: other (Intubated on mechanical ventilation) - EENT Eyes: other (No scleral icterus) ENT: other (Unable to assess auditory acuity as patient is not responsive) - Respiratory Respiratory effort: other (Intubated on mechanical ventilation) - Cardiovascular Rhythm: regular - Gastrointestinal General gastrointestinal: Present: soft - Integumentary Integumentary: Present: dry - Neurologic Neurological: other (Not responsive) - Psychiatric Psychiatric: other (Not responsive) - Labs CBC & Chem 7: 09/25/20 20:38 09/26/20 05:55 Lab Results: Laboratory Results - last 24 hr 09/25/20 09/25/20 09/25/20 10:06 12:03 18:27 WBC RBC Hgb Hct MCV MCH MCHC RDW Plt Count Sodium Potassium Chloride Carbon Dioxide Anion Gap BUN Creatinine Estimated GFR BUN/Creatinine Ratio Glucose POC Glucose 103 91 Calcium Total Bilirubin AST ALT Alkaline Phosphatase Total Protein Albumin Albumin/Globulin Ratio Blood Type AB POSITIVE Antibody Screen Negative Crossmatch See Detail 09/25/20 09/25/20 09/25/20 20:38 20:38 23:12 WBC 41.0 H* RBC 3.00 L Hgb 8.7 L D Hct 27.2 L D MCV 91 MCH 29 MCHC 32 RDW 15.7 H Plt Count 103 L Sodium 143 Potassium 6.3 H* Chloride 92.7 L Carbon Dioxide 11 L Anion Gap 46 BUN 109 H Creatinine 3.8 H Estimated GFR 19 BUN/Creatinine Ratio 29 Glucose 161 H POC Glucose 141 H Calcium 7.2 L Total Bilirubin AST ALT Alkaline Phosphatase Total Protein Albumin Albumin/Globulin Ratio Blood Type Antibody Screen Crossmatch 09/26/20 09/26/20 05:24 05:55 WBC RBC Hgb Hct MCV MCH MCHC RDW Plt Count Sodium 145 Potassium 6.5 H* Chloride 92.6 L Carbon Dioxide 15 L Anion Gap 44 BUN 119 H Creatinine 4.4 H Estimated GFR 16 BUN/Creatinine Ratio 27 Glucose 195 H POC Glucose 137 H Calcium 6.8 L Total Bilirubin 1.60 H AST 9400 H ALT 5711 H Alkaline Phosphatase 537 H Total Protein 4.2 L Albumin 2.4 L Albumin/Globulin Ratio 1.3 Blood Type Antibody Screen Crossmatch Assessment and Plan Patient without any overt gastrointestinal blood loss Occult blood was negative yesterday Therefore, given patient critically ill without any overt bleeding, risks of endoscopic intervention at this time outweigh the benefits Continue twice daily PPI dosing and continue to monitor clinically, there is any overt bleeding please call me immediately - Patient Problems (1) Anemia Current Visit: Yes Status: Acute
[2020-09-26] MEDS ORDERED: WATER FOR INJ Sterile (PF) 10 ML ONE (11:45)
[2020-09-26] MEDS: ALTEPLASE 2 MG INJ IV PRN ×3 (11:53→19:00)
[2020-09-26] MEDS: HYPROMELLOSE 0.5% OPHTH SOLN 15 ML OU PRN ×2 (12:34→18:21)
--- NOTE | 2020-09-26 12:49 | Progress Note ---
Assessment and Plan Acute hypoxemic respiratory failure, on mechanical ventilatory support. Cardiac arrest with return of spontaneous circulation Acute pulmonary emboli. Person under investigation for COVID-19 infection. CHF (EF 40%) History of dementia. Urinary tract infection. Anemia that is normocytic. Elevated serum D-dimers. Lactic acidosis. Severe sepsis - get KUB and address - begin Reglan 5mg IV q6h - GI input noted and appreciated, will continue double dose PPI therapy - HD/UF per nephrology prescription for toxin and volume clearance - neurology evaluation ongoing; prognosis for neurologic recovery remains poor and family conference is appropriate re: goals of care - continue care as below otherwise; - continue to wean supplemental oxygen for target O2 sat's > 92% acutely - VAP bundle addressed - continue lung protective strategies - continue bronchodilators with pulmonary hygiene per RT - wean per pulmonary driven protocols otherwise - continue Daily SAT and SBT assessment as tolerated - continue accuchecks with glycemic control per SSI (While critically ill target blood glucose of 140-180 mg/dL; avoid hypoglycemia) - sedation prn for target RASS 0 to -1 - anti-infective's per ID recommendations - coronavirus PCR negative - Azotemia per nephrology team - avoid nephrotoxins, renally dose all medications - continue to avoid benzodiazepine's, reduce the possibility of delirium - completed AB's per ID rec's - prn analgesia per CPOT score - Maintenance of sleep-wake cycle, avoid delirium - continue enteral nutritional support at goal rate as tolerated - G.I. & VTE prophylaxis - PT/OT/ROM exercises - continue mobility protocols for pressure ulcer prophylaxis - Monitor hemodynamics closely - continue other care per attending / other consultants - discharge planning ongoing concurrently .... Re-evaluate in am & prn CONDITION: CRITICAL PROGNOSIS: GUARDED CODE STATUS: FULL CODE The high probability of a clinically significant, sudden or life-threatening deterioration of the [respiratory, cardiovascular, hematologic & neurologic] system(s) required my full and direct attention, intervention and personal management. The aggregate critical care time was [33] minutes without overlap. Time includes spent on; [x] Data Review and interpretation [x] Patient assessment and monitoring of vital signs [x] Documentation [x] Medication orders and management Subjective Date of service: 09/26/20 Principal diagnosis: Ac hypoxemic resp failure; Cardiac arrest; Acute P.E.; Severe sepsis; COVID Interval history: Patient is seen today for: Ac hypoxemic resp failure; Cardiac arrest with ROSC; Acute pulmonary emboli; Severe sepsis; PUI COVID-19; UTI Seen and examined at bedside; 24hour events reviewed; nursing and respiratory care staff consulted; no adverse overnight events reported to me; resting peacefully in bed; remains on MVS; appropriate rise in H&H post transfusion; AMS is persistent; NOK reportedly have consented for Dialysis; + emesis earlier and tube feeds on hold Objective Vital Signs - 12hr 09/26/20 09/26/20 09/26/20 03:05 04:00 04:32 Temperature 98.2 F Pulse Rate 91 H 92 H Respiratory Rate Blood Pressure 116/72 O2 Sat by Pulse 100 Oximetry 09/26/20 09/26/20 09/26/20 07:35 07:40 07:50 Temperature Pulse Rate 99 H 99 H 93 H Respiratory 27 H 26 H 26 H Rate Blood Pressure 129/63 129/63 132/66 O2 Sat by Pulse 99 99 99 Oximetry 09/26/20 09/26/20 09/26/20 08:00 08:10 08:20 Temperature Pulse Rate 93 H 93 H 93 H Respiratory 26 H 25 H 26 H Rate Blood Pressure 132/66 119/74 124/67 O2 Sat by Pulse 100 98 98 Oximetry 09/26/20 09/26/20 09/26/20 08:28 08:30 08:40 Temperature Pulse Rate 93 H 93 H 94 H Respiratory 27 H 27 H 27 H Rate Blood Pressure 125/62 124/67 115/62 O2 Sat by Pulse 97 96 98 Oximetry 09/26/20 09/26/20 09/26/20 08:50 09:00 09:10 Temperature Pulse Rate 87 86 84 Respiratory 30 H 28 H 24 Rate Blood Pressure 117/69 117/69 188/109 O2 Sat by Pulse 99 84 97 Oximetry 09/26/20 09/26/20 09/26/20 09:20 09:30 09:40 Temperature Pulse Rate 83 88 86 Respiratory 23 26 H 21 Rate Blood Pressure 188/109 80/44 97/58 O2 Sat by Pulse 37 L 99 100 Oximetry 09/26/20 09/26/20 09/26/20 09:50 10:00 10:10 Temperature Pulse Rate 91 H 91 H 88 Respiratory 28 H 28 H 27 H Rate Blood Pressure 106/58 106/58 113/67 O2 Sat by Pulse 100 99 99 Oximetry 09/26/20 09/26/20 09/26/20 10:20 10:30 10:40 Temperature Pulse Rate 90 91 H 90 Respiratory 28 H 29 H 27 H Rate Blood Pressure 95/68 95/68 126/75 O2 Sat by Pulse 99 100 100 Oximetry 09/26/20 09/26/20 09/26/20 10:50 11:00 11:06 Temperature Pulse Rate 89 90 90 Respiratory 26 H 28 H 27 H Rate Blood Pressure 126/75 99/55 101/65 O2 Sat by Pulse 96 100 100 Oximetry 09/26/20 09/26/20 09/26/20 11:10 11:20 11:34 Temperature Pulse Rate 90 89 89 Respiratory 28 H 27 H 27 H Rate Blood Pressure 101/65 120/76 96/59 O2 Sat by Pulse 100 100 100 Oximetry 09/26/20 09/26/20 09/26/20 11:41 11:51 12:00 Temperature Pulse Rate 89 89 86 Respiratory 26 H 25 H Rate Blood Pressure 126/75 111/55 O2 Sat by Pulse 100 100 Oximetry 09/26/20 12:01 Temperature Pulse Rate 100 H Respiratory 26 H Rate Blood Pressure 111/55 O2 Sat by Pulse 90 Oximetry Constitutional: appears uncomfortable, other (elderly thin male with mildly increased respiratory effort at rest on MVS) Eyes: non-icteric ENT: oropharynx moist, other (ETT 24 cm CAROL) Neck: supple, no lymphadenopathy, no JVD Effort: mildly labored Ascultation: Bilateral: diminished breath sounds, rhonchi Percussion: Bilateral: not dull Cardiovascular: regular rate and rhythm Gastrointestinal: normoactive bowel sounds, hypoactive bowel sounds, soft, non- tender, other (soft but distended) Integumentary: normal Extremities: no cyanosis, no edema, pulses normal, no ischemia or petechiae Neurologic: pupils equal and round, unable to assess Psychiatric: other (unable to assess re: AMS) CBC and BMP: 09/25/20 20:38 09/26/20 05:55 ABG, PT/INR, D-dimer: ABG ABG pH 7.340 (7.320-7.450) 09/25/20 03:50 POC ABG pCO2 19.6 mmHg (32.0-48.0) L 09/25/20 03:50 ABG pCO2 29.5 mm Hg 09/24/20 04:20 POC ABG pO2 133.2 mmHg (83-108) H 09/25/20 03:50 ABG pO2 170.3 mm Hg (80.0-90.0) H 09/24/20 04:20 POC ABG HCO3 10.3 09/25/20 03:50 ABG O2 Saturation 99.2 % (95.0-99.0) H 09/24/20 04:20 PT/INR, D-dimer PT 34.5 Sec. (12.2-14.9) H 09/25/20 10:05 INR 3.39 (0.87-1.13) H 09/25/20 10:05 D-Dimer > 70399 ng/mlDDU (0-234) H 09/17/20 11:37 Abnormal lab findings: Abnormal Labs 09/16/20 09/16/20 09/16/20 10:37 10:37 10:37 WBC RBC Hgb 11.2 L Hct MCV MCH 27 L MCHC 31 L RDW Plt Count Lymph % (Auto) Lymph # (Auto) [place] # (Auto) Seg Neutrophils % 71.0 H Seg Neuts % (Manual) Lymphocytes % (Manual) Nucleated RBC % Seg Neutrophils # Seg Neutrophils # Man Lymphocytes # (Manual) Monocytes # (Manual) PT 18.6 H INR 1.55 H APTT 43.4 H D-Dimer > 08546 H Heparin Anti-Xa Level ABG pH POC ABG pCO2 POC ABG pO2 ABG pO2 ABG HCO3 ABG O2 Saturation ABG Base Excess ABG Hemoglobin ABG Oxyhemoglobin ABG Potassium ABG Chloride ABG Glucose VBG pH Carboxyhemoglobin Sodium Potassium Chloride Carbon Dioxide BUN Creatinine Glucose POC Glucose Lactic Acid 10.00 H* Calcium Magnesium Ferritin Total Bilirubin AST ALT Alkaline Phosphatase Lactate Dehydrogenase Total Creatine Kinase C-Reactive Protein Total Protein Albumin Arterial Blood Glucose Arterial Blood Ionized Calcium Urine WBC (Auto) U Epithel Cells (Auto) Urine Creatinine Crossmatch 09/16/20 09/16/20 09/16/20 10:37 10:37 10:53 WBC RBC Hgb Hct MCV MCH MCHC RDW Plt Count Lymph % (Auto) Lymph # (Auto) [place] # (Auto) Seg Neutrophils % Seg Neuts % (Manual) Lymphocytes % (Manual) Nucleated RBC % Seg Neutrophils # Seg Neutrophils # Man Lymphocytes # (Manual) Monocytes # (Manual) PT INR APTT D-Dimer Heparin Anti-Xa Level ABG pH POC ABG pCO2 POC ABG pO2 ABG pO2 ABG HCO3 ABG O2 Saturation ABG Base Excess ABG Hemoglobin ABG Oxyhemoglobin ABG Potassium ABG Chloride ABG Glucose VBG pH 7.138 L* Carboxyhemoglobin Sodium Potassium Chloride Carbon Dioxide 16 L BUN 25 H Creatinine 1.5 H Glucose 243 H POC Glucose Lactic Acid Calcium Magnesium 2.50 H Ferritin Total Bilirubin AST 54 H ALT Alkaline Phosphatase Lactate Dehydrogenase Total Creatine Kinase C-Reactive Protein Total Protein 6.1 L Albumin 3.2 L Arterial Blood Glucose Arterial Blood Ionized Calcium Urine WBC (Auto) 67.0 H U Epithel Cells (Auto) 27.0 H Urine Creatinine Crossmatch 09/16/20 09/16/20 09/16/20 16:00 20:12 20:49 WBC RBC Hgb Hct MCV MCH MCHC RDW Plt Count Lymph % (Auto) Lymph # (Auto) [place] # (Auto) Seg Neutrophils % Seg Neuts % (Manual) Lymphocytes % (Manual) Nucleated RBC % Seg Neutrophils # Seg Neutrophils # Man Lymphocytes # (Manual) Monocytes # (Manual) PT INR APTT D-Dimer Heparin Anti-Xa Level ABG pH POC ABG pCO2 31.0 L POC ABG pO2 427.0 H ABG pO2 ABG HCO3 ABG O2 Saturation ABG Base Excess ABG Hemoglobin ABG Oxyhemoglobin ABG Potassium ABG Chloride 109.0 H ABG Glucose 169 H VBG pH Carboxyhemoglobin Sodium Potassium Chloride Carbon Dioxide BUN Creatinine Glucose POC Glucose 136 H Lactic Acid Calcium Magnesium Ferritin Total Bilirubin AST ALT Alkaline Phosphatase Lactate Dehydrogenase Total Creatine Kinase C-Reactive Protein 2.80 H Total Protein Albumin Arterial Blood Glucose 169 H Arterial Blood Ionized Calcium 4.5 L Urine WBC (Auto) U Epithel Cells (Auto) Urine Creatinine Crossmatch 09/16/20 09/17/20 09/17/20 20:49 00:44 00:57 WBC RBC Hgb Hct MCV MCH MCHC RDW Plt Count Lymph % (Auto) Lymph # (Auto) [place] # (Auto) Seg Neutrophils % Seg Neuts % (Manual) Lymphocytes % (Manual) Nucleated RBC % Seg Neutrophils # Seg Neutrophils # Man Lymphocytes # (Manual) Monocytes # (Manual) PT 18.2 H INR 1.51 H APTT 44.0 H D-Dimer Heparin Anti-Xa Level ABG pH POC ABG pCO2 POC ABG pO2 ABG pO2 ABG HCO3 ABG O2 Saturation ABG Base Excess ABG Hemoglobin ABG Oxyhemoglobin ABG Potassium ABG Chloride ABG Glucose VBG pH Carboxyhemoglobin Sodium Potassium Chloride Carbon Dioxide BUN Creatinine Glucose POC Glucose 153 H Lactic Acid Calcium Magnesium Ferritin Total Bilirubin AST ALT Alkaline Phosphatase Lactate Dehydrogenase Total Creatine Kinase C-Reactive Protein Total Protein Albumin Arterial Blood Glucose Arterial Blood Ionized Calcium Urine WBC (Auto) U Epithel Cells (Auto) Urine Creatinine 181.1 H Crossmatch 09/17/20 09/17/20 09/17/20 03:05 04:16 04:16 WBC 20.1 H RBC Hgb Hct MCV 83 L MCH 27 L MCHC RDW Plt Count Lymph % (Auto) Lymph # (Auto) [place] # (Auto) Seg Neutrophils % Seg Neuts % (Manual) 91.0 H Lymphocytes % (Manual) 6.0 L Nucleated RBC % Seg Neutrophils # Seg Neutrophils # Man 18.3 H Lymphocytes # (Manual) Monocytes # (Manual) PT INR APTT D-Dimer Heparin Anti-Xa Level 1.26 H ABG pH POC ABG pCO2 POC ABG pO2 ABG pO2 237.5 H ABG HCO3 17.4 L ABG O2 Saturation 99.4 H ABG Base Excess -6.6 L ABG Hemoglobin 12.2 L ABG Oxyhemoglobin ABG Potassium ABG Chloride ABG Glucose VBG pH Carboxyhemoglobin Sodium Potassium Chloride Carbon Dioxide BUN Creatinine Glucose POC Glucose Lactic Acid Calcium Magnesium Ferritin Total Bilirubin AST ALT Alkaline Phosphatase Lactate Dehydrogenase Total Creatine Kinase C-Reactive Protein Total Protein Albumin Arterial Blood Glucose Arterial Blood Ionized Calcium Urine WBC (Auto) U Epithel Cells (Auto) Urine Creatinine Crossmatch 09/17/20 09/17/20 09/17/20 04:16 04:16 06:31 WBC RBC Hgb Hct MCV MCH MCHC RDW Plt Count Lymph % (Auto) Lymph # (Auto) [place] # (Auto) Seg Neutrophils % Seg Neuts % (Manual) Lymphocytes % (Manual) Nucleated RBC % Seg Neutrophils # Seg Neutrophils # Man Lymphocytes # (Manual) Monocytes # (Manual) PT INR APTT D-Dimer Heparin Anti-Xa Level ABG pH POC ABG pCO2 POC ABG pO2 ABG pO2 ABG HCO3 ABG O2 Saturation ABG Base Excess ABG Hemoglobin ABG Oxyhemoglobin ABG Potassium ABG Chloride ABG Glucose VBG pH Carboxyhemoglobin Sodium Potassium Chloride Carbon Dioxide 18 L BUN 34 H Creatinine 1.5 H Glucose 171 H POC Glucose 136 H Lactic Acid 3.60 H* Calcium Magnesium Ferritin Total Bilirubin AST ALT Alkaline Phosphatase Lactate Dehydrogenase Total Creatine Kinase C-Reactive Protein Total Protein Albumin Arterial Blood Glucose Arterial Blood Ionized Calcium Urine WBC (Auto) U Epithel Cells (Auto) Urine Creatinine Crossmatch 09/17/20 09/17/20 09/17/20 11:37 11:37 11:37 WBC RBC Hgb Hct MCV MCH MCHC RDW Plt Count Lymph % (Auto) Lymph # (Auto) [place] # (Auto) Seg Neutrophils % Seg Neuts % (Manual) Lymphocytes % (Manual) Nucleated RBC % Seg Neutrophils # Seg Neutrophils # Man Lymphocytes # (Manual) Monocytes # (Manual) PT 18.0 H INR 1.49 H APTT D-Dimer > 06718 H Heparin Anti-Xa Level 0.25 L ABG pH POC ABG pCO2 POC ABG pO2 ABG pO2 ABG HCO3 ABG O2 Saturation ABG Base Excess ABG Hemoglobin ABG Oxyhemoglobin ABG Potassium ABG Chloride ABG Glucose VBG pH Carboxyhemoglobin Sodium Potassium Chloride Carbon Dioxide BUN Creatinine Glucose POC Glucose Lactic Acid 2.80 H* Calcium Magnesium Ferritin Total Bilirubin AST ALT Alkaline Phosphatase Lactate Dehydrogenase Total Creatine Kinase C-Reactive Protein Total Protein Albumin Arterial Blood Glucose Arterial Blood Ionized Calcium Urine WBC (Auto) U Epithel Cells (Auto) Urine Creatinine Crossmatch 09/17/20 09/17/20 09/17/20 15:58 15:58 15:58 WBC RBC Hgb Hct MCV MCH MCHC RDW Plt Count Lymph % (Auto) Lymph # (Auto) [place] # (Auto) Seg Neutrophils % Seg Neuts % (Manual) Lymphocytes % (Manual) Nucleated RBC % Seg Neutrophils # Seg Neutrophils # Man Lymphocytes # (Manual) Monocytes # (Manual) PT INR APTT D-Dimer Heparin Anti-Xa Level ABG pH POC ABG pCO2 POC ABG pO2 ABG pO2 ABG HCO3 ABG O2 Saturation ABG Base Excess ABG Hemoglobin ABG Oxyhemoglobin ABG Potassium ABG Chloride ABG Glucose VBG pH Carboxyhemoglobin Sodium Potassium Chloride Carbon Dioxide BUN Creatinine Glucose POC Glucose Lactic Acid 3.90 H* Calcium Magnesium Ferritin 1306.0 H Total Bilirubin AST ALT Alkaline Phosphatase Lactate Dehydrogenase 515 H Total Creatine Kinase C-Reactive Protein 24.30 H Total Protein Albumin Arterial Blood Glucose Arterial Blood Ionized Calcium Urine WBC (Auto) U Epithel Cells (Auto) Urine Creatinine Crossmatch 09/17/20 09/18/20 09/18/20 20:35 03:04 03:35 WBC RBC Hgb Hct MCV MCH MCHC RDW Plt Count Lymph % (Auto) Lymph # (Auto) [place] # (Auto) Seg Neutrophils % Seg Neuts % (Manual) Lymphocytes % (Manual) Nucleated RBC % Seg Neutrophils # Seg Neutrophils # Man Lymphocytes # (Manual) Monocytes # (Manual) PT INR APTT D-Dimer Heparin Anti-Xa Level ABG pH POC ABG pCO2 POC ABG pO2 ABG pO2 198.7 H ABG HCO3 18.9 L ABG O2 Saturation 99.3 H ABG Base Excess -4.3 L ABG Hemoglobin 10.8 L ABG Oxyhemoglobin ABG Potassium ABG Chloride ABG Glucose VBG pH Carboxyhemoglobin Sodium Potassium Chloride Carbon Dioxide BUN Creatinine Glucose POC Glucose 111 H 129 H Lactic Acid Calcium Magnesium Ferritin Total Bilirubin AST ALT Alkaline Phosphatase Lactate Dehydrogenase Total Creatine Kinase C-Reactive Protein Total Protein Albumin Arterial Blood Glucose Arterial Blood Ionized Calcium Urine WBC (Auto) U Epithel Cells (Auto) Urine Creatinine Crossmatch 09/18/20 09/18/20 09/18/20 04:19 04:19 06:34 WBC 21.8 H RBC Hgb 11.4 L Hct 35.2 L MCV 82 L MCH 26 L MCHC RDW Plt Count Lymph % (Auto) 2.4 L Lymph # (Auto) 0.5 L [place] # (Auto) Seg Neutrophils % 94.6 H Seg Neuts % (Manual) Lymphocytes % (Manual) Nucleated RBC % Seg Neutrophils # 20.6 H Seg Neutrophils # Man Lymphocytes # (Manual) Monocytes # (Manual) PT INR APTT D-Dimer Heparin Anti-Xa Level ABG pH POC ABG pCO2 POC ABG pO2 ABG pO2 ABG HCO3 ABG O2 Saturation ABG Base Excess ABG Hemoglobin ABG Oxyhemoglobin ABG Potassium ABG Chloride ABG Glucose VBG pH Carboxyhemoglobin Sodium Potassium 5.6 H Chloride Carbon Dioxide 20 L BUN 50 H Creatinine 2.4 H D Glucose 155 H POC Glucose 132 H Lactic Acid Calcium Magnesium Ferritin Total Bilirubin AST ALT Alkaline Phosphatase Lactate Dehydrogenase Total Creatine Kinase C-Reactive Protein Total Protein Albumin Arterial Blood Glucose Arterial Blood Ionized Calcium Urine WBC (Auto) U Epithel Cells (Auto) Urine Creatinine Crossmatch 09/19/20 09/19/20 09/19/20 04:00 05:02 05:02 WBC 20.5 H RBC Hgb 10.0 L Hct 30.8 L MCV 82 L MCH 27 L MCHC RDW Plt Count 130 L Lymph % (Auto) Lymph # (Auto) [place] # (Auto) Seg Neutrophils % Seg Neuts % (Manual) 97.0 H Lymphocytes % (Manual) Nucleated RBC % 1.0 H Seg Neutrophils # Seg Neutrophils # Man 19.9 H Lymphocytes # (Manual) 0.0 L Monocytes # (Manual) PT INR APTT D-Dimer Heparin Anti-Xa Level ABG pH 7.503 H POC ABG pCO2 POC ABG pO2 ABG pO2 159.2 H ABG HCO3 ABG O2 Saturation 99.1 H ABG Base Excess ABG Hemoglobin 10.3 L ABG Oxyhemoglobin ABG Potassium ABG Chloride ABG Glucose VBG pH Carboxyhemoglobin Sodium Potassium Chloride Carbon Dioxide BUN 74 H Creatinine 3.5 H Glucose 168 H POC Glucose Lactic Acid Calcium Magnesium Ferritin Total Bilirubin AST ALT Alkaline Phosphatase Lactate Dehydrogenase Total Creatine Kinase C-Reactive Protein Total Protein Albumin Arterial Blood Glucose Arterial Blood Ionized Calcium Urine WBC (Auto) U Epithel Cells (Auto) Urine Creatinine Crossmatch 09/19/20 09/19/20 09/19/20 09:11 11:58 18:58 WBC RBC Hgb Hct MCV MCH MCHC RDW Plt Count Lymph % (Auto) Lymph # (Auto) [place] # (Auto) Seg Neutrophils % Seg Neuts % (Manual) Lymphocytes % (Manual) Nucleated RBC % Seg Neutrophils # Seg Neutrophils # Man Lymphocytes # (Manual) Monocytes # (Manual) PT INR APTT D-Dimer Heparin Anti-Xa Level ABG pH POC ABG pCO2 POC ABG pO2 ABG pO2 ABG HCO3 ABG O2 Saturation ABG Base Excess ABG Hemoglobin ABG Oxyhemoglobin ABG Potassium ABG Chloride ABG Glucose VBG pH Carboxyhemoglobin Sodium Potassium Chloride Carbon Dioxide BUN Creatinine Glucose POC Glucose 143 H 155 H 153 H Lactic Acid Calcium Magnesium Ferritin Total Bilirubin AST ALT Alkaline Phosphatase Lactate Dehydrogenase Total Creatine Kinase C-Reactive Protein Total Protein Albumin Arterial Blood Glucose Arterial Blood Ionized Calcium Urine WBC (Auto) U Epithel Cells (Auto) Urine Creatinine Crossmatch 09/20/20 09/20/20 09/20/20 04:49 04:49 05:15 WBC RBC Hgb 9.4 L Hct 29.2 L MCV MCH MCHC RDW Plt Count 127 L Lymph % (Auto) Lymph # (Auto) [place] # (Auto) Seg Neutrophils % Seg Neuts % (Manual) Lymphocytes % (Manual) Nucleated RBC % Seg Neutrophils # Seg Neutrophils # Man Lymphocytes # (Manual) Monocytes # (Manual) PT INR APTT D-Dimer Heparin Anti-Xa Level ABG pH 7.628 H POC ABG pCO2 24.6 L POC ABG pO2 153.3 H ABG pO2 ABG HCO3 ABG O2 Saturation ABG Base Excess ABG Hemoglobin 10.7 L ABG Oxyhemoglobin 98.7 H ABG Potassium ABG Chloride 97.0 L ABG Glucose 162 H VBG pH Carboxyhemoglobin 0.3 L Sodium 146 H Potassium Chloride Carbon Dioxide 35 H D BUN 94 H Creatinine 3.7 H Glucose 157 H POC Glucose Lactic Acid Calcium 8.3 L Magnesium Ferritin Total Bilirubin AST ALT Alkaline Phosphatase Lactate Dehydrogenase Total Creatine Kinase 1932 H C-Reactive Protein Total Protein Albumin Arterial Blood Glucose 162 H Arterial Blood Ionized Calcium 4.0 L Urine WBC (Auto) U Epithel Cells (Auto) Urine Creatinine Crossmatch 09/20/20 09/21/20 09/21/20 08:14 01:46 04:41 WBC RBC Hgb Hct MCV MCH MCHC RDW Plt Count Lymph % (Auto) Lymph # (Auto) [place] # (Auto) Seg Neutrophils % Seg Neuts % (Manual) Lymphocytes % (Manual) Nucleated RBC % Seg Neutrophils # Seg Neutrophils # Man Lymphocytes # (Manual) Monocytes # (Manual) PT INR APTT D-Dimer Heparin Anti-Xa Level ABG pH POC ABG pCO2 POC ABG pO2 ABG pO2 ABG HCO3 ABG O2 Saturation ABG Base Excess ABG Hemoglobin ABG Oxyhemoglobin ABG Potassium ABG Chloride ABG Glucose VBG pH Carboxyhemoglobin Sodium 146 H Potassium 3.4 L Chloride Carbon Dioxide 32 H BUN 99 H Creatinine 2.9 H Glucose 201 H POC Glucose 160 H 181 H Lactic Acid Calcium Magnesium Ferritin Total Bilirubin AST ALT Alkaline Phosphatase Lactate Dehydrogenase Total Creatine Kinase C-Reactive Protein Total Protein Albumin Arterial Blood Glucose Arterial Blood Ionized Calcium Urine WBC (Auto) U Epithel Cells (Auto) Urine Creatinine Crossmatch 09/21/20 09/21/20 09/21/20 05:51 06:24 15:34 WBC RBC Hgb Hct MCV MCH MCHC RDW Plt Count Lymph % (Auto) Lymph # (Auto) [place] # (Auto) Seg Neutrophils % Seg Neuts % (Manual) Lymphocytes % (Manual) Nucleated RBC % Seg Neutrophils # Seg Neutrophils # Man Lymphocytes # (Manual) Monocytes # (Manual) PT INR APTT D-Dimer Heparin Anti-Xa Level ABG pH 7.545 H POC ABG pCO2 POC ABG pO2 ABG pO2 129.0 H ABG HCO3 30.0 H ABG O2 Saturation ABG Base Excess 7.3 H ABG Hemoglobin 11.7 L ABG Oxyhemoglobin ABG Potassium ABG Chloride ABG Glucose VBG pH Carboxyhemoglobin Sodium Potassium Chloride Carbon Dioxide BUN Creatinine Glucose POC Glucose 176 H 189 H Lactic Acid Calcium Magnesium Ferritin Total Bilirubin AST ALT Alkaline Phosphatase Lactate Dehydrogenase Total Creatine Kinase C-Reactive Protein Total Protein Albumin Arterial Blood Glucose Arterial Blood Ionized Calcium Urine WBC (Auto) U Epithel Cells (Auto) Urine Creatinine Crossmatch 09/21/20 09/21/20 09/22/20 19:32 23:31 04:32 WBC RBC Hgb Hct MCV MCH MCHC RDW Plt Count Lymph % (Auto) Lymph # (Auto) [place] # (Auto) Seg Neutrophils % Seg Neuts % (Manual) Lymphocytes % (Manual) Nucleated RBC % Seg Neutrophils # Seg Neutrophils # Man Lymphocytes # (Manual) Monocytes # (Manual) PT INR APTT D-Dimer Heparin Anti-Xa Level ABG pH 7.545 H POC ABG pCO2 POC ABG pO2 ABG pO2 153.8 H ABG HCO3 28.2 H ABG O2 Saturation ABG Base Excess 5.6 H ABG Hemoglobin 9.4 L ABG Oxyhemoglobin ABG Potassium ABG Chloride ABG Glucose VBG pH Carboxyhemoglobin Sodium Potassium Chloride Carbon Dioxide BUN Creatinine Glucose POC Glucose 194 H 174 H Lactic Acid Calcium Magnesium Ferritin Total Bilirubin AST ALT Alkaline Phosphatase Lactate Dehydrogenase Total Creatine Kinase C-Reactive Protein Total Protein Albumin Arterial Blood Glucose Arterial Blood Ionized Calcium Urine WBC (Auto) U Epithel Cells (Auto) Urine Creatinine Crossmatch 09/22/20 09/22/20 09/22/20 05:18 05:18 06:11 WBC RBC Hgb 9.7 L Hct 30.3 L MCV MCH MCHC RDW Plt Count 122 L Lymph % (Auto) Lymph # (Auto) [place] # (Auto) Seg Neutrophils % Seg Neuts % (Manual) Lymphocytes % (Manual) Nucleated RBC % Seg Neutrophils # Seg Neutrophils # Man Lymphocytes # (Manual) Monocytes # (Manual) PT INR APTT D-Dimer Heparin Anti-Xa Level ABG pH POC ABG pCO2 POC ABG pO2 ABG pO2 ABG HCO3 ABG O2 Saturation ABG Base Excess ABG Hemoglobin ABG Oxyhemoglobin ABG Potassium ABG Chloride ABG Glucose VBG pH Carboxyhemoglobin Sodium 147 H Potassium 3.0 L Chloride Carbon Dioxide BUN 101 H Creatinine 2.3 H Glucose 217 H POC Glucose 179 H Lactic Acid Calcium Magnesium Ferritin Total Bilirubin AST ALT Alkaline Phosphatase Lactate Dehydrogenase Total Creatine Kinase 1202 H C-Reactive Protein Total Protein Albumin Arterial Blood Glucose Arterial Blood Ionized Calcium Urine WBC (Auto) U Epithel Cells (Auto) Urine Creatinine Crossmatch 09/22/20 09/22/20 09/23/20 13:51 18:35 05:29 WBC RBC Hgb Hct MCV MCH MCHC RDW Plt Count Lymph % (Auto) Lymph # (Auto) [place] # (Auto) Seg Neutrophils % Seg Neuts % (Manual) Lymphocytes % (Manual) Nucleated RBC % Seg Neutrophils # Seg Neutrophils # Man Lymphocytes # (Manual) Monocytes # (Manual) PT INR APTT D-Dimer Heparin Anti-Xa Level ABG pH POC ABG pCO2 POC ABG pO2 ABG pO2 ABG HCO3 ABG O2 Saturation ABG Base Excess ABG Hemoglobin ABG Oxyhemoglobin ABG Potassium ABG Chloride ABG Glucose VBG pH Carboxyhemoglobin Sodium Potassium Chloride Carbon Dioxide BUN Creatinine Glucose POC Glucose 175 H 191 H 142 H Lactic Acid Calcium Magnesium Ferritin Total Bilirubin AST ALT Alkaline Phosphatase Lactate Dehydrogenase Total Creatine Kinase C-Reactive Protein Total Protein Albumin Arterial Blood Glucose Arterial Blood Ionized Calcium Urine WBC (Auto) U Epithel Cells (Auto) Urine Creatinine Crossmatch 09/23/20 09/23/20 09/23/20 06:39 12:07 16:30 WBC RBC Hgb 9.3 L Hct 29.2 L MCV MCH MCHC RDW Plt Count Lymph % (Auto) Lymph # (Auto) [place] # (Auto) Seg Neutrophils % Seg Neuts % (Manual) Lymphocytes % (Manual) Nucleated RBC % Seg Neutrophils # Seg Neutrophils # Man Lymphocytes # (Manual) Monocytes # (Manual) PT INR APTT D-Dimer Heparin Anti-Xa Level ABG pH POC ABG pCO2 POC ABG pO2 ABG pO2 ABG HCO3 ABG O2 Saturation ABG Base Excess ABG Hemoglobin ABG Oxyhemoglobin ABG Potassium ABG Chloride ABG Glucose VBG pH Carboxyhemoglobin Sodium 151 H Potassium Chloride Carbon Dioxide 35 H BUN 99 H Creatinine 2.1 H Glucose 159 H POC Glucose 200 H Lactic Acid Calcium Magnesium Ferritin Total Bilirubin AST ALT Alkaline Phosphatase Lactate Dehydrogenase Total Creatine Kinase C-Reactive Protein Total Protein Albumin Arterial Blood Glucose Arterial Blood Ionized Calcium Urine WBC (Auto) U Epithel Cells (Auto) Urine Creatinine Crossmatch 09/23/20 09/23/20 09/23/20 16:31 23:37 Unknown WBC 23.3 H RBC Hgb 9.8 L Hct 30.7 L MCV 83 L MCH 27 L MCHC RDW Plt Count 132 L Lymph % (Auto) Lymph # (Auto) [place] # (Auto) Seg Neutrophils % Seg Neuts % (Manual) 92.0 H Lymphocytes % (Manual) 5.0 L Nucleated RBC % 1.0 H Seg Neutrophils # Seg Neutrophils # Man 21.4 H Lymphocytes # (Manual) Monocytes # (Manual) PT INR APTT D-Dimer Heparin Anti-Xa Level ABG pH POC ABG pCO2 POC ABG pO2 ABG pO2 ABG HCO3 ABG O2 Saturation ABG Base Excess ABG Hemoglobin ABG Oxyhemoglobin ABG Potassium ABG Chloride ABG Glucose VBG pH Carboxyhemoglobin Sodium Potassium Chloride Carbon Dioxide BUN Creatinine Glucose POC Glucose 185 H 169 H Lactic Acid Calcium Magnesium Ferritin Total Bilirubin AST ALT Alkaline Phosphatase Lactate Dehydrogenase Total Creatine Kinase C-Reactive Protein Total Protein Albumin Arterial Blood Glucose Arterial Blood Ionized Calcium Urine WBC (Auto) U Epithel Cells (Auto) Urine Creatinine Crossmatch 09/23/20 09/24/20 09/24/20 Unknown 00:39 00:39 WBC RBC Hgb 8.8 L Hct 27.7 L MCV MCH MCHC RDW Plt Count Lymph % (Auto) Lymph # (Auto) [place] # (Auto) Seg Neutrophils % Seg Neuts % (Manual) Lymphocytes % (Manual) Nucleated RBC % Seg Neutrophils # Seg Neutrophils # Man Lymphocytes # (Manual) Monocytes # (Manual) PT 15.1 H INR 1.21 H APTT D-Dimer Heparin Anti-Xa Level 1.25 H ABG pH POC ABG pCO2 POC ABG pO2 ABG pO2 ABG HCO3 ABG O2 Saturation ABG Base Excess ABG Hemoglobin ABG Oxyhemoglobin ABG Potassium ABG Chloride ABG Glucose VBG pH Carboxyhemoglobin Sodium Potassium Chloride Carbon Dioxide BUN Creatinine Glucose POC Glucose Lactic Acid Calcium Magnesium Ferritin Total Bilirubin AST ALT Alkaline Phosphatase Lactate Dehydrogenase Total Creatine Kinase C-Reactive Protein Total Protein Albumin Arterial Blood Glucose Arterial Blood Ionized Calcium Urine WBC (Auto) U Epithel Cells (Auto) Urine Creatinine Crossmatch 09/24/20 09/24/20 09/24/20 04:20 04:29 04:29 WBC RBC Hgb 9.2 L Hct 29.3 L MCV MCH MCHC RDW Plt Count 128 L Lymph % (Auto) Lymph # (Auto) [place] # (Auto) Seg Neutrophils % Seg Neuts % (Manual) Lymphocytes % (Manual) Nucleated RBC % Seg Neutrophils # Seg Neutrophils # Man Lymphocytes # (Manual) Monocytes # (Manual) PT INR APTT D-Dimer Heparin Anti-Xa Level ABG pH 7.591 H POC ABG pCO2 POC ABG pO2 ABG pO2 170.3 H ABG HCO3 27.7 H ABG O2 Saturation 99.2 H ABG Base Excess 6.0 H ABG Hemoglobin 9.1 L ABG Oxyhemoglobin ABG Potassium ABG Chloride ABG Glucose VBG pH Carboxyhemoglobin Sodium 146 H Potassium Chloride Carbon Dioxide BUN 96 H Creatinine 1.8 H Glucose 262 H POC Glucose Lactic Acid Calcium Magnesium Ferritin Total Bilirubin AST ALT Alkaline Phosphatase Lactate Dehydrogenase Total Creatine Kinase 517 H C-Reactive Protein Total Protein Albumin Arterial Blood Glucose Arterial Blood Ionized Calcium Urine WBC (Auto) U Epithel Cells (Auto) Urine Creatinine Crossmatch 09/24/20 09/24/20 09/24/20 05:10 11:31 12:59 WBC RBC Hgb Hct MCV MCH MCHC RDW Plt Count Lymph % (Auto) Lymph # (Auto) [place] # (Auto) Seg Neutrophils % Seg Neuts % (Manual) Lymphocytes % (Manual) Nucleated RBC % Seg Neutrophils # Seg Neutrophils # Man Lymphocytes # (Manual) Monocytes # (Manual) PT INR APTT D-Dimer Heparin Anti-Xa Level 1.67 H ABG pH POC ABG pCO2 POC ABG pO2 ABG pO2 ABG HCO3 ABG O2 Saturation ABG Base Excess ABG Hemoglobin ABG Oxyhemoglobin ABG Potassium ABG Chloride ABG Glucose VBG pH Carboxyhemoglobin Sodium Potassium Chloride Carbon Dioxide BUN Creatinine Glucose POC Glucose 212 H 325 H Lactic Acid Calcium Magnesium Ferritin Total Bilirubin AST ALT Alkaline Phosphatase Lactate Dehydrogenase Total Creatine Kinase C-Reactive Protein Total Protein Albumin Arterial Blood Glucose Arterial Blood Ionized Calcium Urine WBC (Auto) U Epithel Cells (Auto) Urine Creatinine Crossmatch 09/24/20 09/24/20 09/24/20 18:09 22:10 23:31 WBC RBC Hgb Hct MCV MCH MCHC RDW Plt Count Lymph % (Auto) Lymph # (Auto) [place] # (Auto) Seg Neutrophils % Seg Neuts % (Manual) Lymphocytes % (Manual) Nucleated RBC % Seg Neutrophils # Seg Neutrophils # Man Lymphocytes # (Manual) Monocytes # (Manual) PT INR APTT D-Dimer Heparin Anti-Xa Level 1.41 H ABG pH 7.214 L POC ABG pCO2 20.3 L POC ABG pO2 129.5 H ABG pO2 ABG HCO3 ABG O2 Saturation ABG Base Excess ABG Hemoglobin 6.5 L ABG Oxyhemoglobin ABG Potassium ABG Chloride ABG Glucose 158 H VBG pH Carboxyhemoglobin 0.4 L Sodium Potassium Chloride Carbon Dioxide BUN Creatinine Glucose POC Glucose 273 H Lactic Acid Calcium Magnesium Ferritin Total Bilirubin AST ALT Alkaline Phosphatase Lactate Dehydrogenase Total Creatine Kinase C-Reactive Protein Total Protein Albumin Arterial Blood Glucose 158 H Arterial Blood Ionized Calcium 4.5 L Urine WBC (Auto) U Epithel Cells (Auto) Urine Creatinine Crossmatch 09/25/20 09/25/20 09/25/20 00:13 03:50 05:57 WBC 48.7 H* RBC 1.90 L Hgb 5.0 L* D Hct 17.0 L* D MCV MCH 26 L MCHC 29 L RDW 15.4 H Plt Count 121 L Lymph % (Auto) Lymph # (Auto) [place] # (Auto) 1.8 H Seg Neutrophils % Seg Neuts % (Manual) 92.0 H Lymphocytes % (Manual) 2.0 L Nucleated RBC % 2.0 H Seg Neutrophils # 45.6 H Seg Neutrophils # Man 44.8 H Lymphocytes # (Manual) 1.0 L Monocytes # (Manual) 1.9 H PT INR APTT D-Dimer Heparin Anti-Xa Level ABG pH POC ABG pCO2 19.6 L POC ABG pO2 133.2 H ABG pO2 ABG HCO3 ABG O2 Saturation ABG Base Excess ABG Hemoglobin 5.9 L ABG Oxyhemoglobin ABG Potassium 4.7 H ABG Chloride ABG Glucose 150 H VBG pH Carboxyhemoglobin Sodium Potassium Chloride Carbon Dioxide BUN Creatinine Glucose POC Glucose 129 H Lactic Acid Calcium Magnesium Ferritin Total Bilirubin AST ALT Alkaline Phosphatase Lactate Dehydrogenase Total Creatine Kinase C-Reactive Protein Total Protein Albumin Arterial Blood Glucose 150 H Arterial Blood Ionized Calcium 4.0 L Urine WBC (Auto) U Epithel Cells (Auto) Urine Creatinine Crossmatch 09/25/20 09/25/20 09/25/20 10:05 10:05 10:06 WBC 43.2 H* RBC 1.87 L Hgb 4.9 L* Hct 17.4 L* MCV MCH 26 L MCHC 28 L RDW 16.4 H Plt Count 121 L Lymph % (Auto) Lymph # (Auto) [place] # (Auto) Seg Neutrophils % Seg Neuts % (Manual) Lymphocytes % (Manual) Nucleated RBC % Seg Neutrophils # Seg Neutrophils # Man Lymphocytes # (Manual) Monocytes # (Manual) PT 34.5 H INR 3.39 H APTT D-Dimer Heparin Anti-Xa Level ABG pH POC ABG pCO2 POC ABG pO2 ABG pO2 ABG HCO3 ABG O2 Saturation ABG Base Excess ABG Hemoglobin ABG Oxyhemoglobin ABG Potassium ABG Chloride ABG Glucose VBG pH Carboxyhemoglobin Sodium Potassium Chloride Carbon Dioxide BUN Creatinine Glucose POC Glucose Lactic Acid Calcium Magnesium Ferritin Total Bilirubin AST ALT Alkaline Phosphatase Lactate Dehydrogenase Total Creatine Kinase C-Reactive Protein Total Protein Albumin Arterial Blood Glucose Arterial Blood Ionized Calcium Urine WBC (Auto) U Epithel Cells (Auto) Urine Creatinine Crossmatch See Detail 09/25/20 09/25/20 09/25/20 10:08 20:38 20:38 WBC 41.0 H* RBC 3.00 L Hgb 8.7 L D Hct 27.2 L D MCV MCH MCHC RDW 15.7 H Plt Count 103 L Lymph % (Auto) Lymph # (Auto) [place] # (Auto) Seg Neutrophils % Seg Neuts % (Manual) Lymphocytes % (Manual) Nucleated RBC % Seg Neutrophils # Seg Neutrophils # Man Lymphocytes # (Manual) Monocytes # (Manual) PT INR APTT D-Dimer Heparin Anti-Xa Level ABG pH POC ABG pCO2 POC ABG pO2 ABG pO2 ABG HCO3 ABG O2 Saturation ABG Base Excess ABG Hemoglobin ABG Oxyhemoglobin ABG Potassium ABG Chloride ABG Glucose VBG pH Carboxyhemoglobin Sodium 146 H Potassium 5.3 H D 6.3 H* Chloride 96.2 L 92.7 L Carbon Dioxide 11 L D 11 L BUN 103 H 109 H Creatinine 3.5 H D 3.8 H Glucose 157 H 161 H POC Glucose Lactic Acid Calcium 7.7 L 7.2 L Magnesium Ferritin Total Bilirubin AST ALT Alkaline Phosphatase Lactate Dehydrogenase Total Creatine Kinase C-Reactive Protein Total Protein Albumin Arterial Blood Glucose Arterial Blood Ionized Calcium Urine WBC (Auto) U Epithel Cells (Auto) Urine Creatinine Crossmatch 09/25/20 09/26/20 09/26/20 23:12 05:24 05:55 WBC RBC Hgb Hct MCV MCH MCHC RDW Plt Count Lymph % (Auto) Lymph # (Auto) [place] # (Auto) Seg Neutrophils % Seg Neuts % (Manual) Lymphocytes % (Manual) Nucleated RBC % Seg Neutrophils # Seg Neutrophils # Man Lymphocytes # (Manual) Monocytes # (Manual) PT INR APTT D-Dimer Heparin Anti-Xa Level ABG pH POC ABG pCO2 POC ABG pO2 ABG pO2 ABG HCO3 ABG O2 Saturation ABG Base Excess ABG Hemoglobin ABG Oxyhemoglobin ABG Potassium ABG Chloride ABG Glucose VBG pH Carboxyhemoglobin Sodium Potassium 6.5 H* Chloride 92.6 L Carbon Dioxide 15 L BUN 119 H Creatinine 4.4 H Glucose 195 H POC Glucose 141 H 137 H Lactic Acid Calcium 6.8 L Magnesium Ferritin Total Bilirubin 1.60 H AST 9400 H ALT 5711 H Alkaline Phosphatase 537 H Lactate Dehydrogenase Total Creatine Kinase C-Reactive Protein Total Protein 4.2 L Albumin 2.4 L Arterial Blood Glucose Arterial Blood Ionized Calcium Urine WBC (Auto) U Epithel Cells (Auto) Urine Creatinine Crossmatch 09/26/20 12:08 WBC RBC Hgb Hct MCV MCH MCHC RDW Plt Count Lymph % (Auto) Lymph # (Auto) [place] # (Auto) Seg Neutrophils % Seg Neuts % (Manual) Lymphocytes % (Manual) Nucleated RBC % Seg Neutrophils # Seg Neutrophils # Man Lymphocytes # (Manual) Monocytes # (Manual) PT INR APTT D-Dimer Heparin Anti-Xa Level ABG pH POC ABG pCO2 POC ABG pO2 ABG pO2 ABG HCO3 ABG O2 Saturation ABG Base Excess ABG Hemoglobin ABG Oxyhemoglobin ABG Potassium ABG Chloride ABG Glucose VBG pH Carboxyhemoglobin Sodium Potassium Chloride Carbon Dioxide BUN Creatinine Glucose POC Glucose 61 L Lactic Acid Calcium Magnesium Ferritin Total Bilirubin AST ALT Alkaline Phosphatase Lactate Dehydrogenase Total Creatine Kinase C-Reactive Protein Total Protein Albumin Arterial Blood Glucose Arterial Blood Ionized Calcium Urine WBC (Auto) U Epithel Cells (Auto) Urine Creatinine Crossmatch Chest x-ray: pending Allied health notes reviewed: nursing
[2020-09-26] MEDS: METOCLOPRAMIDE 10 MG/2 ML INJ IV SCH ×2 (13:06→17:41)
--- NOTE | 2020-09-26 13:34 | XRay Report ---
ABDOMEN 1 VIEW(S) INDICATION / CLINICAL INFORMATION: Vomiting; distension. COMPARISON: 09/20/2020 FINDINGS: TUBES / LINES: Nasogastric tube terminates in the distal stomach. Right femoral catheter terminates n ear the level of S1. BOWEL GAS PATTERN: No significant abnormality. There is moderate to large fecal matter in the rectal vault. FREE AIR / EXTRALUMINAL GAS: None seen. ADDITIONAL FINDINGS: No significant additional findings. IMPRESSION: No acute abnormality appreciated. Moderate fecal retention in the rectum. Signer Name: Glenn Valenzuela Jr, MD Signed: 09/26/2020 1:30 PM Workstation Name: [id number]
--- NOTE | 2020-09-26 16:37 | Operative Report ---
Operative Report Operative Report: EXAM: 1. Ultrasound-guided puncture of the right internal jugular vein 2. Placement of a right internal jugular vein nontunneled noncuffed hemodialysis catheter. DATE: 09/26/2020 INDICATION: Acute renal failure requiring hemodialysis.. MEDICATIONS: Local anesthetic (1% lidocaine). DEVICES: Triple lumen nontunneled noncuffed hemodialysis catheter CREDIT ADMINISTRATOR: DAVID PINEDA MD CONTRAST: None PROCEDURE: The risks, benefits, and alternatives were discussed and informed consent was obtained. The patient's right internal jugular vein was assessed with ultrasound at bedside and determined to be patent prior to procedure. The patient was prepped and draped in a sterile fashion. The puncture site was anesthetized. Under sonographic guidance, the right internal jugular vein was punctured with a 18-gauge micropuncture needle and a 0.035 inch wire was advanced through the needle. Over the 0.035 inch wire, dilatation was performed. The catheter was advanced over the wire. 2-0 nylon suture was used to secure the catheter. The central lumen of the catheter was charged with saline. The peripheral lumens of the catheter were charged with 1000 units/mL of heparinized saline. Sterile dressing applied. Biopatch and tegaderm were applied. Chest x ray was ordered and the patient tolerated the procedure without immediate post procedual complication. FINDINGS: 1. Ultrasound documented patency of the right internal jugular vein. The vessel was accessed under direct ultrasound guidance. 2. On the post procedural chest x ray, the catheter tip is appropriately placed in the cavoatrial junction. No pneumothorax. IMPRESSION: 1. Successful ultrasound guided bedside placement of a right internal jugular vein nontunneled noncuffed triple lumen hemodialysis catheter.
--- NOTE | 2020-09-26 16:48 | XRay Report ---
CHEST 1 VIEW 09/26/2020 4:31 PM INDICATION / CLINICAL INFORMATION: line placement. COMPARISON: 09/19/2020 FINDINGS: SUPPORT DEVICES: Right internal jugular central venous catheter has been placed. The catheter tip pro jects at the expected location of the superior vena cava. Endotracheal tube and nasogastric tube appe ar unchanged HEART / MEDIASTINUM: Unchanged LUNGS / PLEURA: No significant pulmonary or pleural abnormality. No pneumothorax. ADDITIONAL FINDINGS: No significant additional findings. IMPRESSION: 1. Interval placement of a right internal jugular central catheter. No pneumothorax is seen. Signer Name: Caleb Massey MD Signed: 09/26/2020 4:44 PM Workstation Name: [id number]
[2020-09-26 17:19] LABS: Hematocrit 28.2 % (35.5-45.6); Hemoglobin 8.5 gm/dl (11.8-15.2); Mean Corpuscular HGB Conc 30 % (32-34); Mean Corpuscular Volume 94 fl (84-94); Red Cell Distribution Width 16.8 % (13.2-15.2)
[2020-09-26 17:27] LABS: Platelet Count 98 K/mm3 (140-440)
[2020-09-26] MEDS ORDERED: CALCIUM CHLORIDE 1,000 MG/10 ML SYRINGE IV ONE ×2 (17:27→17:37)
[2020-09-26 17:41] LABS: Hepatitis B Surface Antigen Non-Reactive (Negative); Hepatitis C Virus Antibody Non-Reactive (NonReactive)
[2020-09-26 18:08] LABS: Band Neutrophils # (Manual) 9.1 K/mm3; Total Cells Counted 100
[2020-09-26 18:09] LABS: Burr Cells Rare; Ovalocytes Rare; Platelet Estimate Consistent w Auto
[2020-09-26] MEDS: NORepinephrine 8 MG in SODIUM CHLORIDE 0.9% 250ML 242 ML IV SCH (18:37)
--- NOTE | 2020-09-26 21:37 | Progress Note ---
Assessment and Plan 1. Acute kidney injury: Vasomotor nephropathy in the setting of Cardiac arrest + contrast induced nephropathy. Renal US negative for hydro. Monitor renal function. Creatinine level 4.4 from 3.5 from 1.8 from 2.1 from 2.3 from 2.9 from 3.7 from 3.5 from 2.4 from 1.5. Renal prognosis is guarded. Avoid nephrotoxic agents. Meds dosage based on GFR. 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 HD planned for today. 2. FEN: Hypernatremia, monitor. Hyperkalemia, kayexalate ordered, HD planned for today, monitor. Metabolic acidosis, Sodium bicarbonate ordered, monitor. Monitor lytes and volume status. 3. Out of hospital Cardiac arrest 09/16: Seen by Cards. 4. Acute resp failure: Intubated on vent. Followed by Pulmonary. 5. Septic Shock: On Levophed and Vasopressin. ESBL E.coli bacteremia, likely from UTI. Meropenem. Followed by ID. 6. PE: CTA showed multiple filling defects involving L LL and R UL. Heparin drip. 7. Anemia, POA: Monitor. 8. Acute Metabolic Encephalopathy, POA: Supportive care. Prognosis is guarded to slim. Subjective: The patient was seen and examined at the bedside. Examination: General: elderly thin male with mildly increased respiratory effort, intubated, on vent HEENT: non-icteric, atraumatic Neck: trachea midline Respiratory: MV sounds Heart: S1S2, regular, no murmur Gastrointestinal: not tender, BS heard Integumentary: no rash, warm and dry Neurologic: not responding Ext: no edema : Sanchez catheter Subjective Date of service: 09/26/20 Principal diagnosis: Ac hypoxemic resp failure; Cardiac arrest; Acute P.E.; Severe sepsis; COVID Objective - Vital Signs Vital signs: Vital Signs - 12hr 09/26/20 09/26/20 09/26/20 09:40 09:50 10:00 Temperature Pulse Rate 86 91 H 91 H Respiratory 21 28 H 28 H Rate Blood Pressure 97/58 106/58 106/58 O2 Sat by Pulse 100 100 99 Oximetry 09/26/20 09/26/20 09/26/20 10:10 10:20 10:30 Temperature Pulse Rate 88 90 91 H Respiratory 27 H 28 H 29 H Rate Blood Pressure 113/67 95/68 95/68 O2 Sat by Pulse 99 99 100 Oximetry 09/26/20 09/26/20 09/26/20 10:40 10:50 11:00 Temperature Pulse Rate 90 89 90 Respiratory 27 H 26 H 28 H Rate Blood Pressure 126/75 126/75 99/55 O2 Sat by Pulse 100 96 100 Oximetry 09/26/20 09/26/20 09/26/20 11:06 11:10 11:20 Temperature Pulse Rate 90 90 89 Respiratory 27 H 28 H 27 H Rate Blood Pressure 101/65 101/65 120/76 O2 Sat by Pulse 100 100 100 Oximetry 09/26/20 09/26/20 09/26/20 11:34 11:41 11:51 Temperature Pulse Rate 89 89 89 Respiratory 27 H 26 H 25 H Rate Blood Pressure 96/59 126/75 111/55 O2 Sat by Pulse 100 100 100 Oximetry 09/26/20 09/26/20 09/26/20 12:00 12:01 12:11 Temperature 97.9 F Pulse Rate 86 100 H 87 Respiratory 26 H 26 H Rate Blood Pressure 111/55 111/55 O2 Sat by Pulse 90 94 Oximetry 09/26/20 09/26/20 09/26/20 12:20 12:30 12:41 Temperature Pulse Rate 87 84 84 Respiratory 25 H 28 H 30 H Rate Blood Pressure 175/117 143/80 143/80 O2 Sat by Pulse 97 100 98 Oximetry 09/26/20 09/26/20 09/26/20 12:51 13:00 13:11 Temperature Pulse Rate 83 83 85 Respiratory 29 H 26 H 26 H Rate Blood Pressure 84/55 95/50 95/50 O2 Sat by Pulse 100 87 98 Oximetry 09/26/20 09/26/20 09/26/20 13:21 13:30 13:41 Temperature Pulse Rate 84 84 83 Respiratory 28 H 28 H 27 H Rate Blood Pressure 129/78 121/74 121/74 O2 Sat by Pulse 100 95 100 Oximetry 09/26/20 09/26/20 09/26/20 13:51 14:00 14:11 Temperature Pulse Rate 84 84 83 Respiratory 27 H 27 H 26 H Rate Blood Pressure 116/73 116/73 107/75 O2 Sat by Pulse 100 100 99 Oximetry 09/26/20 09/26/20 09/26/20 14:21 14:30 14:41 Temperature Pulse Rate 84 84 84 Respiratory 26 H 25 H 25 H Rate Blood Pressure 116/74 123/70 123/70 O2 Sat by Pulse 100 95 100 Oximetry 09/26/20 09/26/20 09/26/20 14:51 15:01 15:11 Temperature Pulse Rate 84 85 84 Respiratory 24 25 H 24 Rate Blood Pressure 123/70 123/70 123/70 O2 Sat by Pulse 97 89 100 Oximetry 09/26/20 09/26/20 09/26/20 15:21 15:26 15:30 Temperature Pulse Rate 85 87 87 Respiratory 26 H 24 Rate Blood Pressure 123/70 149/107 O2 Sat by Pulse 91 100 Oximetry 09/26/20 09/26/20 09/26/20 15:41 15:51 16:00 Temperature 97.4 F L Pulse Rate 88 87 95 H Respiratory 24 Rate Blood Pressure 216/77 216/77 O2 Sat by Pulse 94 Oximetry 09/26/20 09/26/20 09/26/20 16:01 16:11 16:21 Temperature Pulse Rate 87 99 H 95 H Respiratory 25 H Rate Blood Pressure 139/77 139/77 O2 Sat by Pulse 93 91 98 Oximetry 09/26/20 09/26/20 09/26/20 16:31 16:41 16:51 Temperature Pulse Rate 84 91 H 89 Respiratory 25 H 25 H 25 H Rate Blood Pressure 97/51 97/51 97/51 O2 Sat by Pulse 81 L 96 94 Oximetry 09/26/20 09/26/20 09/26/20 17:01 17:11 17:21 Temperature Pulse Rate 83 82 106 H Respiratory 23 11 L 25 H Rate Blood Pressure 97/51 97/51 97/51 O2 Sat by Pulse 97 91 Oximetry 09/26/20 09/26/20 09/26/20 17:31 17:41 17:51 Temperature Pulse Rate 138 H 100 H 90 Respiratory 23 25 H 22 Rate Blood Pressure 97/51 136/82 140/68 O2 Sat by Pulse 85 94 99 Oximetry 09/26/20 09/26/20 09/26/20 18:00 18:11 18:21 Temperature Pulse Rate 88 88 120 H Respiratory 22 25 H 25 H Rate Blood Pressure 82/49 77/47 80/53 O2 Sat by Pulse 90 100 97 Oximetry 09/26/20 09/26/20 09/26/20 18:31 18:41 18:51 Temperature Pulse Rate 125 H 131 H 128 H Respiratory 25 H 25 H 26 H Rate Blood Pressure 91/55 101/56 129/66 O2 Sat by Pulse 32 L 79 L Oximetry 09/26/20 09/26/20 09/26/20 19:01 19:11 19:21 Temperature Pulse Rate 118 H 138 H 115 H Respiratory 25 H 25 H 25 H Rate Blood Pressure 129/66 129/66 63/36 O2 Sat by Pulse 68 L 83 L Oximetry 09/26/20 09/26/20 09/26/20 19:31 19:41 19:51 Temperature Pulse Rate 120 H 127 H 118 H Respiratory 25 H 23 24 Rate Blood Pressure 154/88 154/88 178/79 O2 Sat by Pulse 81 L 53 L 50 L Oximetry 09/26/20 09/26/20 09/26/20 19:54 19:58 20:00 Temperature 97.2 F L Pulse Rate 131 H 118 H Respiratory 25 H Rate Blood Pressure 178/79 185/159 O2 Sat by Pulse 36 L Oximetry 09/26/20 09/26/20 09/26/20 20:11 20:21 20:31 Temperature Pulse Rate 120 H 115 H 137 H Respiratory 25 H 25 H 25 H Rate Blood Pressure 185/159 185/159 185/159 O2 Sat by Pulse 59 L 46 L 35 L Oximetry 09/26/20 20:41 Temperature Pulse Rate 138 H Respiratory 25 H Rate Blood Pressure 93/75 O2 Sat by Pulse 31 L Oximetry - Lab 09/26/20 17:06 09/26/20 05:55 Most recent lab results ABG pH 7.340 (7.320-7.450) 09/25/20 03:50 ABG pCO2 29.5 mm Hg 09/24/20 04:20 ABG pO2 170.3 mm Hg (80.0-90.0) H 09/24/20 04:20 ABG HCO3 27.7 mmol/L (20.0-26.0) H 09/24/20 04:20 ABG O2 Saturation 99.2 % (95.0-99.0) H 09/24/20 04:20 Calcium 6.8 mg/dL (8.4-10.2) L 09/26/20 05:55 Phosphorus 3.40 mg/dL (2.5-4.5) 09/24/20 04:29 Magnesium 2.50 mg/dL (1.7-2.3) H 09/16/20 10:37 Urine Creatinine 181.1 mg/dL (0.1-20.0) H 09/17/20 00:57 Urine Sodium 78 mmol/L 09/17/20 00:57 Medications & Allergies - Medications Allergies/Adverse Reactions: Allergies No Known Allergies Allergy (Unverified 09/16/20 12:52) Home Medications: Home Medications Medication Instructions Recorded Confirmed Last Taken Type No Known Home Medications [No 09/18/20 09/18/20 Unknown History Reported Home Medications] Active Medications: Generic Name Dose Route Start Last Admin Trade Name Freq PRN Reason Stop Dose Admin Lipase/Protease/Amylase 1 each 09/17/20 08:56 Lipase 10,500/Protease 25,000/Amylase 43,750 (Units) Dr Cap FEEDTUBE PRN PRN For Clogged Feeding Tube Artificial Tears 2 drops 09/26/20 12:29 09/26/20 18:21 Hypromellose 0.5% Ophth Soln 15 Ml OU 2 drops PRN PRN Administration Dry Eye(s) Dextrose 50 ml 09/16/20 12:19 Dextrose 50% In Water (25gm) 50 Ml Syringe IV Q30MIN PRN Hypoglycemia Protocol Fentanyl 50 mcg 09/16/20 20:12 Fentanyl 100 Mcg/2 Ml Inj IV Q10MIN PRN ANALGESIA Heparin Sodium (Porcine) 2,400 unit 09/16/20 20:12 09/16/20 21:00 Heparin 10,000 Units/10 Ml Vial 40 unit/kg (2400 unit) 2,400 unit IV Administration Q6H PRN Anti-Xa Assay < 0.1 units/ml Hydralazine HCl 10 mg 09/22/20 02:39 09/23/20 09:52 Hydralazine 20 Mg/1 Ml Inj IV 10 mg Q6H PRN Administration Hypertension Hydrophilic Ointment 1 applic 09/16/20 20:12 09/19/20 22:51 Lip Therapy Vaseline TP 1 applic Q2HR PRN Administration Dry Lips Fentanyl Citrate 2,000 mcg in 100 mls @ 3 mls/hr 09/16/20 21:00 09/16/20 21:00 Fentanyl Drip Premix IV 1 mcg/kg/hr TITR DARA 3 mls/hr Administration Protocol 1 MCG/KG/HR Heparin Sodium/Sodium Chloride 25,000 unit in 500 mls @ 18 mls/hr 09/16/20 21:00 09/25/20 09:42 Heparin/ 0.45% Nacl-25,000 Unit/500 Ml IV 0 units/hr TITR DARA 0 mls/hr Titration Protocol 900 UNITS/HR Vasopressin 20 unit/ Sodium 101 mls @ 9.09 mls/hr 09/25/20 05:00 09/26/20 13:06 Chloride IV 0.03 units/min TITR DARA 9.09 mls/hr Administration Protocol 0.03 UNITS/MIN Norepinephrine 8 mg/ Sodium 250 mls @ 3.75 mls/hr 09/25/20 06:00 09/26/20 20:36 Chloride IV 30 mcg/min TITR DARA 56.25 mls/hr Titration Protocol 2 MCG/MIN MEROPENEM/NS 1 GRAM/100 ML 1 gram in 100 mls @ 100 mls/hr 09/26/20 10:00 09/26/20 10:09 Merrem/Ns 1 Gram/100 Ml IV 09/26/20 23:59 100 mls/hr Q24HR DARA Administration Protocol Sodium Chloride 100 mls @ 999 mls/hr 09/26/20 09:08 Nacl 0.9% IV SHER PRN Hypotension Norepinephrine 4 mg/ Dextrose 254 mls @ 7.62 mls/hr 09/26/20 15:00 IV TITRATE DARA Protocol 2 MCG/MIN Insulin Human Regular 0 unit 09/16/20 13:00 09/26/20 18:00 Insulin Regular, Human 100 Unit/Ml 3ml Vial SUB-Q Not Given Q6H DARA Protocol Lansoprazole 30 mg 09/24/20 10:00 09/26/20 10:09 Lansoprazole 30 Mg Solutab FEEDTUBE 30 mg BID DARA Administration Methylprednisolone Sodium Succinate 40 mg 09/16/20 22:00 09/26/20 13:04 Methylprednisolone Sod Succinate 40 Mg/1 Ml Inj IV 40 mg Q8HR DARA Administration Metoclopramide HCl 5 mg 09/26/20 13:00 09/26/20 17:41 Metoclopramide 10 Mg/2 Ml Inj IV 5 mg Q6HR DARA Administration Simple Syrup 15 ml 09/17/20 08:56 Simple Syrup 15 Ml FEEDTUBE PRN PRN Hypoglycemia Simple Syrup 30 ml 09/17/20 08:56 Simple Syrup 15 Ml FEEDTUBE PRN PRN Hypoglycemia Sodium Bicarbonate 325 mg 09/17/20 08:56 Sodium Bicarbonate 325 Mg Tab FEEDTUBE PRN PRN For Clogged Feeding Tube Sodium Chloride 10 ml 09/16/20 22:00 09/26/20 10:10 Sodium Chloride 0.9% 10 Ml Flush Syringe IV 10 ml BID DARA Administration Sodium Chloride 10 ml 09/16/20 12:19 Sodium Chloride 0.9% 10 Ml Flush Syringe IV PRN PRN LINE FLUSH
--- NOTE | 2020-09-26 21:49 | Event Note ---
Date: 09/26/20 Received a call from dialysis nurse; Pt tachycardic, hypotensive with SBP in 70s on max dose of 2 pressors. Patient is unstable at this time for conventional hemodialysis.
[2020-09-26] MEDS: PHENYLEPHRINE 100 MG in SODIUM CHLORIDE 0.9% 90 ML IV SCH (23:46)
--- NOTE | 2020-09-27 00:22 | Progress Note ---
Assessment and Plan The high probability of a clinically significant, sudden or life threatening deterioration of the [hemodynamic, neurologic, cardiac, respiratory] system(s) required my full and direct attention, intervention and personal management. The aggregate critical care time was [35] minutes. This time is in addition to time spent performing reported procedures but includes the following: [x] Data Review and interpretation [x] Patient assessment and monitoring of vital signs [x] Documentation [x] Medication orders and management Sepsis current--continue IV antibiotics Acute hypoxic respiratory failure. Etiology is unknown at this time. Chest x- ray shows no acute disease. Nephrology consultation Toxic metabolic encephalopathy. CT scan with extensive microvascular angiopathy. Multifocal bilateral pulmonary emboli. D-dimer > 10,000. Continue anticoagulation per pulmonary. Acute kidney injury. Patient had Vas-Cath today for dialysis Lactic acidosis. As above. Hyperkalemia--being treated DVT prophylaxis--- patient is anticoagulated and GI prophylaxis Poor prognosis Discussed with family about the prognosis Family wants everything to be done Subjective Date of service: 09/26/20 Principal diagnosis: Ac hypoxemic resp failure; Cardiac arrest; Acute P.E.; Severe sepsis; COVID Interval history: Cardiopulmonary arrest. Patient reportedly with [id number] cardiopulmonary arrest. Unsure of the patient's total time without a pulse. Cardiology and pulmonary consultation pending. Follow-up echocardiogram, cardiac isoenzymes and serial EKG. CT scan of the head pending. Check MRI and EEG when patient stabilized. D-dimer significantly elevated greater than 10,000. Check CTA of the chest. Lactic acid also elevated at 10 which increases mortality significantly. Severe sepsis with septic shock. Present on admission. Patient presented with fever, tachycardia, hypotension, elevated lactate, pressors and gram negative dinora bacteremia. 09/17/2020. Lactic acid improved. Follow-up blood and urine cultures. Start Rocephin IV daily. ID consultation. 09/18/2020. Urine culture reveals gram-negative rods. Await final identification and sensitivities. Await blood cultures. Continue IV antibiotics. ID consulted. Covid testing found to be negative. Check EEG given cardiopulmonary arrest. Neurology consultation with Dr. Esparza in a.m. No neurology coverage today. MRI brain with patient medically stable. Continue anticoagulation for pulmonary embolus. Await renal ultrasound. 09/19/2020. Patient with severe sepsis secondary to complicated UTI/gram- negative bacilli bacteremia. Follow-up identification and sensitivities. ID following. Antibiotics adjusted to cefepime. Renal ultrasound did not reveal obstructing stone. Small right kidney without hydronephrosis or medical renal disease. Complex right renal cyst. Nonvisualization of left kidney sonographically but CTA showed simple cyst appearing lesion in the left kidney without hydronephrosis. Check EEG and MRI given cardiopulmonary arrest. Neurology consultation. 09/20/2020 Patient with severe sepsis and gram-negative bacteremia Patient on cefepime neurology consult requested 09/21/2020 Patient with sepsis Possible anoxic encephalopathy Patient on IV antibiotics 09/22/2020 Patient septic and on antibiotics Anoxic encephalopathy Continue IV antibiotics Poor prognosis 09/23/2020 Unable to wean Patient is septic Anoxic encephalopathy Continue IV antibiotics 09/24/2020 Patient on IV antibiotics Sepsis Anoxic encephalopathy 09/25/2020 Unable to wean Anoxic encephalopathy Sepsis 09/26/2020 Patient had Vas-Cath today Hypotensive On 2 pressors Levophed and vasopressin Poor prognosis Anoxic encephalopathy Objective - Exam Narrative Exam: On vent - Constitutional Vitals: Vital Signs - 12hr 09/26/20 09/26/20 09/26/20 12:20 12:30 12:41 Temperature Pulse Rate 87 84 84 Respiratory 25 H 28 H 30 H Rate Blood Pressure 175/117 143/80 143/80 O2 Sat by Pulse 97 100 98 Oximetry 09/26/20 09/26/20 09/26/20 12:51 13:00 13:11 Temperature Pulse Rate 83 83 85 Respiratory 29 H 26 H 26 H Rate Blood Pressure 84/55 95/50 95/50 O2 Sat by Pulse 100 87 98 Oximetry 09/26/20 09/26/20 09/26/20 13:21 13:30 13:41 Temperature Pulse Rate 84 84 83 Respiratory 28 H 28 H 27 H Rate Blood Pressure 129/78 121/74 121/74 O2 Sat by Pulse 100 95 100 Oximetry 09/26/20 09/26/20 09/26/20 13:51 14:00 14:11 Temperature Pulse Rate 84 84 83 Respiratory 27 H 27 H 26 H Rate Blood Pressure 116/73 116/73 107/75 O2 Sat by Pulse 100 100 99 Oximetry 09/26/20 09/26/20 09/26/20 14:21 14:30 14:41 Temperature Pulse Rate 84 84 84 Respiratory 26 H 25 H 25 H Rate Blood Pressure 116/74 123/70 123/70 O2 Sat by Pulse 100 95 100 Oximetry 09/26/20 09/26/20 09/26/20 14:51 15:01 15:11 Temperature Pulse Rate 84 85 84 Respiratory 24 25 H 24 Rate Blood Pressure 123/70 123/70 123/70 O2 Sat by Pulse 97 89 100 Oximetry 09/26/20 09/26/20 09/26/20 15:21 15:26 15:30 Temperature Pulse Rate 85 87 87 Respiratory 26 H 24 Rate Blood Pressure 123/70 149/107 O2 Sat by Pulse 91 100 Oximetry 09/26/20 09/26/20 09/26/20 15:41 15:51 16:00 Temperature 97.4 F L Pulse Rate 88 87 95 H Respiratory 24 Rate Blood Pressure 216/77 216/77 O2 Sat by Pulse 94 Oximetry 09/26/20 09/26/20 09/26/20 16:01 16:11 16:21 Temperature Pulse Rate 87 99 H 95 H Respiratory 25 H Rate Blood Pressure 139/77 139/77 O2 Sat by Pulse 93 91 98 Oximetry 09/26/20 09/26/20 09/26/20 16:31 16:41 16:51 Temperature Pulse Rate 84 91 H 89 Respiratory 25 H 25 H 25 H Rate Blood Pressure 97/51 97/51 97/51 O2 Sat by Pulse 81 L 96 94 Oximetry 09/26/20 09/26/20 09/26/20 17:01 17:11 17:21 Temperature Pulse Rate 83 82 106 H Respiratory 23 11 L 25 H Rate Blood Pressure 97/51 97/51 97/51 O2 Sat by Pulse 97 91 Oximetry 09/26/20 09/26/20 09/26/20 17:31 17:41 17:51 Temperature Pulse Rate 138 H 100 H 90 Respiratory 23 25 H 22 Rate Blood Pressure 97/51 136/82 140/68 O2 Sat by Pulse 85 94 99 Oximetry 09/26/20 09/26/20 09/26/20 18:00 18:11 18:21 Temperature Pulse Rate 88 88 120 H Respiratory 22 25 H 25 H Rate Blood Pressure 82/49 77/47 80/53 O2 Sat by Pulse 90 100 97 Oximetry 09/26/20 09/26/20 09/26/20 18:31 18:41 18:51 Temperature Pulse Rate 125 H 131 H 128 H Respiratory 25 H 25 H 26 H Rate Blood Pressure 91/55 101/56 129/66 O2 Sat by Pulse 32 L 79 L Oximetry 09/26/20 09/26/20 09/26/20 19:01 19:11 19:21 Temperature Pulse Rate 118 H 138 H 115 H Respiratory 25 H 25 H 25 H Rate Blood Pressure 129/66 129/66 63/36 O2 Sat by Pulse 68 L 83 L Oximetry 09/26/20 09/26/20 09/26/20 19:31 19:41 19:51 Temperature Pulse Rate 120 H 127 H 118 H Respiratory 25 H 23 24 Rate Blood Pressure 154/88 154/88 178/79 O2 Sat by Pulse 81 L 53 L 50 L Oximetry 09/26/20 09/26/20 09/26/20 19:54 19:58 20:00 Temperature 97.2 F L Pulse Rate 131 H 118 H Respiratory 25 H Rate Blood Pressure 178/79 185/159 O2 Sat by Pulse 84 36 L Oximetry 09/26/20 09/26/20 09/26/20 20:11 20:21 20:31 Temperature Pulse Rate 120 H 115 H 137 H Respiratory 25 H 25 H 25 H Rate Blood Pressure 185/159 185/159 185/159 O2 Sat by Pulse 59 L 46 L 35 L Oximetry 09/26/20 20:41 Temperature Pulse Rate 138 H Respiratory 25 H Rate Blood Pressure 93/75 O2 Sat by Pulse 31 L Oximetry General appearance: Present: no acute distress, well-nourished - EENT Eyes: PERRL, EOM intact ENT: hearing intact, clear oral mucosa Ears: bilateral: normal - Neck Neck: supple, normal ROM - Respiratory Respiratory effort: normal Respiratory: bilateral: CTA - Breasts Breasts: normal - Cardiovascular Heart rate: 78 Rhythm: regular Heart Sounds: Present: S1 & S2. Absent: gallop, rub Extremities: pulses intact, No edema, normal color, Full ROM - Gastrointestinal General gastrointestinal: Present: soft, non-tender, non-distended, normal bowel sounds - Genitourinary Male genitourinary: normal - Integumentary Integumentary: clear, warm, dry - Neurologic Neurologic: other (Unresponsive) - Psychiatric Psychiatric: other (Unresponsive) - Allied health notes Allied health notes reviewed: nursing, case management - Labs CBC & Chem 7: 09/26/20 17:06 09/26/20 05:55 Labs: Abnormal lab results 09/26/20 09/26/20 09/26/20 Range/Units 05:24 05:55 12:08 WBC (4.5-11.0) K/mm3 RBC (3.65-5.03) M/mm3 Hgb (11.8-15.2) gm/dl Hct (35.5-45.6) % MCHC (32-34) % RDW (13.2-15.2) % Plt Count (140-440) K/mm3 Lymphocytes % (Manual) (13.4-35.0) % Nucleated RBC % (0.0-0.9) % Seg Neutrophils # Man (1.8-7.7) K/mm3 Lymphocytes # (Manual) (1.2-5.4) K/mm3 Monocytes # (Manual) (0.0-0.8) K/mm3 Potassium 6.5 H* (3.6-5.0) mmol/L Chloride 92.6 L (98-107) mmol/L Carbon Dioxide 15 L (22-30) mmol/L BUN 119 H (9-20) mg/dL Creatinine 4.4 H (0.8-1.3) mg/dL Glucose 195 H (75-100) mg/dL POC Glucose 137 H 61 L (70-105) mg/dL Calcium 6.8 L (8.4-10.2) mg/dL Total Bilirubin 1.60 H (0.1-1.2) mg/dL AST 9400 H (5-40) units/L ALT 5711 H (7-56) units/L Alkaline Phosphatase 537 H (35-129) units/L Total Protein 4.2 L (6.3-8.2) g/dL Albumin 2.4 L (3.9-5) g/dL 09/26/20 09/26/20 09/26/20 Range/Units 17:06 17:30 23:45 WBC 30.2 H (4.5-11.0) K/mm3 RBC 3.00 L (3.65-5.03) M/mm3 Hgb 8.5 L (11.8-15.2) gm/dl Hct 28.2 L (35.5-45.6) % MCHC 30 L (32-34) % RDW 16.8 H (13.2-15.2) % Plt Count 98 L (140-440) K/mm3 Lymphocytes % (Manual) 3.0 L (13.4-35.0) % Nucleated RBC % 14.0 H (0.0-0.9) % Seg Neutrophils # Man 19.0 H (1.8-7.7) K/mm3 Lymphocytes # (Manual) 0.9 L (1.2-5.4) K/mm3 Monocytes # (Manual) 1.2 H (0.0-0.8) K/mm3 Potassium (3.6-5.0) mmol/L Chloride (98-107) mmol/L Carbon Dioxide (22-30) mmol/L BUN (9-20) mg/dL Creatinine (0.8-1.3) mg/dL Glucose (75-100) mg/dL POC Glucose 67 L 66 L (70-105) mg/dL Calcium (8.4-10.2) mg/dL Total Bilirubin (0.1-1.2) mg/dL AST (5-40) units/L ALT (7-56) units/L Alkaline Phosphatase (35-129) units/L Total Protein (6.3-8.2) g/dL Albumin (3.9-5) g/dL
--- NOTE | 2020-09-27 00:24 | Event Note ---
Date: 09/26/20 Patient coded around 1130 CODE BLUE was called CPR was done IV epinephrine and sodium bicarbonate given Patient was revived Patient had a blood pressure of 160/82 and a heart rate of 82 and pulses were well felt discussed with family they want full code Made a request to come and see the patient because the patient is not doing well and the prognosis is poor Family to decide
[2020-09-27] MEDS: VASOPRESSIN 20 UNIT in SODIUM CHLORIDE 0.9% 100 ML IV SCH (01:29)
[2020-09-27] MEDS: methylPREDNISolone Sod Succinate 40 MG/1 ML INJ IV SCH (01:31)
[2020-09-27] MEDS: METOCLOPRAMIDE 10 MG/2 ML INJ IV SCH (01:32)
[2020-09-27] MEDS: INSULIN REGULAR, HUMAN 100 UNIT/ML 3ML VIAL SUB-Q SCH (01:32)
[2020-09-27] MEDS: LANSOPRAZOLE 30 MG SOLUTAB FEEDTUBE SCH (02:21)
--- NOTE | 2020-09-27 03:50 | Hem/Onc Consultation ---
History of Present Illness - Reason for Consult Consult date: 09/26/20 - History of Present Illness heme consult via [facility] televisit 84yo disabled man with Alzheimer's demetia per notes, admitted 2 weeks ago after "collapsing" at home-->CPR found to have evidence of PE, found to have hypothermia found to have E coli bacteremia 09/16/20 heme eval requested for guidance regarding clotting tendency/PE/anticoagulants receiving steroid pulse. receiving IV heparin starting HD needed RBC transfusions yesterday, started vasopressors DATA REVIEWED BELOW IMPRESSION recent bacteremia, sepsis, now with sequelae including ARF recent PE-->has been on UIV heparin retroperitoneal bleeding and HIT are possibilities doubt changing to argatroban will help now REC: end of life discussion, consider withdrawal of support if anticoag is continued-->consider argatroban instead of IV heparin Active Medications Fentanyl (Fentanyl 100 Mcg/2 Ml Inj) 50 mcg IV Q10MIN PRN PRN Reason: ANALGESIA Heparin Sodium (Porcine) (Heparin 10,000 Units/10 Ml Vial) 2,400 unit 40 unit/kg (2400 unit) IV Q6H PRN PRN Reason: Anti-Xa Assay < 0.1 units/ml Last Admin: 09/16/20 21:00 Dose: 2,400 unit Documented by: Fentanyl Citrate (Fentanyl Drip Premix) 2,000 mcg in 100 mls @ 3 mls/hr IV TITR DARA; Protocol Last Admin: 09/16/20 21:00 Dose: 1 mcg/kg/hr, 3 mls/hr Documented by: Heparin Sodium/Sodium Chloride (Heparin/ 0.45% Nacl-25,000 Unit/500 Ml) 25,000 unit in 500 mls @ 18 mls/hr IV TITR DARA; Protocol Last Titration: 09/25/20 09:42 Dose: 0 units/hr, 0 mls/hr Documented by: Methylprednisolone Sodium Succinate (Methylprednisolone Sod Succinate 40 Mg/1 Ml Inj) 40 mg IV Q8HR DARA Last Admin: 09/27/20 01:31 Dose: Not Given Documented by: Laboratory Last Values WBC 30.2 K/mm3 (4.5-11.0) H 09/26/20 17:06 Hgb 8.5 gm/dl (11.8-15.2) L 09/26/20 17:06 Hct 28.2 % (35.5-45.6) L 09/26/20 17:06 Plt Count 98 K/mm3 (140-440) L 09/26/20 17:06 Seg Neuts % (Manual) 63.0 % (40.0-70.0) 09/26/20 17:06 Band Neutrophils % 30.0 % 09/26/20 17:06 PT 34.5 Sec. (12.2-14.9) H 09/25/20 10:05 INR 3.39 (0.87-1.13) H 09/25/20 10:05 APTT 25.2 Sec. (24.2-36.6) 09/23/20 Unknown D-Dimer > 85765 ng/mlDDU (0-234) H 09/17/20 11:37 Creatinine 4.4 mg/dL (0.8-1.3) H 09/26/20 05:55 AST 9400 units/L (5-40) H 09/26/20 05:55 ALT 5711 units/L (7-56) H 09/26/20 05:55 Alkaline Phosphatase 537 units/L (35-129) H 09/26/20 05:55 Lactate Dehydrogenase 515 units/L (91-180) H 09/17/20 15:58 Total Creatine Kinase 517 units/L (55-170) H 09/24/20 04:29 Coronavirus (PCR) Negative (Negative) 09/16/20 Unknown Crossmatch See Detail 09/25/20 10:06 Past History Past Medical History: hyperlipidemia, other (Alzheimer's dementia) Past Surgical History: No surgical history Social history: no significant social history Family history: no significant family history Medications and Allergies Allergies Allergy/AdvReac Type Severity Reaction Status Date / Time No Known Allergies Allergy Unverified 09/16/20 12:52 Home Medications Medication Instructions Recorded Confirmed Last Taken Type No Known Home Medications [No 09/18/20 09/18/20 Unknown History Reported Home Medications] Active Meds: Active Medications Lipase/Protease/Amylase (Lipase 10,500/Protease 25,000/Amylase 43,750 (Units) Dr Arciniega) 1 each FEEDTUBE PRN PRN PRN Reason: For Clogged Feeding Tube Artificial Tears (Hypromellose 0.5% Ophth Soln 15 Ml) 2 drops OU PRN PRN PRN Reason: Dry Eye(s) Last Admin: 09/26/20 18:21 Dose: 2 drops Documented by: Dextrose (Dextrose 50% In Water (25gm) 50 Ml Syringe) 50 ml IV Q30MIN PRN; Protocol PRN Reason: Hypoglycemia Fentanyl (Fentanyl 100 Mcg/2 Ml Inj) 50 mcg IV Q10MIN PRN PRN Reason: ANALGESIA Heparin Sodium (Porcine) (Heparin 10,000 Units/10 Ml Vial) 2,400 unit 40 unit/kg (2400 unit) IV Q6H PRN PRN Reason: Anti-Xa Assay < 0.1 units/ml Last Admin: 09/16/20 21:00 Dose: 2,400 unit Documented by: Hydralazine HCl (Hydralazine 20 Mg/1 Ml Inj) 10 mg IV Q6H PRN PRN Reason: Hypertension Last Admin: 09/23/20 09:52 Dose: 10 mg Documented by: Hydrophilic Ointment (Lip Therapy Vaseline) 1 applic TP Q2HR PRN PRN Reason: Dry Lips Last Admin: 09/19/20 22:51 Dose: 1 applic Documented by: Fentanyl Citrate (Fentanyl Drip Premix) 2,000 mcg in 100 mls @ 3 mls/hr IV TITR DARA; Protocol Last Admin: 09/16/20 21:00 Dose: 1 mcg/kg/hr, 3 mls/hr Documented by: Heparin Sodium/Sodium Chloride (Heparin/ 0.45% Nacl-25,000 Unit/500 Ml) 25,000 unit in 500 mls @ 18 mls/hr IV TITR DARA; Protocol Last Titration: 09/25/20 09:42 Dose: 0 units/hr, 0 mls/hr Documented by: Vasopressin 20 unit/ Sodium (Chloride) 101 mls @ 9.09 mls/hr IV TITR DARA; Protocol Last Admin: 09/27/20 01:29 Dose: 0.03 units/min, 9.09 mls/hr Documented by: Norepinephrine 8 mg/ Sodium (Chloride) 250 mls @ 3.75 mls/hr IV TITR DARA; Protocol Last Titration: 09/26/20 20:36 Dose: 30 mcg/min, 56.25 mls/hr Documented by: Sodium Chloride (Nacl 0.9%) 100 mls @ 999 mls/hr IV SHER PRN PRN Reason: Hypotension Norepinephrine 4 mg/ Dextrose 254 mls @ 7.62 mls/hr IV TITRATE [facility]; Protocol Phenylephrine HCl 100 mg/ (Sodium Chloride) 100 mls @ 3 mls/hr IV TITR [facility]; Protocol Last Titration: 09/27/20 03:09 Dose: 200 mcg/min, 12 mls/hr Documented by: Insulin Human Regular (Insulin Regular, Human 100 Unit/Ml 3ml Vial) 0 unit SUB- Q Q6H [facility]; Protocol Last Admin: 09/27/20 01:32 Dose: Not Given Documented by: Lansoprazole (Lansoprazole 30 Mg Solutab) 30 mg FEEDTUBE BID [facility] Last Admin: 09/27/20 02:21 Dose: Not Given Documented by: Methylprednisolone Sodium Succinate (Methylprednisolone Sod Succinate 40 Mg/1 Ml Inj) 40 mg IV Q8HR [facility] Last Admin: 09/27/20 01:31 Dose: Not Given Documented by: Metoclopramide HCl (Metoclopramide 10 Mg/2 Ml Inj) 5 mg IV Q6HR [facility] Last Admin: 09/27/20 01:32 Dose: Not Given Documented by: Simple Syrup (Simple Syrup 15 Ml) 15 ml FEEDTUBE PRN PRN PRN Reason: Hypoglycemia Simple Syrup (Simple Syrup 15 Ml) 30 ml FEEDTUBE PRN PRN PRN Reason: Hypoglycemia Sodium Bicarbonate (Sodium Bicarbonate 325 Mg Tab) 325 mg FEEDTUBE PRN PRN PRN Reason: For Clogged Feeding Tube Sodium Chloride (Sodium Chloride 0.9% 10 Ml Flush Syringe) 10 ml IV BID [facility] Last Admin: 09/27/20 01:31 Dose: Not Given Documented by: Sodium Chloride (Sodium Chloride 0.9% 10 Ml Flush Syringe) 10 ml IV PRN PRN PRN Reason: LINE FLUSH Exam - Constitutional Vitals: Last Vital Signs Temp 97.2 F L 09/26/20 19:54 Pulse 88 09/27/20 03:01 Resp 25 H 09/27/20 03:01 BP 57/25 09/27/20 03:01 Pulse Ox 37 L 09/27/20 03:01 Results - Labs lab Results: Laboratory Results - last 24 hr 09/25/20 09/26/20 09/26/20 05:57 05:24 05:55 WBC RBC Hgb Hct MCV MCH MCHC RDW Plt Count Add Manual Diff Total Counted Seg Neutrophils % Seg Neuts % (Manual) Band Neutrophils % Lymphocytes % (Manual) Monocytes % (Manual) Nucleated RBC % Seg Neutrophils # Man Band Neutrophils # Lymphocytes # (Manual) Abs React Lymphs (Man) Monocytes # (Manual) Eosinophils # (Manual) Basophils # (Manual) Metamyelocytes # Myelocytes # Promyelocytes # Blast Cells # Pathologist Review WBC Morphology Hypersegmented Neuts Hyposegmented Neuts Hypogranular Neuts Smudge Cells Toxic Granulation Toxic Vacuolation Dohle Bodies Pelger-Huet Anomaly Janeth Rods Platelet Estimate Clumped Platelets Plt Clumps, EDTA Large Platelets Giant Platelets Platelet Satelliting Plt Morphology Comment RBC Morphology Dimorphic RBCs Polychromasia Hypochromasia Poikilocytosis Anisocytosis Microcytosis Macrocytosis Spherocytes Pappenheimer Bodies Sickle Cells Target Cells Tear Drop Cells Ovalocytes Helmet Cells Hernandez-[place] Bodies [place] Rings Almond Cells Bite Cells Crenated Cell Elliptocytes Acanthocytes (Spur) Rouleaux Hemoglobin C Crystals Schistocytes Malaria parasites [place] Bodies Hem Pathologist Commnt Sodium 145 Potassium 6.5 H* Chloride 92.6 L Carbon Dioxide 15 L Anion Gap 44 BUN 119 H Creatinine 4.4 H Estimated GFR 16 BUN/Creatinine Ratio 27 Glucose 195 H POC Glucose 137 H Calcium 6.8 L Total Bilirubin 1.60 H AST 9400 H ALT 5711 H Alkaline Phosphatase 537 H Total Protein 4.2 L Albumin 2.4 L Albumin/Globulin Ratio 1.3 Hepatitis A IgM Ab Hep Bs Antigen Hep B Core IgM Ab Hepatitis C Antibody 09/26/20 09/26/20 09/26/20 12:08 17:06 17:06 WBC 30.2 H RBC 3.00 L Hgb 8.5 L Hct 28.2 L MCV 94 MCH 29 MCHC 30 L RDW 16.8 H Plt Count 98 L Add Manual Diff Complete Total Counted 100 Seg Neutrophils % Flatware Maker Seg Neuts % (Manual) 63.0 Band Neutrophils % 30.0 Lymphocytes % (Manual) 3.0 L Monocytes % (Manual) 4.0 Nucleated RBC % 14.0 H Seg Neutrophils # Man 19.0 H Band Neutrophils # 9.1 Lymphocytes # (Manual) 0.9 L Abs React Lymphs (Man) 0.0 Monocytes # (Manual) 1.2 H Eosinophils # (Manual) 0.0 Basophils # (Manual) 0.0 Metamyelocytes # 0.0 Myelocytes # 0.0 Promyelocytes # 0.0 Blast Cells # 0.0 Pathologist Review WBC Morphology Not Reportable Hypersegmented Neuts Not Reportable Hyposegmented Neuts Not Reportable Hypogranular Neuts Not Reportable Smudge Cells Not Reportable Toxic Granulation Not Reportable Toxic Vacuolation Not Reportable Dohle Bodies Not Reportable Pelger-Huet Anomaly Not Reportable Janeth Rods Not Reportable Platelet Estimate Consistent w auto Clumped Platelets Not Reportable Plt Clumps, EDTA Not Reportable Large Platelets Not Reportable Giant Platelets Not Reportable Platelet Satelliting Not Reportable Plt Morphology Comment Not Reportable RBC Morphology Not Reportable Dimorphic RBCs Not Reportable Polychromasia Not Reportable Hypochromasia Not Reportable Poikilocytosis Not Reportable Anisocytosis Not Reportable Microcytosis Not Reportable Macrocytosis Not Reportable Spherocytes Not Reportable Pappenheimer Bodies Not Reportable Sickle Cells Not Reportable Target Cells Not Reportable Tear Drop Cells Not Reportable Ovalocytes Rare Helmet Cells Not Reportable Hernandez-[place] Bodies Not Reportable [place] Rings Not Reportable Almond Cells Rare Bite Cells Not Reportable Crenated Cell Not Reportable Elliptocytes Not Reportable Acanthocytes (Spur) Not Reportable Rouleaux Not Reportable Hemoglobin C Crystals Not Reportable Schistocytes Not Reportable Malaria parasites Not Reportable [place] Bodies Not Reportable Hem Pathologist Commnt No Sodium Potassium Chloride Carbon Dioxide Anion Gap BUN Creatinine Estimated GFR BUN/Creatinine Ratio Glucose POC Glucose 61 L Calcium Total Bilirubin AST ALT Alkaline Phosphatase Total Protein Albumin Albumin/Globulin Ratio Hepatitis A IgM Ab Non-reactive Hep Bs Antigen Non-reactive Hep B Core IgM Ab Non-reactive Hepatitis C Antibody Non-reactive 09/26/20 09/26/20 17:30 23:45 WBC RBC Hgb Hct MCV MCH MCHC RDW Plt Count Add Manual Diff Total Counted Seg Neutrophils % Seg Neuts % (Manual) Band Neutrophils % Lymphocytes % (Manual) Monocytes % (Manual) Nucleated RBC % Seg Neutrophils # Man Band Neutrophils # Lymphocytes # (Manual) Abs React Lymphs (Man) Monocytes # (Manual) Eosinophils # (Manual) Basophils # (Manual) Metamyelocytes # Myelocytes # Promyelocytes # Blast Cells # Pathologist Review WBC Morphology Hypersegmented Neuts Hyposegmented Neuts Hypogranular Neuts Smudge Cells Toxic Granulation Toxic Vacuolation Dohle Bodies Pelger-Huet Anomaly Janeth Rods Platelet Estimate Clumped Platelets Plt Clumps, EDTA Large Platelets Giant Platelets Platelet Satelliting Plt Morphology Comment RBC Morphology Dimorphic RBCs Polychromasia Hypochromasia Poikilocytosis Anisocytosis Microcytosis Macrocytosis Spherocytes Pappenheimer Bodies Sickle Cells Target Cells Tear Drop Cells Ovalocytes Helmet Cells Hernandez-[place] Bodies [place] Rings Almond Cells Bite Cells Crenated Cell Elliptocytes Acanthocytes (Spur) Rouleaux Hemoglobin C Crystals Schistocytes Malaria parasites [place] Bodies Hem Pathologist Commnt Sodium Potassium Chloride Carbon Dioxide Anion Gap BUN Creatinine Estimated GFR BUN/Creatinine Ratio Glucose POC Glucose 67 L 66 L Calcium Total Bilirubin AST ALT Alkaline Phosphatase Total Protein Albumin Albumin/Globulin Ratio Hepatitis A IgM Ab Hep Bs Antigen Hep B Core IgM Ab Hepatitis C Antibody
[2020-09-27] MEDS: NORepinephrine 8 MG in SODIUM CHLORIDE 0.9% 250ML 242 ML IV SCH (04:03)
[2020-09-27] MEDS: PHENYLEPHRINE 100 MG in SODIUM CHLORIDE 0.9% 90 ML IV SCH (05:13)
[2020-09-27 05:43] VITALS: BP 116/81
--- NOTE | 2020-09-27 05:56 | Event Note ---
Date: 09/27/20 LIZZETH COBB called on 84-year-old -Citizen Of [place] male who has been on admission for acute hypoxic respiratory failure, toxic metabolic encephalopathy, multifocal bilateral pulmonary emboli and acute kidney injury. Patient had earlier been coded within the last 8 hours. All resuscitative measures at this time were however futile. Upon exam: Pupils were fixed and dilated Chest: No breath sounds Cardiovascular exam: No peripheral pulses, no heart sounds Abdomen: soft Extremities: Cold and clammy Central nervous system: No reflexes Patient pronounced at 05:25 AM on 09/27/2020.
== END 2020-09-27 05:25 | DRG 870 ==
LOC: ED 09:58 → CC1 12:19
PROVIDERS: ADMIT Hospitalist; ATTEND Hospitalist
PROC: 0BH17EZ Insertion of Endotracheal Airway into Trachea, Via Natural or Artificial Opening (ICD-10-PCS; principal; 2020-09-16)
PROC: 5A1955Z Respiratory Ventilation, Greater than 96 Consecutive Hours (ICD-10-PCS; 2020-09-16)
PROC: 4A033R1 Measurement of Arterial Saturation, Peripheral, Percutaneous Approach (ICD-10-PCS; 2020-09-16)
PROC: 5A12012 Performance of Cardiac Output, Single, Manual (ICD-10-PCS; 2020-09-16)
PROC: 06HY33Z Insertion of Infusion Device into Lower Vein, Percutaneous Approach (ICD-10-PCS; 2020-09-16)
PROC: 30233N1 Transfusion of Nonautologous Red Blood Cells into Peripheral Vein, Percutaneous Approach (ICD-10-PCS; 2020-09-26)
PROC: 02HV33Z Insertion of Infusion Device into Superior Vena Cava, Percutaneous Approach (ICD-10-PCS; 2020-09-26)
PROC: B548ZZA Ultrasonography of Superior Vena Cava, Guidance (ICD-10-PCS; 2020-09-26)
PROC: 5A12012 Performance of Cardiac Output, Single, Manual (ICD-10-PCS; 2020-09-27)
PROC: 5A1D70Z Performance of Urinary Filtration, Intermittent, Less than 6 Hours Per Day (ICD-10-PCS; 2020-09-27)
DX: A41.51 Sepsis due to Escherichia coli [E. coli] (principal); J96.01 Acute respiratory failure with hypoxia; N17.0 Acute kidney failure with tubular necrosis; R65.21 Severe sepsis with septic shock; G92 Toxic encephalopathy; I26.99 Other pulmonary embolism without acute cor pulmonale; G93.1 Anoxic brain damage, not elsewhere classified; N39.0 Urinary tract infection, site not specified; E87.0 Hyperosmolality and hypernatremia; I46.9 Cardiac arrest, cause unspecified; D64.9 Anemia, unspecified; E11.65 Type 2 diabetes mellitus with hyperglycemia; G30.9 Alzheimer's disease, unspecified; Z20.822 Contact with and (suspected) exposure to COVID-19; F02.80 Dementia in other diseases classified elsewhere, unspecified severity, without behavioral disturbance, psychotic disturbance, mood disturbance, and anxiety; E78.5 Hyperlipidemia, unspecified; Z79.899 Other long term (current) drug therapy; Z79.84 Long term (current) use of oral hypoglycemic drugs; E87.5 Hyperkalemia
CPT/HCPCS: 36415; 36600; 70450; 71045; 71275; 74018; 76770; 80048; 80053; 80074; 80076; 81001; 82140; 82270; 82550; 82570; 82728; 82803; 82805; 82962; 83036; 83615; 83735; 83880; 84100; 84145; 84300; 85007; 85014; 85018; 85025; 85027; 85049; 85379; 85520; 85610; 85730; 86140; 86850; 86900; 86901; 86920; 87040; 87070; 87076; 87086; 87186; 87205; 90471; 92950; 93005; 93306; 94002; 94003; 95819; 96365; G0378; C9113; J0360; J0610; J0692; J0696; J1644; J1815; J2185; J2370; J2704; J2765; J2920; J2997; J3010; J3480; J7030; J7040; J7050; J7070; P9016; Q9967; U0003